=== PATIENT | male | born 1960 | race Caucasian/White ===

== ENCOUNTER 2023-04-15 16:55 | Inpatient (IN) | payer BC, OTHER ==
[2023-04-15 18:54] LABS: Glucose,Whole Blood 296 mg/dL (70-110)
[2023-04-15] MEDS ORDERED: DIPH,PERTUS(ACELL)TETVAC-LF 0.5 ML VIAL IM ONE (18:56)
[2023-04-15] MEDS ORDERED: MORPHINE SULFATE 4 MG/ML SYRINGE IV STA (18:56)
[2023-04-15] MEDS ORDERED: VANCOMYCIN IV PER PHARMACY 1 EACH MISC MISCELLANE PRN (18:58)
[2023-04-15] MEDS ORDERED: SODIUM CHLORIDE 0.9% 1,000 ML IV STA ×3 (18:59→20:20)
[2023-04-15] MEDS ORDERED: CEFEPIME 2 GM in SODIUM CHLORIDE 0.9% 100 ML IVPB SCH (19:00)
[2023-04-15] MEDS ORDERED: VANCOMYCIN 1,750 MG in SODIUM CHLORIDE 0.9% 500 ML 500 ML IVPB ONE (19:30)
[2023-04-15 19:39] LABS: ALT 35 U/L (4-49); AST 69 U/L (17-59); African American GFR (CKD) 82 (>60 ml/min/1.73 sqM); Albumin 3.3 g/dL (3.5-5.0); Alkaline Phosphatase 194 U/L (38-126); Anion Gap 15 mmol/L; Blood Urea Nitrogen 27 mg/dL (9-20); Calcium 8.6 mg/dL (8.4-10.2); Carbon Dioxide 24 mmol/L (22-30); Chloride 88 mmol/L (98-107); Glucose 256 mg/dL (74-99); Non-African American GFR(CKD) 71 (>60 ml/min/1.73 sqM); Sodium 127 mmol/L (137-145); Total Bilirubin 1.6 mg/dL (0.2-1.3); Total Protein 6.9 g/dL (6.3-8.2)
[2023-04-15 19:52] LABS: Potassium 4.7 mmol/L (3.5-5.1)
[2023-04-15 19:59] LABS: HCT 40.8 % (39.0-53.0); MCHC 34.4 g/dL (31.0-37.0); MCV 90.2 fL (80.0-100.0); Mean Platelet Volume 9.3; Platelet Count 303 k/uL (150-450); RBC 4.53 m/uL (4.30-5.90); WBC 21.4 k/uL (3.8-10.6)
--- NOTE | 2023-04-15 20:01 | XR ---
EXAMINATION TYPE: XR foot limited RT DATE OF EXAM: 04/15/2023 COMPARISON: NONE HISTORY: 62-year-old male with wound, evaluate for osteomyelitis TECHNIQUE: 2 views FINDINGS: There is an ulcer along the ball of the foot. However, no discrete underlying osteolysis or bony dest ruction is identified. However, there is forefoot soft tissue swelling and soft tissue gas along the medial forefoot especia lly along the plantar aspect. Small focus of soft tissue air also present along the plantar hindfoot and also tracking along the posteromedial ankle and lower leg. No acute fracture, subluxation, or dis location. Bipartite tibial sesamoid. IMPRESSION: 1. There is a soft tissue ulcer along the medial ball of the foot but no convincing findings of under lying contiguous osteomyelitis at this time. 2. However, there is tracking plantar soft tissue air predominantly in the medial forefoot, small foc us in the plantar hindfoot, and additional extensive air tracking along the posteromedial ankle and d istal leg. Correlate for diabetic foot infection with gas-forming organism.
[2023-04-15] MEDS ORDERED: MORPHINE SULFATE 4 MG/ML SYRINGE IVP STA (20:34)
[2023-04-15 20:42] LABS: Band Neutrophils % 3 %; Lymphocytes # (M) 1.28 k/uL (1.0-4.8); Monocytes # (M) 0.86 k/uL (0-1.0); Myelocytes # (M) 0.21 k/uL (0); Myelocytes % 1 %; Neutrophils % (M) 87 %; Nucleated Red Blood Cells 0 /100 WBC (0-0); Total Cells Counted 200
[2023-04-15] MEDS ORDERED: HYDROmorphone 0.5 MG/0.5 ML SYRINGE IVP PRN (20:57)
[2023-04-15] MEDS ORDERED: NALOXONE 0.4 MG/ML 1 ML VIAL IV PRN (20:57)
[2023-04-15 21:05] LABS: Polychromasia Present; Toxic Granulation Present
[2023-04-15] MEDS ORDERED: CLINDAMYCIN 600 MG in DEXTROSE 5% IN WATER 50 ML IVPB ONE ×2 (21:15)
[2023-04-15 21:45] LABS: Glucose,Whole Blood 195 mg/dL (70-110)
[2023-04-15] MEDS ORDERED: LABETALOL 5 MG/ML VIAL MDV ONE (22:19)
[2023-04-15] MEDS ORDERED: fentaNYL (PF) 50 MCG/ML 2 ML AMP ONE (22:19)
[2023-04-15] MEDS ORDERED: PROPOFOL 10 MG/ML 20 ML VIAL IV ONE (22:19)
[2023-04-15] MEDS ORDERED: IV FLUID CONTINUATION 1,000 ML IV ONE (22:19)
[2023-04-15] MEDS ORDERED: ROCURONIUM 10 MG/ML (5 ML VIAL) IV ONE (22:19)
[2023-04-15] MEDS ORDERED: SUCCINYLCHOLINE CHLORIDE 200 MG/10 ML VIAL IV ONE (22:19)
[2023-04-15] MEDS ORDERED: LACTATED RINGERS 1,000 ML IV ONE (22:19)
[2023-04-15] MEDS ORDERED: LIDOCAINE 1% INJ 10MG/ML (20 ML MDV) ONE (22:19)
[2023-04-15 23:26] LABS: Glucose,Whole Blood 194 mg/dL (70-110)
[2023-04-15] MEDS ORDERED: LABETALOL 5 MG/ML VIAL MDV IVP STA (23:34)
--- NOTE | 2023-04-15 23:35 | ED ---
General Adult HPI - General Chief complaint: Wound/Laceration Stated complaint: R foot injury Time Seen by Provider: 04/15/23 18:28 Source: patient, RN notes reviewed, old records reviewed Mode of arrival: ambulatory Limitations: no limitations - History of Present Illness Initial comments: Patient is a 62-year-old [id number] diabetic who presents emergency Department complaining of right lower extremity infection. States he believes last Tuesday he stepped on something at work and began experiencing pain over the wound located beneath his right big toe. Since that time infection seems to have spread and he is having redness, increasing pain, increasing swelling extending up his right calf. He denies fevers but does endorse chills. Delayed coming for evaluation but presents today for further evaluation at this time. No other acute complaints at this time. - Related Data Home Medications Medication Instructions Recorded Confirmed HYDROcodone/APAP 7.5-325MG [[place] 1 tab PO TID 04/15/23 04/15/23 7.5-325] Januvia(Unknown Dose) 1 tab PO DAILY 04/15/23 04/15/23 metFORMIN HCL 1,000 mg PO DIRECTED 04/15/23 04/15/23 Allergies Allergy/AdvReac Type Severity Reaction Status Date / Time No Known Allergies Allergy Verified 04/15/23 20:38 Review of Systems ROS Statement: Those systems with pertinent positive or pertinent negative responses have been documented in the HPI. Review of Systems: CONST: Denies fever EYES: Denies blurry vision ENT: Denies nasal congestion C/V: Denies Chest pain RESP: Denies shortness of breath GI: Denies abdominal pain : Denies dysuria SKIN: Endorses right lower extremity infection MSK: Denies joint pain. NEURO: Denies headache ROS Other: All systems not noted in ROS Statement are negative. Past Medical History Past Medical History: Diabetes Mellitus Additional Past Medical History / Comment(s): Back pain History of Any Multi-Drug Resistant Organisms: None Reported Past Surgical History: No Surgical Hx Reported Past Psychological History: No Psychological Hx Reported Smoking Status: Current every day smoker Past Alcohol Use History: None Reported Past Drug Use History: Marijuana General Exam - General Exam Comments Initial Comments: General: Appears in mild distress. Afebrile. HEAD: Normal with no signs of head trauma. EYES: PERRLA, EOMI, conjunctiva normal, no discharge. ENT: Hearing grossly intact, normal oropharynx. RESPIRATORY: Clear breath sounds bilaterally. No wheezes, rales, or rhonchi. C/V: Tachycardic. S1 and S2 auscultated, peripheral pulses 2+ and intact throughout ABD: Abd is soft, nontender, nondistended EXT: Decreased range of motion secondary to edema and infection SKIN: Patient does have what appears to be wet gangrene with bullae present over the distal right foot and the first, second, third digits as well as a wound located on the plantar aspect of the distal right MTP, first joint. Patient also has surrounding erythema and edema extending up the posterior aspect of the right calf. NEURO: Alert and oriented 4. Limitations: no limitations Course Vital Signs 04/15/23 04/15/23 17:14 18:46 Temperature 98.7 F 98.6 F Pulse Rate 134 H 128 H Respiratory 20 18 Rate Blood Pressure 116/74 O2 Sat by Pulse 97 98 Oximetry Procedures - [place] Protocol (Time Out) Patient Identification (2 identifiers required): Chart, Name, Birthdate Patient/Legal Manager Book has Confirmed: Identity, Site, Procedure, Consent Site Marked: No Medical Decision Making - Medical Decision Making Was pt. sent in by a medical professional or institution (, PA, EXTENSION COURSE COORDINATOR, urgent care, hospital, or detention...) When possible be specific @ -No Did you speak to anyone other than the patient for history (EMS, parent, family, police, friend...)? What history was obtained from this source @ -No Did you review nursing and triage notes (agree or disagree)? Why? @ -I reviewed and agree with nursing and triage notes Were old charts reviewed (outside hosp., previous admission, EMS record, old EKG, old radiological studies, urgent care reports/EKG's, detention records)? Report findings @ -Old charts reviewed Differential Diagnosis (chest pain, altered mental status, abdominal pain women, abdominal pain men, vaginal bleeding, weakness, fever, dyspnea, syncope, headache, dizziness, GI bleed, back pain, seizure, CVA, palpatations, mental health, musculoskeletal)? @ -Cellulitis, foot gangrene, necrotizing infection, poorly controlled diabetes. This list is not all inclusive. EKG interpreted by me (3pts min.). @ -As above X-rays interpreted by me (1pt min.). @ -X-ray reveals air extending up past the right ankle. Concern for necrotizing infection. CT interpreted by me (1pt min.). @ -None done U/S interpreted by me (1pt. min.). @ -None done What testing was considered but not performed or refused? (CT, X-rays, U/S, labs)? Why? @ -None What meds were considered but not given or refused? Why? @ -None Did you discuss the management of the patient with other professionals (professionals i.e. , PA, EXTENSION COURSE COORDINATOR, lab, RT, psych nurse, social services assistant, fruit receiver, teacher, ground defence officer, transplant case manager)? Give summary @ -Discussed the case with Dr. Mathur who is in agreement with management and was in agreement with taking patient operating room. Discussed the case with the admitting physician, Dr. malhotra who accepted the patient. Was smoking cessation discussed for >3mins.? @ -No Was critical care preformed (if so, how long)? @ -Yes, 35 min Were there social determinants of health that impacted care today? How? (Homelessness, low income, unemployed, alcoholism, drug addiction, transportation, low edu. Level, literacy, decrease access to med. care, retirement, r ehab)? @ -No Was there de-escalation of care discussed even if they declined (Discuss DNR or withdrawal of care, Hospice)? DNR status @ -No What co-morbidities impacted this encounter? (DM, HTN, Smoking, COPD, CAD, Cancer, CVA, ARF, Chemo, Hep., AIDS, mental health diagnosis, sleep apnea, morbid obesity)? @ -Diabetes Was patient admitted / discharged? Hospital course, mention meds given and route, prescriptions, significant lab abnormalities, going to OR and other pertinent info. @ -Based on patient's presentation and physical exam, I'm concerned for soft tissue infection particularly wet gangrene based on initial evaluation. We will obtain basic labs, wound as well as blood cultures, as well as x-ray to evaluate process or myelitis. Patient with plan. Patient started on IV fluids, tetanus booster updated. Patient started on vancomycin and cefepime for broad spectrum antibiotics. He was given IV analgesia medications. Patient in agreement with this plan. Patient is afebrile. Vital signs within acceptable limits except for tachycardia. Patient's labs are remarkable for a leukocytosis of 21. Lactic acidosis of 3.9. Patient's imaging concerning for necrotizing infection with air stranding extending up the posterior aspect of the right leg. Patient met sepsis criteria at 2114 when the results returned. Patient was already started on vancomycin and cefepime. Patient now started on clindamycin over concern for necrotizing infection I did switch patient's cefepime and order for Zosyn at this time. This will cover for necrotizing fasciitis. I spoke with vascular surgery Dr. Mathur who was in agreement with the concern and will take the patient to the operating room for debridement. Was in agreement with management. I spoke with the admitting physician Dr. malhotra who accepted the patient. I did the patient and he expressed understanding. Undiagnosed new problem with uncertain prognosis? @ -No Drug Therapy requiring intensive monitoring for toxicity (Heparin, Nitro, Insulin, Cardizem)? @ -No Were any procedures done? @ -No Diagnosis/symptom? @ -Sepsis caused by Diabetic right foot wound wet gangrene with concern for necrotizing fasciitis Acute, or Chronic, or Acute on Chronic? @ -Acute Uncomplicated (without systemic symptoms) or Complicated (systemic symptoms)? @ -Complicated Side effects of treatment? @ -No Exacerbation, Progression, or Severe Exacerbation? @ -No Poses a threat to life or bodily function? How? (Chest pain, USA, IA, pneumonia, PE, COPD, DKA, ARF, appy, cholecystitis, CVA, Diverticulitis, Homicidal, Suicidal, threat to staff... and all critical care pts) @ -Yes - Lab Data Result diagrams: 04/15/23 19:02 04/15/23 19:02 Lab Results 04/15/23 04/15/23 04/15/23 Range/Units 18:52 19:02 19:02 WBC 21.4 H (3.8-10.6) k/uL RBC 4.53 (4.30-5.90) m/uL Hgb 14.0 (13.0-17.5) gm/dL Hct 40.8 (39.0-53.0) % MCV 90.2 (80.0-100.0) fL MCH 31.0 (25.0-35.0) pg MCHC 34.4 (31.0-37.0) g/dL RDW 13.0 (11.5-15.5) % Plt Count 303 (150-450) k/uL MPV 9.3 Neutrophils % (Manual) 87 % Band Neuts % (Manual) 3 % Lymphocytes % (Manual) 6 % Monocytes % (Manual) 4 % Myelocytes % 1 % Neutrophils # (Manual) 19.20 H (1.3-7.7) k/uL Lymphocytes # (Manual) 1.28 (1.0-4.8) k/uL Monocytes # (Manual) 0.86 (0-1.0) k/uL Myelocytes # (Manual) 0.21 H (0) k/uL Nucleated RBCs 0 (0-0) /100 WBC Manual Slide Review Performed Toxic Granulation Present Polychromasia Present Sodium 127 L (137-145) mmol/L Potassium 4.7 (3.5-5.1) mmol/L Chloride 88 L (98-107) mmol/L Carbon Dioxide 24 (22-30) mmol/L Anion Gap 15 mmol/L BUN 27 H (9-20) mg/dL Creatinine 1.10 (0.66-1.25) mg/dL Est GFR (CKD-EPI)AfAm 82 (>60 ml/min/1.73 sqM) Est GFR (CKD-EPI)NonAf 71 (>60 ml/min/1.73 sqM) Glucose 256 H (74-99) mg/dL POC Glucose (mg/dL) 296 H (70-110) mg/dL POC Glu Ostomy Care Nurse ID Carlo Preciado Lactic Ac Sepsis Rflx Plasma Lactic Acid Omid (0.7-2.0) mmol/L Calcium 8.6 (8.4-10.2) mg/dL Total Bilirubin 1.6 H (0.2-1.3) mg/dL AST 69 H (17-59) U/L ALT 35 (4-49) U/L Alkaline Phosphatase 194 H (38-126) U/L Total Protein 6.9 (6.3-8.2) g/dL Albumin 3.3 L (3.5-5.0) g/dL 04/15/23 04/15/23 Range/Units 19:02 19:33 WBC (3.8-10.6) k/uL RBC (4.30-5.90) m/uL Hgb (13.0-17.5) gm/dL Hct (39.0-53.0) % MCV (80.0-100.0) fL MCH (25.0-35.0) pg MCHC (31.0-37.0) g/dL RDW (11.5-15.5) % Plt Count (150-450) k/uL MPV Neutrophils % (Manual) % Band Neuts % (Manual) % Lymphocytes % (Manual) % Monocytes % (Manual) % Myelocytes % % Neutrophils # (Manual) (1.3-7.7) k/uL Lymphocytes # (Manual) (1.0-4.8) k/uL Monocytes # (Manual) (0-1.0) k/uL Myelocytes # (Manual) (0) k/uL Nucleated RBCs (0-0) /100 WBC Manual Slide Review Toxic Granulation Polychromasia Sodium (137-145) mmol/L Potassium (3.5-5.1) mmol/L Chloride (98-107) mmol/L Carbon Dioxide (22-30) mmol/L Anion Gap mmol/L BUN (9-20) mg/dL Creatinine (0.66-1.25) mg/dL Est GFR (CKD-EPI)AfAm (>60 ml/min/1.73 sqM) Est GFR (CKD-EPI)NonAf (>60 ml/min/1.73 sqM) Glucose (74-99) mg/dL POC Glucose (mg/dL) (70-110) mg/dL POC Glu Ostomy Care Nurse ID Lactic Ac Sepsis Rflx Y Plasma Lactic Acid Omid 3.9 H* (0.7-2.0) mmol/L Calcium (8.4-10.2) mg/dL Total Bilirubin (0.2-1.3) mg/dL AST (17-59) U/L ALT (4-49) U/L Alkaline Phosphatase (38-126) U/L Total Protein (6.3-8.2) g/dL Albumin (3.5-5.0) g/dL Critical Care Time Critical Care Time: Yes Total Critical Care Time: 35 Disposition Clinical Impression: Wound of foot, Wet gangrene, Necrotizing soft tissue infection Disposition: ADMITTED IP TO THIS HOSP Condition: Serious Time of Disposition: 20:45
--- NOTE | 2023-04-15 23:46 | P.GSCN ---
History of Present Illness Consult date: 04/15/23 Reason for Consult: Right foot and leg infection. History of present illness: Patient is a 62-year-old male who presented to the emergency department earlier today with a 3-4 day history of right foot pain and swelling. He had not sought any prior medical care until presenting to the emergency department. He did complain of fevers. He denies any trauma to the foot or leg or any previous similar symptoms. In the emergency department x-rays of the foot were obtained which demonstrated air in the lower third of the leg. Additional x-rays were obtained which demonstrated subcutaneous air to the thigh area posteriorly. Patient is a current tobacco user and has a history of diabetes mellitus. The patient has not been under the care of any physician for number of years and due to financial reasons has not been able to obtain his diabetic medications. Review of Systems - Constitutional Reports chills, Reports fever - Musculoskeletal right: ankle pain, ankle stiffness, ankle swelling, as per HPI, foot pain, foot stiffness, foot swelling - Integumentary Integumentary Comment(s): Erythema extending from the foot to the upper calf area on the right. Past Medical History Past Medical History: Diabetes Mellitus Additional Past Medical History / Comment(s): Back pain History of Any Multi-Drug Resistant Organisms: None Reported Past Surgical History: No Surgical Hx Reported Past Psychological History: No Psychological Hx Reported Smoking Status: Current every day smoker Past Alcohol Use History: None Reported Past Drug Use History: Marijuana Medications and Allergies Home Medications Medication Instructions Recorded Confirmed Type HYDROcodone/APAP 7.5-325MG [[place] 1 tab PO TID 04/15/23 04/15/23 History 7.5-325] Januvia(Unknown Dose) 1 tab PO DAILY 04/15/23 04/15/23 History metFORMIN HCL 1,000 mg PO DIRECTED 04/15/23 04/15/23 History Allergies Allergy/AdvReac Type Severity Reaction Status Date / Time No Known Allergies Allergy Verified 04/15/23 20:38 Surgical - Exam Osteopathic Statement: *. No significant issues noted on an osteopathic str uctural exam other than those noted in the History and Physical/Consult. Vital Signs Temp Pulse Resp Pulse Ox 98.7 F 134 H 20 97 04/15/23 17:14 04/15/23 17:14 04/15/23 17:14 04/15/23 17:14 Patient Seen Date: 04/15/23 Patient Seen Time: 20:15 Patient is awake, alert and cooperative. Neck is supple and free of adenopathy or bruit. Heart: Regular rate and rhythm. Lungs: Clear to auscultation bilaterally. Abdomen: Soft and nontender. Normal active bowel sounds are noted. Extremities: The left lower extremity demonstrates easily palpable femoral, popliteal, DP and PT pulses. The left lower extremity demonstrates an easily palpable femoral pulse. The popliteal pulse is present however I could not palpate a DP or PT pulse most likely secondary to edema and inflammatory changes of the foot. There is crepitus to palpation along the calf extending above the popliteal level. There is a callus at the first metatarsal head and when the foot is [id number] drainage is expressed from this callus. Results - Labs 04/15/23 19:02 04/15/23 19:02 Abnormal Lab Results - Last 24 Hours (Table) 04/15/23 04/15/23 04/15/23 Range/Units 18:52 19:02 19:02 WBC 21.4 H (3.8-10.6) k/uL Neutrophils # (Manual) 19.20 H (1.3-7.7) k/uL Myelocytes # (Manual) 0.21 H (0) k/uL Sodium 127 L (137-145) mmol/L Chloride 88 L (98-107) mmol/L BUN 27 H (9-20) mg/dL Glucose 256 H (74-99) mg/dL POC Glucose (mg/dL) 296 H (70-110) mg/dL Plasma Lactic Acid Omid (0.7-2.0) mmol/L Total Bilirubin 1.6 H (0.2-1.3) mg/dL AST 69 H (17-59) U/L Alkaline Phosphatase 194 H (38-126) U/L Albumin 3.3 L (3.5-5.0) g/dL 04/15/23 04/15/23 04/15/23 Range/Units 19:02 21:33 23:24 WBC (3.8-10.6) k/uL Neutrophils # (Manual) (1.3-7.7) k/uL Myelocytes # (Manual) (0) k/uL Sodium (137-145) mmol/L Chloride (98-107) mmol/L BUN (9-20) mg/dL Glucose (74-99) mg/dL POC Glucose (mg/dL) 195 H 194 H (70-110) mg/dL Plasma Lactic Acid Omid 3.9 H* (0.7-2.0) mmol/L Total Bilirubin (0.2-1.3) mg/dL AST (17-59) U/L Alkaline Phosphatase (38-126) U/L Albumin (3.5-5.0) g/dL Diabetes panel 04/15/23 Range/Units 19:02 Sodium 127 L (137-145) mmol/L Potassium 4.7 (3.5-5.1) mmol/L Chloride 88 L (98-107) mmol/L Carbon Dioxide 24 (22-30) mmol/L BUN 27 H (9-20) mg/dL Creatinine 1.10 (0.66-1.25) mg/dL Glucose 256 H (74-99) mg/dL Calcium 8.6 (8.4-10.2) mg/dL AST 69 H (17-59) U/L ALT 35 (4-49) U/L Alkaline Phosphatase 194 H (38-126) U/L Total Protein 6.9 (6.3-8.2) g/dL Albumin 3.3 L (3.5-5.0) g/dL Calcium panel 04/15/23 Range/Units 19:02 Calcium 8.6 (8.4-10.2) mg/dL Albumin 3.3 L (3.5-5.0) g/dL Pituitary panel 04/15/23 Range/Units 19:02 Sodium 127 L (137-145) mmol/L Potassium 4.7 (3.5-5.1) mmol/L Chloride 88 L (98-107) mmol/L Carbon Dioxide 24 (22-30) mmol/L BUN 27 H (9-20) mg/dL Creatinine 1.10 (0.66-1.25) mg/dL Glucose 256 H (74-99) mg/dL Calcium 8.6 (8.4-10.2) mg/dL Adrenal panel 04/15/23 Range/Units 19:02 Sodium 127 L (137-145) mmol/L Potassium 4.7 (3.5-5.1) mmol/L Chloride 88 L (98-107) mmol/L Carbon Dioxide 24 (22-30) mmol/L BUN 27 H (9-20) mg/dL Creatinine 1.10 (0.66-1.25) mg/dL Glucose 256 H (74-99) mg/dL Calcium 8.6 (8.4-10.2) mg/dL Total Bilirubin 1.6 H (0.2-1.3) mg/dL AST 69 H (17-59) U/L ALT 35 (4-49) U/L Alkaline Phosphatase 194 H (38-126) U/L Total Protein 6.9 (6.3-8.2) g/dL Albumin 3.3 L (3.5-5.0) g/dL - Imaging Additional studies: X-rays of the right lower extremity were personally reviewed. Assessment and Plan Assessment: Suspected necrotizing fasciitis of the right lower extremity Sepsis. Uncontrolled diabetes mellitus. Current tobacco use. Leukocytosis. Plan: Patient will require urgent surgical intervention. He was explained the patient as well as his daughter that there is a high risk for the need of amputation, the level which has yet to be determined. Time with Patient: Greater than 30
--- NOTE | 2023-04-15 23:54 | P.OP ---
Date of Procedure: 04/15/23 Preoperative Diagnosis: Necrotizing fasciitis right foot and lower extremity. Postoperative Diagnosis: Same. Procedure(s) Performed: Incision and drainage of extensive deep space abscess of the foot extending along the posterior aspect of the calf to the mid thigh level was sterilely. Anesthesia: JOSHA Surgeon: Benson Ibarra Estimated Blood Loss (ml): 25 Pathology: other (Culture) Condition: critical Disposition: ICU Indications for Procedure: Patient is a 62-year-old male who presented earlier today to the emergency department complaining of right foot pain and swelling. Examination demonstrated an open wound on the plantar surface of his foot as well as erythema of the foot extending to the upper calf level. Crepitus was noted along the posterior calf and extended to above the popliteal level. X-rays of the lower extremity demonstrated subcutaneous air/gas from the ankle level to the thigh level. Laboratory evaluation demonstrated a white cell count 21,000. The patient was placed on IV antibiotics and IV fluids and was offered incision and drainage to help control the infectious process. It was made clear to the patient as well as to his daughter that there is a high risk of some degree of amputation. All questions were answered to patient and daughter satisfaction. Consent form signed. Operative Findings: Extensive infectious process extending from the plantar surface of the foot to the calf level and into the posterior thigh with evidence of early muscle necrosis. The infection extended across multiple tissue planes. Description of Procedure: Patient was brought the upper and placed in the supine position Mr. general endotracheal anesthesia delivered by the department anesthesiology. Patient was then placed in the prone position and the right lower extremity sterilely prepped and draped in usual manner. On the plantar surface of the foot at the first metatarsal head a callus was identified which measured 1.75 x 1.25 x 6-7 mm in depth. When the foot was compressed purulent drainage was expressed. Tunneling was identified toward the heel area and laterally. This tunneling was eventually followed up the calf area, across the popliteal space and into the posterior thigh area ending near the upper thigh area. Cultures were obtained. Wound was irrigated. Bleeding was controlled with electrocautery. The soft tissue was easily from the muscle in the calf area. The wound was then packed with Dakin's's soaked gauze and wrapped with Curlex and Rj wrap. Patient tolerated the procedure well and was taken to the intensive care unit in serious condition. Arterial line is to be placed by anesthesia. I did reach out to the critical care physician infection prevention practitioner and reviewed surgical findings. Additionally did speak with the patient's daughter postoperatively and indicated that he may need a high thigh amputation or possible hip disarticulation
[2023-04-16 00:05] LABS: ABG Base Excess 0.7 mmol/L; ABG HCO3 26 mmol/L (21-25); ABG Oxygen Saturation 98.4 % (94-97); ABG PCO2 45 mmHg (35-45); ABG PH 7.37 (7.35-7.45); ABG PO2 142 mmHg (83-108); ABG TCO2 27 mmol/L (19-24); Allen Test Performed? Yes
[2023-04-16 00:34] LABS: Appearance,Urine Cloudy (Clear); Bacteria,Urine Rare /hpf; Bilirubin,Urine Negative (Negative); Blood,Urine Moderate (Negative); Color,Urine Yellow; Glucose,Urine (UA) 3+ (Negative); Hyaline Casts,Urine 4 /lpf (0-2); Ketones,Urine Negative (Negative); Leukocyte Esterase,Urine Negative (Negative); Mucus,Urine Rare /hpf; Nitrite,Urine Negative (Negative); PH, Urine 5.5 (5.0-8.0); Protein,Urine 1+ (Negative); RBC,Urine 2 /hpf (0-5); Specific Gravity,Urine 1.026 (1.001-1.035); Squamous Epithelial Cell,Urine <1 /hpf (0-4); Urobilinogen,Urine <2.0 mg/dL (<2.0); WBC,Urine 3 /hpf (0-5)
[2023-04-16] MEDS: fentaNYL (PF). 1,000 MCG in SODIUM CHLORIDE 0.9% 80 ML IV SCH ×3 (01:10→17:35)
[2023-04-16] MEDS: NOREPINEPHRINE 4 MG in SODIUM CHLORIDE 0.9% 250 ML IV SCH ×3 (01:15→08:39)
--- NOTE | 2023-04-16 01:20 | XR ---
EXAM: XR Right Femur CLINICAL HISTORY: ITS.REASON XR Reason: emergency surgery TECHNIQUE: Frontal view of the right femur. COMPARISON: No relevant prior studies available. FINDINGS: Bones/joints: No acute fracture. No dislocation. Soft tissues: Soft tissue emphysema around the knee joint. IMPRESSION: No acute osseous abnormalities. Soft tissue emphysema around the knee joint. Cannot exclude necrotizing fasciitis.
--- NOTE | 2023-04-16 01:20 | XR ---
EXAM: XR Right Tibia and Fibula, 2 Views CLINICAL HISTORY: ITS.REASON XR Reason: emergency surgery TECHNIQUE: Frontal and lateral views of the right tibia and fibula. COMPARISON: No relevant prior studies available. FINDINGS: Bones/joints: No acute fracture. No dislocation. Mild to moderate osteoarthrosis. Soft tissues: Soft tissue emphysema seen from above the knee all the way to the ankle. IMPRESSION: Soft tissue emphysema seen from above the knee all the way to the ankle. Cannot exclude necrotizing fasciitis No acute osseous abnormalities. <MYCVCSECTION> Communications: 04/16/23 01:47 Verify Receipt with Nurse Verified receipt with ER Clerk Bryan on 04/16 01:47 (-05:00)
[2023-04-16] MEDS ORDERED: SODIUM CHLORIDE 0.9% 1,000 ML IV ONE (01:27)
[2023-04-16] MEDS: PIPERACILLIN-TAZOBACTAM 3.375 GM in SODIUM CHLORIDE 0.9% 100 ML IVPB SCH ×3 (02:08→16:59)
--- NOTE | 2023-04-16 02:13 | XR ---
EXAM: XR Chest, 1 View CLINICAL HISTORY: ITS.REASON XR Reason: Tube placement TECHNIQUE: Frontal view of the chest. COMPARISON: No relevant prior studies available. IMPRESSION: ET tube terminates 7.8 cm from the tatiana. NG tube courses into the stomach
[2023-04-16 02:55] LABS: Glucose,Whole Blood 169 mg/dL (70-110)
[2023-04-16 03:50] LABS: African American GFR (CKD) >90 (>60 ml/min/1.73 sqM); Anion Gap 11 mmol/L; Blood Urea Nitrogen 26 mg/dL (9-20); Calcium 7.3 mg/dL (8.4-10.2); Carbon Dioxide 22 mmol/L (22-30); Chloride 97 mmol/L (98-107); Glucose 172 mg/dL (74-99); Non-African American GFR(CKD) >90 (>60 ml/min/1.73 sqM); Potassium 3.7 mmol/L (3.5-5.1); Sodium 130 mmol/L (137-145)
[2023-04-16] MEDS ORDERED: POTASSIUM CHLORIDE ER 20 MEQ TAB.ER PO SCH (05:00)
[2023-04-16 05:49] LABS: Glucose,Whole Blood 192 mg/dL (70-110)
[2023-04-16 05:51] LABS: ABG HCO3 24 mmol/L (21-25); ABG Oxygen Saturation 96.8 % (94-97); ABG PCO2 38 mmHg (35-45); ABG PO2 89 mmHg (83-108); ABG TCO2 25 mmol/L (19-24); Allen Test Performed? Yes
[2023-04-16] MEDS: CLINDAMYCIN 600 MG in DEXTROSE 5% IN WATER 50 ML IVPB SCH ×4 (05:59→15:03)
[2023-04-16] MEDS ORDERED: DEXTROSE 50% SYRINGE 50 ML IVP PRN ×2 (06:20)
[2023-04-16 06:25] LABS: African American GFR (CKD) >90 (>60 ml/min/1.73 sqM); Anion Gap 11 mmol/L; Blood Urea Nitrogen 25 mg/dL (9-20); Calcium 7.6 mg/dL (8.4-10.2); Carbon Dioxide 22 mmol/L (22-30); Chloride 97 mmol/L (98-107); Glucose 168 mg/dL (74-99); Non-African American GFR(CKD) 78 (>60 ml/min/1.73 sqM); Potassium 3.9 mmol/L (3.5-5.1); Sodium 130 mmol/L (137-145)
[2023-04-16 06:34] LABS: HCT 36.9 % (39.0-53.0); HGB 12.1 gm/dL (13.0-17.5); MCHC 32.9 g/dL (31.0-37.0); MCV 91.4 fL (80.0-100.0); Mean Platelet Volume 7.3; Platelet Count 457 k/uL (150-450); RBC 4.04 m/uL (4.30-5.90); RDW 13.2 % (11.5-15.5); WBC 17.1 k/uL (3.8-10.6)
[2023-04-16 06:55] LABS: Band Neutrophils % 24 %; Lymphocytes # (M) 1.37 k/uL (1.0-4.8); Metamyelocytes # (M) 0.17 k/uL (0); Metamyelocytes % 1 %; Monocytes # (M) 0.34 k/uL (0-1.0); Myelocytes # (M) 0.17 k/uL (0); Myelocytes % 1 %; Neutrophils % (M) 64 %; Nucleated Red Blood Cells 0 /100 WBC (0-0); Total Cells Counted 100; Toxic Granulation Present; Toxic Vacuolation Present
[2023-04-16 07:10] LABS: Glucose,Whole Blood 181 mg/dL (70-110)
[2023-04-16] MEDS ORDERED: INSULIN ASPART (NovoLOG) 100 UNIT/ML VIAL SQ SCH (07:30)
[2023-04-16] MEDS ORDERED: CHLORHEXIDINE GLUCONATE 15 ML CUP MUCOUS MEM SCH (09:00)
[2023-04-16] MEDS ORDERED: VANCOMYCIN 1,750 MG in SODIUM CHLORIDE 0.9% 500 ML 500 ML IVPB SCH (09:00)
[2023-04-16] MEDS ORDERED: PANTOPRAZOLE 40 MG/10 ML VIAL IV SCH (09:00)
--- NOTE | 2023-04-16 09:07 | P.CNPUL ---
History of Present Illness Consult date: 04/16/23 Chief complaint: Right lower extremity necrotizing fasciitis History of present illness: 62-year-old male patient, currently intubated on a mechanical ventilator for necrotizing fasciitis and septic shock. This patient is diabetic. He presented to the ED with the right foot pain and swelling. Examination of the right lower extremity revealed open wounds on the plantar surface of the foot as well as erythema that was extending to the upper calf. There was crepitus noted in the posterior calvaria extending into the posterior tibial level. X-ray demonstrates a venous gas and air from the ankle level to the thigh level. His white cell count was elevated and the patient was septic. He was started on IV fluids and antibiotics and he was taken to the operating room for incision and drainage of the extensive deep space abscess of the foot extending along the posterior aspect of the calf and the midthigh level. The patient had an es timated blood loss of 25 mL. He was kept intubated on a mechanical ventilator and the patient was brought into the intensive care unit. He has been resuscitated aggressively with IV fluids. The patient received a total of 2 L immediately after he arrives to the intensive care unit. He is currently on normal saline at the rate of 130 mL an hour. He is also on pressors and norepinephrine is running at 0.2 mcg/kg/m. He is sedated with a combination of propofol which is running at 35 g of fentanyl running at 1 mcg/kg gram per hour. The patient is on a chemical ventilator, assist control mode at the rate of 16, tidal volume of 600, FiO2 40% with a PEEP of 5. Blood gas showed a pH of 7.4 with a pCO2 of 38 and pO2 of 39. Urine output is in order of 7200 mL an hour. His BUN is at 25 and a creatinine of 1.01. Sodium level is at 1:30. Lactic acid level was 3.9 dropped down to 3.3. His WBC count at 17.1, hemoglobin is 12.1 and platelet count is 457. The patient is currently on broa d-spectrum antibiotics. He is on a combination of clindamycin, Zosyn and vancomycin. He continues to was and drained through the surgical dressing in his right lower extremity. Recommendations were made by the surgeon not to remove the dressing at this point in time. The drainage is essentially foul- smelling and there is a bad odor to it. Blood sugar is controlled and the patient is currently on an insulin sliding scale coverage. Review of Systems ROS unobtainable: due to endotracheal tube, due to mental status Past Medical History Past Medical History: Diabetes Mellitus Additional Past Medical History / Comment(s): Back pain History of Any Multi-Drug Resistant Organisms: None Reported Past Surgical History: No Surgical Hx Reported Past Anesthesia/Blood Transfusion Reactions: No Reported Reaction Past Psychological History: No Psychological Hx Reported Smoking Status: Current every day smoker Past Alcohol Use History: None Reported Past Drug Use History: Marijuana Medications and Allergies Home Medications Medication Instructions Recorded Confirmed Type HYDROcodone/APAP 7.5-325MG [[place] 1 tab PO TID 04/15/23 04/15/23 History 7.5-325] Januvia(Unknown Dose) 1 tab PO DAILY 04/15/23 04/15/23 History metFORMIN HCL 1,000 mg PO DIRECTED 04/15/23 04/15/23 History Allergies Allergy/AdvReac Type Severity Reaction Status Date / Time No Known Allergies Allergy Verified 04/15/23 20:38 Physical Exam Vitals: Vital Signs Temp Pulse Resp BP BP Pulse Ox FiO2 04/16/23 08:39 40 04/16/23 08:32 40 04/16/23 07:00 85 20 103/58 98 04/16/23 06:57 100.2 F H 16 103/58 98 04/16/23 06:45 85 19 104/61 98 04/16/23 06:30 87 21 99/59 98 04/16/23 06:15 89 24 95/57 98 04/16/23 06:00 93 25 H 100/59 97 04/16/23 05:45 101 H 23 178/70 96 04/16/23 05:30 133 H 27 H 169/57 98 04/16/23 05:15 113 H 23 97 04/16/23 05:00 103 H 26 H 104/59 98 04/16/23 04:45 89 21 102/58 97 04/16/23 04:30 89 24 102/59 98 04/16/23 04:15 89 21 102/57 04/16/23 04:00 88 24 97/56 50 04/16/23 03:45 89 20 99/58 100 04/16/23 03:30 89 19 112/61 99 04/16/23 03:20 40 04/16/23 03:10 90 20 112/61 99 04/16/23 03:00 99.2 F 91 16 110/63 04/16/23 02:50 90 20 110/63 100 04/16/23 02:40 87 19 110/63 100 04/16/23 02:30 90 18 104/61 100 04/16/23 02:20 88 19 104/61 100 04/16/23 02:10 87 15 104/61 100 04/16/23 02:00 88 21 94/57 100 04/16/23 01:50 90 22 94/57 98 04/16/23 01:40 91 20 94/57 98 04/16/23 01:30 92 18 91/52 97 04/16/23 01:20 96 18 91/52 96 04/16/23 01:10 107 H 17 91/52 93 L 04/16/23 01:00 107 H 23 81/50 94 L 04/16/23 00:50 124 H 19 95 04/16/23 00:40 125 H 18 97 04/16/23 00:30 124 H 19 98 04/16/23 00:20 113 H 21 98 04/16/23 00:12 40 04/16/23 00:10 130 H 17 99 04/16/23 00:00 113 H 16 99 50 04/15/23 23:50 116 H 18 192/84 99 04/15/23 23:40 117 H 16 192/84 96 04/15/23 23:30 98.8 F 151 H 16 192/84 100 04/15/23 23:25 50 04/15/23 18:46 98.6 F 128 H 18 116/74 98 04/15/23 17:14 98.7 F 134 H 20 97 Intake and Output 04/15/23 04/16/23 04/16/23 22:59 06:59 14:59 Intake Total 1000 1454.763 446.438 Output Total 625 800 Balance 1000 829.763 -353.562 Intake: IV 1000 1110 130 Clindamycin 600 mg In 100 Dextrose 5% in Water 50 ml @ 50 mls/hr IVPB ONCE ONE Rx#:[id number] Piperacillin-Tazobactam 3 100 .375 gm In Sodium Chloride 0.9% 100 ml @ 25 mls/hr IVPB Q8HR [facility] Rx# :[id number] Sodium Chloride 0.9% 1, 910 130 000 ml @ 130 mls/hr IV . [id number] [facility] Rx#:[id number] Intake, IV Titration 344.763 316.438 Amount Norepinephrine 4 mg In 246.769 233.188 Sodium Chloride 0.9% 250 ml @ 0.03 MCG/KG/MIN 11. 924 mls/hr IV .[id number] [facility] Rx#:[id number] fentaNYL (PF). 1,000 mcg 23.298 In Sodium Chloride 0.9% 80 ml @ 0.5 MCG/KG/HR 5. 216 mls/hr IV .[id number] [facility] Rx#:[id number] propofoL 1,000 mg In 74.696 83.25 Empty Bag 1 bag @ 15 MCG/ KG/MIN 9.389 mls/hr IV . [id number] [facility] Rx#:[id number] Output: Gastric Drainage 700 Urine 600 100 Estimated Blood Loss 25 Other: Voiding Method Indwelling Catheter Weight 95 kg 95 kg ABP, PAP, CO, CI - Last 8 Hours Arterial Blood Pressure 98/47 Arterial Blood Pressure 95/44 Arterial Blood Pressure 96/45 Arterial Blood Pressure 80/37 Arterial Blood Pressure 83/38 Arterial Blood Pressure 88/42 Arterial Blood Pressure 190/64 Arterial Blood Pressure 154/53 Arterial Blood Pressure 133/50 Arterial Blood Pressure 106/45 Arterial Blood Pressure 102/44 Arterial Blood Pressure 101/43 Arterial Blood Pressure 102/43 Arterial Blood Pressure 103/45 Arterial Blood Pressure 103/44 Arterial Blood Pressure 129/45 Arterial Blood Pressure 122/43 Arterial Blood Pressure 125/47 Arterial Blood Pressure 118/44 Arterial Blood Pressure 119/46 Arterial Blood Pressure 104/45 Arterial Blood Pressure 109/43 Arterial Blood Pressure 106/41 Arterial Blood Pressure 101/41 Arterial Blood Pressure 90/38 Arterial Blood Pressure 95/40 Arterial Blood Pressure 88/37 Arterial Blood Pressure 97/39 Arterial Blood Pressure 86/39 The patient is currently intubated on a mechanical ventilator. He is sedated. He is on propofol and fentanyl in combination. Head exam was generally normal. There was no scleral icterus or corneal arcus. Mucous membranes were moist. Neck was supple and without jugular venous distension, thyromegaly, or carotid bruits. Carotids were easily palpable bilaterally. There was no adenopathy. Orogastric and orotracheal tube are both in place. Lungs were clear to auscultation and percussion, and with normal diaphragmatic excursion. No wheezes or rales were noted. Cardiac exam revealed the PMI to be normally situated and sized. The rhythm was regular and no extrasystoles were noted during several minutes of auscultation. The first and second heart sounds were normal and physiologic splitting of the second heart sound was noted. There were no murmurs, rubs, clicks, or gallops. Abdominal exam revealed normal bowel sounds. The abdomen was soft, non-tender, and without masses, organomegaly, or appreciable enlargement of the abdominal aorta. Right lower extremity is essentially swollen. There is a Rj wrap from his foot all the way up to his mid thigh. There is also underlying Curlex. The dressing is soaked and there is active foul-smelling cloudy turbid drainage throughout the right lower extremity. Left lower extremities within normal limits. Results - Laboratory Findings CBC and BMP: 04/16/23 05:45 04/16/23 05:45 ABG ABG pH 7.40 (7.35-7.45) 04/16/23 05:46 ABG pCO2 38 mmHg (35-45) 04/16/23 05:46 ABG pO2 89 mmHg (83-108) 04/16/23 05:46 ABG O2 Saturation 96.8 % (94-97) 04/16/23 05:46 Abnormal lab findings: Abnormal Labs 04/15/23 04/15/23 04/15/23 18:52 19:02 19:02 WBC 21.4 H RBC Hgb Hct Plt Count Neutrophils # (Manual) 19.20 H Metamyelocytes # (Man) Myelocytes # (Manual) 0.21 H ABG pO2 ABG HCO3 ABG Total CO2 ABG O2 Saturation Sodium 127 L Chloride 88 L BUN 27 H Glucose 256 H POC Glucose (mg/dL) 296 H Plasma Lactic Acid Omid Calcium Total Bilirubin 1.6 H AST 69 H Alkaline Phosphatase 194 H Albumin 3.3 L Urine Protein Urine Glucose (UA) Urine Blood Urine Bacteria Hyaline Casts Urine Mucus 04/15/23 04/15/23 04/15/23 19:02 21:33 23:24 WBC RBC Hgb Hct Plt Count Neutrophils # (Manual) Metamyelocytes # (Man) Myelocytes # (Manual) ABG pO2 ABG HCO3 ABG Total CO2 ABG O2 Saturation Sodium Chloride BUN Glucose POC Glucose (mg/dL) 195 H 194 H Plasma Lactic Acid Omid 3.9 H* Calcium Total Bilirubin AST Alkaline Phosphatase Albumin Urine Protein Urine Glucose (UA) Urine Blood Urine Bacteria Hyaline Casts Urine Mucus 04/16/23 04/16/23 04/16/23 00:00 00:01 02:50 WBC RBC Hgb Hct Plt Count Neutrophils # (Manual) Metamyelocytes # (Man) Myelocytes # (Manual) ABG pO2 142 H ABG HCO3 26 H ABG Total CO2 27 H ABG O2 Saturation 98.4 H Sodium 130 L Chloride 97 L BUN 26 H Glucose 172 H POC Glucose (mg/dL) Plasma Lactic Acid Omid Calcium 7.3 L Total Bilirubin AST Alkaline Phosphatase Albumin Urine Protein 1+ H Urine Glucose (UA) 3+ H Urine Blood Moderate H Urine Bacteria Rare H Hyaline Casts 4 H Urine Mucus Rare H 04/16/23 04/16/23 04/16/23 02:53 05:45 05:45 WBC 17.1 H RBC 4.04 L Hgb 12.1 L Hct 36.9 L Plt Count 457 H Neutrophils # (Manual) 15.00 H Metamyelocytes # (Man) 0.17 H Myelocytes # (Manual) 0.17 H ABG pO2 ABG HCO3 ABG Total CO2 ABG O2 Saturation Sodium 130 L Chloride 97 L BUN 25 H Glucose 168 H POC Glucose (mg/dL) 169 H Plasma Lactic Acid Omid Calcium 7.6 L Total Bilirubin AST Alkaline Phosphatase Albumin Urine Protein Urine Glucose (UA) Urine Blood Urine Bacteria Hyaline Casts Urine Mucus 04/16/23 04/16/23 04/16/23 05:45 05:46 05:48 WBC RBC Hgb Hct Plt Count Neutrophils # (Manual) Metamyelocytes # (Man) Myelocytes # (Manual) ABG pO2 ABG HCO3 ABG Total CO2 25 H ABG O2 Saturation Sodium Chloride BUN Glucose POC Glucose (mg/dL) 192 H Plasma Lactic Acid Omid 3.3 H* Calcium Total Bilirubin AST Alkaline Phosphatase Albumin Urine Protein Urine Glucose (UA) Urine Blood Urine Bacteria Hyaline Casts Urine Mucus 04/16/23 07:08 WBC RBC Hgb Hct Plt Count Neutrophils # (Manual) Metamyelocytes # (Man) Myelocytes # (Manual) ABG pO2 ABG HCO3 ABG Total CO2 ABG O2 Saturation Sodium Chloride BUN Glucose POC Glucose (mg/dL) 181 H Plasma Lactic Acid Omid Calcium Total Bilirubin AST Alkaline Phosphatase Albumin Urine Protein Urine Glucose (UA) Urine Blood Urine Bacteria Hyaline Casts Urine Mucus - Diagnostic Findings Chest x-ray: image reviewed Assessment and Plan Plan: Necrotizing fasciitis of the right foot and the right lower extremity. The patient is post incision and drainage of the extensive deep space abscess of the right foot extending to the posterior aspect of the calf in the mid thigh. Patient is currently postop day #1. Septic shock secondary to above and the patient is currently on fluids and pressors. Norepinephrine is running at 0.2 mcg/kg/m. Acute hypoxic respiratory failure secondary to necrotizing fasciitis and septic shock, currently intubated on mechanical ventilator Acute leukocytosis secondary to above Acute lactic acidosis secondary to above Diabetes mellitus, probably poorly controlled on outpatient basis. Currently on a sliding scale insulin coverage. Plan Keep the patient sedated on a combination of propofol and fentanyl Increase IV fluids to 200 mL an hour Continue pressors This is a triple-lumen catheter for IV access and pressors Current antibiotic coverage to be continued and the patient is currently on a combination of Zosyn and vancomycin and clindamycin. Will need another surgical evaluation. There may be potentially extension of this necrotizing fasciitis. For that reason, a CAT scan of the lower extremity in addition to the abdomen and pelvis will be done today and this will be discussed further with a vascular surgeon Wound management Assess size Coverage Ventilator support Consult ID Prognosis poor based above-mentioned comorbidities. May potentially require a amputation/the articulation of the right lower extremity. This will be further discussed. Condition is critical.
--- NOTE | 2023-04-16 09:14 | P.PCN ---
Date of Procedure: 04/16/23 Preoperative Diagnosis: Septic shock Postoperative Diagnosis: Septic shock Procedure(s) Performed: Central line Anesthesia: local Surgeon: Kathelen Nuñez Estimated Blood Loss (ml): 0 Pathology: other Condition: critical Disposition: ICU Operative Findings: Indication: Hemodynamic monitoring/Intravenous access. A time-out was completed verifying correct patient, procedure, site, positioning, and implant(s) or special equipment if applicable. The patient was placed in a dependent position appropriate for central line placement based on the vein to be cannulated. The patients left chest was prepped and draped in sterile fashion. 1% Lidocaine was used to anesthetize the surrounding skin area. A triple lumen 9F Cordis catheter was introduced into the left subclavian] vein using Seldinger technique. The catheter was threaded smoothly over the guide wire and appropriate blood return was obtained. Each lumen of the catheter was evacuated of air and flushed with sterile saline. The catheter was then sutured in place to the skin and a sterile dressing applied. Perfusion to the extremity distal to the point of catheter insertion was checked and found to be adequate. The patient tolerated the procedure well and there were no complications.
--- NOTE | 2023-04-16 09:28 | XR ---
EXAMINATION TYPE: XR chest 1V portable DATE OF EXAM: 04/16/2023 Comparison: 04/15/2023 Clinical History: 62-year-old male Tube placement Findings: ET tube tip 4.7 cm from the tatiana, satisfactory. NG tube courses below the diaphragm, tip outside th e [id number]. Heart normal size. Mild interstitial prominence. Mild hyperinflation. No consolidati on or pleural effusion. Impression: Possible underlying COPD. Mild interstitial prominence is unchanged.
--- NOTE | 2023-04-16 09:37 | XR ---
EXAMINATION TYPE: XR chest 1V confirm line [facility] DATE OF EXAM: 04/16/2023 COMPARISON: 04/16/2023 HISTORY: 62-year-old male Central line insertion TECHNIQUE: Single frontal view of the chest is obtained. FINDINGS: ET and NG tubes are satisfactory. Left subclavian CVC tip at the mid SVC. Heart normal siz e. Pulmonary vasculature within normal limits. No consolidation or pleural effusion. Mild interstitia l prominence is similar. IMPRESSION: Left subclavian CVC tip in the mid SVC level. Similar mild interstitial prominence.
[2023-04-16] MEDS ORDERED: NOREPINEPHRINE 32 MG in SODIUM CHLORIDE 0.9% 218 ML IV SCH (09:45)
--- NOTE | 2023-04-16 10:25 | P.HPIM ---
History of Present Illness This is a pleasant 62 years old male with multiple medical problems including diabetes mellitus, he was not adherent to his medication for diabetes because he could not afford them, Presents because of right leg infection, felt like wet gangrene on admission, x- ray of the foot and of the knee showing air bubbles posteriorly suspicious for necrotizing fasciitis vascular surgery fabrication technician was consulted and and he did have urgently to incision and drainage of the deep space abscess involving right foods extending up to the right leg and thigh posteriorly. Postoperatively patient has to be intubated and placed on mechanical ventilation Patient currently sedated in the intensive care unit. He cannot provide information. Patient was started on low-dose pressors with Levophed at 0.02. Blood pressure this morning was 103/58 and he has low-grade fever of 100.2 Labs show leukocytosis of 17,000, hemoglobin is 12. Lactic acid elevated to 3.3, down to 2.8. Review of Systems ROS unobtainable: due to endotracheal tube, due to mental status Past Medical History Past Medical History: Diabetes Mellitus Additional Past Medical History / Comment(s): Back pain History of Any Multi-Drug Resistant Organisms: None Reported Past Surgical History: No Surgical Hx Reported Past Anesthesia/Blood Transfusion Reactions: No Reported Reaction Past Psychological History: No Psychological Hx Reported Smoking Status: Current every day smoker Past Alcohol Use History: None Reported Past Drug Use History: Marijuana Medications and Allergies Home Medications Medication Instructions Recorded Confirmed Type HYDROcodone/APAP 7.5-325MG [[place] 1 tab PO TID 04/15/23 04/15/23 History 7.5-325] Januvia(Unknown Dose) 1 tab PO DAILY 04/15/23 04/15/23 History metFORMIN HCL 1,000 mg PO DIRECTED 04/15/23 04/15/23 History Allergies Allergy/AdvReac Type Severity Reaction Status Date / Time No Known Allergies Allergy Verified 04/15/23 20:38 Physical Exam Vitals: Vital Signs Temp Pulse Resp BP BP Pulse Ox FiO2 04/16/23 08:39 40 04/16/23 08:32 40 04/16/23 07:00 85 20 103/58 98 04/16/23 06:57 100.2 F H 16 103/58 98 04/16/23 06:45 85 19 104/61 98 04/16/23 06:30 87 21 99/59 98 04/16/23 06:15 89 24 95/57 98 04/16/23 06:00 93 25 H 100/59 97 04/16/23 05:45 101 H 23 178/70 96 04/16/23 05:30 133 H 27 H 169/57 98 04/16/23 05:15 113 H 23 97 04/16/23 05:00 103 H 26 H 104/59 98 04/16/23 04:45 89 21 102/58 97 04/16/23 04:30 89 24 102/59 98 04/16/23 04:15 89 21 102/57 04/16/23 04:00 88 24 97/56 50 04/16/23 03:45 89 20 99/58 100 04/16/23 03:30 89 19 112/61 99 04/16/23 03:20 40 04/16/23 03:10 90 20 112/61 99 04/16/23 03:00 99.2 F 91 16 110/63 04/16/23 02:50 90 20 110/63 100 04/16/23 02:40 87 19 110/63 100 04/16/23 02:30 90 18 104/61 100 04/16/23 02:20 88 19 104/61 100 04/16/23 02:10 87 15 104/61 100 04/16/23 02:00 88 21 94/57 100 04/16/23 01:50 90 22 94/57 98 04/16/23 01:40 91 20 94/57 98 04/16/23 01:30 92 18 91/52 97 04/16/23 01:20 96 18 91/52 96 04/16/23 01:10 107 H 17 91/52 93 L 04/16/23 01:00 107 H 23 81/50 94 L 04/16/23 00:50 124 H 19 95 04/16/23 00:40 125 H 18 97 04/16/23 00:30 124 H 19 98 04/16/23 00:20 113 H 21 98 04/16/23 00:12 40 04/16/23 00:10 130 H 17 99 04/16/23 00:00 113 H 16 99 50 04/15/23 23:50 116 H 18 192/84 99 04/15/23 23:40 117 H 16 192/84 96 04/15/23 23:30 98.8 F 151 H 16 192/84 100 04/15/23 23:25 50 04/15/23 18:46 98.6 F 128 H 18 116/74 98 04/15/23 17:14 98.7 F 134 H 20 97 Intake and Output 04/15/23 04/16/23 04/16/23 22:59 06:59 14:59 Intake Total 1000 1454.763 446.438 Output Total 625 800 Balance 1000 829.763 -353.562 Intake: IV 1000 1110 130 Clindamycin 600 mg In 100 Dextrose 5% in Water 50 ml @ 50 mls/hr IVPB ONCE ONE Rx#:[id number] Piperacillin-Tazobactam 3 100 .375 gm In Sodium Chloride 0.9% 100 ml @ 25 mls/hr IVPB Q8HR [facility] Rx# :[id number] Sodium Chloride 0.9% 1, 910 130 000 ml @ 130 mls/hr IV . [id number] [facility] Rx#:[id number] Intake, IV Titration 344.763 316.438 Amount Norepinephrine 4 mg In 246.769 233.188 Sodium Chloride 0.9% 250 ml @ 0.03 MCG/KG/MIN 11. 924 mls/hr IV .[id number] [facility] Rx#:[id number] fentaNYL (PF). 1,000 mcg 23.298 In Sodium Chloride 0.9% 80 ml @ 0.5 MCG/KG/HR 5. 216 mls/hr IV .[id number] [facility] Rx#:[id number] propofoL 1,000 mg In 74.696 83.25 Empty Bag 1 bag @ 15 MCG/ KG/MIN 9.389 mls/hr IV . [id number] [facility] Rx#:[id number] Output: Gastric Drainage 700 Urine 600 100 Estimated Blood Loss 25 Other: Voiding Method Indwelling Catheter Weight 95 kg 95 kg ABP, PAP, CO, CI - Last 8 Hours Arterial Blood Pressure 98/47 Arterial Blood Pressure 95/44 Arterial Blood Pressure 96/45 Arterial Blood Pressure 80/37 Arterial Blood Pressure 83/38 Arterial Blood Pressure 88/42 Arterial Blood Pressure 190/64 Arterial Blood Pressure 154/53 Arterial Blood Pressure 133/50 Arterial Blood Pressure 106/45 Arterial Blood Pressure 102/44 Arterial Blood Pressure 101/43 Arterial Blood Pressure 102/43 Arterial Blood Pressure 103/45 Arterial Blood Pressure 103/44 Arterial Blood Pressure 129/45 Arterial Blood Pressure 122/43 Arterial Blood Pressure 125/47 Arterial Blood Pressure 118/44 Arterial Blood Pressure 119/46 Arterial Blood Pressure 104/45 -GENERAL: The patient is intubated and sedated HEENT: Pupils are round and equally reacting to light. EOMI. No scleral icterus. No conjunctival pallor. Normocephalic, atraumatic. No pharyngeal erythema. No thyromegaly. CARDIOVASCULAR: S1 and S2 present. No murmurs, rubs, or gallops. PULMONARY: Chest is clear to auscultation, no wheezing , no crackles. ABDOMEN: Soft, nontender, nondistended, normoactive bowel sounds. No palpable organomegaly. MUSCULOSKELETAL: No joint swelling or deformity. -EXTREMITIES: No cyanosis, clubbing, or pedal edema. Extensive right leg wound, With a dressing in place, soaked with purulent discharge posteriorly NEUROLOGICAL: Gross neurological examination did not reveal any focal deficits. SKIN: No rashes. no petechiae. Results CBC & Chem 7: 04/16/23 05:45 04/16/23 05:45 Labs: Abnormal Lab Results - Last 24 Hours (Table) 04/15/23 04/15/23 04/15/23 Range/Units 18:52 19:02 19:02 WBC 21.4 H (3.8-10.6) k/uL RBC (4.30-5.90) m/uL Hgb (13.0-17.5) gm/dL Hct (39.0-53.0) % Plt Count (150-450) k/uL Neutrophils # (Manual) 19.20 H (1.3-7.7) k/uL Metamyelocytes # (Man) (0) k/uL Myelocytes # (Manual) 0.21 H (0) k/uL ABG pO2 (83-108) mmHg ABG HCO3 (21-25) mmol/L ABG Total CO2 (19-24) mmol/L ABG O2 Saturation (94-97) % Sodium 127 L (137-145) mmol/L Chloride 88 L (98-107) mmol/L BUN 27 H (9-20) mg/dL Glucose 256 H (74-99) mg/dL POC Glucose (mg/dL) 296 H (70-110) mg/dL Plasma Lactic Acid Omid (0.7-2.0) mmol/L Calcium (8.4-10.2) mg/dL Total Bilirubin 1.6 H (0.2-1.3) mg/dL AST 69 H (17-59) U/L Alkaline Phosphatase 194 H (38-126) U/L Albumin 3.3 L (3.5-5.0) g/dL Urine Protein (Negative) Urine Glucose (UA) (Negative) Urine Blood (Negative) Urine Bacteria (None) /hpf Hyaline Casts (0-2) /lpf Urine Mucus (None) /hpf 04/15/23 04/15/23 04/15/23 Range/Units 19:02 21:33 23:24 WBC (3.8-10.6) k/uL RBC (4.30-5.90) m/uL Hgb (13.0-17.5) gm/dL Hct (39.0-53.0) % Plt Count (150-450) k/uL Neutrophils # (Manual) (1.3-7.7) k/uL Metamyelocytes # (Man) (0) k/uL Myelocytes # (Manual) (0) k/uL ABG pO2 (83-108) mmHg ABG HCO3 (21-25) mmol/L ABG Total CO2 (19-24) mmol/L ABG O2 Saturation (94-97) % Sodium (137-145) mmol/L Chloride (98-107) mmol/L BUN (9-20) mg/dL Glucose (74-99) mg/dL POC Glucose (mg/dL) 195 H 194 H (70-110) mg/dL Plasma Lactic Acid Omid 3.9 H* (0.7-2.0) mmol/L Calcium (8.4-10.2) mg/dL Total Bilirubin (0.2-1.3) mg/dL AST (17-59) U/L Alkaline Phosphatase (38-126) U/L Albumin (3.5-5.0) g/dL Urine Protein (Negative) Urine Glucose (UA) (Negative) Urine Blood (Negative) Urine Bacteria (None) /hpf Hyaline Casts (0-2) /lpf Urine Mucus (None) /hpf 04/16/23 04/16/23 04/16/23 Range/Units 00:00 00:01 02:50 WBC (3.8-10.6) k/uL RBC (4.30-5.90) m/uL Hgb (13.0-17.5) gm/dL Hct (39.0-53.0) % Plt Count (150-450) k/uL Neutrophils # (Manual) (1.3-7.7) k/uL Metamyelocytes # (Man) (0) k/uL Myelocytes # (Manual) (0) k/uL ABG pO2 142 H (83-108) mmHg ABG HCO3 26 H (21-25) mmol/L ABG Total CO2 27 H (19-24) mmol/L ABG O2 Saturation 98.4 H (94-97) % Sodium 130 L (137-145) mmol/L Chloride 97 L (98-107) mmol/L BUN 26 H (9-20) mg/dL Glucose 172 H (74-99) mg/dL POC Glucose (mg/dL) (70-110) mg/dL Plasma Lactic Acid Omid (0.7-2.0) mmol/L Calcium 7.3 L (8.4-10.2) mg/dL Total Bilirubin (0.2-1.3) mg/dL AST (17-59) U/L Alkaline Phosphatase (38-126) U/L Albumin (3.5-5.0) g/dL Urine Protein 1+ H (Negative) Urine Glucose (UA) 3+ H (Negative) Urine Blood Moderate H (Negative) Urine Bacteria Rare H (None) /hpf Hyaline Casts 4 H (0-2) /lpf Urine Mucus Rare H (None) /hpf 04/16/23 04/16/23 04/16/23 Range/Units 02:53 05:45 05:45 WBC 17.1 H (3.8-10.6) k/uL RBC 4.04 L (4.30-5.90) m/uL Hgb 12.1 L (13.0-17.5) gm/dL Hct 36.9 L (39.0-53.0) % Plt Count 457 H (150-450) k/uL Neutrophils # (Manual) 15.00 H (1.3-7.7) k/uL Metamyelocytes # (Man) 0.17 H (0) k/uL Myelocytes # (Manual) 0.17 H (0) k/uL ABG pO2 (83-108) mmHg ABG HCO3 (21-25) mmol/L ABG Total CO2 (19-24) mmol/L ABG O2 Saturation (94-97) % Sodium 130 L (137-145) mmol/L Chloride 97 L (98-107) mmol/L BUN 25 H (9-20) mg/dL Glucose 168 H (74-99) mg/dL POC Glucose (mg/dL) 169 H (70-110) mg/dL Plasma Lactic Acid Omid (0.7-2.0) mmol/L Calcium 7.6 L (8.4-10.2) mg/dL Total Bilirubin (0.2-1.3) mg/dL AST (17-59) U/L Alkaline Phosphatase (38-126) U/L Albumin (3.5-5.0) g/dL Urine Protein (Negative) Urine Glucose (UA) (Negative) Urine Blood (Negative) Urine Bacteria (None) /hpf Hyaline Casts (0-2) /lpf Urine Mucus (None) /hpf 04/16/23 04/16/23 04/16/23 Range/Units 05:45 05:46 05:48 WBC (3.8-10.6) k/uL RBC (4.30-5.90) m/uL Hgb (13.0-17.5) gm/dL Hct (39.0-53.0) % Plt Count (150-450) k/uL Neutrophils # (Manual) (1.3-7.7) k/uL Metamyelocytes # (Man) (0) k/uL Myelocytes # (Manual) (0) k/uL ABG pO2 (83-108) mmHg ABG HCO3 (21-25) mmol/L ABG Total CO2 25 H (19-24) mmol/L ABG O2 Saturation (94-97) % Sodium (137-145) mmol/L Chloride (98-107) mmol/L BUN (9-20) mg/dL Glucose (74-99) mg/dL POC Glucose (mg/dL) 192 H (70-110) mg/dL Plasma Lactic Acid Omid 3.3 H* (0.7-2.0) mmol/L Calcium (8.4-10.2) mg/dL Total Bilirubin (0.2-1.3) mg/dL AST (17-59) U/L Alkaline Phosphatase (38-126) U/L Albumin (3.5-5.0) g/dL Urine Protein (Negative) Urine Glucose (UA) (Negative) Urine Blood (Negative) Urine Bacteria (None) /hpf Hyaline Casts (0-2) /lpf Urine Mucus (None) /hpf 04/16/23 04/16/23 Range/Units 07:08 09:19 WBC (3.8-10.6) k/uL RBC (4.30-5.90) m/uL Hgb (13.0-17.5) gm/dL Hct (39.0-53.0) % Plt Count (150-450) k/uL Neutrophils # (Manual) (1.3-7.7) k/uL Metamyelocytes # (Man) (0) k/uL Myelocytes # (Manual) (0) k/uL ABG pO2 (83-108) mmHg ABG HCO3 (21-25) mmol/L ABG Total CO2 (19-24) mmol/L ABG O2 Saturation (94-97) % Sodium (137-145) mmol/L Chloride (98-107) mmol/L BUN (9-20) mg/dL Glucose (74-99) mg/dL POC Glucose (mg/dL) 181 H (70-110) mg/dL Plasma Lactic Acid Omid 2.8 H* (0.7-2.0) mmol/L Calcium (8.4-10.2) mg/dL Total Bilirubin (0.2-1.3) mg/dL AST (17-59) U/L Alkaline Phosphatase (38-126) U/L Albumin (3.5-5.0) g/dL Urine Protein (Negative) Urine Glucose (UA) (Negative) Urine Blood (Negative) Urine Bacteria (None) /hpf Hyaline Casts (0-2) /lpf Urine Mucus (None) /hpf Microbiology - Last 24 Hours (Table) 04/15/23 19:02 Gram Stain - Preliminary Foot - Right Thrombosis Risk Factor Assmnt - Choose All That Apply Any of the Below Risk Factors Present?: Yes Each Factor Represents 1 point: Obesity (BMI >25), Sepsis (< 1month), Swollen legs (current) Other Risk Factors: Yes Each Risk Factor Represents 2 Points: Age 61-74 years, Patient confined to bed Other congenital or acquired thrombophilia - If yes, enter type in comment: No Thrombosis Risk Factor Assessment Total Risk Factor Score: 7 Thrombosis Risk Factor Assessment Level: High Risk Assessment and Plan Assessment: Necrotizing for stasis of the right lower extremity posteriorly including the foot, leg and thigh status post I&D of deep space abscess septic shock secondary to above Acute hypoxic respiratory failure status post intubation and mechanical ventilation Diabetes mellitus with hyperglycemia Noncompliance to medication because of financial reasons. Plan: Continue with broad-spectrum antibiotics with Zosyn and IV vancomycin and clindamycin Follow-up culture results of the wound and blood Continue with aggressive hydration with normal saline CT of the abdomen and pelvis without contrast in the lower extremity is ordered and pending Several consultants on the case including vascular surgery, pulmonary/critical care team and infectious disease team Labs and medication were reviewed.. Continue same treatment. Continue with symptomatic treatment. Resume home medication. Monitor labs and vitals. DVT and GI prophylaxis. Further recommendations as per clinical course of the patient DVT prophylaxis: SCD GI Prophylaxis: Ppi Prognosis is guarded
[2023-04-16 11:25] LABS: Glucose,Whole Blood 170 mg/dL (70-110)
[2023-04-16] MEDS: SODIUM CHLORIDE 0.9% 1,000 ML IV SCH ×2 (11:38→17:00)
[2023-04-16] MEDS: IPRATROPIUM-ALBUTEROL 3 ML NEB INHALATION SCH ×2 (11:40→16:13)
[2023-04-16] MEDS: INSULIN ASPART (NovoLOG) 100 UNIT/ML VIAL SQ SCH ×2 (12:06→18:29)
--- NOTE | 2023-04-16 15:01 | CT ---
EXAMINATION TYPE: CT abdomen pelvis wo con DATE OF EXAM: 04/16/2023 COMPARISON: None HISTORY: Necrotizing soft tissue CT DLP: 1058.4 mGycm Automated exposure control for dose reduction was used. TECHNIQUE: Helical acquisition of images was performed from the lung bases through the pelvis. FINDINGS: There is a tiny right pleural effusion and minimal bibasilar atelectasis. There is an NG tube within the stomach. There are gallstones in the gallbladder is distended but there is no wall thickening or pericholecyst ic fluid. The liver appears mildly prominent in size. There is no organomegaly involving pancreas, spleen or ad renal glands. There is no renal calcification or hydronephrosis. Caliber the abdominal aorta is normal. The bowel loops are normal in caliber is no dilatation or obstruction. Peritoneal air or fluid. There is air and a Chew catheter within bladder is no pelvic mass. There is mild diverticulosis of t he sigmoid colon without CT evidence of diverticulitis. The osseous structures are intact. IMPRESSION: 1. Gallstones with a markedly distended gallbladder. The findings could represent acute cholecystitis and clinical correlation is recommended. 2. Minimal by basilar atelectasis and tiny right pleural effusion. 3. Hepatomegaly.
--- NOTE | 2023-04-16 15:09 | CT ---
EXAMINATION TYPE: CT lower extremity RT wo con DATE OF EXAM: 04/16/2023 COMPARISON: None HISTORY: Necrotizing soft tissue, origin in foot CT DLP: 1423.8 mGycm Automated exposure control for dose reduction was used. FINDINGS: There are large soft tissue defects in the posterior thigh, posterior knee, posterior calf and planta r surface of the foot. There is diffuse subcutaneous edema within the soft tissues of the right lower extremity from the pro ximal thigh to the ankle and foot. There is gas scattered throughout the deep soft tissues involving the deep muscles and fascial plane s. There margins of the muscles are indistinct consistent with edema and inflammation of the fascial planes from the mid thigh to the ankle and foot. The visualized osseous structures are intact. There is no cortical destruction or periosteal reaction. IMPRESSION: Findings consistent with marked diffuse necrotizing fasciitis of the right lower extremity as describ ed above.
[2023-04-16 17:19] VITALS: TEMP 99.3
[2023-04-16 18:26] LABS: Glucose,Whole Blood 179 mg/dL (70-110)
[2023-04-16 18:53] VITALS: BP 109/55; PULSE 82; RESP 22
--- NOTE | 2023-04-16 21:41 | P.CONS ---
History of Present Illness - Reason for Consult Consult date: 04/16/23 Severe sepsis/gangrene leg Requesting physician: Benson Ibrara - Chief Complaint Increasing pain and redness to the right leg x few days - History of Present Illness Patient is a 62-year-old male with a past medical history significant for diabetes mellitus patient was brought into the hospital last night for evaluation of increasing swelling redness and pain to the right lower extremity apparently patient stepped on something at work on Tuesday and after the pain started having increasing pain swelling and redness to the right lower extremity that was not evaluated to cough patient was describing the pain to be sharp and severe in intensity with associated swelling and redness did have some chills with the symptoms the patient was evaluated on presentation to the hospital patient was initially afebrile however he did have low-grade fever 100.4 this afternoon patient was tachycardic patient did have a white count of 21.4 with a left shift creatinine was normal lactic acid was elevated levels of some mildly elevated patient did have a x-ray of the foot soft tissue ulcer along the medial ball of the foot with no evidence of osteomyelitis there is a tracking plantar soft tissue area predominantly in the medial forefoot patient was diagnosed with a necrotizing fasciitis vascular surgery urgently evaluated the patient last night patient was taken to the OR and the patient s/p I&D of extensive deep space abscess of the foot extending along the posterior aspect of the cough to the mid thigh area local culture has been obtained patient has been started on vancomycin and Zosyn Netromycin infectious he was consulted for further management of antibiotic therapy most information has been obtained from review the chart and nursing staff as the patient is currently breathing on the vent unable to work and history no family at the bedside Review of Systems Positive points has been mentioned in HPI complete review could not be obtained because patient is intubated on the vent Past Medical History Past Medical History: Diabetes Mellitus Additional Past Medical History / Comment(s): Back pain History of Any Multi-Drug Resistant Organisms: None Reported Past Surgical History: No Surgical Hx Reported Past Anesthesia/Blood Transfusion Reactions: No Reported Reaction Past Psychological History: No Psychological Hx Reported Smoking Status: Current every day smoker Past Alcohol Use History: None Reported Past Drug Use History: Marijuana Medications and Allergies Home Medications Medication Instructions Recorded Confirmed Type HYDROcodone/APAP 7.5-325MG [[place] 1 tab PO TID 04/15/23 04/15/23 History 7.5-325] Januvia(Unknown Dose) 1 tab PO DAILY 04/15/23 04/15/23 History metFORMIN HCL 1,000 mg PO DIRECTED 04/15/23 04/15/23 History Allergies Allergy/AdvReac Type Severity Reaction Status Date / Time No Known Allergies Allergy Verified 04/15/23 20:38 Physical Exam Vitals: Vital Signs Temp Pulse Resp BP BP Pulse Ox FiO2 04/16/23 08:39 40 04/16/23 08:32 40 04/16/23 07:00 85 20 103/58 98 04/16/23 06:57 100.2 F H 16 103/58 98 04/16/23 06:45 85 19 104/61 98 04/16/23 06:30 87 21 99/59 98 04/16/23 06:15 89 24 95/57 98 04/16/23 06:00 93 25 H 100/59 97 04/16/23 05:45 101 H 23 178/70 96 04/16/23 05:30 133 H 27 H 169/57 98 04/16/23 05:15 113 H 23 97 04/16/23 05:00 103 H 26 H 104/59 98 04/16/23 04:45 89 21 102/58 97 04/16/23 04:30 89 24 102/59 98 04/16/23 04:15 89 21 102/57 04/16/23 04:00 88 24 97/56 50 04/16/23 03:45 89 20 99/58 100 04/16/23 03:30 89 19 112/61 99 04/16/23 03:20 40 04/16/23 03:10 90 20 112/61 99 04/16/23 03:00 99.2 F 91 16 110/63 04/16/23 02:50 90 20 110/63 100 04/16/23 02:40 87 19 110/63 100 04/16/23 02:30 90 18 104/61 100 04/16/23 02:20 88 19 104/61 100 04/16/23 02:10 87 15 104/61 100 04/16/23 02:00 88 21 94/57 100 04/16/23 01:50 90 22 94/57 98 04/16/23 01:40 91 20 94/57 98 04/16/23 01:30 92 18 91/52 97 04/16/23 01:20 96 18 91/52 96 04/16/23 01:10 107 H 17 91/52 93 L 04/16/23 01:00 107 H 23 81/50 94 L 04/16/23 00:50 124 H 19 95 04/16/23 00:40 125 H 18 97 04/16/23 00:30 124 H 19 98 04/16/23 00:20 113 H 21 98 04/16/23 00:12 40 04/16/23 00:10 130 H 17 99 04/16/23 00:00 113 H 16 99 50 04/15/23 23:50 116 H 18 192/84 99 04/15/23 23:40 117 H 16 192/84 96 04/15/23 23:30 98.8 F 151 H 16 192/84 100 04/15/23 23:25 50 04/15/23 18:46 98.6 F 128 H 18 116/74 98 04/15/23 17:14 98.7 F 134 H 20 97 Intake and Output 04/15/23 04/16/23 04/16/23 22:59 06:59 14:59 Intake Total 1000 1454.763 446.438 Output Total 625 800 Balance 1000 829.763 -353.562 Intake: IV 1000 1110 130 Clindamycin 600 mg In 100 Dextrose 5% in Water 50 ml @ 50 mls/hr IVPB ONCE ONE Rx#:[id number] Piperacillin-Tazobactam 3 100 .375 gm In Sodium Chloride 0.9% 100 ml @ 25 mls/hr IVPB Q8HR [facility] Rx# :[id number] Sodium Chloride 0.9% 1, 910 130 000 ml @ 130 mls/hr IV . [id number] STA Rx#:[id number] Intake, IV Titration 344.763 316.438 Amount Norepinephrine 4 mg In 246.769 233.188 Sodium Chloride 0.9% 250 ml @ 0.03 MCG/KG/MIN 11. 924 mls/hr IV .[id number] VERONICA Rx#:[id number] fentaNYL (PF). 1,000 mcg 23.298 In Sodium Chloride 0.9% 80 ml @ 0.5 MCG/KG/HR 5. 216 mls/hr IV .[id number] VERONICA Rx#:[id number] propofoL 1,000 mg In 74.696 83.25 Empty Bag 1 bag @ 15 MCG/ KG/MIN 9.389 mls/hr IV . [id number] VERONICA Rx#:[id number] Output: Gastric Drainage 700 Urine 600 100 Estimated Blood Loss 25 Other: Voiding Method Indwelling Catheter Weight 95 kg 95 kg ABP, PAP, CO, CI - Last 8 Hours Arterial Blood Pressure 98/47 Arterial Blood Pressure 95/44 Arterial Blood Pressure 96/45 Arterial Blood Pressure 80/37 Arterial Blood Pressure 83/38 Arterial Blood Pressure 88/42 Arterial Blood Pressure 190/64 Arterial Blood Pressure 154/53 Arterial Blood Pressure 133/50 Arterial Blood Pressure 106/45 Arterial Blood Pressure 102/44 Arterial Blood Pressure 101/43 Arterial Blood Pressure 102/43 Arterial Blood Pressure 103/45 Arterial Blood Pressure 103/44 Arterial Blood Pressure 129/45 Arterial Blood Pressure 122/43 Arterial Blood Pressure 125/47 Arterial Blood Pressure 118/44 Arterial Blood Pressure 119/46 Arterial Blood Pressure 104/45 Arterial Blood Pressure 109/43 Arterial Blood Pressure 106/41 Arterial Blood Pressure 101/41 GENERAL DESCRIPTION: Middle-age male intubated on the [facility] HEENT: Shows Pallor , no scleral icterus. Oral mucous membrane is dry. NECK: Trachea central, no thyromegaly. LUNGS: Unlabored breathing. Decreased breath sounds at the base HEART: S1, S2, regular rate and rhythm. No loud murmur ABDOMEN: Soft, no tenderness , guarding or rigidity, no organomegaly EXTREMITIES: Right lower extremity is currently dressed in order dressing with minimal drainage on the dressing and some foul smell SKIN: No rash, no masses palpable. NEUROLOGICAL: The patient is sedated on the [facility] Results CBC & Chem 7: 04/16/23 05:45 04/16/23 05:45 Labs: Abnormal Lab Results - Last 24 Hours (Table) 04/15/23 04/15/23 04/15/23 Range/Units 18:52 19:02 19:02 WBC 21.4 H (3.8-10.6) k/uL RBC (4.30-5.90) m/uL Hgb (13.0-17.5) gm/dL Hct (39.0-53.0) % Plt Count (150-450) k/uL Neutrophils # (Manual) 19.20 H (1.3-7.7) k/uL Metamyelocytes # (Man) (0) k/uL Myelocytes # (Manual) 0.21 H (0) k/uL ABG pO2 (83-108) mmHg ABG HCO3 (21-25) mmol/L ABG Total CO2 (19-24) mmol/L ABG O2 Saturation (94-97) % Sodium 127 L (137-145) mmol/L Chloride 88 L (98-107) mmol/L BUN 27 H (9-20) mg/dL Glucose 256 H (74-99) mg/dL POC Glucose (mg/dL) 296 H (70-110) mg/dL Plasma Lactic Acid Omid (0.7-2.0) mmol/L Calcium (8.4-10.2) mg/dL Total Bilirubin 1.6 H (0.2-1.3) mg/dL AST 69 H (17-59) U/L Alkaline Phosphatase 194 H (38-126) U/L Albumin 3.3 L (3.5-5.0) g/dL Urine Protein (Negative) Urine Glucose (UA) (Negative) Urine Blood (Negative) Urine Bacteria (None) /hpf Hyaline Casts (0-2) /lpf Urine Mucus (None) /hpf 04/15/23 04/15/23 04/15/23 Range/Units 19:02 21:33 23:24 WBC (3.8-10.6) k/uL RBC (4.30-5.90) m/uL Hgb (13.0-17.5) gm/dL Hct (39.0-53.0) % Plt Count (150-450) k/uL Neutrophils # (Manual) (1.3-7.7) k/uL Metamyelocytes # (Man) (0) k/uL Myelocytes # (Manual) (0) k/uL ABG pO2 (83-108) mmHg ABG HCO3 (21-25) mmol/L ABG Total CO2 (19-24) mmol/L ABG O2 Saturation (94-97) % Sodium (137-145) mmol/L Chloride (98-107) mmol/L BUN (9-20) mg/dL Glucose (74-99) mg/dL POC Glucose (mg/dL) 195 H 194 H (70-110) mg/dL Plasma Lactic Acid Omid 3.9 H* (0.7-2.0) mmol/L Calcium (8.4-10.2) mg/dL Total Bilirubin (0.2-1.3) mg/dL AST (17-59) U/L Alkaline Phosphatase (38-126) U/L Albumin (3.5-5.0) g/dL Urine Protein (Negative) Urine Glucose (UA) (Negative) Urine Blood (Negative) Urine Bacteria (None) /hpf Hyaline Casts (0-2) /lpf Urine Mucus (None) /hpf 04/16/23 04/16/23 04/16/23 Range/Units 00:00 00:01 02:50 WBC (3.8-10.6) k/uL RBC (4.30-5.90) m/uL Hgb (13.0-17.5) gm/dL Hct (39.0-53.0) % Plt Count (150-450) k/uL Neutrophils # (Manual) (1.3-7.7) k/uL Metamyelocytes # (Man) (0) k/uL Myelocytes # (Manual) (0) k/uL ABG pO2 142 H (83-108) mmHg ABG HCO3 26 H (21-25) mmol/L ABG Total CO2 27 H (19-24) mmol/L ABG O2 Saturation 98.4 H (94-97) % Sodium 130 L (137-145) mmol/L Chloride 97 L (98-107) mmol/L BUN 26 H (9-20) mg/dL Glucose 172 H (74-99) mg/dL POC Glucose (mg/dL) (70-110) mg/dL Plasma Lactic Acid Omid (0.7-2.0) mmol/L Calcium 7.3 L (8.4-10.2) mg/dL Total Bilirubin (0.2-1.3) mg/dL AST (17-59) U/L Alkaline Phosphatase (38-126) U/L Albumin (3.5-5.0) g/dL Urine Protein 1+ H (Negative) Urine Glucose (UA) 3+ H (Negative) Urine Blood Moderate H (Negative) Urine Bacteria Rare H (None) /hpf Hyaline Casts 4 H (0-2) /lpf Urine Mucus Rare H (None) /hpf 04/16/23 04/16/23 04/16/23 Range/Units 02:53 05:45 05:45 WBC 17.1 H (3.8-10.6) k/uL RBC 4.04 L (4.30-5.90) m/uL Hgb 12.1 L (13.0-17.5) gm/dL Hct 36.9 L (39.0-53.0) % Plt Count 457 H (150-450) k/uL Neutrophils # (Manual) 15.00 H (1.3-7.7) k/uL Metamyelocytes # (Man) 0.17 H (0) k/uL Myelocytes # (Manual) 0.17 H (0) k/uL ABG pO2 (83-108) mmHg ABG HCO3 (21-25) mmol/L ABG Total CO2 (19-24) mmol/L ABG O2 Saturation (94-97) % Sodium 130 L (137-145) mmol/L Chloride 97 L (98-107) mmol/L BUN 25 H (9-20) mg/dL Glucose 168 H (74-99) mg/dL POC Glucose (mg/dL) 169 H (70-110) mg/dL Plasma Lactic Acid Omid (0.7-2.0) mmol/L Calcium 7.6 L (8.4-10.2) mg/dL Total Bilirubin (0.2-1.3) mg/dL AST (17-59) U/L Alkaline Phosphatase (38-126) U/L Albumin (3.5-5.0) g/dL Urine Protein (Negative) Urine Glucose (UA) (Negative) Urine Blood (Negative) Urine Bacteria (None) /hpf Hyaline Casts (0-2) /lpf Urine Mucus (None) /hpf 04/16/23 04/16/23 04/16/23 Range/Units 05:45 05:46 05:48 WBC (3.8-10.6) k/uL RBC (4.30-5.90) m/uL Hgb (13.0-17.5) gm/dL Hct (39.0-53.0) % Plt Count (150-450) k/uL Neutrophils # (Manual) (1.3-7.7) k/uL Metamyelocytes # (Man) (0) k/uL Myelocytes # (Manual) (0) k/uL ABG pO2 (83-108) mmHg ABG HCO3 (21-25) mmol/L ABG Total CO2 25 H (19-24) mmol/L ABG O2 Saturation (94-97) % Sodium (137-145) mmol/L Chloride (98-107) mmol/L BUN (9-20) mg/dL Glucose (74-99) mg/dL POC Glucose (mg/dL) 192 H (70-110) mg/dL Plasma Lactic Acid Omid 3.3 H* (0.7-2.0) mmol/L Calcium (8.4-10.2) mg/dL Total Bilirubin (0.2-1.3) mg/dL AST (17-59) U/L Alkaline Phosphatase (38-126) U/L Albumin (3.5-5.0) g/dL Urine Protein (Negative) Urine Glucose (UA) (Negative) Urine Blood (Negative) Urine Bacteria (None) /hpf Hyaline Casts (0-2) /lpf Urine Mucus (None) /hpf 04/16/23 Range/Units 07:08 WBC (3.8-10.6) k/uL RBC (4.30-5.90) m/uL Hgb (13.0-17.5) gm/dL Hct (39.0-53.0) % Plt Count (150-450) k/uL Neutrophils # (Manual) (1.3-7.7) k/uL Metamyelocytes # (Man) (0) k/uL Myelocytes # (Manual) (0) k/uL ABG pO2 (83-108) mmHg ABG HCO3 (21-25) mmol/L ABG Total CO2 (19-24) mmol/L ABG O2 Saturation (94-97) % Sodium (137-145) mmol/L Chloride (98-107) mmol/L BUN (9-20) mg/dL Glucose (74-99) mg/dL POC Glucose (mg/dL) 181 H (70-110) mg/dL Plasma Lactic Acid Omid (0.7-2.0) mmol/L Calcium (8.4-10.2) mg/dL Total Bilirubin (0.2-1.3) mg/dL AST (17-59) U/L Alkaline Phosphatase (38-126) U/L Albumin (3.5-5.0) g/dL Urine Protein (Negative) Urine Glucose (UA) (Negative) Urine Blood (Negative) Urine Bacteria (None) /hpf Hyaline Casts (0-2) /lpf Urine Mucus (None) /hpf Microbiology - Last 24 Hours (Table) 04/15/23 19:02 Gram Stain - Preliminary Foot - Right Assessment and Plan (1) Sepsis Status: Acute Code(s): A41.9 - SEPSIS, UNSPECIFIED ORGANISM SNOMED Code(s): 77381111 (2) Necrotizing soft tissue infection Status: Acute Code(s): M79.89 - OTHER SPECIFIED SOFT TISSUE DISORDERS SNOMED Code(s): 574281570 Plan: 1patient present to hospital with sepsis/septic shock secondary to the necrotizing infection involving the right lower extremity in this patient who did require emergent surgery last night we will need to cover for both gram- positive as well as gram-negative pathogen that may be playing a role in this necrotizing fasciitis and sepsis 2-we will keep the patient on Zosyn however switch vancomycin to daptomycin to decrease risk of nephrotoxicity 3-await CT of the lower extremity as well as angiogram as vascular surgery is planning for further surgery versus amputation as per discussion with the patient nurse Overall prognosis remains to be guarded We will follow on clinical condition and cultures to further adjust medication if needed Thank you for this consultation we will follow the patient along with you Dictation was produced using [employer] dictation software. please excuse any grammatical, word or spelling errors. Time with Patient: Greater than 30
== END 2023-04-16 18:55 | disposition short-term general hospital (02) | DRG 871 ==
LOC: EC 16:55 → 4SSUR 20:57 → 3SCARD 22:43 → 2SICU 22:54
PROVIDERS: ADMIT Internal Medicine; ATTEND Internal Medicine
PROC: 0J9L0ZZ Drainage of Right Upper Leg Subcutaneous Tissue and Fascia, Open Approach (ICD-10-PCS; 2023-04-15)
PROC: 0J9N0ZZ Drainage of Right Lower Leg Subcutaneous Tissue and Fascia, Open Approach (ICD-10-PCS; 2023-04-15)
PROC: 03HY32Z Insertion of Monitoring Device into Upper Artery, Percutaneous Approach (ICD-10-PCS; 2023-04-15)
PROC: 4A133B1 Monitoring of Arterial Pressure, Peripheral, Percutaneous Approach (ICD-10-PCS; 2023-04-15)
PROC: 4A133J1 Monitoring of Arterial Pulse, Peripheral, Percutaneous Approach (ICD-10-PCS; 2023-04-15)
PROC: 0J9Q0ZZ Drainage of Right Foot Subcutaneous Tissue and Fascia, Open Approach (ICD-10-PCS; principal; 2023-04-15 21:24)
PROC: 02HV33Z Insertion of Infusion Device into Superior Vena Cava, Percutaneous Approach (ICD-10-PCS; 2023-04-16)
DX: A41.9 Sepsis, unspecified organism (principal); J96.01 Acute respiratory failure with hypoxia; M72.6 Necrotizing fasciitis; R65.21 Severe sepsis with septic shock; E11.52 Type 2 diabetes mellitus with diabetic peripheral angiopathy with gangrene; E87.20 Acidosis, unspecified; I96 Gangrene, not elsewhere classified; L02.611 Cutaneous abscess of right foot; E11.65 Type 2 diabetes mellitus with hyperglycemia; F17.200 Nicotine dependence, unspecified, uncomplicated; W22.8XXA Striking against or struck by other objects, initial encounter; T38.3X6A Underdosing of insulin and oral hypoglycemic [antidiabetic] drugs, initial encounter; Z91.120 Patient's intentional underdosing of medication regimen due to financial hardship; Z23 Encounter for immunization; Z79.84 Long term (current) use of oral hypoglycemic drugs
CPT/HCPCS: 36415; 71045; 74176; 80048; 80053; 81001; 82805; 83605; 85025; 87040; 87070; 87075; 87077; 87186; 87205; 90715; 94002; 94003; 94640; 96365; 96366; 96368; 96375; 99291

== ENCOUNTER 2023-09-04 18:10 | Inpatient (IN) | payer BC, MEDICARE, OTHER ==
--- NOTE | 2023-09-04 18:28 | ED ---
General Adult HPI <Seth Hanna - Last Filed: 09/04/23 23:00> <Damien Mejia - Last Filed: 09/05/23 01:31> - General Stated complaint: ams Time Seen by Provider: 09/04/23 18:14 - History of Present Illness Initial comments: 62-year-old male with a past medical history significant for diabetes due to altered mental status. At this time history is limited due to patient's altered mentation. Daughter at bedside. Spoke to patient's daughter and reports that she just saw him yesterday. States that he is normally able to talk and converse normally. States that the patient reports no issues yesterday and has had no complaints. Denied cough. States that presentation today is not himself. (Seth Hanna) - Related Data Home Medications Medication Instructions Recorded Confirmed HYDROcodone/APAP 7.5-325MG [[place] 1 tab PO TID 04/15/23 04/15/23 7.5-325] Januvia(Unknown Dose) 1 tab PO DAILY 04/15/23 04/15/23 metFORMIN HCL 1,000 mg PO DIRECTED 04/15/23 04/15/23 Allergies Allergy/AdvReac Type Severity Reaction Status Date / Time No Known Allergies Allergy Verified 04/15/23 20:38 Review of Systems ROS Other: All systems not noted in ROS Statement are negative. <Seth Hanna - Last Filed: 09/04/23 23:00> ROS Other: All systems not noted in ROS Statement are negative. <Damien Mejia - Last Filed: 09/05/23 01:31> ROS Statement: Those systems with pertinent positive or pertinent negative responses have been documented in the HPI. Past Medical History Past Medical History: Diabetes Mellitus Additional Past Medical History / Comment(s): Back pain History of Any Multi-Drug Resistant Organisms: None Reported Date of last positivie culture/infection: 04/15/23 MDRO Source:: Right Foot Past Surgical History: No Surgical Hx Reported Past Anesthesia/Blood Transfusion Reactions: No Reported Reaction Past Psychological History: No Psychological Hx Reported Smoking Status: Current every day smoker Past Alcohol Use History: None Reported Past Drug Use History: Marijuana <Seth Hanna - Last Filed: 09/04/23 23:00> General Exam General appearance: in distress (Aggressive and uncooperative) Respiratory exam: Present: normal lung sounds bilaterally Cardiovascular Exam: Present: regular rate GI/Abdominal exam: Present: soft Neurological exam: Present: alert (Alert to self but not person or time) Skin exam: Present: warm <Seth Hanna - Last Filed: 09/04/23 23:00> Course <Damien Mejia - Last Filed: 09/05/23 01:31> Vital Signs 09/04/23 09/04/23 09/04/23 18:15 21:06 23:35 Temperature 98.4 F Pulse Rate 113 H 130 H Respiratory 18 20 Rate Blood Pressure 159/72 163/111 O2 Sat by Pulse 97 95 Oximetry Fraction of 100 Inspired Oxygen (FIO2) 09/04/23 09/05/23 09/05/23 23:58 00:10 00:14 Temperature 98.5 F Pulse Rate 121 H Respiratory 20 Rate Blood Pressure 152/96 O2 Sat by Pulse 100 Oximetry Fraction of 100 Inspired Oxygen (FIO2) - Reevaluation(s) Reevaluation #1: 09/04/23 23:12 Patient was discussed with me and endorsed to me by ED PA Seth Hanna. Patient presented to the ED with altered mental status and combativeness, and despite multiple doses of Geodon and Ativan, he remains restless and combative. We have been unable to obtain a reliable temperature or imaging studies given his restlessness and combativeness. Will sedate and intubate the patient at this time for airway protection given his altered mental status, as well as urgent need for imaging evaluation at this time, particularly head imaging. I have discussed all of this with the patient's daughter/healthcare POA who is at bedside with the patient, and she agrees with this plan. 09/05/23 00:59 Case, H&P, test results and ED management thus far were discussed with Dr. Cartagena who is currently in the ED. He accepts ICU admission. He agrees with initiating IV heparin therapy and consulting cardiology given the patient's elevated troponin. He has no further recommendations at this time. 09/05/23 01:17 Case, H&P, test results, ED management thus far and my discussion with Dr. Cartagena as above were discussed with Dr. Scruggs. He agrees with ICU admission. He has no further recommendations at this time. (Damien Mejia) Procedures - Intubation Sedative: Etomidate Mg Given: 20 Paralytic: Succinylcholine Mg Given: 100 Laryngoscope: other (Video laryngoscope) ET Tube Size: 8 ET Tube Uncuffed: No Tube Secured Depth (cm): 24 Tube Secured Location: lips Tube Placement Confirmation: visualized tube passing through cords, equal breath sounds bilaterally, no breath sounds over epigastrium Patient Tolerated Procedure: no complications Intubation Complications: none <Damien Mejia - Last Filed: 09/05/23 01:31> Medical Decision Making - Lab Data Result diagrams: 09/04/23 19:35 09/04/23 19:35 <Seth Hanna - Last Filed: 09/04/23 23:00> - Lab Data Result diagrams: 09/04/23 19:35 09/04/23 19:35 <Damien Mejia - Last Filed: 09/05/23 01:31> - Medical Decision Making Was pt. sent in by a medical professional or institution (, PA, HEEL BUILDER, urgent care, hospital, or senior care...) When possible be specific @ -No Did you speak to anyone other than the patient for history (EMS, parent, family, police, friend...)? What history was obtained from this source @ -Spoke to patient's daughter at bedside for history. For further details please see HPI. Did you review nursing and triage notes (agree or disagree)? Why? @ -I reviewed and agree with nursing and triage notes Were old charts reviewed (outside hosp., previous admission, EMS record, old EKG, old radiological studies, urgent care reports/EKG's, senior care records)? Report findings @ -No old charts were reviewed Differential Diagnosis (chest pain, altered mental status, abdominal pain women, abdominal pain men, vaginal bleeding, weakness, fever, dyspnea, syncope, headache, dizziness, GI bleed, back pain, seizure, CVA, palpatations, mental health, musculoskeletal)? @ -Differential Altered Mental Status: Hypoglycemia, DKA, hypercapnia, ETOH, overdose, CO poisoning, trauma, myxedema coma, HTN encephalopathy, infection, encephalitis, psychosis, intercranial hemorrhage, hepatic encephalopathy, meningitis, CVA, this is not meant to be an all-inclusive list EKG interpreted by me (3pts min.). @ -EKG interpreted by me which shows a sinus rhythm 127 bpm with nonspecific findings. QRS 117, QT/QTc 355/410. X-rays interpreted by me (1pt min.). @ -Pending CT interpreted by me (1pt min.). @ -Pending U/S interpreted by me (1pt. min.). @ -None done What testing was considered but not performed or refused? (CT, X-rays, U/S, labs)? Why? @ -None What meds were considered but not given or refused? Why? @ -None Did you discuss the management of the patient with other professionals (professionals i.e. , PA, HEEL BUILDER, lab, RT, psych nurse, social media job titles, skin drier, teacher, student officer, embedded case manager)? Give summary @ -No Was smoking cessation discussed for >3mins.? @ -No Was critical care preformed (if so, how long)? @ -No Were there social determinants of health that impacted care today? How? (Homelessness, low income, unemployed, alcoholism, drug addiction, transportation, low edu. Level, literacy, decrease access to med. care, group home, rehab)? @ -No Was there de-escalation of care discussed even if they declined (Discuss DNR or withdrawal of care, Hospice)? DNR status @ -No What co-morbidities impacted this encounter? (DM, HTN, Smoking, COPD, CAD, Cancer, CVA, ARF, Chemo, Hep., AIDS, mental health diagnosis, sleep apnea, morbid obesity)? @ -None Was patient admitted / discharged? Hospital course, mention meds given and route, prescriptions, significant lab abnormalities, going to OR and other pertinent info. @ -Pending 62-year-old male presented to the ED with altered mental status. Labs reviewed. Labs significant for an elevated white blood cell count at 19.5, elevated neutrophils at 17.3. Potassium 3.4 otherwise chemistry panel largely unremarkable other than an elevated blood sugar. UA shows no signs of infection. Serology panel unremarkable. Lactic acid pending. During patient stay here in the ED have had significant difficulties due to aggressive behavior and continuously pulling out his lines. Delay in CT as patient was uncooperative while in the CT. Ultimately decision was made to intubate and sedate the patient to have further imaging studies performed. Case signed out to my attending physician, Dr. Mejia, for further disposition (Seth Hanna) X-rays interpreted by me (1pt min.). @ -Chest x-ray was reviewed myself and shows appropriate placement of endotracheal and orogastric tubes. There is no apparent cardiopulmonary disease. I agree with the radiologist's interpretation as above. CT interpreted by me (1pt min.). @ -Noncontrast head CT and CT angiography head/neck with IV contrast were reviewed myself. There is no acute abnormality noted. I agree with the radiologist's interpretations as above. Did you discuss the management of the patient with other professionals (professionals i.e. , PA, HEEL BUILDER, lab, RT, psych nurse, social media job titles, skin drier, teacher, student officer, embedded case manager)? Give summary @ -As above. Was critical care preformed (if so, how long)? @ -Yes, for 70 minutes. Was patient admitted / discharged? Hospital course, mention meds given and route, prescriptions, significant lab abnormalities, going to OR and other pertinent info. @ -Patient was discussed with me and endorsed to me by ED PA Seth Hanna. Patient was seen and evaluated/examined independently myself. Daughter reports that the patient was found with decreased level of consciousness and altered mental status today, and he was last seen normal by her yesterday. Daughter reports that he has no prior history of similar presentation. Daughter states that she is unaware of any alcohol or drug abuse history. Daughter states that she is uncertain of the etiology of the patient's altered mental status. Patient was combative on arrival to the ED and attempts to sedate the patient with Ativan and Geodon in the ED were unsuccessful. Patient was eventually intubated for airway protection and to obtain head imaging. Patient's head imaging is negative (noncontrast CT and CTA). Patient has a leukocytosis of 19.5, but he is afebrile and has a normal lactic acid level. Patient's UA and chest x-ray are negative for findings of infection. Will initiate empiric treatment for possible meningitis with IV vancomycin and IV Rocephin at this time. This has been discussed with Dr. Cartagena who is currently in the ED and has accepted hospital admission. He agrees with this plan. Patient's tox screen is only positive for marijuana and oxycodone. Patient's troponin level is minimally elevated. Will initiate IV heparin drip given his elevated troponin level. Dr. Cartagena agrees with this plan as well. Cardiology consultation order was also placed. Case was discussed with the on-call cleater, Dr. Scruggs, who also agrees with ICU admission. Patient is currently intubated and on propofol and Versed IV drips for sedation. Undiagnosed new problem with uncertain prognosis? @ -No Drug Therapy requiring intensive monitoring for toxicity (Heparin, Nitro, Insulin, Cardizem)? @ -No Were any procedures done? @ -Yes, endotracheal intubation. Diagnosis/symptom? @ -Altered mental status Acute, or Chronic, or Acute on Chronic? @ -Acute Uncomplicated (without systemic symptoms) or Complicated (systemic symptoms)? @ -Default Side effects of treatment? @ -No Exacerbation, Progression, or Severe Exacerbation? @ -No Poses a threat to life or bodily function? How? (Chest pain, [place], [place], pneumonia, PE, COPD, DKA, ARF, appy, cholecystitis, CVA, Diverticulitis, Homicidal, Suicidal, threat to staff... and all critical care pts) @ -Yes, possibly. Diagnosis/symptom? @ -Elevated troponin Acute, or Chronic, or Acute on Chronic? @ -Acute Uncomplicated (without systemic symptoms) or Complicated (systemic symptoms)? @ -Default Side effects of treatment? @ -None Exacerbation, Progression, or Severe Exacerbation] @ -No Poses a threat to life or bodily function? @ -Yes, possibly. Diagnosis/symptom? @ -Marijuana abuse Acute, or Chronic, or Acute on Chronic? @ -Default Uncomplicated (without systemic symptoms) or Complicated (systemic symptoms)? @ -Default Side effects of treatment? @ -None Exacerbation, Progression, or Severe Exacerbation] @ -No Poses a threat to life or bodily function? @ -No (Damien Mejia) - Lab Data Lab Results 09/04/23 09/04/23 09/04/23 Range/Units 19:35 19:35 19:35 WBC 19.5 H (3.8-10.6) k/uL RBC 5.08 (4.30-5.90) m/uL Hgb 14.9 (13.0-17.5) gm/dL Hct 44.2 (39.0-53.0) % MCV 87.1 (80.0-100.0) fL MCH 29.3 (25.0-35.0) pg MCHC 33.6 (31.0-37.0) g/dL RDW 13.8 (11.5-15.5) % Plt Count 259 (150-450) k/uL MPV 7.7 Neutrophils % 89 % Lymphocytes % 7 % Monocytes % 4 % Eosinophils % 0 % Basophils % 0 % Neutrophils # 17.3 H (1.3-7.7) k/uL Lymphocytes # 1.3 (1.0-4.8) k/uL Monocytes # 0.8 (0-1.0) k/uL Eosinophils # 0.0 (0-0.7) k/uL Basophils # 0.0 (0-0.2) k/uL PT 10.6 (10.0-12.5) sec INR 1.0 (<1.2) APTT 22.1 (22.0-30.0) sec Sample Site ABG pH (7.35-7.45) ABG pCO2 (35-45) mmHg ABG pO2 (83-108) mmHg ABG HCO3 (21-25) mmol/L ABG Total CO2 (19-24) mmol/L ABG O2 Saturation (94-97) % ABG Base Excess mmol/L Tim Test FiO2 % Sodium 140 (137-145) mmol/L Potassium 3.4 L (3.5-5.1) mmol/L Chloride 103 (98-107) mmol/L Carbon Dioxide 19 L (22-30) mmol/L Anion Gap 18 mmol/L BUN 25 H (9-20) mg/dL Creatinine 0.76 (0.66-1.25) mg/dL Est GFR (CKD-EPI)AfAm >90 (>60 ml/min/1.73 sqM) Est GFR (CKD-EPI)NonAf >90 (>60 ml/min/1.73 sqM) Glucose 277 H (74-99) mg/dL Plasma Lactic Acid Omid (0.7-2.0) mmol/L Calcium 9.6 (8.4-10.2) mg/dL Total Bilirubin 0.7 (0.2-1.3) mg/dL AST 29 (17-59) U/L ALT 30 (4-49) U/L Alkaline Phosphatase 85 (38-126) U/L Ammonia (<30) umol/L Creatine Kinase (55-170) U/L Troponin I (0.000-0.034) ng/mL Total Protein 7.7 (6.3-8.2) g/dL Albumin 4.6 (3.5-5.0) g/dL Urine Color Urine Appearance (Clear) Urine pH (5.0-8.0) Ur Specific [place] (1.001-1.035) Urine Protein (Negative) Urine Glucose (UA) (Negative) Urine Ketones (Negative) Urine Blood (Negative) Urine Nitrite (Negative) Urine Bilirubin (Negative) Urine Urobilinogen (<2.0) mg/dL Ur Leukocyte Esterase (Negative) Salicylates <1.0 mg/dL Urine Opiates Screen (NotDetected) Ur Oxycodone Screen (NotDetected) Urine Methadone Screen (NotDetected) Acetaminophen <10.0 ug/mL Ur Barbiturates Screen (NotDetected) U Tricyclic Antidepress (NotDetected) Ur Phencyclidine Scrn (NotDetected) Ur Amphetamines Screen (NotDetected) U Methamphetamines Scrn (NotDetected) U Benzodiazepines Scrn (NotDetected) Urine Cocaine Screen (NotDetected) U Marijuana (THC) Screen (NotDetected) Serum Alcohol <10 mg/dL Influenza Type A (PCR) (Not Detectd) Influenza Type B (PCR) (Not Detectd) RSV (PCR) (Not Detectd) SARS-CoV-2 (PCR) (Not Detectd) 09/04/23 09/04/23 09/04/23 Range/Units 19:35 19:35 19:59 WBC (3.8-10.6) k/uL RBC (4.30-5.90) m/uL Hgb (13.0-17.5) gm/dL Hct (39.0-53.0) % MCV (80.0-100.0) fL MCH (25.0-35.0) pg MCHC (31.0-37.0) g/dL RDW (11.5-15.5) % Plt Count (150-450) k/uL MPV Neutrophils % % Lymphocytes % % Monocytes % % Eosinophils % % Basophils % % Neutrophils # (1.3-7.7) k/uL Lymphocytes # (1.0-4.8) k/uL Monocytes # (0-1.0) k/uL Eosinophils # (0-0.7) k/uL Basophils # (0-0.2) k/uL PT (10.0-12.5) sec INR (<1.2) APTT (22.0-30.0) sec Sample Site ABG pH (7.35-7.45) ABG pCO2 (35-45) mmHg ABG pO2 (83-108) mmHg ABG HCO3 (21-25) mmol/L ABG Total CO2 (19-24) mmol/L ABG O2 Saturation (94-97) % ABG Base Excess mmol/L Tim Test FiO2 % Sodium (137-145) mmol/L Potassium (3.5-5.1) mmol/L Chloride (98-107) mmol/L Carbon Dioxide (22-30) mmol/L Anion Gap mmol/L BUN (9-20) mg/dL Creatinine (0.66-1.25) mg/dL Est GFR (CKD-EPI)AfAm (>60 ml/min/1.73 sqM) Est GFR (CKD-EPI)NonAf (>60 ml/min/1.73 sqM) Glucose (74-99) mg/dL Plasma Lactic Acid Omid (0.7-2.0) mmol/L Calcium (8.4-10.2) mg/dL Total Bilirubin (0.2-1.3) mg/dL AST (17-59) U/L ALT (4-49) U/L Alkaline Phosphatase (38-126) U/L Ammonia 11 (<30) umol/L Creatine Kinase (55-170) U/L Troponin I 0.028 (0.000-0.034) ng/mL Total Protein (6.3-8.2) g/dL Albumin (3.5-5.0) g/dL Urine Color Urine Appearance (Clear) Urine pH (5.0-8.0) Ur Specific [place] (1.001-1.035) Urine Protein (Negative) Urine Glucose (UA) (Negative) Urine Ketones (Negative) Urine Blood (Negative) Urine Nitrite (Negative) Urine Bilirubin (Negative) Urine Urobilinogen (<2.0) mg/dL Ur Leukocyte Esterase (Negative) Salicylates mg/dL Urine Opiates Screen Not Detected (NotDetected) Ur Oxycodone Screen Detected H (NotDetected) Urine Methadone Screen Not Detected (NotDetected) Acetaminophen ug/mL Ur Barbiturates Screen Not Detected (NotDetected) U Tricyclic Antidepress Not Detected (NotDetected) Ur Phencyclidine Scrn Not Detected (NotDetected) Ur Amphetamines Screen Not Detected (NotDetected) U Methamphetamines Scrn Not Detected (NotDetected) U Benzodiazepines Scrn Not Detected (NotDetected) Urine Cocaine Screen Not Detected (NotDetected) U Marijuana (THC) Screen Detected H (NotDetected) Serum Alcohol mg/dL Influenza Type A (PCR) (Not Detectd) Influenza Type B (PCR) (Not Detectd) RSV (PCR) (Not Detectd) SARS-CoV-2 (PCR) (Not Detectd) 09/04/23 09/04/23 09/04/23 Range/Units 19:59 21:00 23:17 WBC (3.8-10.6) k/uL RBC (4.30-5.90) m/uL Hgb (13.0-17.5) gm/dL Hct (39.0-53.0) % MCV (80.0-100.0) fL MCH (25.0-35.0) pg MCHC (31.0-37.0) g/dL RDW (11.5-15.5) % Plt Count (150-450) k/uL MPV Neutrophils % % Lymphocytes % % Monocytes % % Eosinophils % % Basophils % % Neutrophils # (1.3-7.7) k/uL Lymphocytes # (1.0-4.8) k/uL Monocytes # (0-1.0) k/uL Eosinophils # (0-0.7) k/uL Basophils # (0-0.2) k/uL PT (10.0-12.5) sec INR (<1.2) APTT (22.0-30.0) sec Sample Site ABG pH (7.35-7.45) ABG pCO2 (35-45) mmHg ABG pO2 (83-108) mmHg ABG HCO3 (21-25) mmol/L ABG Total CO2 (19-24) mmol/L ABG O2 Saturation (94-97) % ABG Base Excess mmol/L Tim Test FiO2 % Sodium (137-145) mmol/L Potassium (3.5-5.1) mmol/L Chloride (98-107) mmol/L Carbon Dioxide (22-30) mmol/L Anion Gap mmol/L BUN (9-20) mg/dL Creatinine (0.66-1.25) mg/dL Est GFR (CKD-EPI)AfAm (>60 ml/min/1.73 sqM) Est GFR (CKD-EPI)NonAf (>60 ml/min/1.73 sqM) Glucose (74-99) mg/dL Plasma Lactic Acid Omid (0.7-2.0) mmol/L Calcium (8.4-10.2) mg/dL Total Bilirubin (0.2-1.3) mg/dL AST (17-59) U/L ALT (4-49) U/L Alkaline Phosphatase (38-126) U/L Ammonia (<30) umol/L Creatine Kinase (55-170) U/L Troponin I 0.159 H* (0.000-0.034) ng/mL Total Protein (6.3-8.2) g/dL Albumin (3.5-5.0) g/dL Urine Color Colorless Urine Appearance Clear (Clear) Urine pH 5.0 (5.0-8.0) Ur Specific [place] 1.014 (1.001-1.035) Urine Protein Negative (Negative) Urine Glucose (UA) 4+ H (Negative) Urine Ketones 1+ H (Negative) Urine Blood Negative (Negative) Urine Nitrite Negative (Negative) Urine Bilirubin Negative (Negative) Urine Urobilinogen <2.0 (<2.0) mg/dL Ur Leukocyte Esterase Negative (Negative) Salicylates mg/dL Urine Opiates Screen (NotDetected) Ur Oxycodone Screen (NotDetected) Urine Methadone Screen (NotDetected) Acetaminophen ug/mL Ur Barbiturates Screen (NotDetected) U Tricyclic Antidepress (NotDetected) Ur Phencyclidine Scrn (NotDetected) Ur Amphetamines Screen (NotDetected) U Methamphetamines Scrn (NotDetected) U Benzodiazepines Scrn (NotDetected) Urine Cocaine Screen (NotDetected) U Marijuana (THC) Screen (NotDetected) Serum Alcohol mg/dL Influenza Type A (PCR) Not Detected (Not Detectd) Influenza Type B (PCR) Not Detected (Not Detectd) RSV (PCR) Not Detected (Not Detectd) SARS-CoV-2 (PCR) Not Detected (Not Detectd) 09/04/23 09/04/23 09/05/23 Range/Units 23:17 23:17 00:36 WBC (3.8-10.6) k/uL RBC (4.30-5.90) m/uL Hgb (13.0-17.5) gm/dL Hct (39.0-53.0) % MCV (80.0-100.0) fL MCH (25.0-35.0) pg MCHC (31.0-37.0) g/dL RDW (11.5-15.5) % Plt Count (150-450) k/uL MPV Neutrophils % % Lymphocytes % % Monocytes % % Eosinophils % % Basophils % % Neutrophils # (1.3-7.7) k/uL Lymphocytes # (1.0-4.8) k/uL Monocytes # (0-1.0) k/uL Eosinophils # (0-0.7) k/uL Basophils # (0-0.2) k/uL PT (10.0-12.5) sec INR (<1.2) APTT (22.0-30.0) sec Sample Site Right Radial ABG pH 7.37 (7.35-7.45) ABG pCO2 43 (35-45) mmHg ABG pO2 51 L* (83-108) mmHg ABG HCO3 25 (21-25) mmol/L ABG Total CO2 26 H (19-24) mmol/L ABG O2 Saturation 85.2 L (94-97) % ABG Base Excess -0.4 mmol/L Tim Test Yes FiO2 100 % Sodium (137-145) mmol/L Potassium (3.5-5.1) mmol/L Chloride (98-107) mmol/L Carbon Dioxide (22-30) mmol/L Anion Gap mmol/L BUN (9-20) mg/dL Creatinine (0.66-1.25) mg/dL Est GFR (CKD-EPI)AfAm (>60 ml/min/1.73 sqM) Est GFR (CKD-EPI)NonAf (>60 ml/min/1.73 sqM) Glucose (74-99) mg/dL Plasma Lactic Acid Omid 0.9 (0.7-2.0) mmol/L Calcium (8.4-10.2) mg/dL Total Bilirubin (0.2-1.3) mg/dL AST (17-59) U/L ALT (4-49) U/L Alkaline Phosphatase (38-126) U/L Ammonia (<30) umol/L Creatine Kinase 254 H (55-170) U/L Troponin I (0.000-0.034) ng/mL Total Protein (6.3-8.2) g/dL Albumin (3.5-5.0) g/dL Urine Color Urine Appearance (Clear) Urine pH (5.0-8.0) Ur Specific [place] (1.001-1.035) Urine Protein (Negative) Urine Glucose (UA) (Negative) Urine Ketones (Negative) Urine Blood (Negative) Urine Nitrite (Negative) Urine Bilirubin (Negative) Urine Urobilinogen (<2.0) mg/dL Ur Leukocyte Esterase (Negative) Salicylates mg/dL Urine Opiates Screen (NotDetected) Ur Oxycodone Screen (NotDetected) Urine Methadone Screen (NotDetected) Acetaminophen ug/mL Ur Barbiturates Screen (NotDetected) U Tricyclic Antidepress (NotDetected) Ur Phencyclidine Scrn (NotDetected) Ur Amphetamines Screen (NotDetected) U Methamphetamines Scrn (NotDetected) U Benzodiazepines Scrn (NotDetected) Urine Cocaine Screen (NotDetected) U Marijuana (THC) Screen (NotDetected) Serum Alcohol mg/dL Influenza Type A (PCR) (Not Detectd) Influenza Type B (PCR) (Not Detectd) RSV (PCR) (Not Detectd) SARS-CoV-2 (PCR) (Not Detectd) - Radiology Data Chest x-ray: 1. Satisfactory positioning of new endotracheal and orogastric tubes. 2. No acute cardiopulmonary process. Noncontrast head CT: No acute intracranial hemorrhage or midline shift. CT angiography head/neck with IV contrast: 1. No significant stenosis in common or internal carotid arteries bilaterally. 2. No large vessel occlusion or aneurysm at the level of the [place]. (Damien Mejia) Critical Care Time Critical Care Time: Yes Total Critical Care Time: 70 <Damien Mejia - Last Filed: 09/05/23 01:31> Disposition <Seth Hanna - Last Filed: 09/04/23 23:00> Is patient prescribed a controlled substance at d/c from ED?: No Time of Disposition: 01:00 <Damien Mejia - Last Filed: 09/05/23 01:31> Clinical Impression: Altered mental status, Elevated troponin, Combative behavior, Marijuana abuse Disposition: ADMITTED IP TO THIS [facility] Condition: Stable
[2023-09-04] MEDS: LORazepam 2 MG/ML INJ IV STA ×2 (18:32→22:40)
[2023-09-04] MEDS: diphenhydrAMINE 50 MG/ML 1 ML VIAL IVP STA (18:36)
[2023-09-04] MEDS: ZIPRASIDONE 20 MG VIAL IM STA ×2 (18:56→21:18)
[2023-09-04 20:11] LABS: ALT 30 U/L (4-49); AST 29 U/L (17-59); Acetaminophen <10.0 ug/mL; African American GFR (CKD) >90 (>60 ml/min/1.73 sqM); Albumin 4.6 g/dL (3.5-5.0); Alcohol <10 mg/dL; Alkaline Phosphatase 85 U/L (38-126); Anion Gap 18 mmol/L; Blood Urea Nitrogen 25 mg/dL (9-20); Calcium 9.6 mg/dL (8.4-10.2); Carbon Dioxide 19 mmol/L (22-30); Chloride 103 mmol/L (98-107); Glucose 277 mg/dL (74-99); Non-African American GFR(CKD) >90 (>60 ml/min/1.73 sqM); Potassium 3.4 mmol/L (3.5-5.1); Salicylate <1.0 mg/dL; Sodium 140 mmol/L (137-145); Total Bilirubin 0.7 mg/dL (0.2-1.3); Total Protein 7.7 g/dL (6.3-8.2)
[2023-09-04 20:12] LABS: Partial Thromboplastin Time 22.1 sec (22.0-30.0); Prothrombin Time 10.6 sec (10.0-12.5)
[2023-09-04 20:18] LABS: Basophils % (A) 0 %; Eosinophils % (A) 0 %; HCT 44.2 % (39.0-53.0); HGB 14.9 gm/dL (13.0-17.5); Lymphocytes # (A) 1.3 k/uL (1.0-4.8); Lymphocytes % (A) 7 %; MCH 29.3 pg (25.0-35.0); MCHC 33.6 g/dL (31.0-37.0); MCV 87.1 fL (80.0-100.0); Mean Platelet Volume 7.7; Monocytes # (A) 0.8 k/uL (0-1.0); Monocytes % (A) 4 %; Neutrophils # (A) 17.3 k/uL (1.3-7.7); Neutrophils % (A) 89 %; Platelet Count 259 k/uL (150-450); RBC 5.08 m/uL (4.30-5.90); RDW 13.8 % (11.5-15.5); WBC 19.5 k/uL (3.8-10.6)
[2023-09-04 20:31] LABS: Appearance,Urine Clear (Clear); Bilirubin,Urine Negative (Negative); Blood,Urine Negative (Negative); Color,Urine Colorless; Glucose,Urine (UA) 4+ (Negative); Ketones,Urine 1+ (Negative); Leukocyte Esterase,Urine Negative (Negative); Nitrite,Urine Negative (Negative); Protein,Urine Negative (Negative); Specific Gravity,Urine 1.014 (1.001-1.035); Urobilinogen,Urine <2.0 mg/dL (<2.0)
[2023-09-04 20:48] LABS: Amphetamine Screen,Urine Not Detected (NotDetected); Barbiturate Screen,Urine Not Detected (NotDetected); Benzodiazepines Screen,Urine Not Detected (NotDetected); Cocaine Screen,Urine Not Detected (NotDetected); Methadone Screen, Urine Not Detected (NotDetected); Opiate Screen,Urine Not Detected (NotDetected); Oxycodone Screen, Urine Detected (NotDetected); Phencyclidine Screen,Urine Not Detected (NotDetected); Tricyclic Antidepressant,Urine Not Detected (NotDetected); Urn Cannabinoid Scrn Detected (NotDetected)
[2023-09-04] MEDS: ETOMIDATE 2 MG/ML 10 ML VIAL IVP STA ×2 (23:35→23:43)
[2023-09-04] MEDS: SUCCINYLCHOLINE CHLORIDE 200 MG/10 ML VIAL IV ONE ×2 (23:36→23:43)
[2023-09-04] MEDS: MIDAZOLAM 1 MG/ML 5 ML VIAL IV STA (23:59)
--- NOTE | 2023-09-05 00:06 | XR ---
EXAMINATION TYPE: XR chest 1V portable DATE OF EXAM: 09/05/2023 COMPARISON: Prior chest x-ray April 16, 2023 HISTORY: ETT and NGT placement. Found unresponsive. TECHNIQUE: Single frontal view of the chest is obtained. FINDINGS: There is oral gastric tube projecting below the diaphragm. There is an endotracheal tube t erminating at the aortic knob level approximately 3 cm above the [place]. There is no suspicious new focal air space opacity, pleural effusion, or pneumothorax seen. The card iac silhouette size is stable and within normal limits. The osseous structures are intact. IMPRESSION: 1. Satisfactory positioning of new endotracheal and orogastric tubes. 2. No acute cardiopulmonary process.
[2023-09-05] MEDS: SODIUM CHLORIDE 0.9% 2,000 ML IV STA (00:11)
[2023-09-05] MEDS: KETOROLAC 15 MG/ML 1 ML VIAL IVP STA (00:28)
[2023-09-05] MEDS: MIDAZOLAM 1 MG/ML 5 ML VIAL IV STA (00:29)
--- NOTE | 2023-09-05 00:35 | CT ---
EXAMINATION TYPE: CT brain wo con DATE OF EXAM: 09/05/2023 HISTORY: ams CT DLP: 1818.2 mGycm. Automated Exposure Control for Dose Reduction was Utilized. TECHNIQUE: CT scan of the head is performed without contrast. COMPARISON: None. FINDINGS: There is no acute intracranial hemorrhage or midline shift identified. There is mild diff use ventricular and sulcal prominence consistent with diffuse age-related cerebral atrophy. [place] matter differentiation fairly well-preserved. The globes are intact and the visualized sinuses are clear. IMPRESSION: No acute intracranial hemorrhage or midline shift.
[2023-09-05 00:40] LABS: ABG Base Excess -0.4 mmol/L; ABG HCO3 25 mmol/L (21-25); ABG Oxygen Saturation 85.2 % (94-97); ABG PCO2 43 mmHg (35-45); ABG PH 7.37 (7.35-7.45); ABG TCO2 26 mmol/L (19-24); Allen Test Performed? Yes
--- NOTE | 2023-09-05 00:40 | CT ---
EXAMINATION TYPE: CT angio head neck DATE OF EXAM: 09/05/2023 HISTORY: AMS COMPARISON: None. CT DLP: 1818.2 mGycm. Automated Exposure Control for Dose Reduction was Utilized. TECHNIQUE: CTA scan of the head and neck is performed with IV Contrast, patient injected with 65 mL of Isovue 370, axial images are obtained, coronal and sagittal reformatted images are reviewed. 3D re constructed images are created on an independent workstation and reviewed. FINDINGS: Carotid/Vascular Structures: Normal 3 vessel origins from the aortic arch. Mild peripheral plaque in aortic arch. No significant stenosis at the three-vessel takeoff. No significant plaque or stenosis i n the common carotid arteries bilaterally. Mild peripheral calcified plaque right carotid bulb extend ing into the proximal internal carotid artery without significant stenosis. Mild mixed plaque proxima l left internal carotid artery. No significant stenosis in either internal carotid artery. Patent ext ernal carotid arteries bilaterally without significant stenosis. Vertebral arteries are patent to the basilar junction. Right vertebral artery is noted dominant. No l arge vessel occlusion or aneurysm in the posterior circulation. Patent anterior communicating artery. No large vessel occlusion or aneurysm in the anterior circulation. Other: Endotracheal tube terminates at the aortic knob level. Orogastric tube in the esophagus is als o noted. Visualized upper lungs are clear. IMPRESSION: 1. No significant stenosis in common or internal carotid arteries bilaterally. 2. No large vessel occlusion or aneurysm at level of the [place]. NASCET criteria was used in interpretation of this exam?
[2023-09-05 00:47] LABS: ABG PO2 51 mmHg (83-108)
[2023-09-05] MEDS: MIDAZOLAM HCL 50 MG in SODIUM CHLORIDE 0.9% 40 ML IV SCH (00:58)
[2023-09-05] MEDS ORDERED: NALOXONE 0.4 MG/ML 1 ML VIAL IV PRN (01:18)
[2023-09-05] MEDS: VANCOMYCIN 1,500 MG in SODIUM CHLORIDE 0.9% 500 ML 500 ML IVPB STA (01:27)
[2023-09-05] MEDS: HEPARIN SOD,PORK IN 0.45% NACL 25,000 UNIT in 0.45% NACL 1 250ML.BAG IV SCH (01:50)
[2023-09-05] MEDS: HEPARIN SODIUM 1,000 UN/ML (10ML VL) IV ONE (01:51)
[2023-09-05 02:16] LABS: Glucose,Whole Blood 241 mg/dL (70-110)
[2023-09-05 03:23] LABS: African American GFR (CKD) >90 (>60 ml/min/1.73 sqM); Anion Gap 10 mmol/L; Blood Urea Nitrogen 21 mg/dL (9-20); Calcium 8.8 mg/dL (8.4-10.2); Carbon Dioxide 21 mmol/L (22-30); Chloride 109 mmol/L (98-107); Glucose 239 mg/dL (74-99); Magnesium 1.9 mg/dL (1.6-2.3); Non-African American GFR(CKD) >90 (>60 ml/min/1.73 sqM); Potassium 3.7 mmol/L (3.5-5.1); Sodium 140 mmol/L (137-145)
[2023-09-05] MEDS ORDERED: VANCOMYCIN IV PER PHARMACY 1 EACH MISC MISCELLANE PRN (05:05)
[2023-09-05] MEDS: SODIUM CHLORIDE 0.9% 1,000 ML IV ONE (05:07)
--- NOTE | 2023-09-05 05:17 | P.HPIM ---
History of Present Illness H&P Date: 09/05/23 Patient is a 62-year-old male with a PMH of type II DM status post right lower extremity BKA who was brought to the emergency room for decreased responsiveness. No history could be obtained from the patient as he was intubated at the time of interview. The patient was last seen by his daughter a yesterday evening when he was doing well. He was again seen by his and son earlier today but did not seem quite feel like himself. The patient's daughter subsequently found him somewhat unresponsive on the couch. She reports that he does not have upon arrival at the emergency room, the patient was noted to be confused and agitated. He became increasingly combative and there were concerns for him maintaining his airway, at which time the patient was intubated by the ED provider. CT angiogram of head and neck in the emergency room was unremarkable CT brain was unremarkable. Chest x-ray was also unremarkable. EKG revealed A-fib with RVR at [address]/T wave changes noted as reviewed by me. Laboratory evaluation was remarkable for troponin 0.028 and subsequently 0.159. CK was 254 with UA positive for marijuana and oxycodone with respiratory viral panel unremarkable. WBC count was 19.5 with Tmax 100.0 F in the emergency room. ED documentation reviewed and case discussed with ED provider. Review of systems: Unable to obtain, patient intubated Physical examination: Vital signs reviewed General: non toxic, no distress, appears at stated age, normal weight Derm: no unusual rashes/lesions, warm Head: atraumatic, normocephalic, symmetric Eyes: anicteric sclera, pupils equal round reactive to light ENT: Nose and ears atraumatic Neck: No cervical lymphadenopathy, trachea midline, supple Mouth: no lip lesion, mucus membranes moist Cardiovascular: Tachycardic, S1S2 reg, no murmur, positive dorsalis pedis pulse bilateral, no edema Lungs: CTA bilateral, no rhonchi, no rales, no accessory muscle use Abdominal: soft Ext: no gross muscle atrophy, no contractures, Neuro: Unable to assess, patient intubated Psych: Unable to assess, patient intubated Assessment: Sepsis of unclear etiology Non-ST elevation [place] Chronic conditions: Type II DM Imaging: CT angiogram of head and neck in the emergency room was unremarkable CT brain was unremarkable. Chest x-ray was also unremarkable. EKG revealed A-fib with RVR at [address]/T wave changes noted as reviewed by me. Data Review: Laboratory evaluation was remarkable for troponin 0.028 and subsequently 0.159. CK was 254 with UA positive for marijuana and oxycodone with respiratory viral panel unremarkable. WBC count was 19.5 with Tmax 100.0 F in the emergency room. Plan: Continue patient on broad-spectrum antibiotic coverage with vancomycin and ceftriaxone Continue ventilator bundle Heparin infusion Cardiology consulted [employer] Administrator consulted Follow-up blood cultures and procalcitonin levels Trend troponin Cardiac monitoring DVT prophylaxis: Heparin infusion The patient is admitted with an anticipated greater than 2 midnight stay for evaluation of sepsis CODE STATUS: Full Code Discussed with: Katia Anticipated discharge place: Home Past Medical History Past Medical History: Diabetes Mellitus Additional Past Medical History / Comment(s): Back pain History of Any Multi-Drug Resistant Organisms: None Reported Date of last positivie culture/infection: 04/15/23 MDRO Source:: Right Foot Past Surgical History: No Surgical Hx Reported Past Anesthesia/Blood Transfusion Reactions: No Reported Reaction Past Psychological History: No Psychological Hx Reported Smoking Status: Current every day smoker Past Alcohol Use History: None Reported Past Drug Use History: Marijuana Medications and Allergies Home Medications Medication Instructions Recorded Confirmed Type HYDROcodone/APAP 7.5-325MG [[place] 1 tab PO TID 04/15/23 04/15/23 History 7.5-325] Januvia(Unknown Dose) 1 tab PO DAILY 04/15/23 04/15/23 History metFORMIN HCL 1,000 mg PO DIRECTED 04/15/23 04/15/23 History Allergies Allergy/AdvReac Type Severity Reaction Status Date / Time No Known Allergies Allergy Verified 04/15/23 20:38 Physical Exam Vitals: Vital Signs Temp Pulse Resp BP Pulse Ox FiO2 09/05/23 04:00 98.8 F 123 H 27 H 114/82 97 100 09/05/23 03:52 100 09/05/23 03:30 126 H 21 129/88 97 09/05/23 03:25 100 09/05/23 03:00 100 F H 133 H 13 132/54 96 100 09/05/23 01:30 98.8 F 126 H 20 150/101 99 09/05/23 01:00 128 H 20 152/98 100 09/05/23 00:14 98.5 F 09/05/23 00:10 121 H 20 152/96 100 09/04/23 23:58 100 09/04/23 23:35 100 09/04/23 21:06 130 H 20 163/111 95 09/04/23 18:15 98.4 F 113 H 18 159/72 97 Intake and Output 09/04/23 09/04/23 09/05/23 14:59 22:59 06:59 Intake Total 68.114 Output Total 330 Balance -261.886 Intake: Intake, IV Titration 68.114 Amount Midazolam HCl 50 mg In 10.850 Sodium Chloride 0.9% 40 ml @ 1 MG/HR 1 mls/hr IV .Q24H [facility] Rx#:[id number] propofoL 1,000 mg In 57.264 Empty Bag 1 bag @ 15 MCG/ KG/MIN 6.532 mls/hr IV . [id number] [facility] Rx#:[id number] Output: Urine 330 Uretheral (Chew) 155 Other: Voiding Method Indwelling Catheter Weight 72.575 kg 81.6 kg Results CBC & Chem 7: 09/04/23 19:35 09/05/23 02:30 Labs: Abnormal Lab Results - Last 24 Hours (Table) 09/04/23 09/04/23 09/04/23 Range/Units 19:35 19:35 19:59 WBC 19.5 H (3.8-10.6) k/uL Neutrophils # 17.3 H (1.3-7.7) k/uL ABG pO2 (83-108) mmHg ABG Total CO2 (19-24) mmol/L ABG O2 Saturation (94-97) % Potassium 3.4 L (3.5-5.1) mmol/L Chloride (98-107) mmol/L Carbon Dioxide 19 L (22-30) mmol/L BUN 25 H (9-20) mg/dL Glucose 277 H (74-99) mg/dL POC Glucose (mg/dL) (70-110) mg/dL Creatine Kinase (55-170) U/L Troponin I (0.000-0.034) ng/mL Urine Glucose (UA) (Negative) Urine Ketones (Negative) Ur Oxycodone Screen Detected H (NotDetected) U Marijuana (THC) Screen Detected H (NotDetected) 09/04/23 09/04/23 09/04/23 Range/Units 19:59 23:17 23:17 WBC (3.8-10.6) k/uL Neutrophils # (1.3-7.7) k/uL ABG pO2 (83-108) mmHg ABG Total CO2 (19-24) mmol/L ABG O2 Saturation (94-97) % Potassium (3.5-5.1) mmol/L Chloride (98-107) mmol/L Carbon Dioxide (22-30) mmol/L BUN (9-20) mg/dL Glucose (74-99) mg/dL POC Glucose (mg/dL) (70-110) mg/dL Creatine Kinase 254 H (55-170) U/L Troponin I 0.159 H* (0.000-0.034) ng/mL Urine Glucose (UA) 4+ H (Negative) Urine Ketones 1+ H (Negative) Ur Oxycodone Screen (NotDetected) U Marijuana (THC) Screen (NotDetected) 09/05/23 09/05/23 09/05/23 Range/Units 00:36 02:15 02:30 WBC (3.8-10.6) k/uL Neutrophils # (1.3-7.7) k/uL ABG pO2 51 L* (83-108) mmHg ABG Total CO2 26 H (19-24) mmol/L ABG O2 Saturation 85.2 L (94-97) % Potassium (3.5-5.1) mmol/L Chloride (98-107) mmol/L Carbon Dioxide (22-30) mmol/L BUN (9-20) mg/dL Glucose (74-99) mg/dL POC Glucose (mg/dL) 241 H (70-110) mg/dL Creatine Kinase (55-170) U/L Troponin I 0.621 H* (0.000-0.034) ng/mL Urine Glucose (UA) (Negative) Urine Ketones (Negative) Ur Oxycodone Screen (NotDetected) U Marijuana (THC) Screen (NotDetected) 09/05/23 Range/Units 02:30 WBC (3.8-10.6) k/uL Neutrophils # (1.3-7.7) k/uL ABG pO2 (83-108) mmHg ABG Total CO2 (19-24) mmol/L ABG O2 Saturation (94-97) % Potassium (3.5-5.1) mmol/L Chloride 109 H (98-107) mmol/L Carbon Dioxide 21 L (22-30) mmol/L BUN 21 H (9-20) mg/dL Glucose 239 H (74-99) mg/dL POC Glucose (mg/dL) (70-110) mg/dL Creatine Kinase (55-170) U/L Troponin I (0.000-0.034) ng/mL Urine Glucose (UA) (Negative) Urine Ketones (Negative) Ur Oxycodone Screen (NotDetected) U Marijuana (THC) Screen (NotDetected)
[2023-09-05] MEDS ORDERED: Potassium Replacement Protocol 1 EACH MISC MISCELLANE PRN (05:27)
[2023-09-05] MEDS ORDERED: Magnesium Replacement Protocol 1 EACH MISC MISCELLANE PRN (05:28)
[2023-09-05] MEDS: POTASSIUM BICARBONATE/CIT AC 20 MEQ TABLET.EFF NG-TUBE SCH (06:02)
[2023-09-05] MEDS: SODIUM CHLORIDE 0.9% 1,000 ML IV SCH ×2 (06:06→21:09)
[2023-09-05] MEDS: MAGNESIUM SULFATE-D5W PMX 1 GM in DEXTROSE/WATER 1 100ML.BAG IVPB ONE (06:06)
--- NOTE | 2023-09-05 07:37 | P.PN ---
Subjective Progress Note Date: 09/05/23 Patient is a 62-year-old male with diabetes mellitus type 2 status post right BKA secondary to necrotizing fasciitis who presented to the hospital with decreased responsiveness. The ER of patient had altered mentation was combative. He received multiple doses of Geodon and Ativan and continued to remain restless and combative therefore patient was sedated and intubated for airway protection and need for urgent imaging. Laboratory evaluation in the ER was remarkable for white blood cell count 19.5, potassium 3.4, carbon dioxide 19 with anion gap of 18 and blood sugars of 277. Patient was positive for marijuana and methadone. COVID-19/RSV/influenza a and B testing was negative. Chest x-ray showed no acute process. CT head showed no acute intracranial hemorrhage or midline shift CT angio of the head and neck demonstrated no significant stenosis and no occlusion. Patient was subsequently admitted to the ICU. He was started on broad-spectrum antibiotics with Vanco and ceftriaxone. Troponin became positive and he was subsequently started on a heparin infusion. Cardiology and intensive care were consulted. Patient seen and examined at bedside.Patient sedated on vent Per nursing no other acute events overnight. Vital signs reviewed General: Nontoxic, no distress, appears at stated age Cardiovascular: S1S2 reg, no murmur Lungs: Course bs bilateral, no rhonchi, no rales, no accessory muscle use, on vent Abdominal: Soft, nontender to palpation, no guarding Ext: No gross muscle atrophy, no edema b/l lower extremities, no contractures Neuro: CN II-XI grossly intact, no focal neuro deficits Psych: Alert, oriented, appropriate affect Assessment/Plan: SIRS, undetermined source Acute encephalopathy toxic versus metabolic -Patient may have elevated heart rate secondary to agitation but given the fact that his white blood cell count was 19.5 on arrival will continue with Rocephin 2 g IV every 24 hours day #2 and vancomycin IV piggyback day #2 with pharmacy dosing monitoring for toxicity with creatinine and Vanco trough levels. -Await procalcitonin -Recheck x-ray in a.m. -Check initial chest x-ray and urinalysis unrevealing for sources of infection -Will consult neurology as patient may benefit from lumbar puncture given his level of altered mentation and sepsis. Elevated troponin -Troponins are increasing -Continue with heparin drip -Add aspirin -No beta-carla at this time due to marginal blood pressures -Echocardiogram -Telemetry -Cardiology consultation Diabetes mellitus type 2 with hyperglycemia -Sliding scale insulin every 6 hours while on vent -Follow blood sugars -Check A1c Imaging: None new Data Review: Labs reviewed from this morning include ABG which shows PaO2 of 51, BMP which is remarkable for carbon dioxide 21 and BUN 21. Troponin 0.621. DVT prophylaxis: Heparin gtt Anticipated discharge date: Pending Clinical Course Anticipated discharge place: Pending Clinical Course This dictation was prepared using [employer] voice recognition software. Though every attempt is made to correct errors during dictation some may still exist. Objective - Vital Signs Vital signs: Vital Signs Temp 98.8 F 09/05/23 04:00 Pulse 100 09/05/23 07:00 Resp 16 09/05/23 07:00 BP 92/64 09/05/23 07:00 Pulse Ox 94 L 09/05/23 07:00 FiO2 40 09/05/23 05:24 Intake & Output 09/04/23 09/05/23 09/05/23 18:59 06:59 18:59 Intake Total 1523.026 Output Total 400 Balance 1123.026 Weight 72.575 kg 81.6 kg Intake: IV 1359 Magnesium Sulfate-D5w Pmx 100 1 gm In Dextrose/Water 1 100ml.bag @ 100 mls/hr IVPB [facility]CE [facility] Rx#: [id number] Sodium Chloride 0.9% 1, 260 000 ml @ 130 mls/hr IV . [id number] [facility] Rx#:[id number] Sodium Chloride 0.9% 1, 999 000 ml @ 999 mls/hr IV . Q1H1M [facility] Rx#:[id number] Intake, IV Titration 164.026 Amount Midazolam HCl 50 mg In 24.750 Sodium Chloride 0.9% 40 ml @ 1 MG/HR 1 mls/hr IV .Q24H [facility] Rx#:[id number] propofoL 1,000 mg In 139.276 Empty Bag 1 bag @ 15 MCG/ KG/MIN 6.532 mls/hr IV . [id number] [facility] Rx#:[id number] Output: Urine 400 Uretheral (Chew) 155 Other: Voiding Method Indwelling Catheter - Labs CBC & Chem 7: 09/04/23 19:35 09/05/23 02:30 Labs: Abnormal Lab Results - Last 24 Hours (Table) 09/04/23 09/04/23 09/04/23 Range/Units 19:35 19:35 19:59 WBC 19.5 H (3.8-10.6) k/uL Neutrophils # 17.3 H (1.3-7.7) k/uL ABG pO2 (83-108) mmHg ABG Total CO2 (19-24) mmol/L ABG O2 Saturation (94-97) % Potassium 3.4 L (3.5-5.1) mmol/L Chloride (98-107) mmol/L Carbon Dioxide 19 L (22-30) mmol/L BUN 25 H (9-20) mg/dL Glucose 277 H (74-99) mg/dL POC Glucose (mg/dL) (70-110) mg/dL Creatine Kinase (55-170) U/L Troponin I (0.000-0.034) ng/mL Urine Glucose (UA) (Negative) Urine Ketones (Negative) Ur Oxycodone Screen Detected H (NotDetected) U Marijuana (THC) Screen Detected H (NotDetected) 09/04/23 09/04/23 09/04/23 Range/Units 19:59 23:17 23:17 WBC (3.8-10.6) k/uL Neutrophils # (1.3-7.7) k/uL ABG pO2 (83-108) mmHg ABG Total CO2 (19-24) mmol/L ABG O2 Saturation (94-97) % Potassium (3.5-5.1) mmol/L Chloride (98-107) mmol/L Carbon Dioxide (22-30) mmol/L BUN (9-20) mg/dL Glucose (74-99) mg/dL POC Glucose (mg/dL) (70-110) mg/dL Creatine Kinase 254 H (55-170) U/L Troponin I 0.159 H* (0.000-0.034) ng/mL Urine Glucose (UA) 4+ H (Negative) Urine Ketones 1+ H (Negative) Ur Oxycodone Screen (NotDetected) U Marijuana (THC) Screen (NotDetected) 09/05/23 09/05/23 09/05/23 Range/Units 00:36 02:15 02:30 WBC (3.8-10.6) k/uL Neutrophils # (1.3-7.7) k/uL ABG pO2 51 L* (83-108) mmHg ABG Total CO2 26 H (19-24) mmol/L ABG O2 Saturation 85.2 L (94-97) % Potassium (3.5-5.1) mmol/L Chloride (98-107) mmol/L Carbon Dioxide (22-30) mmol/L BUN (9-20) mg/dL Glucose (74-99) mg/dL POC Glucose (mg/dL) 241 H (70-110) mg/dL Creatine Kinase (55-170) U/L Troponin I 0.621 H* (0.000-0.034) ng/mL Urine Glucose (UA) (Negative) Urine Ketones (Negative) Ur Oxycodone Screen (NotDetected) U Marijuana (THC) Screen (NotDetected) 09/05/23 Range/Units 02:30 WBC (3.8-10.6) k/uL Neutrophils # (1.3-7.7) k/uL ABG pO2 (83-108) mmHg ABG Total CO2 (19-24) mmol/L ABG O2 Saturation (94-97) % Potassium (3.5-5.1) mmol/L Chloride 109 H (98-107) mmol/L Carbon Dioxide 21 L (22-30) mmol/L BUN 21 H (9-20) mg/dL Glucose 239 H (74-99) mg/dL POC Glucose (mg/dL) (70-110) mg/dL Creatine Kinase (55-170) U/L Troponin I (0.000-0.034) ng/mL Urine Glucose (UA) (Negative) Urine Ketones (Negative) Ur Oxycodone Screen (NotDetected) U Marijuana (THC) Screen (NotDetected)
--- NOTE | 2023-09-05 08:15 | P.CNPUL ---
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 Patient is currently intubated mechanical ventilator unable to provide any information. I did review the patient's medical record. Appare ntly, the patient was brought in yesterday evening. He was altered, and not acting appropriately. Brain CT negative for any acute intracranial hemorrhage or midline shift. Brain CTA did not show any significant flow-limiting stenosis within the internal carotid arteries. While in the emergency room, he then became combative he was given 2 doses of Geodon, 10 mg and 2 doses of Versed 5 mg and 2 doses of IV Ativan 2 mg. He was then intubated for airway protection by the ER physician. Postintubation chest x-ray showed endotracheal tube approximately 3 cm above the tatiana. Orogastric tube courses below the diaphragm. No acute cardiopulmonary process. Postintubation ABG shows a PaO2 of 51, pCO2 of 43, pH of 7.37. This was done on ventilator settings of assist- control, respiratory rate 20, tidal volume 450, FiO2 of 100, and PEEP of 5. PEEP was increased to 8. Repeat ABG showed a PaO2 greater than 400, pCO2 of 34, and pH of 7.46. He is apparently difficult to sedate postintubation, he is on a combination of propofol at 50 mcg/kg/min and Versed at 5 mg/h. He is currently synchronous on mechanical ventilator. Patient has been febrile with a Tmax of 100 F. Source of the infection is not exactly clear. CBC shows leukocytosis with a WBC count of 19.5, most recent BMP from this morning fairly unremarkable. Patient has been started on broad-spectrum antibiotics in the form of Rocephin and vancomycin. Troponins were elevated and trending up, at 0.028, 0.159, and 0.62 respectively. Patient was started on heparin infusion, cardiology was asked to evaluate this patient. Urinalysis not concerning for UTI. Tox screen positive for oxycodone and marijuana. Serum alcohol level less than 10. Heart rhythm appears sinus tachycardia on bedside monitor. Blood pressure was h ypotensive postintubation, he did receive a total of 3 L normal saline bolus. Blood pressure has responded, not requiring any vasopressors at the moment. Urine output is adequate. Prognosis guarded. Review of Systems ROS unobtainable: due to endotracheal tube Past Medical History Past Medical History: Diabetes Mellitus Additional Past Medical History / Comment(s): Back pain History of Any Multi-Drug Resistant Organisms: None Reported Date of last positivie culture/infection: 04/15/23 MDRO Source:: Right Foot Past Surgical History: No Surgical Hx Reported Past Anesthesia/Blood Transfusion Reactions: No Reported Reaction Past Psychological History: No Psychological Hx Reported Smoking Status: Current every day smoker Past Alcohol Use History: None Reported Past Drug Use History: Marijuana Medications and Allergies Home Medications Medication Instructions Recorded Confirmed Type HYDROcodone/APAP 7.5-325MG [[place] 1 tab PO TID 04/15/23 04/15/23 History 7.5-325] Januvia(Unknown Dose) 1 tab PO DAILY 04/15/23 04/15/23 History metFORMIN HCL 1,000 mg PO DIRECTED 04/15/23 04/15/23 History Allergies Allergy/AdvReac Type Severity Reaction Status Date / Time No Known Allergies Allergy Verified 04/15/23 20:38 Physical Exam Vitals: Vital Signs Temp Pulse Resp BP Pulse Ox FiO2 09/05/23 07:00 100 16 92/64 94 L 09/05/23 06:30 103 H 8 L 94/65 94 L 09/05/23 06:00 104 H 15 82/58 96 09/05/23 05:24 40 09/05/23 05:00 124 H 15 114/84 97 09/05/23 04:00 98.8 F 123 H 27 H 114/82 97 100 09/05/23 03:52 100 09/05/23 03:30 126 H 21 129/88 97 09/05/23 03:25 100 09/05/23 03:00 100 F H 133 H 13 132/54 96 100 09/05/23 01:30 98.8 F 126 H 20 150/101 99 09/05/23 01:00 128 H 20 152/98 100 09/05/23 00:14 98.5 F 09/05/23 00:10 121 H 20 152/96 100 09/04/23 23:58 100 09/04/23 23:35 100 09/04/23 21:06 130 H 20 163/111 95 09/04/23 18:15 98.4 F 113 H 18 159/72 97 Intake and Output 09/04/23 09/05/23 09/05/23 22:59 06:59 14:59 Intake Total 1523.026 Output Total 400 Balance 1123.026 Intake: IV 1359 Magnesium Sulfate-D5w Pmx 100 1 gm In Dextrose/Water 1 100ml.bag @ 100 mls/hr IVPB ONCE ONE Rx#: [id number] Sodium Chloride 0.9% 1, 260 000 ml @ 130 mls/hr IV . Q7H42M [facility] Rx#:[id number] Sodium Chloride 0.9% 1, 999 000 ml @ 999 mls/hr IV . Q1H1M ONE Rx#:[id number] Intake, IV Titration 164.026 Amount Midazolam HCl 50 mg In 24.750 Sodium Chloride 0.9% 40 ml @ 1 MG/HR 1 mls/hr IV .Q24H [facility] Rx#:[id number] propofoL 1,000 mg In 139.276 Empty Bag 1 bag @ 15 MCG/ KG/MIN 6.532 mls/hr IV . [id number] [facility] Rx#:[id number] Output: Urine 400 Uretheral (Chew) 155 Other: Voiding Method Indwelling Catheter Weight 72.575 kg 81.6 kg GENERAL EXAM: Sedated and unresponsive, 62-year-old white male, synchronous with mechanical ventilator. HEAD: Normocephalic and atraumatic EYES: Normal reaction of pupils, equal size. NOSE: Clear with pink turbinates. THROAT: No erythema or exudates. NECK: No masses, no JVD. CHEST: No chest wall deformity. LUNGS: Equal air entry with no crackles, wheeze, rhonchi or dullness. Intubated to the mechanical ventilator. No significant endotracheal secretions. Peak pressures 18. CVS: S1 and S2 normal with no audible murmur, regular rhythm. No extra heart sounds ABDOMEN: No hepatosplenomegaly, active bowel sounds, no guarding or rigidity. SPINE: No scoliosis or deformity SKIN: No rashes CENTRAL NERVOUS SYSTEM: No focal deficits, tone is normal in all 4 extremities. EXTREMITIES: There is no peripheral edema, clubbing, or cyanosis. Peripheral pulses are intact. Right AKA, stump appears to be healing nicely. Results - Laboratory Findings CBC and BMP: 09/04/23 19:35 09/05/23 02:30 ABG ABG pH 7.37 (7.35-7.45) 09/05/23 00:36 ABG pCO2 43 mmHg (35-45) 09/05/23 00:36 ABG pO2 51 mmHg (83-108) L* 09/05/23 00:36 ABG O2 Saturation 85.2 % (94-97) L 09/05/23 00:36 PT/INR, D-dimer PT 10.6 sec (10.0-12.5) 09/04/23 19:35 INR 1.0 (<1.2) 09/04/23 19:35 Abnormal lab findings: Abnormal Labs 09/04/23 09/04/23 09/04/23 19:35 19:35 19:59 WBC 19.5 H Neutrophils # 17.3 H ABG pO2 ABG Total CO2 ABG O2 Saturation Potassium 3.4 L Chloride Carbon Dioxide 19 L BUN 25 H Glucose 277 H POC Glucose (mg/dL) Creatine Kinase Troponin I Urine Glucose (UA) Urine Ketones Ur Oxycodone Screen Detected H U Marijuana (THC) Screen Detected H 09/04/23 09/04/23 09/04/23 19:59 23:17 23:17 WBC Neutrophils # ABG pO2 ABG Total CO2 ABG O2 Saturation Potassium Chloride Carbon Dioxide BUN Glucose POC Glucose (mg/dL) Creatine Kinase 254 H Troponin I 0.159 H* Urine Glucose (UA) 4+ H Urine Ketones 1+ H Ur Oxycodone Screen U Marijuana (THC) Screen 09/05/23 09/05/23 09/05/23 00:36 02:15 02:30 WBC Neutrophils # ABG pO2 51 L* ABG Total CO2 26 H ABG O2 Saturation 85.2 L Potassium Chloride Carbon Dioxide BUN Glucose POC Glucose (mg/dL) 241 H Creatine Kinase Troponin I 0.621 H* Urine Glucose (UA) Urine Ketones Ur Oxycodone Screen U Marijuana (THC) Screen 09/05/23 02:30 WBC Neutrophils # ABG pO2 ABG Total CO2 ABG O2 Saturation Potassium Chloride 109 H Carbon Dioxide 21 L BUN 21 H Glucose 239 H POC Glucose (mg/dL) Creatine Kinase Troponin I Urine Glucose (UA) Urine Ketones Ur Oxycodone Screen U Marijuana (THC) Screen - Diagnostic Findings Chest x-ray: image reviewed Assessment and Plan Assessment: Altered mental status, unknown etiology, currently under investigation Acute febrile illness/sepsis, exact source is not exactly clear Acute leukocytosis Hypotension and shock, status/post aggressive fluid resuscitation, with a total of 3 L normal saline, may require vasopressor support if persistent hypotension Mechanical ventilator management, patient was intubated for airway protection. Postintubation chest x-ray shows the endotracheal tube approximately 3 cm from the tatiana. No acute cardiopulmonary process identified. 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 Continue combination of empiric antibiotics, exact source of infection is not exactly clear, may consider coverage for bacterial or aseptic meningitis May add norepinephrine for blood pressure support if hypotension is refractory to fluid resuscitation. Continue heparin infusion per protocol Cardiology is following Sliding scale insulin added Protonix added for GI prophylaxis We will continue to follow the patient while in the intensive care unit, additional recommendations are forthcoming. Prognosis guarded. I have personally seen and examined the patient, performed the documentation and the assessment and plan as written. Number of minutes spent on the visit:20 Time with Patient: Greater than 30
[2023-09-05] MEDS ORDERED: INSULIN ASPART (NovoLOG) 100 UNIT/ML VIAL SQ SCH (09:00)
[2023-09-05] MEDS: NOREPINEPHRINE 4 MG in SODIUM CHLORIDE 0.9% 250 ML IV SCH (09:42)
[2023-09-05 09:52] LABS: Glucose,Whole Blood 178 mg/dL (70-110)
[2023-09-05] MEDS: INSULIN ASPART (NovoLOG) 100 UNIT/ML VIAL SQ SCH (09:54)
[2023-09-05] MEDS: PANTOPRAZOLE 40 MG/10 ML VIAL IVP SCH (10:23)
--- NOTE | 2023-09-05 10:34 | XR ---
EXAMINATION TYPE: XR chest 1V portable DATE OF EXAM: 09/05/2023 COMPARISON: 09/05/2023 INDICATION: Mechanical ventilation difficulty breathing TECHNIQUE: Single frontal view of the chest is obtained. FINDINGS: The heart size is normal. The pulmonary vasculature is normal. The lungs are clear. Endotracheal tube is tip above the tatiana. Nasogastric tube transverses the thorax. IMPRESSION: 1. No acute pulmonary process.
--- NOTE | 2023-09-05 10:49 | P.CNPUL ---
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 Patient is currently intubated mechanical ventilator unable to provide any information. I did review the patient's medical record. Apparently, the patient was brought in yesterday evening. He was altered, and not acting appropriately. Brain CT negative for any acute intracranial hemorrhage or midline shift. Brain CTA did not show any significant flow- limiting stenosis within the internal carotid arteries. While in the emergency room, he then became combative he was given 2 doses of Geodon, 10 mg and 2 doses of Versed 5 mg and 2 doses of IV Ativan 2 mg. He was then intubated for airway protection by the ER physician. Postintubation chest x-ray showed endotracheal tube approximately 3 cm above the tatiana. Orogastric tube courses below the diaphragm. No acute cardiopulmonary process. Postintubation ABG shows a PaO2 of 51, pCO2 of 43, pH of 7.37. This was done on ventilator settings of assist- control, respiratory rate 20, tidal volume 450, FiO2 of 100, and PEEP of 5. PEEP was increased to 8. Repeat ABG showed a PaO2 greater than 400, pCO2 of 34, and pH of 7.46. He is apparently difficult to sedate postintubation, he is on a combination of propofol at 50 mcg/kg/min and Versed at 5 mg/h. He is currently synchronous on mechanical ventilator. Patient has been febrile with a Tmax of 100 F. Source of the infection is not exactly clear. CBC shows leukocytosis with a WBC count of 19.5, most recent BMP from this morning fairly unremarkable. Patient has been started on broad-spectrum antibiotics in the form of Rocephin and vancomycin. Troponins were elevated and trending up, at 0.028, 0.159, and 0.62 respectively. Patient was started on heparin infusion, cardiology was asked to evaluate this patient. Urinalysis not concerning for UTI. Tox screen positive for oxycodone and marijuana. Serum alcohol level less than 10. Heart rhythm appears sinus tachycardia on bedside monitor. Blood pressure was hypotensive postintubation, he did receive a total of 3 L normal saline bolus. Blood pressure has responded, not requiring any vasopressors at the moment. Urine output is adequate. I have the chest to evaluate this patient in the intensive care unit. The patient was on propofol running at 50 mcg/kg/min and the patient is on Versed at 4 mg an hour. No seizure activity. Normal saline is still running at the rate of 130 cc an hour. The patient currently is still on the mechanical ventilator and FiO2 has been weaned down to 40% with a PEEP of 5. He is still running a lower blood pressure. Tmax was 100. No neck stiffness. No skin rashes. Patient remains on broad-spectrum antibiotics and the patient was given a combination of Rocephin and vancomycin.The patient remains on IV heparin. Troponin peaked at 0.6. Cardiac rhythm is sinus. The chest x-ray from today is showing no acute cardiopulmonary process. No significant signs of bronchospasm or wheezing at this point in time. Review of Systems ROS unobtainable: due to endotracheal tube Past Medical History Past Medical History: Diabetes Mellitus Additional Past Medical History / Comment(s): Back pain History of Any Multi-Drug Resistant Organisms: None Reported Date of last positivie culture/infection: 04/15/23 MDRO Source:: Right Foot Past Surgical History: No Surgical Hx Reported Past Anesthesia/Blood Transfusion Reactions: No Reported Reaction Past Psychological History: No Psychological Hx Reported Smoking Status: Current every day smoker Past Alcohol Use History: None Reported Past Drug Use History: Marijuana Medications and Allergies Home Medications Medication Instructions Recorded Confirmed Type HYDROcodone/APAP 7.5-325MG [[place] 1 tab PO TID 04/15/23 04/15/23 History 7.5-325] Januvia(Unknown Dose) 1 tab PO DAILY 04/15/23 04/15/23 History metFORMIN HCL 1,000 mg PO DIRECTED 04/15/23 04/15/23 History Allergies Allergy/AdvReac Type Severity Reaction Status Date / Time No Known Allergies Allergy Verified 04/15/23 20:38 Physical Exam Vitals: Vital Signs Temp Pulse Resp BP Pulse Ox FiO2 09/05/23 09:12 40 09/05/23 09:00 85 20 73/55 94 L 40 09/05/23 08:30 89 20 78/62 95 09/05/23 08:00 99.2 F 92 16 82/59 94 L 40 09/05/23 07:30 95 16 89/61 92 L 09/05/23 07:00 100 16 92/64 94 L 09/05/23 06:30 103 H 8 L 94/65 94 L 09/05/23 06:00 104 H 15 82/58 96 09/05/23 05:24 40 09/05/23 05:00 124 H 15 114/84 97 09/05/23 04:00 98.8 F 123 H 27 H 114/82 97 100 09/05/23 03:52 100 09/05/23 03:30 126 H 21 129/88 97 09/05/23 03:25 100 09/05/23 03:00 100 F H 133 H 13 132/54 96 100 09/05/23 01:30 98.8 F 126 H 20 150/101 99 09/05/23 01:00 128 H 20 152/98 100 09/05/23 00:14 98.5 F 09/05/23 00:10 121 H 20 152/96 100 09/04/23 23:58 100 09/04/23 23:35 100 09/04/23 21:06 130 H 20 163/111 95 09/04/23 18:15 98.4 F 113 H 18 159/72 97 Intake and Output 09/04/23 09/05/23 09/05/23 22:59 06:59 14:59 Intake Total 1523.026 349.845 Output Total 400 185 Balance 1123.026 164.845 Intake: IV 1359 260 Magnesium Sulfate-D5w Pmx 100 1 gm In Dextrose/Water 1 100ml.bag @ 100 mls/hr IVPB ONCE ONE Rx#: [id number] Sodium Chloride 0.9% 1, 260 260 000 ml @ 130 mls/hr IV . Q7H42M [facility] Rx#:[id number] Sodium Chloride 0.9% 1, 999 000 ml @ 999 mls/hr IV . Q1H1M ONE Rx#:[id number] Intake, IV Titration 164.026 89.845 Amount Heparin Sod,Pork in 0.45% 63.866 NaCl 25,000 unit In 0.45 % NaCl 1 250ml.bag @ 12 UNITS/KG/HR 9.792 mls/hr IV .Q24H [facility] Rx#: [id number] Midazolam HCl 50 mg In 24.750 15.667 Sodium Chloride 0.9% 40 ml @ 1 MG/HR 1 mls/hr IV .Q24H [facility] Rx#:[id number] Norepinephrine 4 mg In 10.312 Sodium Chloride 0.9% 250 ml @ 0.03 MCG/KG/MIN 9. 327 mls/hr IV .Q24H [facility] Rx#:[id number] propofoL 1,000 mg In 139.276 Empty Bag 1 bag @ 15 MCG/ KG/MIN 6.532 mls/hr IV . [id number] [facility] Rx#:[id number] Output: Urine 400 185 Uretheral (Chew) 155 Other: Voiding Method Indwelling Catheter Weight 72.575 kg 81.6 kg GENERAL EXAM: Sedated and unresponsive, 62-year-old white male, synchronous with mechanical ventilator. Patient is currently on a combination of propofol and Versed. HEAD: Normocephalic and atraumatic EYES: Normal reaction of pupils, equal size. NOSE: Clear with pink turbinates. THROAT: No erythema or exudates. NECK: No masses, no JVD. CHEST: No chest wall deformity. LUNGS: Equal air entry with no crackles, wheeze, rhonchi or dullness. Intubated to the mechanical ventilator. No significant endotracheal secretions. CVS: S1 and S2 normal with no audible murmur, regular rhythm. No extra heart sounds ABDOMEN: No hepatosplenomegaly, active bowel sounds, no guarding or rigidity. SPINE: No scoliosis or deformity SKIN: No rashes CENTRAL NERVOUS SYSTEM: No focal deficits, tone is normal in all 4 extremities. No neck stiffness. No significant response to painful stimulation. Pupils are equal reactive to light. 3-4 mm in size. EXTREMITIES: There is no peripheral edema, clubbing, or cyanosis. Peripheral pulses are intact. Right AKA, stump appears to be healing nicely. Results - Laboratory Findings CBC and BMP: 09/04/23 19:35 09/05/23 02:30 ABG ABG pH 7.37 (7.35-7.45) 09/05/23 00:36 ABG pCO2 43 mmHg (35-45) 09/05/23 00:36 ABG pO2 51 mmHg (83-108) L* 09/05/23 00:36 ABG O2 Saturation 85.2 % (94-97) L 09/05/23 00:36 PT/INR, D-dimer PT 10.6 sec (10.0-12.5) 09/04/23 19:35 INR 1.0 (<1.2) 09/04/23 19:35 Abnormal lab findings: Abnormal Labs 09/04/23 09/04/23 09/04/23 19:35 19:35 19:59 WBC 19.5 H Neutrophils # 17.3 H APTT ABG pO2 ABG Total CO2 ABG O2 Saturation Potassium 3.4 L Chloride Carbon Dioxide 19 L BUN 25 H Glucose 277 H POC Glucose (mg/dL) Creatine Kinase Troponin I Urine Glucose (UA) Urine Ketones Ur Oxycodone Screen Detected H U Marijuana (THC) Screen Detected H 09/04/23 09/04/23 09/04/23 19:59 23:17 23:17 WBC Neutrophils # APTT ABG pO2 ABG Total CO2 ABG O2 Saturation Potassium Chloride Carbon Dioxide BUN Glucose POC Glucose (mg/dL) Creatine Kinase 254 H Troponin I 0.159 H* Urine Glucose (UA) 4+ H Urine Ketones 1+ H Ur Oxycodone Screen U Marijuana (THC) Screen 09/05/23 09/05/23 09/05/23 00:36 02:15 02:30 WBC Neutrophils # APTT ABG pO2 51 L* ABG Total CO2 26 H ABG O2 Saturation 85.2 L Potassium Chloride Carbon Dioxide BUN Glucose POC Glucose (mg/dL) 241 H Creatine Kinase Troponin I 0.621 H* Urine Glucose (UA) Urine Ketones Ur Oxycodone Screen U Marijuana (THC) Screen 09/05/23 09/05/23 09/05/23 02:30 06:35 09:49 WBC Neutrophils # APTT 32.2 H ABG pO2 ABG Total CO2 ABG O2 Saturation Potassium Chloride 109 H Carbon Dioxide 21 L BUN 21 H Glucose 239 H POC Glucose (mg/dL) 178 H Creatine Kinase Troponin I Urine Glucose (UA) Urine Ketones Ur Oxycodone Screen U Marijuana (THC) Screen - Diagnostic Findings Chest x-ray: image reviewed Assessment and Plan Plan: Altered mental status, unknown etiology, currently under investigation. Noted the CTA of the head was essentially negative for any acute abnormalities. No signs of any acute vascular occlusion. The patient had a rapid altered mentation according to the family. No neck stiffness. There is a low-grade fever. Rule out metabolic encephalopathy. Rule out septic encephalopathy. The patient has a low-grade fever and some leukocytosis. Encephalitis is possible and cannot be completely ruled out. Acute febrile illness/sepsis, exact source is not exactly clear, under investigation the patient is currently on broad-spectrum antibiotics. Proc alcitonin level is still pending. Acute leukocytosis Hypotension and shock, status/post aggressive fluid resuscitation, with a total of 3 L normal saline, the patient remains relatively hypotensive and the patient would require pressors for hemodynamic support. Mechanical ventilator management, patient was intubated for airway protection. Postintubation chest x-ray shows the endotracheal tube approximately 3 cm from the tatiana. No acute cardiopulmonary process identified. 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 Plan: Continue ventilator support and FiO2 has been weaned down to 40% Patient currently on a combination of propofol and Versed for sedation, wean for appropriate RASS Chest x-ray from today is clear Cultures are still pending Continue empiric antibiotic coverage utilizing combination of vancomycin and Rocephin Neurology consultation EEG Anesthesia consultation for lumbar puncture Obtain echocardiogram With IV heparin on hold in preparation for lumbar puncture Sliding scale insulin added Protonix added for GI prophylaxis Condition is critical and will make further recommendations based on his progress. Time with Patient: Greater than 30
[2023-09-05 11:51] LABS: Glucose,Whole Blood 121 mg/dL (70-110)
--- NOTE | 2023-09-05 12:22 | CA ---
Transthoracic Echo Report Name: Aimlcar Arellano Age: 62 Gender: M : 1960 Exam Date: 09/05/2023 09:44 Exam Location: [facility] Ht (in): 70 Wt (lb): 179 Ordering Physician: Kathleen Nuñez MD Attending/Referring Phys: Chinese Teacher Mayra Doan RDCS Procedure CPT: Indications: ams Cardiac Hx: Technical Quality: Technically difficult study Contrast 1: Total Dose (mL): Contrast 2: Total Dose (mL): MEASUREMENTS (Male / Female) Normal Values 2D ECHO LV Diastolic Diameter PLAX 5.3 cm 4.2 - 5.9 / 3.9 - 5.3 cm LV Systolic Diameter PLAX 4.7 cm IVS Diastolic Thickness 1.1 cm 0.6 - 1.0 / 0.6 - 0.9 cm LVPW Diastolic Thickness 1.0 cm 0.6 - 1.0 / 0.6 - 0.9 cm LV Relative Wall Thickness 0.4 RV Internal Dim ED PLAX 5.0 cm M-MODE Aortic Root Diameter MM 3.7 cm LA Systolic Diameter MM 4.6 cm LA Ao Ratio MM 1.2 AV Cusp Separation MM 2.2 cm DOPPLER AV Peak Velocity 94.5 cm/s AV Peak Gradient 3.6 mmHg AV Mean Velocity 68.8 cm/s AV Mean Gradient 2.1 mmHg AV Velocity Time Integral 15.4 cm LVOT Peak Velocity 60.3 cm/s LVOT Peak Gradient 1.5 mmHg LVOT Velocity Time Integral 11.2 cm TR Peak Velocity 185.1 cm/s TR Peak Gradient 13.7 mmHg Right Ventricular Systolic Press 18.7 mmHg FINDINGS Left Ventricle Left ventricular cavity size at upper limits of normal. Left ventricular wall thickness normal. Severely reduced global left ventricular systolic function. Left ventricular ejection fraction is estimated at 20-25 %. Right Ventricle Severe right ventricular dilatation. Reduced right ventricular global systolic function. Right Atrium Mild right atrial dilatation. Left Atrium Moderately increased left atrial area. Mitral Valve Structurally normal mitral valve. Mitral valve thickened. Mild mitral annular calcification. Mild mitral regurgitation. Aortic Valve No aortic valve stenosis or regurgitation. Tricuspid Valve Mild tricuspid regurgitation. Pulmonic Valve Structurally normal pulmonic valve. Pericardium No pericardial effusion. Aorta Normal size aortic root and proximal ascending aorta. CONCLUSIONS Left ventricle is mildly enlarged at upper limits of normal with the global decrease in contractility and estimated ejection fraction of about 20-25%. There is significant right ventricular enlargement as well. Both atria are enlarged. There is mild mitral insufficiency no pericardial effusion Previewed by: Dr. Carleen Reagan MD (Electronically Signed) Final Date: 05 September 2023 12:21
[2023-09-05] MEDS: ACYCLOVIR SODIUM 800 MG in SODIUM CHLORIDE 0.9% 250 ML IVPB SCH (12:52)
--- NOTE | 2023-09-05 12:57 | P.CRDCN ---
History of Present Illness Consult date: 09/05/23 Consult reason: atrial fibrillation History of present illness: The patient is a 62-year-old male with past medical history of diabetes and right [id number] amputation, who was brought to the emergency room for mental status changes. The patient was given multiple doses of Geodon and Ativan via EMS for combativeness and agitation. He was ultimately intubated in order to complete imaging. Cardiology has been consulted for elevated troponins as well as initial EKG showing A-fib with RVR. DIAGNOSTICS: EKG showed A-fib with RVR Chest x-ray shows no suspicious air space opacity, pleural effusion, or pneumothorax CT scan of the brain shows no in acute intracranial process CT angio shows no significant stenosis in common or internal carotid arteries and no large vessel occlusion at the [place] Lab data: WBC 19.5, hemoglobin 14.9, hematocrit 44.2, platelet 259, sodium 140, potassium 3.7, BUN 21, creatinine 0.72, magnesium 1.9, AST 29, ALT 30, troponin 0.02, 0.15, 0.62 PHYSICAL EXAMINATION: This is a 62 year-old male currently sedated and intubated on ventilator HEENT: Head is atraumatic, normocephalic. Pupils are equal, round. . There is no jugular venous distention. No carotid bruit is heard. CHEST EXAMINATION: Lungs are clear to auscultation. No chest wall tenderness is noted on palpation or with deep breathing. HEART EXAMINATION: Heart regular rate and rhythm. S1, S2 heard. No murmurs, gallops or rub. ABDOMEN: Soft, nontender. Bowel sounds are heard. No organomegaly noted. EXTREMITIES: 2+ peripheral pulses with no evidence of peripheral edema and no calf tenderness noted. NEUROLOGIC EXAMINATION: Patient is sedated on ventilator FINAL ASSESSMENT AND PLAN: Altered mental status A-fib with RVR Elevated troponin Acute encephalopathy SIRS History of necrotizing fasciitis, status post right AKA History of diabetes mellitus PLAN: Agree with echocardiogram Continue heparin drip May hold heparin for spinal tap Further recommendations as per harrison I am dictating on behalf of Dr Marcus Layton's history/physical and assessment/plan. Past Medical History Past Medical History: Diabetes Mellitus Additional Past Medical History / Comment(s): Back pain History of Any Multi-Drug Resistant Organisms: None Reported Date of last positivie culture/infection: 04/15/23 MDRO Source:: Right Foot Past Surgical History: No Surgical Hx Reported Past Anesthesia/Blood Transfusion Reactions: No Reported Reaction Past Psychological History: No Psychological Hx Reported Smoking Status: Current every day smoker Past Alcohol Use History: None Reported Past Drug Use History: Marijuana Medications and Allergies Home Medications Medication Instructions Recorded Confirmed Type metFORMIN HCL 1,000 mg PO BID 04/15/23 09/05/23 History oxyCODONE HCL [oxyCODONE HCL (IR)] 5 mg PO Q4H PRN 09/05/23 09/05/23 History sitaGLIPtin [Januvia] 100 mg PO DAILY 09/05/23 09/05/23 History Allergies Allergy/AdvReac Type Severity Reaction Status Date / Time No Known Allergies Allergy Verified 04/15/23 20:38 Physical Exam Vitals: Vital Signs Temp Pulse Resp BP Pulse Ox FiO2 09/05/23 09:12 40 09/05/23 09:00 85 20 73/55 94 L 40 09/05/23 08:30 89 20 78/62 95 09/05/23 08:00 99.2 F 92 16 82/59 94 L 40 09/05/23 07:30 95 16 89/61 92 L 09/05/23 07:00 100 16 92/64 94 L 09/05/23 06:30 103 H 8 L 94/65 94 L 09/05/23 06:00 104 H 15 82/58 96 09/05/23 05:24 40 09/05/23 05:00 124 H 15 114/84 97 09/05/23 04:00 98.8 F 123 H 27 H 114/82 97 100 09/05/23 03:52 100 09/05/23 03:30 126 H 21 129/88 97 09/05/23 03:25 100 09/05/23 03:00 100 F H 133 H 13 132/54 96 100 09/05/23 01:30 98.8 F 126 H 20 150/101 99 09/05/23 01:00 128 H 20 152/98 100 09/05/23 00:14 98.5 F 09/05/23 00:10 121 H 20 152/96 100 09/04/23 23:58 100 09/04/23 23:35 100 09/04/23 21:06 130 H 20 163/111 95 09/04/23 18:15 98.4 F 113 H 18 159/72 97 Intake and Output 09/04/23 09/05/23 09/05/23 22:59 06:59 14:59 Intake Total 1523.026 339.533 Output Total 400 185 Balance 1123.026 154.533 Intake: IV 1359 260 Magnesium Sulfate-D5w Pmx 100 1 gm In Dextrose/Water 1 100ml.bag @ 100 mls/hr IVPB ONCE ONE Rx#: [id number] Sodium Chloride 0.9% 1, 260 260 000 ml @ 130 mls/hr IV . Q7H42M [facility] Rx#:[id number] Sodium Chloride 0.9% 1, 999 000 ml @ 999 mls/hr IV . Q1H1M [facility] Rx#:[id number] Intake, IV Titration 164.026 79.533 Amount Heparin Sod,Pork in 0.45% 63.866 NaCl 25,000 unit In 0.45 % NaCl 1 250ml.bag @ 12 UNITS/KG/HR 9.792 mls/hr IV .Q24H [facility] Rx#: [id number] Midazolam HCl 50 mg In 24.750 15.667 Sodium Chloride 0.9% 40 ml @ 1 MG/HR 1 mls/hr IV .Q24H [facility] Rx#:[id number] propofoL 1,000 mg In 139.276 Empty Bag 1 bag @ 15 MCG/ KG/MIN 6.532 mls/hr IV . [id number] [facility] Rx#:[id number] Output: Urine 400 185 Uretheral (Chew) 155 Other: Voiding Method Indwelling Catheter Weight 72.575 kg 81.6 kg Results 09/04/23 19:35 09/05/23 02:30 Cardiac Enzymes 09/04/23 09/04/23 09/04/23 Range/Units 19:35 19:35 23:17 AST 29 (17-59) U/L Troponin I 0.028 0.159 H* (0.000-0.034) ng/mL 09/05/23 Range/Units 02:30 AST (17-59) U/L Troponin I 0.621 H* (0.000-0.034) ng/mL Coagulation 09/04/23 09/05/23 Range/Units 19:35 06:35 PT 10.6 (10.0-12.5) sec APTT 22.1 32.2 H (22.0-30.0) sec CBC 09/04/23 Range/Units 19:35 WBC 19.5 H (3.8-10.6) k/uL RBC 5.08 (4.30-5.90) m/uL Hgb 14.9 (13.0-17.5) gm/dL Hct 44.2 (39.0-53.0) % Plt Count 259 (150-450) k/uL Comprehensive Metabolic Panel 09/04/23 09/05/23 Range/Units 19:35 02:30 Sodium 140 140 (137-145) mmol/L Potassium 3.4 L 3.7 (3.5-5.1) mmol/L Chloride 103 109 H (98-107) mmol/L Carbon Dioxide 19 L 21 L (22-30) mmol/L BUN 25 H 21 H (9-20) mg/dL Creatinine 0.76 0.72 (0.66-1.25) mg/dL Glucose 277 H 239 H (74-99) mg/dL Calcium 9.6 8.8 (8.4-10.2) mg/dL AST 29 (17-59) U/L ALT 30 (4-49) U/L Alkaline Phosphatase 85 (38-126) U/L Total Protein 7.7 (6.3-8.2) g/dL Albumin 4.6 (3.5-5.0) g/dL Current Medications Generic Name Dose Route Start Last Admin Trade Name Freq PRN Reason Stop Dose Admin Heparin Sodium (Porcine) 0 unit 09/05/23 01:04 Heparin Sodium 1,000 Un/Ml (10ml Vl) IV PER PROTOCOL PRN Low PTT Protocol Propofol 1,000 mg/ IV Solution 100 mls @ 6.532 mls/hr 09/04/23 23:45 09/05/23 06:16 IV 50 mcg/kg/min .[id number] [facility] 21.773 mls/hr Administration Protocol 15 MCG/KG/MIN Midazolam HCl 50 mg/ Sodium 50 mls @ 1 mls/hr 09/05/23 00:45 09/05/23 09:00 Chloride IV 3 mg/hr .Q24H [facility] 3 mls/hr Titration Protocol 1 MG/HR Heparin Sodium/Sodium Chloride 250 mls @ 9.792 mls/hr 09/05/23 01:15 09/05/23 09:10 25,000 unit/ Sodium Chloride IV 0 units/kg/hr .Q24H [facility] 0 mls/hr Titration Protocol 12 UNITS/KG/HR Vancomycin HCl 1,500 mg/ 500 mls @ 167 mls/hr 09/05/23 13:00 Sodium Chloride IVPB Q12H [facility] Sodium Chloride 1,000 mls @ 130 mls/hr 09/05/23 05:00 09/05/23 06:06 Saline 0.9% IV 130 mls/hr .Q7H42M [facility] Administration Ceftriaxone Sodium 2 gm/ 50 mls @ 100 mls/hr 09/06/23 02:00 Sodium Chloride IVPB Q24HR [facility] Protocol Norepinephrine Bitartrate 4 mg 254 mls @ 9.327 mls/hr 09/05/23 09:30 / Sodium Chloride IV .Q24H [facility] Protocol 0.03 MCG/KG/MIN Insulin Aspart 0 unit 09/05/23 08:00 Insulin Aspart (Novolog) 100 Unit/Ml Vial SQ Q4H [facility] Protocol Miscellaneous Information 1 each 09/05/23 05:27 Potassium Replacement Protocol 1 Each Misc MISCELLANE DAILY PRN Per Protocol Protocol Miscellaneous Information 1 each 09/05/23 05:28 Magnesium Replacement Protocol 1 Each Misc MISCELLANE DAILY PRN Per Protocol Protocol Naloxone HCl 0.2 mg 09/05/23 01:18 Naloxone 0.4 Mg/Ml 1 Ml Vial IV Q2M PRN Opioid Reversal Pantoprazole Sodium 40 mg 09/05/23 09:00 Pantoprazole 40 Mg/10 Ml Vial IVP DAILY [facility] Intake and Output 09/04/23 09/05/23 09/05/23 22:59 06:59 14:59 Intake Total 1523.026 339.533 Output Total 400 185 Balance 1123.026 154.533 Intake: IV 1359 260 Magnesium Sulfate-D5w Pmx 100 1 gm In Dextrose/Water 1 100ml.bag @ 100 mls/hr IVPB ONCE ONE Rx#: [id number] Sodium Chloride 0.9% 1, 260 260 000 ml @ 130 mls/hr IV . Q7H42M [facility] Rx#:[id number] Sodium Chloride 0.9% 1, 999 000 ml @ 999 mls/hr IV . Q1H1M [facility] Rx#:[id number] Intake, IV Titration 164.026 79.533 Amount Heparin Sod,Pork in 0.45% 63.866 NaCl 25,000 unit In 0.45 % NaCl 1 250ml.bag @ 12 UNITS/KG/HR 9.792 mls/hr IV .Q24H [facility] Rx#: [id number] Midazolam HCl 50 mg In 24.750 15.667 Sodium Chloride 0.9% 40 ml @ 1 MG/HR 1 mls/hr IV .Q24H [facility] Rx#:[id number] propofoL 1,000 mg In 139.276 Empty Bag 1 bag @ 15 MCG/ KG/MIN 6.532 mls/hr IV . [id number] [facility] Rx#:[id number] Output: Urine 400 185 Uretheral (Chew) 155 Other: Voiding Method Indwelling Catheter Weight 72.575 kg 81.6 kg 09/04/23 19:35 09/05/23 02:30
[2023-09-05] MEDS: VANCOMYCIN 1,500 MG in SODIUM CHLORIDE 0.9% 500 ML 500 ML IVPB SCH (13:33)
--- NOTE | 2023-09-05 14:07 | P.CNNES ---
History of Present Illness Consult date: 09/05/23 Requesting physician: Danielle Rob Reason for Consult: meningitis History of Present Illness: This is a 62-year-old gentleman who presented emergency department because of altered mental status. History was obtained from the patient daughter was at bedside. According to the daughter she stated that yesterday at 5 PM she noticed that the patient was confused and last normal was on Tuesday. But she stated that the couple hours prior to that patient was doing well on Tuesday morning and was confused a couple hours prior to 5 pm that daughter was notified by her mother. Patient does not have any fevers no sick contacts. no recent travel. He does not have any history of stroke or seizures. Patient's was hospitalized in June 2023 and she had MRSA. seems that overnight the patient was agitated restless. Patient is intubated on a ventilator. He is on IV sedation of propofol as well as Versed. He is also on heparin drip because of elevated troponin. Some of the workup during his hospital visit consisted of: on initial presentation patient initial temperature was 98.4. T-max of 100 Fahrenheit and only had one time of elevated fever and that was 100 Fahrenheit otherwise it's been the normothermic initial white blood cell was 19.5K and predominately neutrophilic. initial serum glucose is 277 Calcium is 9.6, sodium is 140, ammonia is 11 troponin is 0.621. UDS positive for oxycodone and marijuana. CT of the head is reported as no acute intracranial hemorrhage or midline shift. I personally reviewed the CT hadn't agree with the report. CT angiography of the head and neck was reported as no significant stenosis in the common or internal carotid artery bilaterally. No large vessel occlusion or aneurysm at the level of [place]. 2-D echo was reported as mildly enlarged upper limits of normal with global decreased and contractility and estimated ejection fraction about 2025%. Significant right ventricular enlargement as well. Both edges on large. Review of Systems The positive and negative as per HPI. Past Medical History Past Medical History: Diabetes Mellitus Additional Past Medical History / Comment(s): Back pain History of Any Multi-Drug Resistant Organisms: None Reported Date of last positivie culture/infection: 04/15/23 MDRO Source:: Right Foot Past Surgical History: No Surgical Hx Reported Past Anesthesia/Blood Transfusion Reactions: No Reported Reaction Past Psychological History: No Psychological Hx Reported Smoking Status: Current every day smoker Past Alcohol Use History: None Reported Past Drug Use History: Marijuana Medications and Allergies Home Medications Medication Instructions Recorded Confirmed Type metFORMIN HCL 1,000 mg PO BID 04/15/23 09/05/23 History oxyCODONE HCL [oxyCODONE HCL (IR)] 5 mg PO Q4H PRN 09/05/23 09/05/23 History sitaGLIPtin [Januvia] 100 mg PO DAILY 09/05/23 09/05/23 History Allergies Allergy/AdvReac Type Severity Reaction Status Date / Time No Known Allergies Allergy Verified 04/15/23 20:38 Physical Examination - Vital Signs Vital Signs: Vital Signs Temp Pulse Resp BP Pulse Ox FiO2 09/05/23 13:15 79 55 H 91/62 100 09/05/23 13:00 77 31 H 85/58 100 09/05/23 12:45 74 29 H 91/59 100 09/05/23 12:30 77 21 86/59 100 09/05/23 12:15 77 80/56 100 09/05/23 12:06 40 09/05/23 12:00 77 20 81/58 100 40 09/05/23 11:45 75 20 82/56 100 09/05/23 11:30 77 20 92/66 100 09/05/23 11:15 81 25 H 88/59 100 09/05/23 11:00 73 20 84/50 100 09/05/23 10:45 74 20 78/57 95 09/05/23 10:30 76 20 78/57 96 09/05/23 10:15 80 20 86/59 09/05/23 10:00 72 20 75/56 97 40 09/05/23 09:45 81 20 71/51 93 L 09/05/23 09:30 84 20 73/54 94 L 09/05/23 09:12 40 09/05/23 09:00 85 20 73/55 94 L 40 09/05/23 08:30 89 20 78/62 95 09/05/23 08:00 99.2 F 92 16 82/59 94 L 40 09/05/23 07:30 95 16 89/61 92 L 09/05/23 07:00 100 16 92/64 94 L 09/05/23 06:30 103 H 8 L 94/65 94 L 09/05/23 06:00 104 H 15 82/58 96 09/05/23 05:24 40 09/05/23 05:00 124 H 15 114/84 97 09/05/23 04:00 98.8 F 123 H 27 H 114/82 97 100 09/05/23 03:52 100 09/05/23 03:30 126 H 21 129/88 97 09/05/23 03:25 100 09/05/23 03:00 100 F H 133 H 13 132/54 96 100 09/05/23 01:30 98.8 F 126 H 20 150/101 99 09/05/23 01:00 128 H 20 152/98 100 09/05/23 00:14 98.5 F 09/05/23 00:10 121 H 20 152/96 100 09/04/23 23:58 100 09/04/23 23:35 100 09/04/23 21:06 130 H 20 163/111 95 09/04/23 18:15 98.4 F 113 H 18 159/72 97 Intake and Output 09/04/23 09/05/23 09/05/23 22:59 06:59 14:59 Intake Total 1523.026 927.559 Output Total 400 395 Balance 1123.026 532.559 Intake: IV 1359 780 Magnesium Sulfate-D5w Pmx 100 1 gm In Dextrose/Water 1 100ml.bag @ 100 mls/hr IVPB ONCE ONE Rx#: [id number] Sodium Chloride 0.9% 1, 260 780 000 ml @ 130 mls/hr IV . Q7H42M [facility] Rx#:[id number] Sodium Chloride 0.9% 1, 999 000 ml @ 999 mls/hr IV . Q1H1M [facility] Rx#:[id number] Intake, IV Titration 164.026 147.559 Amount Heparin Sod,Pork in 0.45% 63.866 NaCl 25,000 unit In 0.45 % NaCl 1 250ml.bag @ 12 UNITS/KG/HR 9.792 mls/hr IV .Q24H [facility] Rx#: [id number] Midazolam HCl 50 mg In 24.750 21.667 Sodium Chloride 0.9% 40 ml @ 1 MG/HR 1 mls/hr IV .Q24H [facility] Rx#:[id number] Norepinephrine 4 mg In 62.026 Sodium Chloride 0.9% 250 ml @ 0.03 MCG/KG/MIN 9. 327 mls/hr IV .Q24H [facility] Rx#:[id number] propofoL 1,000 mg In 139.276 Empty Bag 1 bag @ 15 MCG/ KG/MIN 6.532 mls/hr IV . [id number] [facility] Rx#:[id number] Output: Urine 400 395 Uretheral (Chew) 155 Other: Voiding Method Indwelling Catheter Weight 72.575 kg 81.6 kg General: Lying in bed and does not appear in acute distress. HENT: Supple neck Lung: Intubated on vent. Neuro: Limited. Patient is on IV Propofol 50mcg/kg/min and Versed 1mg/hr. I had to manually open eyes. Primary gaze is midline. Pupils are pinpoint bilaterally. No facial weakness appreciated. Is breathing over the vent. Motor: Strength is hard to assess. Not withdrawling to painful stimuli. Has decrease tone throughout. Has above the right knee amputation. Reflex: 1+ throughout except right lower extremity is limited because of amputation. Results - Laboratory Findings CBC and BMP: 09/04/23 19:35 09/05/23 02:30 Abnormal Lab Findings: Abnormal Labs 09/04/23 09/04/23 09/04/23 19:35 19:35 19:59 WBC 19.5 H Neutrophils # 17.3 H APTT ABG pO2 ABG Total CO2 ABG O2 Saturation Potassium 3.4 L Chloride Carbon Dioxide 19 L BUN 25 H Glucose 277 H POC Glucose (mg/dL) Creatine Kinase Troponin I Urine Glucose (UA) Urine Ketones Ur Oxycodone Screen Detected H U Marijuana (THC) Screen Detected H 09/04/23 09/04/23 09/04/23 19:59 23:17 23:17 WBC Neutrophils # APTT ABG pO2 ABG Total CO2 ABG O2 Saturation Potassium Chloride Carbon Dioxide BUN Glucose POC Glucose (mg/dL) Creatine Kinase 254 H Troponin I 0.159 H* Urine Glucose (UA) 4+ H Urine Ketones 1+ H Ur Oxycodone Screen U Marijuana (THC) Screen 09/05/23 09/05/23 09/05/23 00:36 02:15 02:30 WBC Neutrophils # APTT ABG pO2 51 L* ABG Total CO2 26 H ABG O2 Saturation 85.2 L Potassium Chloride Carbon Dioxide BUN Glucose POC Glucose (mg/dL) 241 H Creatine Kinase Troponin I 0.621 H* Urine Glucose (UA) Urine Ketones Ur Oxycodone Screen U Marijuana (THC) Screen 09/05/23 09/05/23 09/05/23 02:30 06:35 09:49 WBC Neutrophils # APTT 32.2 H ABG pO2 ABG Total CO2 ABG O2 Saturation Potassium Chloride 109 H Carbon Dioxide 21 L BUN 21 H Glucose 239 H POC Glucose (mg/dL) 178 H Creatine Kinase Troponin I Urine Glucose (UA) Urine Ketones Ur Oxycodone Screen U Marijuana (THC) Screen 09/05/23 11:50 WBC Neutrophils # APTT ABG pO2 ABG Total CO2 ABG O2 Saturation Potassium Chloride Carbon Dioxide BUN Glucose POC Glucose (mg/dL) 121 H Creatine Kinase Troponin I Urine Glucose (UA) Urine Ketones Ur Oxycodone Screen U Marijuana (THC) Screen Assessment and Plan Assessment: this is a 62-year-old gentleman with history of diabetes, above the knee amputation on the right who presented emergency department because of confusion. He had one low-grade fever during this presentation. Altered mental status: encephalopathy of unknown etiology. Patient had one-time low-grade fever with leukocytosis with possible concern for sepsis. Rule out meningeal encephalitis (I doubt meningitis since low grade fever)versus other causes of underlying infection. Acute Leukocytosis elevated troponin decreased ejection fraction of 20-25% on 2D echo Intubated on mechanical ventilation and is on IV sedation Above the right knee and amputation, history of right leg gangrene Diabetes mellitus Plan: patient is on IV heparin drip and it's placed on hold for lumbar puncture. It seems that anesthesiology is consulted and the he'll be performing a lumbar puncture later on per the ICU nurse. I started the patient on acyclovir 800 mg every 8 hours for the encephalitis coverage. I changed the ceftriaxone the from a 2 g every 24 hours to 2 g every 12 hours and the patient is on vancomycin for meningitis the coverage. I ordered a routine EEG Consider an ID consultation cardiology is consulted We'll defer the rest of the medical measure the primary and other specialist the plan was discussed with the patient's daughter was at bedside as well as ICU nurse in the primary team. Thank you for the consultation. Time with Patient: Greater than 30
[2023-09-05 15:18] LABS: Partial Thromboplastin Time 25.1 sec (22.0-30.0); Prothrombin Time 11.1 sec (10.0-12.5)
--- NOTE | 2023-09-05 17:43 | P.PCN ---
Date of Procedure: 09/05/23 Description of Procedure: Procedure: 1. Diagnostic Lumbar puncture for CSF collection PREOPERATIVE DIAGNOSIS: Altered mental status POSTOPERATIVE DIAGNOSIS: Altered mental status SURGEON: Yara Mejia ANESTHESIA: Local with 1% lidocaine. EBL: None. Specimen removed: 2 mL of CSF in each collecting tube X4 PROCEDURE INDICATION: The patient had history of U onset of altered mental status . Consulted for lumbar puncture for CSF collection send it for analysis. PROCEDURE DESCRIPTION: The patient was seen and identified. Risks, benefits, complications, and alternatives were discussed with the patient's family . The patient's family agreed to proceed with the procedure and signed the consent, and vital signs were stable. Time out was completed. The patient was placed in right lateral position on procedure. . The lumbosacral area was prepped and draped in the usual sterile fashion. Critical pause was taken. Vital signs were closely monitored during the procedure. Posterior superior iliac crest landmarks was identified . The midline lumbar space also identified. Approximately at the level of L3-L4 interspinous space, skin and deeper tissues were localized with 3 mL of 1% lidocaine. Using a 22 gauge 3.5 spinal needle entered into subarachnoid space, with one attempt. Clear CSF came out of the spinal needle. 2 mL of CSF fluid collected in each tube 4. Needle was withdrawn intact, skin was cleansed, and bandages were applied. COMPLICATIONS: None. DISPOSITION / PLANS: The patient was placed in a supine position , The patient was reexamined prior to start heparin drip after 1hour of the procedure.
[2023-09-05 17:59] LABS: Glucose,Whole Blood 163 mg/dL (70-110)
[2023-09-05 18:18] LABS: Basophils % (A) 0 %; Eosinophils % (A) 0 %; HCT 35.8 % (39.0-53.0); Lymphocytes # (A) 1.4 k/uL (1.0-4.8); Lymphocytes % (A) 14 %; MCH 29.8 pg (25.0-35.0); MCHC 33.5 g/dL (31.0-37.0); MCV 89.1 fL (80.0-100.0); Mean Platelet Volume 7.9; Monocytes # (A) 0.7 k/uL (0-1.0); Monocytes % (A) 7 %; Neutrophils # (A) 7.6 k/uL (1.3-7.7); Neutrophils % (A) 77 %; Platelet Count 175 k/uL (150-450); RBC 4.02 m/uL (4.30-5.90); WBC 9.8 k/uL (3.8-10.6)
[2023-09-05 19:51] LABS: Glucose,CSF 111 mg/dL (40-70); Total Protein,CSF 88 mg/dL (12-60)
[2023-09-05 21:10] LABS: Appearance,CSF Clear; CSF Tube Number 4
[2023-09-05 21:11] LABS: Red Blood Cell,CSF 7 u/L (0-10)
[2023-09-05 21:13] LABS: Nucleated Cells, CSF 7 u/L (0-5)
--- NOTE | 2023-09-05 21:14 | EEG ---
ELECTROENCEPHALOGRAM REPORT CLINICAL HISTORY: This is a 62-year-old gentleman with altered mental status. The video EEG is obtained to evaluate for seizure epileptiform activity. RELEVANT MEDICATIONS: IV propofol and Versed. EEG TYPE: A routine 21-channel EEG with video using the 10/20 electrode placement system. DESCRIPTION: The patient is intubated on a ventilator. The background consists of [id number] voltage of 6 to 7 hertz activity and at times, the background consists of diffuse nonrhythmic polymorphic delta activity. There is no physiological stage 2 sleep architecture. There is no focal slowing. Interictal and ictal is none. ACTIVATION PROCEDURE: Photic stimulation did not evoke a posterior driving response. There is no abnormality during the photic stimulation. Hyperventilation is not performed. CLINICAL INTERPRETATION: This is an abnormal routine EEG. The background slowing is suggestive of moderate encephalopathy. There is no focal slowing, epileptiform discharge, or seizure on the EEG. Clinical correlation is recommended. KODY / SUSU: [id number] / MTDD
[2023-09-05 21:27] LABS: Diff, Total Cells Cnt, CSF 100; Mononuclear WBC,CSF 100 %
[2023-09-06 00:05] LABS: Glucose,Whole Blood 144 mg/dL (70-110)
[2023-09-06] MEDS: INSULIN ASPART (NovoLOG) 100 UNIT/ML VIAL SQ SCH ×2 (00:23→12:33)
[2023-09-06] MEDS: HEPARIN SODIUM 1,000 UN/ML (10ML VL) IV PRN (01:03)
[2023-09-06 04:57] LABS: ABG Base Excess -1.6 mmol/L; ABG HCO3 23 mmol/L (21-25); ABG PCO2 36 mmHg (35-45); ABG PH 7.41 (7.35-7.45); ABG PO2 126 mmHg (83-108); ABG TCO2 24 mmol/L (19-24); Allen Test Performed? Yes
[2023-09-06 05:13] LABS: ALT 17 U/L (4-49); AST 30 U/L (17-59); African American GFR (CKD) >90 (>60 ml/min/1.73 sqM); Albumin 3.3 g/dL (3.5-5.0); Alkaline Phosphatase 63 U/L (38-126); Anion Gap 9 mmol/L; Blood Urea Nitrogen 15 mg/dL (9-20); Calcium 8.7 mg/dL (8.4-10.2); Carbon Dioxide 19 mmol/L (22-30); Chloride 112 mmol/L (98-107); Glucose 164 mg/dL (74-99); Magnesium 1.9 mg/dL (1.6-2.3); Non-African American GFR(CKD) >90 (>60 ml/min/1.73 sqM); Potassium 3.4 mmol/L (3.5-5.1); Sodium 140 mmol/L (137-145); Total Bilirubin 0.7 mg/dL (0.2-1.3)
[2023-09-06] MEDS: POTASSIUM BICARBONATE/CIT AC 20 MEQ TABLET.EFF NG-TUBE SCH (05:26)
[2023-09-06 05:33] LABS: Glucose,Whole Blood 165 mg/dL (70-110)
[2023-09-06] MEDS: MAGNESIUM SULFATE-D5W PMX 1 GM in DEXTROSE/WATER 1 100ML.BAG IVPB ONE (05:36)
[2023-09-06 07:49] LABS: Basophils % (A) 0 %; Eosinophils % (A) 0 %; HCT 39.7 % (39.0-53.0); HGB 12.5 gm/dL (13.0-17.5); Hypochromasia Moderate; Lymphocytes # (A) 1.5 k/uL (1.0-4.8); Lymphocytes % (A) 14 %; MCH 29.8 pg (25.0-35.0); MCHC 31.4 g/dL (31.0-37.0); Mean Platelet Volume 8.1; Monocytes # (A) 0.6 k/uL (0-1.0); Monocytes % (A) 6 %; Neutrophils # (A) 8.1 k/uL (1.3-7.7); Neutrophils % (A) 78 %; Platelet Count 192 k/uL (150-450); RBC 4.17 m/uL (4.30-5.90); RDW 14.1 % (11.5-15.5); WBC 10.4 k/uL (3.8-10.6)
[2023-09-06 07:52] LABS: Basophils % (A) 0 %; Eosinophils % (A) 0 %; HCT 37.6 % (39.0-53.0); HGB 12.1 gm/dL (13.0-17.5); Lymphocytes # (A) 1.1 k/uL (1.0-4.8); Lymphocytes % (A) 10 %; MCH 29.6 pg (25.0-35.0); MCHC 32.4 g/dL (31.0-37.0); MCV 91.4 fL (80.0-100.0); Mean Platelet Volume 8.3; Monocytes # (A) 0.6 k/uL (0-1.0); Monocytes % (A) 6 %; Neutrophils # (A) 8.3 k/uL (1.3-7.7); Neutrophils % (A) 82 %; Platelet Count 186 k/uL (150-450); RBC 4.11 m/uL (4.30-5.90); RDW 14.1 % (11.5-15.5); WBC 10.2 k/uL (3.8-10.6)
--- NOTE | 2023-09-06 08:23 | XR ---
EXAMINATION TYPE: XR chest 1V portable DATE OF EXAM: 09/06/2023 COMPARISON: 09/05/2023 HISTORY: Mechanical ventilation TECHNIQUE: Single frontal view of the chest is obtained. FINDINGS: ET and NG tubes stable. There are lung fernando are stable in appearance with no new consoli dation, pleural effusion or pneumothorax. Ectasia the aorta. Heart size normal. Underlying COPD suspe cted. IMPRESSION: 1. No Acute process. 2. COPD.
--- NOTE | 2023-09-06 09:20 | P.PN ---
Subjective Progress Note Date: 09/06/23 The patient is a 62-year-old male with past medical history of diabetes and right voyvb-nql-bwnd amputation, who was brought to the emergency room for mental status changes. The patient was given multiple doses of Geodon and Ativan via EMS for combativeness and agitation. He was ultimately intubated in order to complete imaging. Cardiology has been consulted for elevated troponins as well as initial EKG showing A-fib with RVR. Echocardiogram has revealed reduced ejection fraction at 20 to 25% with global hypokinesis. The patient underwent spinal tap yesterday with cultures pending. GENERAL: Ill-appearing, well-nourished and in no acute distress. Sedated on ventilator NECK: Supple without JVD or thyromegaly. LUNGS: Breath sounds diminished to auscultation bilaterally. Respiration equal and unlabored. No wheezes, rales or rhonchi. HEART: Regular rate and rhythm without murmurs, rubs or gallops. S1 and S2 heard. EXTREMITIES: Right uotjt-alg-ocix amputation. No left lower extremity edema. +1 palpable pulse. TELEMETRY: Sinus tachycardia IMPRESSION: Altered mental status A-fib with RVR on initial EKG, likely sinus tachycardia Elevated troponin Acute encephalopathy SIRS History of necrotizing fasciitis, status post right AKA History of diabetes mellitus PLAN: Start low-dose beta-carla for cardiomyopathy Continue heparin drip Ischemia workup once stable Further recommendations to be based upon clinical course I am dictating on behalf of Dr Marcus Layton's history/physical and assessment/plan. Objective - Vital Signs Vital signs: Vital Signs Temp 100.1 F H 09/06/23 08:00 Pulse 103 H 09/06/23 09:00 Resp 25 H 09/06/23 09:00 BP 133/72 09/06/23 09:00 Pulse Ox 97 09/06/23 09:00 FiO2 40 09/06/23 09:00 Intake & Output 09/05/23 09/06/23 09/06/23 18:59 06:59 18:59 Intake Total 0703.895 5565.903 219.995 Output Total 940 1255 375 Balance 853.729 789.903 -155.005 Weight 81.6 kg 87.3 kg Intake: IV 1430 1578 40 Acyclovir Sodium 800 mg 350 In Sodium Chloride 0.9% 250 ml @ 100 mls/hr IVPB Q8H [facility] Rx#:[id number] Sodium Chloride 0.9% 1, 1430 260 000 ml @ 130 mls/hr IV . Q7H42M [facility] Rx#:[id number] Sodium Chloride 0.9% 1, 200 40 000 ml @ 20 mls/hr IV . Q24H [facility] Rx#:[id number] Vancomycin 1,500 mg In 668 Sodium Chloride 0.9% 500 ml 500 ml @ 167 mls/hr IVPB ONCE [facility] Rx#: [id number] cefTRIAXone 2 gm In 100 Sodium Chloride 0.9% 50 ml @ 100 mls/hr IVPB Q12HR [facility] Rx#:[id number] Intake, IV Titration 293.729 226.903 89.995 Amount Heparin Sod,Pork in 0.45% 63.866 56.141 NaCl 25,000 unit In 0.45 % NaCl 1 250ml.bag @ 12 UNITS/KG/HR 9.792 mls/hr IV .Q24H [facility] Rx#: [id number] Midazolam HCl 50 mg In 21.667 Sodium Chloride 0.9% 40 ml @ 1 MG/HR 1 mls/hr IV .Q24H [facility] Rx#:[id number] Norepinephrine 4 mg In 108.196 Sodium Chloride 0.9% 250 ml @ 0.03 MCG/KG/MIN 9. 327 mls/hr IV .Q24H [facility] Rx#:[id number] propofoL 1,000 mg In 100 170.762 89.995 Empty Bag 1 bag @ 15 MCG/ KG/MIN 6.532 mls/hr IV . [id number] [facility] Rx#:[id number] Tube Feeding 40 180 60 Other 30 60 30 Output: Urine 940 1255 375 Other: Voiding Method Indwelling Catheter Indwelling Catheter - Labs CBC & Chem 7: 09/06/23 04:06 09/06/23 04:06 Labs: Abnormal Lab Results - Last 24 Hours (Table) 09/05/23 09/05/23 09/05/23 Range/Units 02:30 03:00 09:49 RBC (4.30-5.90) m/uL Hgb (13.0-17.5) gm/dL Hct (39.0-53.0) % Neutrophils # (1.3-7.7) k/uL APTT (22.0-30.0) sec ABG pO2 (83-108) mmHg ABG O2 Saturation (94-97) % Potassium (3.5-5.1) mmol/L Chloride (98-107) mmol/L Carbon Dioxide (22-30) mmol/L Creatinine (0.66-1.25) mg/dL Glucose (74-99) mg/dL POC Glucose (mg/dL) 178 H (70-110) mg/dL Hemoglobin A1c 6.5 H (<=6.0) % Osmolality 305 H (275-295) mOsm/kg Total Protein (6.3-8.2) g/dL Albumin (3.5-5.0) g/dL CSF Tot Nucleated Cells (0-5) u/L CSF Glucose (40-70) mg/dL CSF Total Protein (12-60) mg/dL 09/05/23 09/05/23 09/05/23 Range/Units 11:50 17:42 17:48 RBC 4.02 L (4.30-5.90) m/uL Hgb 12.0 L (13.0-17.5) gm/dL Hct 35.8 L (39.0-53.0) % Neutrophils # (1.3-7.7) k/uL APTT (22.0-30.0) sec ABG pO2 (83-108) mmHg ABG O2 Saturation (94-97) % Potassium (3.5-5.1) mmol/L Chloride (98-107) mmol/L Carbon Dioxide (22-30) mmol/L Creatinine (0.66-1.25) mg/dL Glucose (74-99) mg/dL POC Glucose (mg/dL) 121 H (70-110) mg/dL Hemoglobin A1c (<=6.0) % Osmolality (275-295) mOsm/kg Total Protein (6.3-8.2) g/dL Albumin (3.5-5.0) g/dL CSF Tot Nucleated Cells 7 H* (0-5) u/L CSF Glucose 111 H (40-70) mg/dL CSF Total Protein 88 H (12-60) mg/dL 09/05/23 09/05/23 09/06/23 Range/Units 17:58 23:57 00:03 RBC (4.30-5.90) m/uL Hgb (13.0-17.5) gm/dL Hct (39.0-53.0) % Neutrophils # (1.3-7.7) k/uL APTT 30.4 H (22.0-30.0) sec ABG pO2 (83-108) mmHg ABG O2 Saturation (94-97) % Potassium (3.5-5.1) mmol/L Chloride (98-107) mmol/L Carbon Dioxide (22-30) mmol/L Creatinine (0.66-1.25) mg/dL Glucose (74-99) mg/dL POC Glucose (mg/dL) 163 H 144 H (70-110) mg/dL Hemoglobin A1c (<=6.0) % Osmolality (275-295) mOsm/kg Total Protein (6.3-8.2) g/dL Albumin (3.5-5.0) g/dL CSF Tot Nucleated Cells (0-5) u/L CSF Glucose (40-70) mg/dL CSF Total Protein (12-60) mg/dL 09/06/23 09/06/23 09/06/23 Range/Units 04:06 04:06 04:06 RBC 4.17 L 4.11 L (4.30-5.90) m/uL Hgb 12.5 L 12.1 L (13.0-17.5) gm/dL Hct 37.6 L (39.0-53.0) % Neutrophils # 8.1 H 8.3 H (1.3-7.7) k/uL APTT (22.0-30.0) sec ABG pO2 (83-108) mmHg ABG O2 Saturation (94-97) % Potassium 3.4 L (3.5-5.1) mmol/L Chloride 112 H (98-107) mmol/L Carbon Dioxide 19 L (22-30) mmol/L Creatinine 0.60 L (0.66-1.25) mg/dL Glucose 164 H (74-99) mg/dL POC Glucose (mg/dL) (70-110) mg/dL Hemoglobin A1c (<=6.0) % Osmolality (275-295) mOsm/kg Total Protein 6.0 L (6.3-8.2) g/dL Albumin 3.3 L (3.5-5.0) g/dL CSF Tot Nucleated Cells (0-5) u/L CSF Glucose (40-70) mg/dL CSF Total Protein (12-60) mg/dL 09/06/23 09/06/23 09/06/23 Range/Units 04:55 05:31 08:21 RBC (4.30-5.90) m/uL Hgb (13.0-17.5) gm/dL Hct (39.0-53.0) % Neutrophils # (1.3-7.7) k/uL APTT 41.2 H (22.0-30.0) sec ABG pO2 126 H (83-108) mmHg ABG O2 Saturation 99.0 H (94-97) % Potassium (3.5-5.1) mmol/L Chloride (98-107) mmol/L Carbon Dioxide (22-30) mmol/L Creatinine (0.66-1.25) mg/dL Glucose (74-99) mg/dL POC Glucose (mg/dL) 165 H (70-110) mg/dL Hemoglobin A1c (<=6.0) % Osmolality (275-295) mOsm/kg Total Protein (6.3-8.2) g/dL Albumin (3.5-5.0) g/dL CSF Tot Nucleated Cells (0-5) u/L CSF Glucose (40-70) mg/dL CSF Total Protein (12-60) mg/dL Microbiology - Last 24 Hours (Table) 09/05/23 15:45 Gram Stain - Preliminary Sputum 09/05/23 17:42 CSF Gram Stain - Preliminary Cerebral Spinal Fluid
[2023-09-06 10:55] LABS: ABG Base Excess 0.4 mmol/L; ABG HCO3 24 mmol/L (21-25); ABG PCO2 33 mmHg (35-45); ABG PH 7.47 (7.35-7.45); ABG PO2 96 mmHg (83-108); ABG TCO2 25 mmol/L (19-24); Allen Test Performed? Yes
[2023-09-06 10:58] LABS: ABG Oxygen Saturation 96.6 % (94-97)
[2023-09-06 11:43] LABS: Glucose,Whole Blood 154 mg/dL (70-110)
[2023-09-06] MEDS: VANCOMYCIN TROUGH DUE 1 EACH MISC MISCELLANE ONE (12:29)
[2023-09-06] MEDS: METOPROLOL TARTRATE 25 MG TAB PO SCH (12:33)
--- NOTE | 2023-09-06 13:18 | P.PN ---
Subjective Progress Note Date: 09/06/23 Patient is a 62-year-old white male with past medical history significant for right lower extremity gangrene status post right AKA, diabetes mellitus, and tobacco dependence. Patient is currently intubated mechanical ventilator unable to provide any information. I did review the patient's medical record. Apparently, the patient was brought in yesterday evening. He was altered, and not acting appropriately. Brain CT negative for any acute intracranial hemorrhage or midline shift. Brain CTA did not show any significant flow- limiting stenosis within the internal carotid arteries. While in the emergency room, he then became combative he was given 2 doses of Geodon, 10 mg and 2 doses of Versed 5 mg and 2 doses of IV Ativan 2 mg. He was then intubated for airway protection by the ER physician. Postintubation chest x-ray showed endotracheal tube approximately 3 cm above the tatiana. Orogastric tube courses below the diaphragm. No acute cardiopulmonary process. Postintubation ABG shows a PaO2 of 51, pCO2 of 43, pH of 7.37. This was done on ventilator settings of assist- control, respiratory rate 20, tidal volume 450, FiO2 of 100, and PEEP of 5. PEEP was increased to 8. Repeat ABG showed a PaO2 greater than 400, pCO2 of 34, and pH of 7.46. He is apparently difficult to sedate postintubation, he is on a combination of propofol at 50 mcg/kg/min and Versed at 5 mg/h. He is currently synchronous on mechanical ventilator. Patient has been febrile with a Tmax of 100 F. Source of the infection is not exactly clear. CBC shows leukocytosis with a WBC count of 19.5, most recent BMP from this morning fairly unremarkable. Patient has been started on broad-spectrum antibiotics in the form of Rocephin and vancomycin. Troponins were elevated and trending up, at 0.028, 0.159, and 0.62 respectively. Patient was started on heparin infusion, cardiology was asked to evaluate this patient. Urinalysis not concerning for UTI. Tox screen positive for oxycodone and marijuana. Serum alcohol level less than 10. Heart rhythm appears sinus tachycardia on bedside monitor. Blood pressure was hypotensive postintubation, he did receive a total of 3 L normal saline bolus. Blood pressure has responded, not requiring any vasopressors at the moment. Urine output is adequate. I have the chest to evaluate this patient in the intensive care unit. The patient was on propofol running at 50 mcg/kg/min and the patient is on Versed at 4 mg an hour. No seizure activity. Normal saline is still running at the rate of 130 cc an hour. The patient currently is still on the mechanical ventilator and FiO2 has been weaned down to 40% with a PEEP of 5. He is still running a lower blood pressure. Tmax was 100. No neck stiffness. No skin rashes. Patient remains on broad-spectrum antibiotics and the patient was given a combination of Rocephin and vancomycin.The patient remains on IV heparin. Troponin peaked at 0.6. Cardiac rhythm is sinus. The chest x-ray from today is showing no acute cardiopulmonary process. No significant signs of bronchospasm or wheezing at this point in time. On today's evaluation of 09/06/2023, the patient is being seen for a follow-up. The patient remains intubated on mechanical ventilator. The patient was taken off sedation this morning and the patient was able to follow simple commands. He was awake and alert and communicating. Note that he is currently on assist- control mode at a rate of 20, tidal volume of 450, FiO2 of 40% with a PEEP of 5. Blood gas showed pH of 7.41 with a pCO2 of 36 and pO2 of 126. Chest x-ray from today shows no acute cardiopulmonary process. Echocardiogram was completed yesterday and the patient was found to have systolic heart failure with impaired left ventricular function. The patient had global hypokinesis with an ejection fraction of 20 to 25% along with mild mitral regurgitation. No aortic stenosis. The patient is post lumbar puncture that was performed yesterday. The cell count was 7 with mononuclear predominance. The CSF protein was elevated at 80. HSV by PCR in the CSF still pending for now. The patient was covered with IV acyclovir. He still having episodes of low-grade fever. Current temperature is 99.1. Still covered with broad-spectrum antibiotics and the patient remains on a combination of Rocephin and vancomycin. The procalcitonin level was checked yesterday and the level was low at 0.03. IV fluids to kvo. the patient is currently on no pressors. the sodium is at 140, potassium 3.4, chloride is 112 with a bicarb of 19. bun is 15 with a creatinine of 0.6. the wbc count is at 10.2 with a hemoglobin 12.1 and a platelet count of 186. Objective - Vital Signs Vital signs: Vital Signs Temp 100.1 F H 09/06/23 08:00 Pulse 103 H 09/06/23 09:00 Resp 25 H 09/06/23 09:00 BP 133/72 09/06/23 09:00 Pulse Ox 97 09/06/23 09:00 FiO2 40 09/06/23 09:00 Intake & Output 09/05/23 09/06/23 09/06/23 18:59 06:59 18:59 Intake Total 9664.524 2041.903 321.179 Output Total 940 1255 375 Balance 853.729 789.903 -53.821 Weight 81.6 kg 87.3 kg Intake: IV 1430 1578 40 Acyclovir Sodium 800 mg 350 In Sodium Chloride 0.9% 250 ml @ 100 mls/hr IVPB Q8H [facility] Rx#:[id number] Sodium Chloride 0.9% 1, 1430 260 000 ml @ 130 mls/hr IV . Q7H42M [facility] Rx#:[id number] Sodium Chloride 0.9% 1, 200 40 000 ml @ 20 mls/hr IV . Q24H [facility] Rx#:[id number] Vancomycin 1,500 mg In 668 Sodium Chloride 0.9% 500 ml 500 ml @ 167 mls/hr IVPB ONCE [facility] Rx#: [id number] cefTRIAXone 2 gm In 100 Sodium Chloride 0.9% 50 ml @ 100 mls/hr IVPB Q12HR [facility] Rx#:[id number] Intake, IV Titration 293.729 226.903 191.179 Amount Heparin Sod,Pork in 0.45% 63.866 56.141 101.184 NaCl 25,000 unit In 0.45 % NaCl 1 250ml.bag @ 12 UNITS/KG/HR 9.792 mls/hr IV .Q24H [facility] Rx#: [id number] Midazolam HCl 50 mg In 21.667 Sodium Chloride 0.9% 40 ml @ 1 MG/HR 1 mls/hr IV .Q24H [facility] Rx#:[id number] Norepinephrine 4 mg In 108.196 Sodium Chloride 0.9% 250 ml @ 0.03 MCG/KG/MIN 9. 327 mls/hr IV .Q24H [facility] Rx#:[id number] propofoL 1,000 mg In 100 170.762 89.995 Empty Bag 1 bag @ 15 MCG/ KG/MIN 6.532 mls/hr IV . [id number] [facility] Rx#:[id number] Tube Feeding 40 180 60 Other 30 60 30 Output: Urine 940 1255 375 Other: Voiding Method Indwelling Catheter Indwelling Catheter - Exam GENERAL EXAM: Sedated and unresponsive, 62-year-old white male, synchronous with mechanical ventilator. Patient is is off sedation the patient is able to follow simple commands. HEAD: Normocephalic and atraumatic EYES: Normal reaction of pupils, equal size. NOSE: Clear with pink turbinates. THROAT: No erythema or exudates. NECK: No masses, no JVD. CHEST: No chest wall deformity. LUNGS: Equal air entry with no crackles, wheeze, rhonchi or dullness. Intubated to the mechanical ventilator. No significant endotracheal secretions. CVS: S1 and S2 normal with no audible murmur, regular rhythm. No extra heart sounds ABDOMEN: No hepatosplenomegaly, active bowel sounds, no guarding or rigidity. SPINE: No scoliosis or deformity SKIN: No rashes CENTRAL NERVOUS SYSTEM: No focal deficits, tone is normal in all 4 extremities. No neck stiffness. Able to move all 4 extremities. Noted the patient has an amputation above-knee on the right. Pupils are equal reactive to light. 3-4 mm in size. EXTREMITIES: There is no peripheral edema, clubbing, or cyanosis. Peripheral pulses are intact. Right AKA, stump appears to be healing nicely. - Labs CBC & Chem 7: 09/06/23 04:06 09/06/23 04:06 Labs: Abnormal Lab Results - Last 24 Hours (Table) 09/05/23 09/05/23 09/05/23 Range/Units 02:30 03:00 09:49 RBC (4.30-5.90) m/uL Hgb (13.0-17.5) gm/dL Hct (39.0-53.0) % Neutrophils # (1.3-7.7) k/uL APTT (22.0-30.0) sec ABG pO2 (83-108) mmHg ABG O2 Saturation (94-97) % Potassium (3.5-5.1) mmol/L Chloride (98-107) mmol/L Carbon Dioxide (22-30) mmol/L Creatinine (0.66-1.25) mg/dL Glucose (74-99) mg/dL POC Glucose (mg/dL) 178 H (70-110) mg/dL Hemoglobin A1c 6.5 H (<=6.0) % Osmolality 305 H (275-295) mOsm/kg Total Protein (6.3-8.2) g/dL Albumin (3.5-5.0) g/dL CSF Tot Nucleated Cells (0-5) u/L CSF Glucose (40-70) mg/dL CSF Total Protein (12-60) mg/dL 09/05/23 09/05/23 09/05/23 Range/Units 11:50 17:42 17:48 RBC 4.02 L (4.30-5.90) m/uL Hgb 12.0 L (13.0-17.5) gm/dL Hct 35.8 L (39.0-53.0) % Neutrophils # (1.3-7.7) k/uL APTT (22.0-30.0) sec ABG pO2 (83-108) mmHg ABG O2 Saturation (94-97) % Potassium (3.5-5.1) mmol/L Chloride (98-107) mmol/L Carbon Dioxide (22-30) mmol/L Creatinine (0.66-1.25) mg/dL Glucose (74-99) mg/dL POC Glucose (mg/dL) 121 H (70-110) mg/dL Hemoglobin A1c (<=6.0) % Osmolality (275-295) mOsm/kg Total Protein (6.3-8.2) g/dL Albumin (3.5-5.0) g/dL CSF Tot Nucleated Cells 7 H* (0-5) u/L CSF Glucose 111 H (40-70) mg/dL CSF Total Protein 88 H (12-60) mg/dL 09/05/23 09/05/23 09/06/23 Range/Units 17:58 23:57 00:03 RBC (4.30-5.90) m/uL Hgb (13.0-17.5) gm/dL Hct (39.0-53.0) % Neutrophils # (1.3-7.7) k/uL APTT 30.4 H (22.0-30.0) sec ABG pO2 (83-108) mmHg ABG O2 Saturation (94-97) % Potassium (3.5-5.1) mmol/L Chloride (98-107) mmol/L Carbon Dioxide (22-30) mmol/L Creatinine (0.66-1.25) mg/dL Glucose (74-99) mg/dL POC Glucose (mg/dL) 163 H 144 H (70-110) mg/dL Hemoglobin A1c (<=6.0) % Osmolality (275-295) mOsm/kg Total Protein (6.3-8.2) g/dL Albumin (3.5-5.0) g/dL CSF Tot Nucleated Cells (0-5) u/L CSF Glucose (40-70) mg/dL CSF Total Protein (12-60) mg/dL 09/06/23 09/06/23 09/06/23 Range/Units 04:06 04:06 04:06 RBC 4.17 L 4.11 L (4.30-5.90) m/uL Hgb 12.5 L 12.1 L (13.0-17.5) gm/dL Hct 37.6 L (39.0-53.0) % Neutrophils # 8.1 H 8.3 H (1.3-7.7) k/uL APTT (22.0-30.0) sec ABG pO2 (83-108) mmHg ABG O2 Saturation (94-97) % Potassium 3.4 L (3.5-5.1) mmol/L Chloride 112 H (98-107) mmol/L Carbon Dioxide 19 L (22-30) mmol/L Creatinine 0.60 L (0.66-1.25) mg/dL Glucose 164 H (74-99) mg/dL POC Glucose (mg/dL) (70-110) mg/dL Hemoglobin A1c (<=6.0) % Osmolality (275-295) mOsm/kg Total Protein 6.0 L (6.3-8.2) g/dL Albumin 3.3 L (3.5-5.0) g/dL CSF Tot Nucleated Cells (0-5) u/L CSF Glucose (40-70) mg/dL CSF Total Protein (12-60) mg/dL 09/06/23 09/06/23 09/06/23 Range/Units 04:55 05:31 08:21 RBC (4.30-5.90) m/uL Hgb (13.0-17.5) gm/dL Hct (39.0-53.0) % Neutrophils # (1.3-7.7) k/uL APTT 41.2 H (22.0-30.0) sec ABG pO2 126 H (83-108) mmHg ABG O2 Saturation 99.0 H (94-97) % Potassium (3.5-5.1) mmol/L Chloride (98-107) mmol/L Carbon Dioxide (22-30) mmol/L Creatinine (0.66-1.25) mg/dL Glucose (74-99) mg/dL POC Glucose (mg/dL) 165 H (70-110) mg/dL Hemoglobin A1c (<=6.0) % Osmolality (275-295) mOsm/kg Total Protein (6.3-8.2) g/dL Albumin (3.5-5.0) g/dL CSF Tot Nucleated Cells (0-5) u/L CSF Glucose (40-70) mg/dL CSF Total Protein (12-60) mg/dL Microbiology - Last 24 Hours (Table) 09/05/23 15:45 Gram Stain - Preliminary Sputum 09/05/23 17:42 CSF Gram Stain - Preliminary Cerebral Spinal Fluid Assessment and Plan Plan: Altered mental status, unknown etiology, currently under investigation. Noted the CTA of the head was essentially negative for any acute abnormalities. No signs of any acute vascular occlusion. The patient had a rapid altered m entation according to the family. No neck stiffness. There is a low-grade fever. Rule out metabolic encephalopathy. Rule out septic encephalopathy. The patient has a low-grade fever and some leukocytosis. Encephalitis is possible and cannot be completely ruled out. Lumbar puncture was performed and the patient has mild elevation of the white cell count and protein level. This may be potentially consistent with encephalitis. Awaiting HSV by PCR and the patient is currently on IV acyclovir. Mental status improved and patient is currently off sedation Acute febrile illness/sepsis, exact source is not exactly clear, under investigation the patient is currently on broad-spectrum antibiotics. Procalcitonin level is nonelevated and Acute leukocytosis, improved Hypotension and shock, status/post aggressive fluid resuscitation, with a total of 3 L normal saline, and the patient is currently normotensive Systolic heart failure with an ejection fraction of 20 to 25% and the patient has global LV dysfunction. Mechanical ventilator management, patient was intubated for airway protection. Postintubation chest x-ray shows the endotracheal tube approximately 3 cm from the tatiana. No acute cardiopulmonary process identified. The chest x-ray remains clear Elevated troponins, rule out non-ST elevation [place], currently on heparin infusion per protocol History of right leg gangrene status post right AKA Diabetes mellitus type 2, blood sugars are under adequate control at this point in time. Plan: Continue ventilator support Check weaning parameters Switch the patient to a pressure support of 5 and a PEEP of 5 Continue to support his breathing trial for the next 30 minutes and if able to tolerate that, the patient will be potentially extubated Keep the patient off sedation IV fluids to KVO Continue Rocephin and vancomycin Continue IV acyclovir Awaiting CSF PCR for HSV Chest x-ray remains clear Lumbar puncture results were noted Echocardiogram results were noted Discontinue IV heparin switch this patient to Lovenox 40 mg subcu on daily basis Sliding scale insulin added Protonix added for GI prophylaxis Condition is critical and will make further recommendations based on his progress. This evaluation was done more than 30 minutes. Will continue to follow. Time with Patient: Greater than 30
--- NOTE | 2023-09-06 14:21 | P.PN ---
Subjective Progress Note Date: 09/06/23 I am following-up with patient and he was extubated earlier today. He feels better. Per nurse his mentation is drastically better. He denies of any headache or any focal deficits. Objective - Vital Signs Vital signs: Vital Signs Temp 99.1 F 09/06/23 12:00 Pulse 104 H 09/06/23 13:00 Resp 22 09/06/23 13:00 BP 143/77 09/06/23 13:00 Pulse Ox 98 09/06/23 13:00 FiO2 40 09/06/23 10:35 Intake & Output 09/05/23 09/06/23 09/06/23 18:59 06:59 18:59 Intake Total 9716.307 4184.903 701.179 Output Total 940 1255 1545 Balance 853.729 789.903 -843.821 Weight 81.6 kg 87.3 kg Intake: IV 1430 1578 420 Acyclovir Sodium 800 mg 350 250 In Sodium Chloride 0.9% 250 ml @ 100 mls/hr IVPB Q8H [facility] Rx#:[id number] Sodium Chloride 0.9% 1, 1430 260 000 ml @ 130 mls/hr IV . Q7H42M [facility] Rx#:[id number] Sodium Chloride 0.9% 1, 200 120 000 ml @ 20 mls/hr IV . Q24H [facility] Rx#:[id number] Vancomycin 1,500 mg In 668 Sodium Chloride 0.9% 500 ml 500 ml @ 167 mls/hr IVPB ONCE [facility] Rx#: [id number] cefTRIAXone 2 gm In 100 50 Sodium Chloride 0.9% 50 ml @ 100 mls/hr IVPB Q12HR [facility] Rx#:[id number] Intake, IV Titration 293.729 226.903 191.179 Amount Heparin Sod,Pork in 0.45% 63.866 56.141 101.184 NaCl 25,000 unit In 0.45 % NaCl 1 250ml.bag @ 12 UNITS/KG/HR 9.792 mls/hr IV .Q24H [facility] Rx#: [id number] Midazolam HCl 50 mg In 21.667 Sodium Chloride 0.9% 40 ml @ 1 MG/HR 1 mls/hr IV .Q24H [facility] Rx#:[id number] Norepinephrine 4 mg In 108.196 Sodium Chloride 0.9% 250 ml @ 0.03 MCG/KG/MIN 9. 327 mls/hr IV .Q24H [facility] Rx#:[id number] propofoL 1,000 mg In 100 170.762 89.995 Empty Bag 1 bag @ 15 MCG/ KG/MIN 6.532 mls/hr IV . [id number] [facility] Rx#:[id number] Tube Feeding 40 180 60 Other 30 60 30 Output: Urine 940 1255 1545 Other: Voiding Method Indwelling Catheter Indwelling Catheter Indwelling Catheter - Exam General: Lying in bed and is not in acute distress. Neuro: Patient is awake, alert, oriented to self and stated he was in hospital at [place]. He stated year is 2028. He is following simple commands. No aphasia. Pupils are round, reactive to light. Visual fernando are full to confrontation. EOM intact and no nystagmus. No facial weakness. Motor: Strength is lifting extremities above gravity. 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 Some of the workup during his hospital visit consisted of: on initial presentation patient initial temperature was 98.4. T-max of 100 Fahrenheit and only had one time of elevated fever and that was 100 Fahrenheit otherwise it's been the normothermic initial white blood cell was 19.5K and predominately neutrophilic. initial serum glucose is 277 Calcium is 9.6, sodium is 140, ammonia is 11 troponin is 0.621. UDS positive for oxycodone and marijuana. CT of the head is reported as no acute intracranial hemorrhage or midline shift. I personally reviewed the CT hadn't agree with the report. CT angiography of the head and neck was reported as no significant stenosis in the common or internal carotid artery bilaterally. No large vessel occlusion or aneurysm at the level of [place]. 2-D echo was reported as mildly enlarged upper limits of normal with global decreased and contractility and estimated ejection fraction about 2025%. Significant right ventricular enlargement as well. Both edges on large. CSF study: clear, colorless, total nucleated cells is 7 (normal is 0-5), glucose is 111 and protien is 88. Gram stain and culture is negative. Routine EEG: Is abnormal. Moderate encephalopathy. There is no focal slowing, epileptiform dischargs or seizure on the EEG. - Labs CBC & Chem 7: 09/06/23 04:06 09/06/23 04:06 Labs: Abnormal Lab Results - Last 24 Hours (Table) 09/05/23 09/05/23 09/05/23 Range/Units 02:30 03:00 17:42 RBC (4.30-5.90) m/uL Hgb (13.0-17.5) gm/dL Hct (39.0-53.0) % Neutrophils # (1.3-7.7) k/uL APTT (22.0-30.0) sec ABG pH (7.35-7.45) ABG pCO2 (35-45) mmHg ABG pO2 (83-108) mmHg ABG Total CO2 (19-24) mmol/L ABG O2 Saturation (94-97) % Potassium (3.5-5.1) mmol/L Chloride (98-107) mmol/L Carbon Dioxide (22-30) mmol/L Creatinine (0.66-1.25) mg/dL Glucose (74-99) mg/dL POC Glucose (mg/dL) (70-110) mg/dL Hemoglobin A1c 6.5 H (<=6.0) % Osmolality 305 H (275-295) mOsm/kg Total Protein (6.3-8.2) g/dL Albumin (3.5-5.0) g/dL CSF Tot Nucleated Cells 7 H* (0-5) u/L CSF Glucose 111 H (40-70) mg/dL CSF Total Protein 88 H (12-60) mg/dL 09/05/23 09/05/23 09/05/23 Range/Units 17:48 17:58 23:57 RBC 4.02 L (4.30-5.90) m/uL Hgb 12.0 L (13.0-17.5) gm/dL Hct 35.8 L (39.0-53.0) % Neutrophils # (1.3-7.7) k/uL APTT 30.4 H (22.0-30.0) sec ABG pH (7.35-7.45) ABG pCO2 (35-45) mmHg ABG pO2 (83-108) mmHg ABG Total CO2 (19-24) mmol/L ABG O2 Saturation (94-97) % Potassium (3.5-5.1) mmol/L Chloride (98-107) mmol/L Carbon Dioxide (22-30) mmol/L Creatinine (0.66-1.25) mg/dL Glucose (74-99) mg/dL POC Glucose (mg/dL) 163 H (70-110) mg/dL Hemoglobin A1c (<=6.0) % Osmolality (275-295) mOsm/kg Total Protein (6.3-8.2) g/dL Albumin (3.5-5.0) g/dL CSF Tot Nucleated Cells (0-5) u/L CSF Glucose (40-70) mg/dL CSF Total Protein (12-60) mg/dL 09/06/23 09/06/23 09/06/23 Range/Units 00:03 04:06 04:06 RBC 4.17 L (4.30-5.90) m/uL Hgb 12.5 L (13.0-17.5) gm/dL Hct (39.0-53.0) % Neutrophils # 8.1 H (1.3-7.7) k/uL APTT (22.0-30.0) sec ABG pH (7.35-7.45) ABG pCO2 (35-45) mmHg ABG pO2 (83-108) mmHg ABG Total CO2 (19-24) mmol/L ABG O2 Saturation (94-97) % Potassium 3.4 L (3.5-5.1) mmol/L Chloride 112 H (98-107) mmol/L Carbon Dioxide 19 L (22-30) mmol/L Creatinine 0.60 L (0.66-1.25) mg/dL Glucose 164 H (74-99) mg/dL POC Glucose (mg/dL) 144 H (70-110) mg/dL Hemoglobin A1c (<=6.0) % Osmolality (275-295) mOsm/kg Total Protein 6.0 L (6.3-8.2) g/dL Albumin 3.3 L (3.5-5.0) g/dL CSF Tot Nucleated Cells (0-5) u/L CSF Glucose (40-70) mg/dL CSF Total Protein (12-60) mg/dL 09/06/23 09/06/23 09/06/23 Range/Units 04:06 04:55 05:31 RBC 4.11 L (4.30-5.90) m/uL Hgb 12.1 L (13.0-17.5) gm/dL Hct 37.6 L (39.0-53.0) % Neutrophils # 8.3 H (1.3-7.7) k/uL APTT (22.0-30.0) sec ABG pH (7.35-7.45) ABG pCO2 (35-45) mmHg ABG pO2 126 H (83-108) mmHg ABG Total CO2 (19-24) mmol/L ABG O2 Saturation 99.0 H (94-97) % Potassium (3.5-5.1) mmol/L Chloride (98-107) mmol/L Carbon Dioxide (22-30) mmol/L Creatinine (0.66-1.25) mg/dL Glucose (74-99) mg/dL POC Glucose (mg/dL) 165 H (70-110) mg/dL Hemoglobin A1c (<=6.0) % Osmolality (275-295) mOsm/kg Total Protein (6.3-8.2) g/dL Albumin (3.5-5.0) g/dL CSF Tot Nucleated Cells (0-5) u/L CSF Glucose (40-70) mg/dL CSF Total Protein (12-60) mg/dL 09/06/23 09/06/23 09/06/23 Range/Units 08:21 10:31 11:41 RBC (4.30-5.90) m/uL Hgb (13.0-17.5) gm/dL Hct (39.0-53.0) % Neutrophils # (1.3-7.7) k/uL APTT 41.2 H (22.0-30.0) sec ABG pH 7.47 H (7.35-7.45) ABG pCO2 33 L (35-45) mmHg ABG pO2 (83-108) mmHg ABG Total CO2 25 H (19-24) mmol/L ABG O2 Saturation (94-97) % Potassium (3.5-5.1) mmol/L Chloride (98-107) mmol/L Carbon Dioxide (22-30) mmol/L Creatinine (0.66-1.25) mg/dL Glucose (74-99) mg/dL POC Glucose (mg/dL) 154 H (70-110) mg/dL Hemoglobin A1c (<=6.0) % Osmolality (275-295) mOsm/kg Total Protein (6.3-8.2) g/dL Albumin (3.5-5.0) g/dL CSF Tot Nucleated Cells (0-5) u/L CSF Glucose (40-70) mg/dL CSF Total Protein (12-60) mg/dL Microbiology - Last 24 Hours (Table) 09/04/23 20:55 Blood Culture - Preliminary Blood 09/04/23 20:40 Blood Culture - Preliminary Blood 09/05/23 15:45 Gram Stain - Preliminary Sputum 09/05/23 17:42 CSF Gram Stain - Preliminary Cerebral Spinal Fluid Assessment and Plan Assessment: this is a 62-year-old gentleman with history of diabetes, above the knee amputation on the right who presented emergency department because of confusion. He had one low-grade fever during this presentation. Altered mental status: Seems septic encephalopathy of unknown etiology. CSF nucleated cells is 7 (normal is 0-5) and this is slightly above normal and it is not indicative of bacterial meningitis but hard to absolutely rule out viral meningo-encephalitis at this time but feel unlikely. Rule out other sources of infection at same time---mentation drastically improving. Acute Leukocytosis elevated troponin decreased ejection fraction of 20-25% on 2D echo Intubated on mechanical ventilation and is on IV sedation---extubated today Above the right knee and amputation, history of right leg gangrene Diabetes mellitus Plan: Continue acyclovir 800 mg every 8 hours for the encephalitis coverage. Pending CSF viral and I ordered Herpes HSV1/2. From neurological perspective can modify Ceftriaxone since does not appear meningitis and is on Vancoymcin. I will defer the modification of antibiotic to primary team. Consider I.D. consultation. I will pursue with MRI Brain cardiology is consulted We'll defer the rest of the medical measure the primary and other specialist The plan was discussed with the ICU nurse and the primary team. Time with Patient: Less than 30
--- NOTE | 2023-09-06 15:31 | P.PN ---
Subjective Progress Note Date: 09/06/23 (delayed charting seen at 930) Patient is a 62-year-old male with diabetes mellitus type 2 status post right BKA secondary to necrotizing fasciitis who presented to the hospital with decreased responsiveness. The ER of patient had altered mentation was combative. He received multiple doses of Geodon and Ativan and continued to remain restless and combative therefore patient was sedated and intubated for airway protection and need for urgent imaging. Laboratory evaluation in the ER was remarkable for white blood cell count 19.5, potassium 3.4, carbon dioxide 19 with anion gap of 18 and blood sugars of 277. Patient was positive for marijuana and methadone. COVID-19/RSV/influenza a and B testing was negative. Chest x-ray showed no acute process. CT head showed no acute intracranial hemorrhage or midline shift CT angio of the head and neck demonstrated no significant stenosis and no occlusion. Patient was subsequently admitted to the ICU. He was started on broad-spectrum antibiotics with Vanco and ceftriaxone. Troponin became positive and he was subsequently started on a heparin infusion. Cardiology and intensive care were consulted. Neurology was also consulted. He was additionally started on acyclovir due to concerns for possible meningitis. He underwent LP on 09/05/2023. Patient seen and examined while still intubated. His sedation was off and he was intermittently following commands. Per nursing no other acute events overnight. Vital signs reviewed General: Nontoxic, no distress, appears at stated age Cardiovascular: S1S2 reg, no murmur Lungs: Course bs bilateral, no rhonchi, no rales, no accessory muscle use, on vent Abdominal: Soft, nontender to palpation, no guarding Ext: No gross muscle atrophy, no edema b/l lower extremities, Right BKA, no cont ractures Neuro: breathing over vent, + cough, + gag Psych: Awake, following simple commands, Assessment/Plan: SIRS, resolved Acute encephalopathy toxic versus metabolic, improving - Case is discussed with both Dr. Nuñez and Dr. Falcon. It does not appear that the patient has bacterial meningitis based on lumbar puncture results but cannot rule out viral meningeal encephalitis. Will continue on acyclovir until LP viral screen negative. Will discontinue ceftriaxone and Zosyn based on the fact that chest x-ray is negative, urinalysis negative, LP not congruent with bacterial meningitis and white blood cell count has fully resolved. - Acyclovir 800 mg IV every 8 hours day #2 -Check initial chest x-ray and urinalysis unrevealing for sources of infection - Await LP viral screen Newly discovered systolic cardiomyopathy with ejection fraction 20 to 25% Elevated troponin -Metoprolol 25 mg twice daily -Cardiology note reviewed: Start low-dose beta-carla for cardiomyopathy, continue heparin drip ischemic workup once stable - add sglt-2 inhibitor, add Losartan 12.5 mg daily, , Spironolactone added as BP can handle. -Add aspirin 81 mg daily - check lipid profile Diabetes mellitus type 2 with hyperglycemia -Sliding scale insulin every 8 hours - farxiga -Follow blood sugars -A1c 6.5 Chronic Pain -Resume oxycodone 5 mg every 4 hours Imaging: None new Data Review: Labs reviewed from today include CBC, ABG, CMP, and CSF which is remarkable for white blood cell and CSF of 7, glucose 111, and total protein of 88, hemoglobin 12.2, potassium 3.4, carbon dioxide 19. DVT prophylaxis: Heparin SC Anticipated discharge date: Pending Clinical Course Anticipated discharge place: Pending Clinical Course This dictation was prepared using [employer]. voice recognition software. Though every attempt is made to correct errors during dictation some may still exist. Objective - Vital Signs Vital signs: Vital Signs Temp 99.1 F 09/06/23 12:00 Pulse 93 09/06/23 15:00 Resp 23 09/06/23 15:00 BP 137/71 09/06/23 15:00 Pulse Ox 98 09/06/23 15:00 FiO2 40 09/06/23 10:35 Intake & Output 09/05/23 09/06/23 09/06/23 18:59 06:59 18:59 Intake Total 2384.796 5999.903 1241.179 Output Total 940 1255 1830 Balance 853.729 789.903 -588.821 Weight 81.6 kg 87.3 kg Intake: IV 1430 1578 960 Acyclovir Sodium 800 mg 350 250 In Sodium Chloride 0.9% 250 ml @ 100 mls/hr IVPB Q8H [facility] Rx#:[id number] Sodium Chloride 0.9% 1, 1430 260 000 ml @ 130 mls/hr IV . Q7H42M [facility] Rx#:[id number] Sodium Chloride 0.9% 1, 200 160 000 ml @ 20 mls/hr IV . Q24H [facility] Rx#:[id number] Vancomycin 1,500 mg In 668 500 Sodium Chloride 0.9% 500 ml 500 ml @ 167 mls/hr IVPB ONCE STA Rx#: [id number] cefTRIAXone 2 gm In 100 50 Sodium Chloride 0.9% 50 ml @ 100 mls/hr IVPB Q12HR [facility] Rx#:[id number] Intake, IV Titration 293.729 226.903 191.179 Amount Heparin Sod,Pork in 0.45% 63.866 56.141 101.184 NaCl 25,000 unit In 0.45 % NaCl 1 250ml.bag @ 12 UNITS/KG/HR 9.792 mls/hr IV .Q24H [facility] Rx#: [id number] Midazolam HCl 50 mg In 21.667 Sodium Chloride 0.9% 40 ml @ 1 MG/HR 1 mls/hr IV .Q24H [facility] Rx#:[id number] Norepinephrine 4 mg In 108.196 Sodium Chloride 0.9% 250 ml @ 0.03 MCG/KG/MIN 9. 327 mls/hr IV .Q24H [facility] Rx#:[id number] propofoL 1,000 mg In 100 170.762 89.995 Empty Bag 1 bag @ 15 MCG/ KG/MIN 6.532 mls/hr IV . [id number] [facility] Rx#:[id number] Tube Feeding 40 180 60 Other 30 60 30 Output: Urine 940 1255 1830 Other: Voiding Method Indwelling Catheter Indwelling Catheter Indwelling Catheter - Labs CBC & Chem 7: 09/06/23 04:06 09/06/23 04:06 Labs: Abnormal Lab Results - Last 24 Hours (Table) 09/05/23 09/05/23 09/05/23 Range/Units 02:30 03:00 17:42 RBC (4.30-5.90) m/uL Hgb (13.0-17.5) gm/dL Hct (39.0-53.0) % Neutrophils # (1.3-7.7) k/uL APTT (22.0-30.0) sec ABG pH (7.35-7.45) ABG pCO2 (35-45) mmHg ABG pO2 (83-108) mmHg ABG Total CO2 (19-24) mmol/L ABG O2 Saturation (94-97) % Potassium (3.5-5.1) mmol/L Chloride (98-107) mmol/L Carbon Dioxide (22-30) mmol/L Creatinine (0.66-1.25) mg/dL Glucose (74-99) mg/dL POC Glucose (mg/dL) (70-110) mg/dL Hemoglobin A1c 6.5 H (<=6.0) % Osmolality 305 H (275-295) mOsm/kg Total Protein (6.3-8.2) g/dL Albumin (3.5-5.0) g/dL CSF Tot Nucleated Cells 7 H* (0-5) u/L CSF Glucose 111 H (40-70) mg/dL CSF Total Protein 88 H (12-60) mg/dL 09/05/23 09/05/23 09/05/23 Range/Units 17:48 17:58 23:57 RBC 4.02 L (4.30-5.90) m/uL Hgb 12.0 L (13.0-17.5) gm/dL Hct 35.8 L (39.0-53.0) % Neutrophils # (1.3-7.7) k/uL APTT 30.4 H (22.0-30.0) sec ABG pH (7.35-7.45) ABG pCO2 (35-45) mmHg ABG pO2 (83-108) mmHg ABG Total CO2 (19-24) mmol/L ABG O2 Saturation (94-97) % Potassium (3.5-5.1) mmol/L Chloride (98-107) mmol/L Carbon Dioxide (22-30) mmol/L Creatinine (0.66-1.25) mg/dL Glucose (74-99) mg/dL POC Glucose (mg/dL) 163 H (70-110) mg/dL Hemoglobin A1c (<=6.0) % Osmolality (275-295) mOsm/kg Total Protein (6.3-8.2) g/dL Albumin (3.5-5.0) g/dL CSF Tot Nucleated Cells (0-5) u/L CSF Glucose (40-70) mg/dL CSF Total Protein (12-60) mg/dL 09/06/23 09/06/23 09/06/23 Range/Units 00:03 04:06 04:06 RBC 4.17 L (4.30-5.90) m/uL Hgb 12.5 L (13.0-17.5) gm/dL Hct (39.0-53.0) % Neutrophils # 8.1 H (1.3-7.7) k/uL APTT (22.0-30.0) sec ABG pH (7.35-7.45) ABG pCO2 (35-45) mmHg ABG pO2 (83-108) mmHg ABG Total CO2 (19-24) mmol/L ABG O2 Saturation (94-97) % Potassium 3.4 L (3.5-5.1) mmol/L Chloride 112 H (98-107) mmol/L Carbon Dioxide 19 L (22-30) mmol/L Creatinine 0.60 L (0.66-1.25) mg/dL Glucose 164 H (74-99) mg/dL POC Glucose (mg/dL) 144 H (70-110) mg/dL Hemoglobin A1c (<=6.0) % Osmolality (275-295) mOsm/kg Total Protein 6.0 L (6.3-8.2) g/dL Albumin 3.3 L (3.5-5.0) g/dL CSF Tot Nucleated Cells (0-5) u/L CSF Glucose (40-70) mg/dL CSF Total Protein (12-60) mg/dL 09/06/23 09/06/23 09/06/23 Range/Units 04:06 04:55 05:31 RBC 4.11 L (4.30-5.90) m/uL Hgb 12.1 L (13.0-17.5) gm/dL Hct 37.6 L (39.0-53.0) % Neutrophils # 8.3 H (1.3-7.7) k/uL APTT (22.0-30.0) sec ABG pH (7.35-7.45) ABG pCO2 (35-45) mmHg ABG pO2 126 H (83-108) mmHg ABG Total CO2 (19-24) mmol/L ABG O2 Saturation 99.0 H (94-97) % Potassium (3.5-5.1) mmol/L Chloride (98-107) mmol/L Carbon Dioxide (22-30) mmol/L Creatinine (0.66-1.25) mg/dL Glucose (74-99) mg/dL POC Glucose (mg/dL) 165 H (70-110) mg/dL Hemoglobin A1c (<=6.0) % Osmolality (275-295) mOsm/kg Total Protein (6.3-8.2) g/dL Albumin (3.5-5.0) g/dL CSF Tot Nucleated Cells (0-5) u/L CSF Glucose (40-70) mg/dL CSF Total Protein (12-60) mg/dL 09/06/23 09/06/23 09/06/23 Range/Units 08:21 10:31 11:41 RBC (4.30-5.90) m/uL Hgb (13.0-17.5) gm/dL Hct (39.0-53.0) % Neutrophils # (1.3-7.7) k/uL APTT 41.2 H (22.0-30.0) sec ABG pH 7.47 H (7.35-7.45) ABG pCO2 33 L (35-45) mmHg ABG pO2 (83-108) mmHg ABG Total CO2 25 H (19-24) mmol/L ABG O2 Saturation (94-97) % Potassium (3.5-5.1) mmol/L Chloride (98-107) mmol/L Carbon Dioxide (22-30) mmol/L Creatinine (0.66-1.25) mg/dL Glucose (74-99) mg/dL POC Glucose (mg/dL) 154 H (70-110) mg/dL Hemoglobin A1c (<=6.0) % Osmolality (275-295) mOsm/kg Total Protein (6.3-8.2) g/dL Albumin (3.5-5.0) g/dL CSF Tot Nucleated Cells (0-5) u/L CSF Glucose (40-70) mg/dL CSF Total Protein (12-60) mg/dL Microbiology - Last 24 Hours (Table) 09/04/23 20:55 Blood Culture - Preliminary Blood 09/04/23 20:40 Blood Culture - Preliminary Blood 09/05/23 15:45 Gram Stain - Preliminary Sputum 09/05/23 17:42 CSF Gram Stain - Preliminary Cerebral Spinal Fluid
[2023-09-06] MEDS: LOSARTAN 25 MG TAB PO SCH (15:53)
[2023-09-06] MEDS: ASPIRIN 81 MG PO SCH (15:53)
[2023-09-06] MEDS: HEPARIN SODIUM,PORCINE 5,000 UNIT/ML 1 ML VIAL SQ SCH (15:53)
[2023-09-06 16:41] LABS: Glucose,Whole Blood 139 mg/dL (70-110)
[2023-09-06 19:47] LABS: Glucose,Whole Blood 156 mg/dL (70-110)
[2023-09-07 05:42] LABS: Glucose,Whole Blood 144 mg/dL (70-110)
[2023-09-07 06:24] LABS: Basophils % (A) 0 %; Eosinophils # (A) 0.1 k/uL (0-0.7); Eosinophils % (A) 1 %; HCT 33.9 % (39.0-53.0); HGB 11.3 gm/dL (13.0-17.5); Lymphocytes # (A) 1.5 k/uL (1.0-4.8); Lymphocytes % (A) 19 %; MCH 30.1 pg (25.0-35.0); MCHC 33.4 g/dL (31.0-37.0); Mean Platelet Volume 7.5; Monocytes # (A) 0.5 k/uL (0-1.0); Monocytes % (A) 7 %; Neutrophils # (A) 5.8 k/uL (1.3-7.7); Neutrophils % (A) 72 %; Platelet Count 182 k/uL (150-450); RBC 3.77 m/uL (4.30-5.90); RDW 13.6 % (11.5-15.5)
[2023-09-07 06:44] LABS: African American GFR (CKD) >90 (>60 ml/min/1.73 sqM); Anion Gap 8 mmol/L; Blood Urea Nitrogen 10 mg/dL (9-20); Calcium 8.5 mg/dL (8.4-10.2); Carbon Dioxide 22 mmol/L (22-30); Chloride 109 mmol/L (98-107); Glucose 127 mg/dL (74-99); Non-African American GFR(CKD) >90 (>60 ml/min/1.73 sqM); Potassium 3.3 mmol/L (3.5-5.1); Sodium 139 mmol/L (137-145)
[2023-09-07] MEDS ORDERED: MAGNESIUM SULFATE-D5W PMX 1 GM in DEXTROSE/WATER 1 100ML.BAG IVPB ONE (08:00)
[2023-09-07] MEDS: POTASSIUM CHLORIDE ER 20 MEQ TAB.ER PO SCH (08:59)
[2023-09-07] MEDS: METOPROLOL TARTRATE 50 MG TAB PO SCH (08:59)
[2023-09-07] MEDS: DAPAGLIFLOZIN PROPANEDIOL 5 MG TABLET PO SCH (08:59)
[2023-09-07] MEDS: MAGNESIUM SULFATE-D5W PMX 1 GM in DEXTROSE/WATER 1 100ML.BAG IVPB ONE (09:02)
--- NOTE | 2023-09-07 09:33 | P.PN ---
Subjective Progress Note Date: 09/07/23 The patient is a 62-year-old male with past medical history of diabetes and right gakkf-sho-vahb amputation, who was brought to the emergency room for mental status changes. The patient was given multiple doses of Geodon and Ativan via EMS for combativeness and agitation. He was ultimately intubated in order to complete imaging. Cardiology has been consulted for elevated troponins as well as initial EKG showing A-fib with RVR. Echocardiogram has revealed reduced ejection fraction at 20 to 25% with global hypokinesis. The patient was successfully extubated yesterday. He was interviewed and examined alert and oriented, resting comfortably in bed. GENERAL: Ill-appearing, well-nourished and in no acute distress. NECK: Supple without JVD or thyromegaly. LUNGS: Breath sounds diminished to auscultation bilaterally. Respiration equal and unlabored. No wheezes, rales or rhonchi. HEART: Regular rate and rhythm without murmurs, rubs or gallops. S1 and S2 heard. EXTREMITIES: Right [id number] amputation. No left lower extremity edema. +1 palpable pulse. TELEMETRY: Sinus tachycardia IMPRESSION: Altered mental status A-fib with RVR on initial EKG, likely sinus tachycardia Elevated troponin Acute encephalopathy SIRS History of necrotizing fasciitis, status post right AKA History of diabetes mellitus PLAN: Increase metoprolol to 50 twice daily Increase losartan to 25 mg daily Medical management for CAD with ischemia workup to be determined at a later date Further recommendations to be based upon clinical course I am dictating on behalf of Dr Marcus Layton's history/physical and assessment/plan. Objective - Vital Signs Vital signs: Vital Signs Temp 99.0 F 09/07/23 08:00 Pulse 93 09/07/23 09:00 Resp 24 09/07/23 09:00 BP 135/65 09/07/23 09:00 Pulse Ox 97 09/07/23 09:00 FiO2 40 09/06/23 10:35 Intake & Output 09/06/23 09/07/23 09/07/23 18:59 06:59 18:59 Intake Total 1551.179 460 140 Output Total 5253 1275 335 Balance -703.821 -815 -195 Weight 85.1 kg Intake: IV 1020 260 140 Acyclovir Sodium 800 mg 250 In Sodium Chloride 0.9% 250 ml @ 100 mls/hr IVPB Q8H [facility] Rx#:[id number] Magnesium Sulfate-D5w Pmx 100 1 gm In Dextrose/Water 1 100ml.bag @ 100 mls/hr IVPB ONCE ONE Rx#: [id number] Sodium Chloride 0.9% 1, 220 260 40 000 ml @ 20 mls/hr IV . Q24H [facility] Rx#:[id number] Vancomycin 1,500 mg In 500 Sodium Chloride 0.9% 500 ml 500 ml @ 167 mls/hr IVPB ONCE STA Rx#: [id number] cefTRIAXone 2 gm In 50 Sodium Chloride 0.9% 50 ml @ 100 mls/hr IVPB Q12HR [facility] Rx#:[id number] Intake, IV Titration 191.179 Amount Heparin Sod,Pork in 0.45% 101.184 NaCl 25,000 unit In 0.45 % NaCl 1 250ml.bag @ 12 UNITS/KG/HR 9.792 mls/hr IV .Q24H [facility] Rx#: [id number] propofoL 1,000 mg In 89.995 Empty Bag 1 bag @ 15 MCG/ KG/MIN 6.532 mls/hr IV . [id number] [facility] Rx#:[id number] Tube Feeding 310 200 Other 30 Output: Urine 2255 1275 335 Other: Voiding Method Indwelling Catheter Indwelling Catheter Indwelling Catheter - Labs CBC & Chem 7: 09/07/23 05:44 09/07/23 05:44 Labs: Abnormal Lab Results - Last 24 Hours (Table) 09/06/23 09/06/23 09/06/23 Range/Units 10:31 11:41 16:39 RBC (4.30-5.90) m/uL Hgb (13.0-17.5) gm/dL Hct (39.0-53.0) % ABG pH 7.47 H (7.35-7.45) ABG pCO2 33 L (35-45) mmHg ABG Total CO2 25 H (19-24) mmol/L Potassium (3.5-5.1) mmol/L Chloride (98-107) mmol/L Creatinine (0.66-1.25) mg/dL Glucose (74-99) mg/dL POC Glucose (mg/dL) 154 H 139 H (70-110) mg/dL 09/06/23 09/07/23 09/07/23 Range/Units 19:45 05:40 05:44 RBC (4.30-5.90) m/uL Hgb (13.0-17.5) gm/dL Hct (39.0-53.0) % ABG pH (7.35-7.45) ABG pCO2 (35-45) mmHg ABG Total CO2 (19-24) mmol/L Potassium 3.3 L (3.5-5.1) mmol/L Chloride 109 H (98-107) mmol/L Creatinine 0.60 L (0.66-1.25) mg/dL Glucose 127 H (74-99) mg/dL POC Glucose (mg/dL) 156 H 144 H (70-110) mg/dL 09/07/23 Range/Units 05:44 RBC 3.77 L (4.30-5.90) m/uL Hgb 11.3 L (13.0-17.5) gm/dL Hct 33.9 L (39.0-53.0) % ABG pH (7.35-7.45) ABG pCO2 (35-45) mmHg ABG Total CO2 (19-24) mmol/L Potassium (3.5-5.1) mmol/L Chloride (98-107) mmol/L Creatinine (0.66-1.25) mg/dL Glucose (74-99) mg/dL POC Glucose (mg/dL) (70-110) mg/dL Microbiology - Last 24 Hours (Table) 09/05/23 17:42 CSF Gram Stain - Preliminary Cerebral Spinal Fluid CSF Culture - Preliminary 09/05/23 12:30 Nasal Screen MRSA/MSSA - Final Nasal Swab 09/04/23 20:55 Blood Culture - Preliminary Blood 09/04/23 20:40 Blood Culture - Preliminary Blood 09/05/23 15:45 Gram Stain - Preliminary Sputum
--- NOTE | 2023-09-07 09:39 | P.PN ---
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 The ER of patient had altered mentation was combative. He received multiple doses of Geodon and Ativan and continued to remain restless and combative therefore patient was sedated and intubated for airway protection and need for urgent imaging. Laboratory evaluation in the ER was remarkable for white blood cell count 19.5, potassium 3.4, carbon dioxide 19 with anion gap of 18 and blood sugars of 277. Patient was positive for marijuana and methadone. COVID-19/RSV/influenza a and B testing was negative. Chest x-ray showed no acute process. CT head showed no acute intracranial hemorrhage or midline shift CT angio of the head and neck demonstrated no significant stenosis and no occlusion. Patient was subsequently admitted to the ICU. He was started on broad-spectrum antibiotics with Vanco and ceftriaxone. Troponin became positive and he was subsequently started on a heparin infusion. Cardiology and intensive care were consulted. Neurology was also consulted. He was additionally started on acyclovir due to concerns for possible meningitis. He underwent LP on 09/05/2023 which ruled out bacterial meningitis. Patient seen and examined at bedside. He denies any pain, shortness of breath, nausea, vomiting, upset stomach. We had a discussion that his heart appears weak and we are concerned he could have an infection in his brain or spinal column and that we are still continuing to run testing and that he is not stable for discharge yet. Patient aware. Vital signs reviewed General: Nontoxic, no distress, appears at stated age Cardiovascular: S1S2 reg, no murmur Lungs: Course bs bilateral, no rhonchi, no rales, no accessory muscle use, on vent Abdominal: Soft, nontender to palpation, no guarding Ext: No gross muscle atrophy, no edema b/l lower extremities, Right BKA, no contractures Neuro: breathing over vent, + cough, + gag Psych: Awake, following simple commands, Assessment/Plan: SIRS, resolved Acute encephalopathy toxic versus metabolic, resolved - Case discussed with Dr. Nuñez he is in agreement to maintain acyclovir until viral studies are available. - Await further neurology recs - Acyclovir 800 mg IV every 8 hours day #2 - continue on acyclovir until LP viral screen negative. LP not congruent with bacterial meningitis and white blood cell count has fully resolved. -Check initial chest x-ray and urinalysis unrevealing for sources of infection - Await LP viral screen Newly discovered systolic cardiomyopathy with ejection fraction 20 to 25% Elevated troponin -Cardiology note reviewed: Start low-dose beta-carla for cardiomyopathy, continue heparin drip ischemic workup once stable - -Metoprolol 50 mg twice daily, Farxiga 5 mg daily, Losartan 25 mg daily - Spironolactone can be added if BP remains stable - aspirin 81 mg daily - Await lipid profile Diabetes mellitus type 2 with hyperglycemia -Sliding scale insulin every 8 hours - farxiga -Follow blood sugars -A1c 6.5 Chronic Pain -Oxycodone 5 mg every 4 hours Imaging: None new Data Review: Reviewed from today include CBC and basic metabolic profile which are remarkable for hemoglobin 11.3, 6 potassium 3.3, chloride 109, glucose 144. DVT prophylaxis: Heparin SC Anticipated discharge date: Pending Clinical Course Anticipated discharge place: Pending Clinical Course This dictation was prepared using [employer] voice recognition software. Though every attempt is made to correct errors during dictation some may still exist. Objective - Vital Signs Vital signs: Vital Signs Temp 99.0 F 09/07/23 08:00 Pulse 93 09/07/23 09:00 Resp 24 09/07/23 09:00 BP 135/65 09/07/23 09:00 Pulse Ox 97 09/07/23 09:00 FiO2 40 09/06/23 10:35 Intake & Output 09/06/23 09/07/23 09/07/23 18:59 06:59 18:59 Intake Total 1551.179 460 140 Output Total 5075 1275 335 Balance -703.821 -815 -195 Weight 85.1 kg Intake: IV 1020 260 140 Acyclovir Sodium 800 mg 250 In Sodium Chloride 0.9% 250 ml @ 100 mls/hr IVPB Q8H [facility] Rx#:[id number] Magnesium Sulfate-D5w Pmx 100 1 gm In Dextrose/Water 1 100ml.bag @ 100 mls/hr IVPB ONCE ONE Rx#: [id number] Sodium Chloride 0.9% 1, 220 260 40 000 ml @ 20 mls/hr IV . Q24H [facility] Rx#:[id number] Vancomycin 1,500 mg In 500 Sodium Chloride 0.9% 500 ml 500 ml @ 167 mls/hr IVPB ONCE STA Rx#: [id number] cefTRIAXone 2 gm In 50 Sodium Chloride 0.9% 50 ml @ 100 mls/hr IVPB Q12HR [facility] Rx#:[id number] Intake, IV Titration 191.179 Amount Heparin Sod,Pork in 0.45% 101.184 NaCl 25,000 unit In 0.45 % NaCl 1 250ml.bag @ 12 UNITS/KG/HR 9.792 mls/hr IV .Q24H [facility] Rx#: [id number] propofoL 1,000 mg In 89.995 Empty Bag 1 bag @ 15 MCG/ KG/MIN 6.532 mls/hr IV . [id number] [facility] Rx#:[id number] Tube Feeding 310 200 Other 30 Output: Urine 2255 1275 335 Other: Voiding Method Indwelling Catheter Indwelling Catheter Indwelling Catheter - Labs CBC & Chem 7: 09/07/23 05:44 09/07/23 05:44 Labs: Abnormal Lab Results - Last 24 Hours (Table) 09/06/23 09/06/23 09/06/23 Range/Units 10:31 11:41 16:39 RBC (4.30-5.90) m/uL Hgb (13.0-17.5) gm/dL Hct (39.0-53.0) % ABG pH 7.47 H (7.35-7.45) ABG pCO2 33 L (35-45) mmHg ABG Total CO2 25 H (19-24) mmol/L Potassium (3.5-5.1) mmol/L Chloride (98-107) mmol/L Creatinine (0.66-1.25) mg/dL Glucose (74-99) mg/dL POC Glucose (mg/dL) 154 H 139 H (70-110) mg/dL 09/06/23 09/07/23 09/07/23 Range/Units 19:45 05:40 05:44 RBC (4.30-5.90) m/uL Hgb (13.0-17.5) gm/dL Hct (39.0-53.0) % ABG pH (7.35-7.45) ABG pCO2 (35-45) mmHg ABG Total CO2 (19-24) mmol/L Potassium 3.3 L (3.5-5.1) mmol/L Chloride 109 H (98-107) mmol/L Creatinine 0.60 L (0.66-1.25) mg/dL Glucose 127 H (74-99) mg/dL POC Glucose (mg/dL) 156 H 144 H (70-110) mg/dL 09/07/23 Range/Units 05:44 RBC 3.77 L (4.30-5.90) m/uL Hgb 11.3 L (13.0-17.5) gm/dL Hct 33.9 L (39.0-53.0) % ABG pH (7.35-7.45) ABG pCO2 (35-45) mmHg ABG Total CO2 (19-24) mmol/L Potassium (3.5-5.1) mmol/L Chloride (98-107) mmol/L Creatinine (0.66-1.25) mg/dL Glucose (74-99) mg/dL POC Glucose (mg/dL) (70-110) mg/dL Microbiology - Last 24 Hours (Table) 09/05/23 17:42 CSF Gram Stain - Preliminary Cerebral Spinal Fluid CSF Culture - Preliminary 09/05/23 12:30 Nasal Screen MRSA/MSSA - Final Nasal Swab 09/04/23 20:55 Blood Culture - Preliminary Blood 09/04/23 20:40 Blood Culture - Preliminary Blood 09/05/23 15:45 Gram Stain - Preliminary Sputum
--- NOTE | 2023-09-07 10:44 | P.PN ---
Subjective Progress Note Date: 09/07/23 Patient is a 62-year-old white male with past medical history significant for right lower extremity gangrene status post right AKA, diabetes mellitus, and tobacco dependence. Patient is currently intubated mechanical ventilator unable to provide any information. I did review the patient's medical record. Apparently, the patient was brought in yesterday evening. He was altered, and not acting appropriately. Brain CT negative for any acute intracranial hemorrhage or midline shift. Brain CTA did not show any significant flow- limiting stenosis within the internal carotid arteries. While in the emergency room, he then became combative he was given 2 doses of Geodon, 10 mg and 2 doses of Versed 5 mg and 2 doses of IV Ativan 2 mg. He was then intubated for airway protection by the ER physician. Postintubation chest x-ray showed endotracheal tube approximately 3 cm above the tatiana. Orogastric tube courses below the diaphragm. No acute cardiopulmonary process. Postintubation ABG shows a PaO2 of 51, pCO2 of 43, pH of 7.37. This was done on ventilator settings of assist- control, respiratory rate 20, tidal volume 450, FiO2 of 100, and PEEP of 5. PEEP was increased to 8. Repeat ABG showed a PaO2 greater than 400, pCO2 of 34, and pH of 7.46. He is apparently difficult to sedate postintubation, he is on a combination of propofol at 50 mcg/kg/min and Versed at 5 mg/h. He is currently synchronous on mechanical ventilator. Patient has been febrile with a Tmax of 100 F. Source of the infection is not exactly clear. CBC shows leukocytosis with a WBC count of 19.5, most recent BMP from this morning fairly unremarkable. Patient has been started on broad-spectrum antibiotics in the form of Rocephin and vancomycin. Troponins were elevated and trending up, at 0.028, 0.159, and 0.62 respectively. Patient was started on heparin infusion, cardiology was asked to evaluate this patient. Urinalysis not concerning for UTI. Tox screen positive for oxycodone and marijuana. Serum alcohol level less than 10. Heart rhythm appears sinus tachycardia on bedside monitor. Blood pressure was hypotensive postintubation, he did receive a total of 3 L normal saline bolus. Blood pressure has responded, not requiring any vasopressors at the moment. Urine output is adequate. I have the chest to evaluate this patient in the intensive care unit. The patient was on propofol running at 50 mcg/kg/min and the patient is on Versed at 4 mg an hour. No seizure activity. Normal saline is still running at the rate of 130 cc an hour. The patient currently is still on the mechanical ventilator and FiO2 has been weaned down to 40% with a PEEP of 5. He is still running a lower blood pressure. Tmax was 100. No neck stiffness. No skin rashes. Patient remains on broad-spectrum antibiotics and the patient was given a combination of Rocephin and vancomycin.The patient remains on IV heparin. Troponin peaked at 0.6. Cardiac rhythm is sinus. The chest x-ray from today is showing no acute cardiopulmonary process. No significant signs of bronchospasm or wheezing at this point in time. On today's evaluation of 09/06/2023, the patient is being seen for a follow-up. The patient remains intubated on mechanical ventilator. The patient was taken off sedation this morning and the patient was able to follow simple commands. He was awake and alert and communicating. Note that he is currently on assist- control mode at a rate of 20, tidal volume of 450, FiO2 of 40% with a PEEP of 5. Blood gas showed pH of 7.41 with a pCO2 of 36 and pO2 of 126. Chest x-ray from today shows no acute cardiopulmonary process. Echocardiogram was completed yesterday and the patient was found to have systolic heart failure with impaired left ventricular function. The patient had global hypokinesis with an ejection fraction of 20 to 25% along with mild mitral regurgitation. No aortic stenosis. The patient is post lumbar puncture that was performed yesterday. The cell count was 7 with mononuclear predominance. The CSF protein was elevated at 80. HSV by PCR in the CSF still pending for now. The patient was covered with IV acyclovir. He still having episodes of low-grade fever. Current temperature is 99.1. Still covered with broad-spectrum antibiotics and the patient remains on a combination of Rocephin and vancomycin. The procalcitonin level was checked yesterday and the level was low at 0.03. IV fluids to kvo. the patient is currently on no pressors. the sodium is at 140, potassium 3.4, chloride is 112 with a bicarb of 19. bun is 15 with a creatinine of 0.6. the wbc count is at 10.2 with a hemoglobin 12.1 and a platelet count of 186. On 09/07/2023, the patient is extubated. The patient is awake and alert and he is communicating. However there is some baseline confusion as the patient states that he is in [place]. He is not clear about his location. He is not also aware of the time of the year. No focal neurological deficits. Afebrile. Antibiotics have been discontinued and the patient is still is on IV acyclovir suspecting HSV encephalitis. PCR from CSF is still pending for now. Hemodynamically stable. The patient is morning denies having any respiratory difficulties and the patient is currently on room air oxygen. The white cell count is at 8 with a hemoglobin 11.3 and a platelet count of 182. Sodium is at 139 with a potassium level of 3.3, BUN is at 10 with a creatinine of 0.6. The patient is on metoprolol 50 mg p.o. twice a day. The patient is also on Cozaar 25 mg p.o. daily. Note that the metoprolol dose has been increased that the patient was having some sinus tachycardia. IV fluids are currently at KVO. Patient is also on aspirin and Farxiga. He was placed on subcu heparin for DVT prophylaxis and IV heparin was discontinued. Objective - Vital Signs Vital signs: Vital Signs Temp 99.0 F 09/07/23 08:00 Pulse 93 09/07/23 09:00 Resp 24 09/07/23 09:00 BP 135/65 09/07/23 09:00 Pulse Ox 97 09/07/23 09:00 FiO2 40 09/06/23 10:35 Intake & Output 09/06/23 09/07/23 09/07/23 18:59 06:59 18:59 Intake Total 1551.179 460 160 Output Total 5975 1275 410 Balance -703.821 -815 -250 Weight 85.1 kg Intake: IV 1020 260 160 Acyclovir Sodium 800 mg 250 In Sodium Chloride 0.9% 250 ml @ 100 mls/hr IVPB Q8H [facility] Rx#:[id number] Magnesium Sulfate-D5w Pmx 100 1 gm In Dextrose/Water 1 100ml.bag @ 100 mls/hr IVPB ONCE ONE Rx#: [id number] Sodium Chloride 0.9% 1, 220 260 60 000 ml @ 20 mls/hr IV . Q24H [facility] Rx#:[id number] Vancomycin 1,500 mg In 500 Sodium Chloride 0.9% 500 ml 500 ml @ 167 mls/hr IVPB ONCE STA Rx#: [id number] cefTRIAXone 2 gm In 50 Sodium Chloride 0.9% 50 ml @ 100 mls/hr IVPB Q12HR [facility] Rx#:[id number] Intake, IV Titration 191.179 Amount Heparin Sod,Pork in 0.45% 101.184 NaCl 25,000 unit In 0.45 % NaCl 1 250ml.bag @ 12 UNITS/KG/HR 9.792 mls/hr IV .Q24H [facility] Rx#: [id number] propofoL 1,000 mg In 89.995 Empty Bag 1 bag @ 15 MCG/ KG/MIN 6.532 mls/hr IV . [id number] [facility] Rx#:[id number] Tube Feeding 310 200 Other 30 Output: Urine 2255 1275 410 Other: Voiding Method Indwelling Catheter Indwelling Catheter Indwelling Catheter - Exam GENERAL EXAM: Extubated,, comfortable, no signs of lower respiratory distress and the patient is currently on room air oxygen. HEAD: Normocephalic and atraumatic EYES: Normal reaction of pupils, equal size. NOSE: Clear with pink turbinates. THROAT: No erythema or exudates. NECK: No masses, no JVD. CHEST: No chest wall deformity. LUNGS: Equal air entry with no crackles, wheeze, rhonchi or dullness. CVS: S1 and S2 normal with no audible murmur, regular rhythm. No extra heart sounds, he has an S3 gallop. ABDOMEN: No hepatosplenomegaly, active bowel sounds, no guarding or rigidity. SPINE: No scoliosis or deformity SKIN: No rashes CENTRAL NERVOUS SYSTEM: No focal deficits, tone is normal in all 4 extremities. No neck stiffness. Able to move all 4 extremities. Patient does have some baseline confusion. EXTREMITIES: There is no peripheral edema, clubbing, or cyanosis. Peripheral pulses are intact. Right AKA, stump appears to be healing nicely. - Labs CBC & Chem 7: 09/07/23 05:44 09/07/23 05:44 Labs: Abnormal Lab Results - Last 24 Hours (Table) 09/06/23 09/06/23 09/06/23 Range/Units 10:31 11:41 16:39 RBC (4.30-5.90) m/uL Hgb (13.0-17.5) gm/dL Hct (39.0-53.0) % ABG pH 7.47 H (7.35-7.45) ABG pCO2 33 L (35-45) mmHg ABG Total CO2 25 H (19-24) mmol/L Potassium (3.5-5.1) mmol/L Chloride (98-107) mmol/L Creatinine (0.66-1.25) mg/dL Glucose (74-99) mg/dL POC Glucose (mg/dL) 154 H 139 H (70-110) mg/dL 09/06/23 09/07/23 09/07/23 Range/Units 19:45 05:40 05:44 RBC (4.30-5.90) m/uL Hgb (13.0-17.5) gm/dL Hct (39.0-53.0) % ABG pH (7.35-7.45) ABG pCO2 (35-45) mmHg ABG Total CO2 (19-24) mmol/L Potassium 3.3 L (3.5-5.1) mmol/L Chloride 109 H (98-107) mmol/L Creatinine 0.60 L (0.66-1.25) mg/dL Glucose 127 H (74-99) mg/dL POC Glucose (mg/dL) 156 H 144 H (70-110) mg/dL 09/07/23 Range/Units 05:44 RBC 3.77 L (4.30-5.90) m/uL Hgb 11.3 L (13.0-17.5) gm/dL Hct 33.9 L (39.0-53.0) % ABG pH (7.35-7.45) ABG pCO2 (35-45) mmHg ABG Total CO2 (19-24) mmol/L Potassium (3.5-5.1) mmol/L Chloride (98-107) mmol/L Creatinine (0.66-1.25) mg/dL Glucose (74-99) mg/dL POC Glucose (mg/dL) (70-110) mg/dL Microbiology - Last 24 Hours (Table) 09/05/23 17:42 CSF Gram Stain - Preliminary Cerebral Spinal Fluid CSF Culture - Preliminary 09/05/23 12:30 Nasal Screen MRSA/MSSA - Final Nasal Swab 09/04/23 20:55 Blood Culture - Preliminary Blood 09/04/23 20:40 Blood Culture - Preliminary Blood 09/05/23 15:45 Gram Stain - Preliminary Sputum Assessment and Plan Plan: Altered mental status, unknown etiology, currently under investigation. Noted the CTA of the head was essentially negative for any acute abnormalities. No si gns of any acute vascular occlusion. The patient had a rapid altered mentation according to the family. No neck stiffness. There is a low-grade fever. Rule out metabolic encephalopathy. Rule out septic encephalopathy. The patient has a low-grade fever and some leukocytosis. Encephalitis is possible and cannot be completely ruled out. Lumbar puncture was performed and the patient has mild e levation of the white cell count and protein level. This may be potentially consistent with encephalitis. Awaiting HSV by PCR and the patient is currently on IV acyclovir. Mental status is improved and the patient does have some limited confusion. Otherwise, no focal neurological deficits. No headaches. No neck stiffness. Moving all 4 extremities without limitation. He is alert and oriented x 1 to 2. He is able to communicate. No deficits in his speech. Acute febrile illness/sepsis, exact source is not exactly clear, under investigation the patient is currently on broad-spectrum antibiotics. Procalcitonin level is nonelevated and currently is afebrile. Acute leukocytosis, improved Hypotension and shock, status/post aggressive fluid resuscitation, with a total of 3 L normal saline, and the patient is currently normotensive, the patient is currently on IV fluids at [facility]. Systolic heart failure with an ejection fraction of 20 to 25% and the patient has global LV dysfunction. Mechanical ventilator management, patient was intubated for airway protection. Postintubation chest x-ray shows the endotracheal tube approximately 3 cm from the tatiana. No acute cardiopulmonary process identified. The chest x-ray remains clear Elevated troponins, rule out non-ST elevation RI, currently off heparin History of right leg gangrene status post right AKA Diabetes mellitus type 2, blood sugars are under adequate control at this point in time. Plan: Patient is currently extubated on room air oxygen. IV fluids to O Antibiotics have been discontinued Continue IV acyclovir Awaiting CSF PCR for HSV Chest x-ray remains clear Lumbar puncture results were noted Echocardiogram results were noted Increase metoprolol to 50 mg twice a day continue the Cozaar Subcutaneous heparin for DVT prophylaxis Continue aspirin Cardiology follow-up Sliding scale insulin added Will continue to follow. Monitor mental status change. The patient will be kept in ICU for another 24 hours.
[2023-09-07 11:11] LABS: Glucose,Whole Blood 139 mg/dL (70-110)
[2023-09-07 11:41] LABS: Chol/HDL Ratio 2.84 Ratio; LDL Cholesterol,Calculated 67.8 mg/dL (0.0-131.0)
--- NOTE | 2023-09-07 16:07 | P.PN ---
Subjective Progress Note Date: 09/07/23 I am following up with the patient and he is accompanied by family members and patient feels he is doing well. He denies of any headache any nausea any vomiting any visual disturbance. His confusion has drastically improved. Objective - Vital Signs Vital signs: Vital Signs Temp 98.7 F 09/07/23 11:34 Pulse 89 09/07/23 11:34 Resp 24 09/07/23 11:34 BP 148/81 09/07/23 11:34 Pulse Ox 96 09/07/23 11:34 FiO2 40 09/06/23 10:35 Intake & Output 09/06/23 09/07/23 09/07/23 18:59 06:59 18:59 Intake Total 1551.179 460 160 Output Total 2255 1275 610 Balance -703.821 -815 -450 Weight 85.1 kg 85.1 kg Intake: IV 1020 260 160 Acyclovir Sodium 800 mg 250 In Sodium Chloride 0.9% 250 ml @ 100 mls/hr IVPB Q8H [facility] Rx#:[id number] Magnesium Sulfate-D5w Pmx 100 1 gm In Dextrose/Water 1 100ml.bag @ 100 mls/hr IVPB ONCE ONE Rx#: [id number] Sodium Chloride 0.9% 1, 220 260 60 000 ml @ 20 mls/hr IV . Q24H [facility] Rx#:[id number] Vancomycin 1,500 mg In 500 Sodium Chloride 0.9% 500 ml 500 ml @ 167 mls/hr IVPB ONCE STA Rx#: [id number] cefTRIAXone 2 gm In 50 Sodium Chloride 0.9% 50 ml @ 100 mls/hr IVPB Q12HR [facility] Rx#:[id number] Intake, IV Titration 191.179 Amount Heparin Sod,Pork in 0.45% 101.184 NaCl 25,000 unit In 0.45 % NaCl 1 250ml.bag @ 12 UNITS/KG/HR 9.792 mls/hr IV .Q24H [facility] Rx#: [id number] propofoL 1,000 mg In 89.995 Empty Bag 1 bag @ 15 MCG/ KG/MIN 6.532 mls/hr IV . [id number] [facility] Rx#:[id number] Tube Feeding 310 200 Other 30 Output: Urine 2255 1275 610 Other: Voiding Method Indwelling Catheter Indwelling Catheter Indwelling Catheter - Exam General: Lying in bed and is not in acute distress. Neuro: Patient is awake, alert, oriented to self, place and time. He is minimally slow responding to question but much better compared the past couple days. He is following simple commands. No aphasia. Pupils are round, reactive to light. Visual fernando are full to confrontation. EOM intact and no nystagmus. No facial weakness. Motor: Strength is lifting extremities above gravity. 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 Some of the workup during his hospital visit consisted of: on initial presentation patient initial temperature was 98.4. T-max of 100 Fahrenheit and only had one time of elevated fever and that was 100 Fahrenheit otherwise it's been the normothermic initial white blood cell was 19.5K and predominately neutrophilic. initial serum glucose is 277 Calcium is 9.6, sodium is 140, ammonia is 11 troponin is 0.621. UDS positive for oxycodone and marijuana. CT of the head is reported as no acute intracranial hemorrhage or midline shift. I personally reviewed the CT hadn't agree with the report. CT angiography of the head and neck was reported as no significant stenosis in the common or internal carotid artery bilaterally. No large vessel occlusion or aneurysm at the level of nulato of Ortiz. 2-D echo was reported as mildly enlarged upper limits of normal with global decreased and contractility and estimated ejection fraction about 2025%. Significant right ventricular enlargement as well. Both edges on large. CSF study: clear, colorless, total nucleated cells is 7 (normal is 0-5), glucose is 111 and protien is 88. Gram stain and culture is negative. Routine EEG: Is abnormal. Moderate encephalopathy. There is no focal slowing, epileptiform dischargs or seizure on the EEG. VZV is not detected. HSV I/II PCR is not detected CMV, Influenza A/B PCR, RSV, Norovirus, SARS-CoV2 PCR are not detected. Enterovirus are not detected. - Labs CBC & Chem 7: 09/07/23 05:44 09/07/23 05:44 Labs: Abnormal Lab Results - Last 24 Hours (Table) 09/06/23 09/06/23 09/07/23 Range/Units 16:39 19:45 05:40 RBC (4.30-5.90) m/uL Hgb (13.0-17.5) gm/dL Hct (39.0-53.0) % Potassium (3.5-5.1) mmol/L Chloride (98-107) mmol/L Creatinine (0.66-1.25) mg/dL Glucose (74-99) mg/dL POC Glucose (mg/dL) 139 H 156 H 144 H (70-110) mg/dL 09/07/23 09/07/23 09/07/23 Range/Units 05:44 05:44 11:10 RBC 3.77 L (4.30-5.90) m/uL Hgb 11.3 L (13.0-17.5) gm/dL Hct 33.9 L (39.0-53.0) % Potassium 3.3 L (3.5-5.1) mmol/L Chloride 109 H (98-107) mmol/L Creatinine 0.60 L (0.66-1.25) mg/dL Glucose 127 H (74-99) mg/dL POC Glucose (mg/dL) 139 H (70-110) mg/dL Microbiology - Last 24 Hours (Table) 09/04/23 20:55 Blood Culture - Preliminary Blood 09/04/23 20:40 Blood Culture - Preliminary Blood 09/05/23 17:42 CSF Gram Stain - Preliminary Cerebral Spinal Fluid CSF Culture - Preliminary 09/05/23 12:30 Nasal Screen MRSA/MSSA - Final Nasal Swab Assessment and Plan Assessment: this is a 62-year-old gentleman with history of diabetes, above the knee amputation on the right who presented emergency department because of confusion. He had one low-grade fever during this presentation. Altered mental status: Seems septic encephalopathy of unknown etiology. CSF nucleated cells is 7 (normal is 0-5) and this is slightly above normal and it is not indicative of bacterial meningitis but hard to absolutely rule out viral meningo-encephalitis at this time but feel unlikely. HSV I/II PCR are negative. Rule out other sources of infection at same time---mentation drastically improving. Acute Leukocytosis elevated troponin decreased ejection fraction of 20-25% on 2D echo Intubated on mechanical ventilation and is on IV sedation---extubated today Above the right knee and amputation, history of right leg gangrene Diabetes mellitus Plan: Continue acyclovir 800 mg every 8 hours for the encephalitis coverage. Pending CSF viral. Pending MRI Brain cardiology is consulted We'll defer the rest of the medical measure the primary and other specialist The plan was discussed with patient, rest of family members who are at bedside and ICU nurse. Time with Patient: Less than 30
[2023-09-07 16:15] LABS: Glucose,Whole Blood 108 mg/dL (70-110)
[2023-09-07 20:23] LABS: Glucose,Whole Blood 135 mg/dL (70-110)
[2023-09-07] MEDS: MELATONIN 5 MG TABLET PO SCH (22:43)
[2023-09-08 06:27] LABS: Basophils % (A) 0 %; Eosinophils % (A) 0 %; HCT 36.1 % (39.0-53.0); HGB 12.1 gm/dL (13.0-17.5); Lymphocytes # (A) 1.4 k/uL (1.0-4.8); Lymphocytes % (A) 17 %; MCH 29.7 pg (25.0-35.0); MCHC 33.6 g/dL (31.0-37.0); MCV 88.6 fL (80.0-100.0); Mean Platelet Volume 7.8; Monocytes # (A) 0.6 k/uL (0-1.0); Monocytes % (A) 7 %; Neutrophils # (A) 6.1 k/uL (1.3-7.7); Neutrophils % (A) 74 %; Platelet Count 222 k/uL (150-450); RBC 4.07 m/uL (4.30-5.90); RDW 13.5 % (11.5-15.5); WBC 8.2 k/uL (3.8-10.6)
[2023-09-08 06:39] LABS: African American GFR (CKD) >90 (>60 ml/min/1.73 sqM); Anion Gap 16 mmol/L; Blood Urea Nitrogen 15 mg/dL (9-20); Calcium 8.7 mg/dL (8.4-10.2); Carbon Dioxide 15 mmol/L (22-30); Chloride 108 mmol/L (98-107); Glucose 120 mg/dL (74-99); Magnesium 1.7 mg/dL (1.6-2.3); Non-African American GFR(CKD) >90 (>60 ml/min/1.73 sqM); Potassium 3.6 mmol/L (3.5-5.1); Sodium 139 mmol/L (137-145)
[2023-09-08 06:41] LABS: Glucose,Whole Blood 117 mg/dL (70-110)
[2023-09-08] MEDS: MAGNESIUM SULFATE-D5W PMX 1 GM in DEXTROSE/WATER 1 100ML.BAG IVPB ONE (08:40)
--- NOTE | 2023-09-08 09:38 | P.PN ---
Subjective Progress Note Date: 09/08/23 The patient is a 62-year-old male with past medical history of diabetes and right efmim-bjb-ruaf amputation, who was brought to the emergency room for mental status changes. The patient was given multiple doses of Geodon and Ativan via EMS for combativeness and agitation. \ Cardiology has been consulted for elevated troponins as well as initial EKG showing A-fib with RVR. Echocardiogram has revealed reduced ejection fraction at 20 to 25% with global hypokinesis. The patient has done well over the last 24 hours. His mentation is almost back to baseline. He denies any chest pain or chest pressure. No difficulty breathing. GENERAL: Well-appearing, well-nourished and in no acute distress. NECK: Supple without JVD or thyromegaly. LUNGS: Breath sounds diminished to auscultation bilaterally. Respiration equal and unlabored. No wheezes, rales or rhonchi. HEART: Regular rate and rhythm without murmurs, rubs or gallops. S1 and S2 heard. EXTREMITIES: Right absxk-fnz-tuwn amputation. No left lower extremity edema. +2 palpable pulse. TELEMETRY: Sinus rhythm with heart rate in the 90s IMPRESSION: Altered mental status Elevated troponin Acute encephalopathy New onset cardiomyopathy, EF 25% SIRS History of necrotizing fasciitis, status post right AKA History of diabetes mellitus PLAN: Increase metoprolol to 25 twice daily Increase Farxiga to 10 mg daily Start spironolactone 25 mg daily Medical management for CAD with ischemia workup to be determined at a later date Further recommendations to be based upon clinical course I am dictating on behalf of Dr Marcus Layton's history/physical and assessment/plan. Objective - Vital Signs Vital signs: Vital Signs Temp 98.2 F 09/08/23 04:00 Pulse 86 09/08/23 04:00 Resp 18 09/08/23 04:00 BP 145/82 09/08/23 04:00 Pulse Ox 96 09/08/23 04:00 FiO2 40 09/06/23 10:35 Intake & Output 09/07/23 09/08/23 09/08/23 18:59 06:59 18:59 Intake Total 530 300 Output Total 1860 1250 Balance -1330 -950 Weight 85.1 kg 81 kg Intake: IV 430 60 Acyclovir Sodium 800 mg 250 In Sodium Chloride 0.9% 250 ml @ 100 mls/hr IVPB Q8H [facility] Rx#:[id number] Magnesium Sulfate-D5w Pmx 100 1 gm In Dextrose/Water 1 100ml.bag @ 100 mls/hr IVPB ONCE ONE Rx#: [id number] Sodium Chloride 0.9% 1, 80 60 000 ml @ 20 mls/hr IV . Q24H [facility] Rx#:[id number] Oral 100 240 Output: Urine 1860 1250 Other: Voiding Method Indwelling Catheter Indwelling Catheter - Labs CBC & Chem 7: 09/08/23 05:49 09/08/23 05:49 Labs: Abnormal Lab Results - Last 24 Hours (Table) 09/07/23 09/07/23 09/08/23 Range/Units 11: 20:23 05:49 RBC (4.30-5.90) m/uL Hgb (13.0-17.5) gm/dL Hct (39.0-53.0) % Chloride 108 H (98-107) mmol/L Carbon Dioxide 15 L (22-30) mmol/L Creatinine 0.62 L (0.66-1.25) mg/dL Glucose 120 H (74-99) mg/dL POC Glucose (mg/dL) 139 H 135 H (70-110) mg/dL 09/08/23 09/08/23 Range/Units 05:49 06:40 RBC 4.07 L (4.30-5.90) m/uL Hgb 12.1 L (13.0-17.5) gm/dL Hct 36.1 L (39.0-53.0) % Chloride (98-107) mmol/L Carbon Dioxide (22-30) mmol/L Creatinine (0.66-1.25) mg/dL Glucose (74-99) mg/dL POC Glucose (mg/dL) 117 H (70-110) mg/dL Microbiology - Last 24 Hours (Table) 09/05/23 17:42 CSF Gram Stain - Preliminary Cerebral Spinal Fluid CSF Culture - Preliminary 09/04/23 20:55 Blood Culture - Preliminary Blood 09/04/23 20:40 Blood Culture - Preliminary Blood
--- NOTE | 2023-09-08 09:38 | P.PN ---
Subjective Progress Note Date: 09/08/23 Patient is a 62-year-old male with diabetes mellitus type 2 status post right BKA secondary to necrotizing fasciitis who presented to the hospital with decreased responsiveness. The ER of patient had altered mentation was combative. He received multiple doses of Geodon and Ativan and continued to remain restless and combative therefore patient was sedated and intubated for airway protection and need for urgent imaging. Laboratory evaluation in the ER was remarkable for white blood cell count 19.5, potassium 3.4, carbon dioxide 19 with anion gap of 18 and blood sugars of 277. Patient was positive for marijuana and methadone. COVID-19/RSV/influenza a and B testing was negative. Chest x-ray showed no acute process. CT head showed no acute intracranial hemorrhage or midline shift CT angio of the head and neck demonstrated no significant stenosis and no occlusion. Patient was subsequently admitted to the ICU. He was started on broad-spectrum antibiotics with Vanco and ceftriaxone. Troponin became positive and he was subsequently started on a heparin infusion. Cardiology and intensive care were consulted. Neurology was also consulted. He was additionally started on acyclovir due to concerns for possible meningitis. He underwent LP on 09/05/2023 which ruled out bacterial meningitis. Comprehensive viral panel also negative. Acyclovir and antibiotics discontinued. Mental status now back to normal. Awaiting MRI. Patient seen and examined at bedside. No acute events overnight. Sitter at bedside. Denies any new complaints. Vital signs reviewed General: Nontoxic, no distress, appears at stated age Cardiovascular: S1S2 reg, no murmur Lungs: Clear to auscultation bilaterally, no accessory muscle use, on room air Abdominal: Soft, nontender to palpation, no guarding Ext: No gross muscle atrophy, no edema b/l lower extremities, Right BKA, no contractures Neuro: CN II to XII grossly normal, moving all extremities Psych: Awake, alert, oriented x 3 Assessment/Plan: Patient is severely ill, in medical ICU. SIRS, resolved Acute encephalopathy toxic versus metabolic, resolved - Case discussed with cytology teacher, continue current management. -Neurology following, awaiting MRI -Discontinued IV acyclovir and IV antibiotics. Newly discovered systolic cardiomyopathy with ejection fraction 20 to 25% Elevated troponin -Cardiology following, ischemic workup at a later date, metoprolol increased to 75 twice daily, also started on Aldactone 25 daily -Monitor blood pressure with new medication changes -Farxiga 5 mg daily, Losartan 25 mg daily - aspirin 81 mg daily, also started on atorvastatin 40 daily Diabetes mellitus type 2 with hyperglycemia -Sliding scale insulin every 8 hours, monitor for hypoglycemia -A1c 6.5 Mild non-anion gap metabolic acidosis -Unknown etiology -Possibly secondary to new medications and occasional IV fluids -Repeat BMP tomorrow Chronic Pain -Oxycodone 5 mg every 4 hours Imaging: None new Data Review: Hemoglobin 12.1, bicarb 15, creatinine 0.62, magnesium 1.7, potassium 3.6 DVT prophylaxis: Heparin SC Anticipated discharge date: Pending Clinical Course Anticipated discharge place: Pending Clinical Course Objective - Vital Signs Vital signs: Vital Signs Temp 98.2 F 09/08/23 04:00 Pulse 86 09/08/23 04:00 Resp 18 09/08/23 04:00 BP 145/82 09/08/23 04:00 Pulse Ox 96 09/08/23 04:00 FiO2 40 09/06/23 10:35 Intake & Output 09/07/23 09/08/23 09/08/23 18:59 06:59 18:59 Intake Total 530 300 Output Total 1860 1250 Balance -1330 -950 Weight 85.1 kg 81 kg Intake: IV 430 60 Acyclovir Sodium 800 mg 250 In Sodium Chloride 0.9% 250 ml @ 100 mls/hr IVPB Q8H [facility] 234 BEDS AT [facility] Rx#:[id number] Magnesium Sulfate-D5w Pmx 100 1 gm In Dextrose/Water 1 100ml.bag @ 100 mls/hr IVPB ONCE ONE Rx#: [id number] Sodium Chloride 0.9% 1, 80 60 000 ml @ 20 mls/hr IV . Q24H [facility] 234 BEDS AT [facility] Rx#:[id number] Oral 100 240 Output: Urine 1860 1250 Other: Voiding Method Indwelling Catheter Indwelling Catheter - Labs CBC & Chem 7: 09/08/23 05:49 09/08/23 05:49 Labs: Abnormal Lab Results - Last 24 Hours (Table) 09/07/23 09/07/23 09/08/23 Range/Units 11:10 20:23 05:49 RBC (4.30-5.90) m/uL Hgb (13.0-17.5) gm/dL Hct (39.0-53.0) % Chloride 108 H (98-107) mmol/L Carbon Dioxide 15 L (22-30) mmol/L Creatinine 0.62 L (0.66-1.25) mg/dL Glucose 120 H (74-99) mg/dL POC Glucose (mg/dL) 139 H 135 H (70-110) mg/dL 09/08/23 09/08/23 Range/Units 05:49 06:40 RBC 4.07 L (4.30-5.90) m/uL Hgb 12.1 L (13.0-17.5) gm/dL Hct 36.1 L (39.0-53.0) % Chloride (98-107) mmol/L Carbon Dioxide (22-30) mmol/L Creatinine (0.66-1.25) mg/dL Glucose (74-99) mg/dL POC Glucose (mg/dL) 117 H (70-110) mg/dL Microbiology - Last 24 Hours (Table) 09/05/23 15:45 Gram Stain - Final Sputum Sputum Culture - Final Methicillin resist S. aureus 09/05/23 17:42 CSF Gram Stain - Preliminary Cerebral Spinal Fluid CSF Culture - Preliminary 09/04/23 20:55 Blood Culture - Preliminary Blood 09/04/23 20:40 Blood Culture - Preliminary Blood
[2023-09-08] MEDS: POTASSIUM CHLORIDE ER 20 MEQ TAB.ER PO SCH (09:50)
[2023-09-08] MEDS: METOPROLOL TARTRATE 25 MG TAB PO STA (09:50)
[2023-09-08] MEDS: LOSARTAN 25 MG TAB PO SCH (09:50)
[2023-09-08] MEDS: SPIRONOLACTONE 25 MG TAB PO SCH (10:06)
[2023-09-08] MEDS: ATORVASTATIN 40 MG TAB PO SCH (10:06)
[2023-09-08 11:08] LABS: Glucose,Whole Blood 150 mg/dL (70-110)
--- NOTE | 2023-09-08 12:39 | P.PN ---
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 Patient is currently intubated mechanical ventilator unable to provide any information. I did review the patient's medical record. Apparently, the patient was brought in yesterday evening. He was altered, and not acting appropriately. Brain CT negative for any acute intracranial hemorrhage or midline shift. Brain CTA did not show any significant flow- limiting stenosis within the internal carotid arteries. While in the emergency room, he then became combative he was given 2 doses of Geodon, 10 mg and 2 doses of Versed 5 mg and 2 doses of IV Ativan 2 mg. He was then intubated for airway protection by the ER physician. Postintubation chest x-ray showed endotracheal tube approximately 3 cm above the tatiana. Orogastric tube courses below the diaphragm. No acute cardiopulmonary process. Postintubation ABG shows a PaO2 of 51, pCO2 of 43, pH of 7.37. This was done on ventilator settings of assist- control, respiratory rate 20, tidal volume 450, FiO2 of 100, and PEEP of 5. PEEP was increased to 8. Repeat ABG showed a PaO2 greater than 400, pCO2 of 34, and pH of 7.46. He is apparently difficult to sedate postintubation, he is on a combination of propofol at 50 mcg/kg/min and Versed at 5 mg/h. He is currently synchronous on mechanical ventilator. Patient has been febrile with a Tmax of 100 F. Source of the infection is not exactly clear. CBC shows leukocytosis with a WBC count of 19.5, most recent BMP from this morning fairly unremarkable. Patient has been started on broad-spectrum antibiotics in the form of Rocephin and vancomycin. Troponins were elevated and trending up, at 0.028, 0.159, and 0.62 respectively. Patient was started on heparin infusion, cardiology was asked to evaluate this patient. Urinalysis not concerning for UTI. Tox screen positive for oxycodone and marijuana. Serum alcohol level less than 10. Heart rhythm appears sinus tachycardia on bedside monitor. Blood pressure was hypotensive postintubation, he did receive a total of 3 L normal saline bolus. Blood pressure has responded, not requiring any vasopressors at the moment. Urine output is adequate. I have the chest to evaluate this patient in the intensive care unit. The patient was on propofol running at 50 mcg/kg/min and the patient is on Versed at 4 mg an hour. No seizure activity. Normal saline is still running at the rate of 130 cc an hour. The patient currently is still on the mechanical ventilator and FiO2 has been weaned down to 40% with a PEEP of 5. He is still running a lower blood pressure. Tmax was 100. No neck stiffness. No skin rashes. Patient remains on broad-spectrum antibiotics and the patient was given a combination of Rocephin and vancomycin.The patient remains on IV heparin. Troponin peaked at 0.6. Cardiac rhythm is sinus. The chest x-ray from today is showing no acute cardiopulmonary process. No significant signs of bronchospasm or wheezing at this point in time. On today's evaluation of 09/06/2023, the patient is being seen for a follow-up. The patient remains intubated on mechanical ventilator. The patient was taken off sedation this morning and the patient was able to follow simple commands. He was awake and alert and communicating. Note that he is currently on assist- control mode at a rate of 20, tidal volume of 450, FiO2 of 40% with a PEEP of 5. Blood gas showed pH of 7.41 with a pCO2 of 36 and pO2 of 126. Chest x-ray from today shows no acute cardiopulmonary process. Echocardiogram was completed yesterday and the patient was found to have systolic heart failure with impaired left ventricular function. The patient had global hypokinesis with an ejection fraction of 20 to 25% along with mild mitral regurgitation. No aortic stenosis. The patient is post lumbar puncture that was performed yesterday. The cell count was 7 with mononuclear predominance. The CSF protein was elevated at 80. HSV by PCR in the CSF still pending for now. The patient was covered with IV acyclovir. He still having episodes of low-grade fever. Current temperature is 99.1. Still covered with broad-spectrum antibiotics and the patient remains on a combination of Rocephin and vancomycin. The procalcitonin level was checked yesterday and the level was low at 0.03. IV fluids to kvo. the patient is currently on no pressors. the sodium is at 140, potassium 3.4, chloride is 112 with a bicarb of 19. bun is 15 with a creatinine of 0.6. the wbc count is at 10.2 with a hemoglobin 12.1 and a platelet count of 186. On 09/07/2023, the patient is extubated. The patient is awake and alert and he is communicating. However there is some baseline confusion as the patient states that he is in [place]. He is not clear about his location. He is not also aware of the time of the year. No focal neurological deficits. Afebrile. Antibiotics have been discontinued and the patient is still is on IV acyclovir suspecting HSV encephalitis. PCR from CSF is still pending for now. Hemodynamically stable. The patient is morning denies having any respiratory difficulties and the patient is currently on room air oxygen. The white cell count is at 8 with a hemoglobin 11.3 and a platelet count of 182. Sodium is at 139 with a potassium level of 3.3, BUN is at 10 with a creatinine of 0.6. The patient is on metoprolol 50 mg p.o. twice a day. The patient is also on Cozaar 25 mg p.o. daily. Note that the metoprolol dose has been increased that the patient was having some sinus tachycardia. IV fluids are currently at KVO. Patient is also on aspirin and Farxiga. He was placed on subcu heparin for DVT prophylaxis and IV heparin was discontinued. On today's evaluation of 09/08/2023, the patient is awake and alert. Mental status is improved considerably and the patient is much more appropriate compared to yesterday's evaluation. The patient has no other specific complaints. The CSF cytology is still pending. The C [facility] viral screen came back negative and the patient was taken off the acyclovir. He is afebrile and hemodynamically stable. The WBC count is 8.2 with a hemoglobin 12.1. BUN is at 15 with a creatinine of 0.6 and a sodium levels at 139. The patient is currently on room air oxygen with a pulse ox of 97%. The patient remains on aspirin. The patient is on metoprolol 75 mg p.o. twice a day, Cozaar 25 mg p.o. daily, Farxiga 10 mg p.o. daily, Lipitor 40 mg p.o. daily. He is also on Aldactone 25 mg p.o. daily. IV fluids are currently at KVO. Objective - Vital Signs Vital signs: Vital Signs Temp 98.2 F 09/08/23 04:00 Pulse 86 09/08/23 04:00 Resp 18 09/08/23 04:00 BP 145/82 09/08/23 04:00 Pulse Ox 96 09/08/23 04:00 FiO2 40 09/06/23 10:35 Intake & Output 09/07/23 09/08/23 09/08/23 18:59 06:59 18:59 Intake Total 530 300 Output Total 1860 1250 Balance -1330 -950 Weight 85.1 kg 81 kg Intake: IV 430 60 Acyclovir Sodium 800 mg 250 In Sodium Chloride 0.9% 250 ml @ 100 mls/hr IVPB Q[facility]H [facility] Rx#:[id number] Magnesium Sulfate-D5w Pmx 100 1 gm In Dextrose/Water 1 100ml.bag @ 100 mls/hr IVPB ONCE ONE Rx#: [id number] Sodium Chloride 0.9% 1, 80 60 000 ml @ 20 mls/hr IV . Q24H [facility] Rx#:[id number] Oral 100 240 Output: Urine 1860 1250 Other: Voiding Method Indwelling Catheter Indwelling Catheter - Exam GENERAL EXAM: Extubated,, comfortable, no signs of lower respiratory distress and the patient is currently on room air oxygen. Alert and oriented x 3 without any signs of respiratory distress. HEAD: Normocephalic and atraumatic EYES: Normal reaction of pupils, equal size. NOSE: Clear with pink turbinates. THROAT: No erythema or exudates. NECK: No masses, no JVD. CHEST: No chest wall deformity. LUNGS: Equal air entry with no crackles, wheeze, rhonchi or dullness. CVS: S1 and S2 normal with no audible murmur, regular rhythm. No extra heart sounds, he has an S3 gallop. ABDOMEN: No hepatosplenomegaly, active bowel sounds, no guarding or rigidity. SPINE: No scoliosis or deformity SKIN: No rashes CENTRAL NERVOUS SYSTEM: No focal deficits, tone is normal in all 4 extremities. No neck stiffness. Able to move all 4 extremities. No confusion, alert and oriented x 3 EXTREMITIES: There is no peripheral edema, clubbing, or cyanosis. Peripheral pulses are intact. Right AKA, stump appears to be healing nicely. - Labs CBC & Chem 7: 09/08/23 05:49 09/08/23 05:49 Labs: Abnormal Lab Results - Last 24 Hours (Table) 09/07/23 09/07/23 09/08/23 Range/Units 11:10 20:23 05:49 RBC (4.30-5.90) m/uL Hgb (13.0-17.5) gm/dL Hct (39.0-53.0) % Chloride 108 H (98-107) mmol/L Carbon Dioxide 15 L (22-30) mmol/L Creatinine 0.62 L (0.66-1.25) mg/dL Glucose 120 H (74-99) mg/dL POC Glucose (mg/dL) 139 H 135 H (70-110) mg/dL 09/08/23 09/08/23 Range/Units 05:49 06:40 RBC 4.07 L (4.30-5.90) m/uL Hgb 12.1 L (13.0-17.5) gm/dL Hct 36.1 L (39.0-53.0) % Chloride (98-107) mmol/L Carbon Dioxide (22-30) mmol/L Creatinine (0.66-1.25) mg/dL Glucose (74-99) mg/dL POC Glucose (mg/dL) 117 H (70-110) mg/dL Microbiology - Last 24 Hours (Table) 09/05/23 17:42 CSF Gram Stain - Preliminary Cerebral Spinal Fluid CSF Culture - Preliminary 09/04/23 20:55 Blood Culture - Preliminary Blood 09/04/23 20:40 Blood Culture - Preliminary Blood Assessment and Plan Plan: Altered mental status, unknown etiology, currently under investigation. Noted the CTA of the head was essentially negative for any acute abnormalities. No signs of any acute vascular occlusion. The patient had a rapid altered mentation according to the family. No neck stiffness. There is a low-grade f ever. Rule out metabolic encephalopathy. Rule out septic encephalopathy. The patient has a low-grade fever and some leukocytosis. Encephalitis is possible and cannot be completely ruled out. Lumbar puncture was performed and the patient has mild elevation of the white cell count and protein level. The viral analysis of the CSF was negative and the patient is back to his normal mentation and the patient is alert and oriented x 3. Awaiting CSF cytology. Acyclovir has been discontinued. Antibiotics have been discontinued. Acute febrile illness/sepsis, exact source is not exactly clear, under investigation the patient is currently on broad-spectrum antibiotics. Procalcitonin level is nonelevated and currently is afebrile. Cultures are negative and the patient is currently off antibiotics Acute leukocytosis, improved Hypotension and shock, status/post aggressive fluid resuscitation, with a total of 3 L normal saline, and the patient is currently normotensive, the patient is currently on IV fluids at O. Systolic heart failure with an ejection fraction of 20 to 25% and the patient has global LV dysfunction. Mechanical ventilator management, patient was intubated for airway protection. Postintubation chest x-ray shows the endotracheal tube approximately 3 cm from the tatiana. No acute cardiopulmonary process identified. The chest x-ray remains clear Elevated troponins, rule out non-ST elevation TX, currently off heparin History of right leg gangrene status post right AKA Diabetes mellitus type 2, blood sugars are under adequate control at this point in time. Plan: Mental status is back to baseline Hemodynamically stable Patient is currently extubated on room air oxygen. IV fluids to KVO Antibiotics have been discontinued Acyclovir has been discontinued Awaiting CSF cytology Chest x-ray remains clear Lumbar puncture results were noted Echocardiogram results were noted Increase metoprolol to 50 mg twice a day continue the Cozaar Continue Aldactone Continue Farxiga Subcutaneous heparin for DVT prophylaxis Continue aspirin Cardiology follow-up Sliding scale insulin Will continue to follow. The patient can be transferred out of the intensive ca re unit
--- NOTE | 2023-09-08 13:02 | P.PN ---
Subjective Progress Note Date: 09/08/23 I am following-up with patient and he feels he is doing well and no new neurological issues. He denies of any headache. No further confusion. Objective - Vital Signs Vital signs: Vital Signs Temp 98.4 F 09/08/23 08:00 Pulse 101 H 09/08/23 08:00 Resp 17 09/08/23 08:00 BP 133/75 09/08/23 08:00 Pulse Ox 97 09/08/23 08:00 FiO2 40 09/06/23 10:35 Intake & Output 09/07/23 09/08/23 09/08/23 18:59 06:59 18:59 Intake Total 530 300 240 Output Total 1860 1250 525 Balance -1330 -950 -285 Weight 85.1 kg 81 kg Intake: IV 430 60 Acyclovir Sodium 800 mg 250 In Sodium Chloride 0.9% 250 ml @ 100 mls/hr IVPB Q8H [facility] Rx#:[id number] Magnesium Sulfate-D5w Pmx 100 1 gm In Dextrose/Water 1 100ml.bag @ 100 mls/hr IVPB ONCE ONE Rx#: [id number] Sodium Chloride 0.9% 1, 80 60 000 ml @ 20 mls/hr IV . Q24H [facility] Rx#:[id number] Oral 100 240 240 Output: Urine 1860 1250 525 Other: Voiding Method Indwelling Catheter Indwelling Catheter - Exam General: Is sitting in a recliner chair and is not in acute distress. Neuro: Patient is awake, alert, oriented to self, place and time. He is minimally slow responding to question but much better compared the past couple days. He is following simple commands. No aphasia. Pupils are round, reactive to light. Visual fernando are full to confrontation. EOM intact and no nystagmus. No facial weakness. Motor: Strength is lifting extremities above gravity. 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 Some of the workup during his hospital visit consisted of: on initial presentation patient initial temperature was 98.4. T-max of 100 Fahrenheit and only had one time of elevated fever and that was 100 Fahrenheit otherwise it's been the normothermic initial white blood cell was 19.5K and predominately neutrophilic. initial serum glucose is 277 Calcium is 9.6, sodium is 140, ammonia is 11 troponin is 0.621. UDS positive for oxycodone and marijuana. CT of the head is reported as no acute intracranial hemorrhage or midline shift. I personally reviewed the CT hadn't agree with the report. CT angiography of the head and neck was reported as no significant stenosis in the common or internal carotid artery bilaterally. No large vessel occlusion or aneurysm at the level of hoh of Ortiz. 2-D echo was reported as mildly enlarged upper limits of normal with global decreased and contractility and estimated ejection fraction about 2025%. Significant right ventricular enlargement as well. Both edges on large. CSF study: clear, colorless, total nucleated cells is 7 (normal is 0-5), glucose is 111 and protien is 88. Gram stain and culture is negative. Routine EEG: Is abnormal. Moderate encephalopathy. There is no focal slowing, epileptiform dischargs or seizure on the EEG. VZV is not detected. HSV I/II PCR is not detected CMV, Influenza A/B PCR, RSV, Norovirus, SARS-CoV2 PCR are not detected. Enterovirus are not detected. - Labs CBC & Chem 7: 09/08/23 05:49 09/08/23 05:49 Labs: Abnormal Lab Results - Last 24 Hours (Table) 09/07/23 09/08/23 09/08/23 Range/Units 20:23 05:49 05:49 RBC 4.07 L (4.30-5.90) m/uL Hgb 12.1 L (13.0-17.5) gm/dL Hct 36.1 L (39.0-53.0) % Chloride 108 H (98-107) mmol/L Carbon Dioxide 15 L (22-30) mmol/L Creatinine 0.62 L (0.66-1.25) mg/dL Glucose 120 H (74-99) mg/dL POC Glucose (mg/dL) 135 H (70-110) mg/dL 09/08/23 09/08/23 Range/Units 06:40 11:06 RBC (4.30-5.90) m/uL Hgb (13.0-17.5) gm/dL Hct (39.0-53.0) % Chloride (98-107) mmol/L Carbon Dioxide (22-30) mmol/L Creatinine (0.66-1.25) mg/dL Glucose (74-99) mg/dL POC Glucose (mg/dL) 117 H 150 H (70-110) mg/dL Microbiology - Last 24 Hours (Table) 09/05/23 15:45 Gram Stain - Final Sputum Sputum Culture - Final Methicillin resist S. aureus 09/05/23 17:42 CSF Gram Stain - Preliminary Cerebral Spinal Fluid CSF Culture - Preliminary 09/04/23 20:55 Blood Culture - Preliminary Blood 09/04/23 20:40 Blood Culture - Preliminary Blood Assessment and Plan Assessment: this is a 62-year-old gentleman with history of diabetes, above the knee amputation on the right who presented emergency department because of confusion. He had one low-grade fever during this presentation. Altered mental status: Seems septic encephalopathy of unknown etiology. CSF nucleated cells is 7 (normal is 0-5) and this is slightly above normal and it is not indicative of bacterial meningitis. His viral panel is negative. HSV I/II PCR are negative---mentation improved Acute Leukocytosis---resolved elevated troponin decreased ejection fraction of 20-25% on 2D echo Intubated on mechanical ventilation and is on IV sedation---extubated today Above the right knee and amputation, history of right leg gangrene Diabetes mellitus Plan: Since viral panel and HSV 1/2 is negative Acylovir was discontinued yesterday. Pending MRI Brain cardiology is consulted We'll defer the rest of the medical measure the primary and other specialist The plan was discussed with patient and ICU nurse. Time with Patient: Less than 30
--- NOTE | 2023-09-08 13:05 | XR ---
EXAMINATION TYPE: XR orbit pre-MRI foreign body DATE OF EXAM: 09/08/2023 COMPARISON: None HISTORY: Rule out metal TECHNIQUE: Three-view orbits FINDINGS: No metallic foreign body in or about the orbits is evident contraindicate MRI. Septum appears midline. Sella appears normal. Nasal bones and maxillary spine appear intact. IMPRESSION: 1. No metallic foreign body in or about the orbits to contraindicate MRI.
[2023-09-08 13:24] LABS: African American GFR (CKD) >90 (>60 ml/min/1.73 sqM); Anion Gap 12 mmol/L; Blood Urea Nitrogen 17 mg/dL (9-20); Carbon Dioxide 19 mmol/L (22-30); Chloride 107 mmol/L (98-107); Glucose 199 mg/dL (74-99); Non-African American GFR(CKD) >90 (>60 ml/min/1.73 sqM); Sodium 138 mmol/L (137-145)
--- NOTE | 2023-09-08 15:22 | MR ---
EXAMINATION TYPE: MR brain wo/w con DATE OF EXAM: 09/08/2023 2:57 PM COMPARISON: NONE HISTORY: Confusion, unknown etiology FINDINGS: The ventricles, basal cisterns and sulci overlying the cerebral convexities are mildly enlarged. There is evidence of mild periventricular white matter ischemic demyelination. Remote deep white matter insults are also noted. No acute edema is seen on diffusion weighted imaging. There is no evidence for midline shift or mass effect. Acute intracranial hemorrhage or extra-axial collection is not evident. The paranasal sinuses and mastoid air cells are well-aerated. IMPRESSION: Age-related atrophic and chronic small vessel ischemic change. No acute intracranial process at this time.
[2023-09-08 16:07] LABS: Glucose,Whole Blood 168 mg/dL (70-110)
[2023-09-08] MEDS: VANCOMYCIN IV PER PHARMACY 1 EACH MISC MISCELLANE STA (19:45)
[2023-09-08 19:59] LABS: Glucose,Whole Blood 192 mg/dL (70-110)
[2023-09-08] MEDS: METOPROLOL TARTRATE 25 MG TAB PO SCH (20:35)
[2023-09-09 06:04] LABS: Glucose,Whole Blood 157 mg/dL (70-110)
[2023-09-09 07:50] LABS: African American GFR (CKD) >90 (>60 ml/min/1.73 sqM); Anion Gap 7 mmol/L; Blood Urea Nitrogen 20 mg/dL (9-20); Calcium 8.8 mg/dL (8.4-10.2); Carbon Dioxide 25 mmol/L (22-30); Chloride 106 mmol/L (98-107); Glucose 204 mg/dL (74-99); Magnesium 1.7 mg/dL (1.6-2.3); Non-African American GFR(CKD) >90 (>60 ml/min/1.73 sqM); Potassium 3.8 mmol/L (3.5-5.1); Sodium 138 mmol/L (137-145)
[2023-09-09] MEDS: DAPAGLIFLOZIN PROPANEDIOL 10 MG TABLET PO SCH (09:32)
--- NOTE | 2023-09-09 11:22 | P.PN ---
Subjective Progress Note Date: 09/09/23 Patient is a 62-year-old male with diabetes mellitus type 2 status post right BKA secondary to necrotizing fasciitis who presented to the hospital with decreased responsiveness. The ER of patient had altered mentation was combative. He received multiple doses of Geodon and Ativan and continued to remain restless and combative therefore patient was sedated and intubated for airway protection and need for urgent imaging. Laboratory evaluation in the ER was remarkable for white blood cell count 19.5, potassium 3.4, carbon dioxide 19 with anion gap of 18 and blood sugars of 277. Patient was positive for marijuana and methadone. COVID-19/RSV/influenza a and B testing was negative. Chest x-ray showed no acute process. CT head showed no acute intracranial hemorrhage or midline shift CT angio of the head and neck demonstrated no significant stenosis and no occlusion. Patient was subsequently admitted to the ICU. He was started on broad-spectrum antibiotics with Vanco and ceftriaxone. Troponin became positive and he was subsequently started on a heparin infusion. Cardiology and intensive care were consulted. Neurology was also consulted. He was additionally started on acyclovir due to concerns for possible meningitis. He underwent LP on 09/05/2023 which ruled out bacterial meningitis. Comprehensive viral panel also negative. Acyclovir and antibiotics discontinued. Mental status now back to normal. MRI brain showed age-related atrophic and chronic small vessel ischemic changes, no acute process. Cardiology considering cardiac cath on Tuesday. Patient seen and examined at bedside. No acute events overnight. Denies any new complaints Vital signs reviewed General: Nontoxic, no distress, appears at stated age Cardiovascular: S1S2 reg, no murmur Lungs: Clear to auscultation bilaterally, no accessory muscle use, on room air Abdominal: Soft, nontender to palpation, no guarding Ext: No gross muscle atrophy, no edema b/l lower extremities, Right BKA, no contractures Neuro: CN II to XII grossly normal, moving all extremities Psych: Awake, alert, oriented x 3 Assessment/Plan: SIRS, resolved Acute encephalopathy toxic versus metabolic, resolved - Case discussed with still cleaner tube, continue current management. -Neurology following, awaiting MRI -Discontinued IV acyclovir and IV antibiotics. Newly discovered systolic cardiomyopathy with ejection fraction 20 to 25% Elevated troponin -Discussed management with cardiology, pending cardiac cath on Tuesday - On metoprolol 100 daily, Entresto 24-26 twice daily, Aldactone 25 daily, Farxiga 10 daily -Monitor blood pressure with new medication changes -Continue aspirin 81, atorvastatin 40 Diabetes mellitus type 2 with hyperglycemia -Sliding scale insulin every 8 hours, monitor for hypoglycemia -A1c 6.5 Mild non-anion gap metabolic acidosis, resolved Chronic Pain -Oxycodone 5 mg every 4 hours Imaging: MRI brain showed age-related atrophic and chronic small vessel ischemic changes, no acute process. Data Review: Potassium 3.8, creatinine 0.65, magnesium 1.7, blood sugars range between 1 57-2 04 DVT prophylaxis: Heparin SC Anticipated discharge date: Pending Clinical Course Anticipated discharge place: Pending Clinical Course Objective - Vital Signs Vital signs: Vital Signs Temp 98.3 F 09/09/23 04:00 Pulse 90 09/09/23 04:00 Resp 18 09/09/23 04:00 BP 138/79 09/09/23 04:00 Pulse Ox 96 09/09/23 04:00 FiO2 40 09/06/23 10:35 Intake & Output 09/08/23 09/09/23 09/09/23 18:59 06:59 18:59 Intake Total 340 20 240 Output Total 975 900 Balance -635 -880 240 Intake: IV 20 Invasive Line 6 10 Invasive Line 7 10 Intake, IV Titration 100 Amount Magnesium Sulfate-D5w Pmx 100 1 gm In Dextrose/Water 1 100ml.bag @ 100 mls/hr IVPB ONCE ONE Rx#: [id number] Oral 240 240 Output: Urine 975 900 Other: Voiding Method Indwelling Catheter Urinal - Labs CBC & Chem 7: 09/08/23 05:49 09/09/23 06:46 Labs: Abnormal Lab Results - Last 24 Hours (Table) 09/08/23 09/08/23 09/08/23 Range/Units 12:42 16:05 19:58 Carbon Dioxide 19 L (22-30) mmol/L Creatinine (0.66-1.25) mg/dL Glucose 199 H (74-99) mg/dL POC Glucose (mg/dL) 168 H 192 H (70-110) mg/dL 09/09/23 09/09/23 Range/Units 06:02 06:46 Carbon Dioxide (22-30) mmol/L Creatinine 0.65 L (0.66-1.25) mg/dL Glucose 204 H (74-99) mg/dL POC Glucose (mg/dL) 157 H (70-110) mg/dL Microbiology - Last 24 Hours (Table) 09/05/23 17:42 CSF Gram Stain - Preliminary Cerebral Spinal Fluid CSF Culture - Preliminary 09/04/23 20:55 Blood Culture - Preliminary Blood 09/04/23 20:40 Blood Culture - Preliminary Blood 09/05/23 15:45 Gram Stain - Final Sputum Sputum Culture - Final Methicillin resist S. aureus
[2023-09-09 11:32] LABS: Glucose,Whole Blood 135 mg/dL (70-110)
--- NOTE | 2023-09-09 12:18 | P.PN ---
Subjective Progress Note Date: 09/09/23 I am following-up with patient and he denies any new neurological issues. Feels back to baseline. Objective - Vital Signs Vital signs: Vital Signs Temp 98.3 F 09/09/23 04:00 Pulse 90 09/09/23 04:00 Resp 18 09/09/23 04:00 BP 138/79 09/09/23 04:00 Pulse Ox 96 09/09/23 04:00 FiO2 40 09/06/23 10:35 Intake & Output 09/08/23 09/09/23 09/09/23 18:59 06:59 18:59 Intake Total 340 20 240 Output Total 975 900 Balance -505 880 240 Weight 81 kg Intake: IV 20 Invasive Line 6 10 Invasive Line 7 10 Intake, IV Titration 100 Amount Magnesium Sulfate-D5w Pmx 100 1 gm In Dextrose/Water 1 100ml.bag @ 100 mls/hr IVPB ONCE ONE Rx#: [id number] Oral 240 240 Output: Urine 975 900 Other: Voiding Method Indwelling Catheter Urinal - Exam General: Is sitting in a recliner chair and is not in acute distress. Neuro: Patient is awake, alert, oriented to self, place and time. He is minimally slow responding to question but much better compared the past couple days. He is following simple commands. No aphasia. Pupils are round, reactive to light. Visual [place]ern[place] are full to confrontation. EOM intact and no nystagmus. No facial weakness. Motor: Strength is lifting extremities above gravity. 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 Some of the workup during his hospital visit consisted of: on initial presentation patient initial temperature was 98.4. T-max of 100 Fahrenheit and only had one time of elevated fever and that was 100 Fahrenheit otherwise it's been the normothermic initial white blood cell was 19.5K and predominately neutrophilic. initial serum glucose is 277 Calcium is 9.6, sodium is 140, ammonia is 11 troponin is 0.621. UDS positive for oxycodone and marijuana. CT of the head is reported as no acute intracranial hemorrhage or midline shift. I personally reviewed the CT hadn't agree with the report. CT angiography of the head and neck was reported as no significant stenosis in the common or internal carotid artery bilaterally. No large vessel occlusion or aneurysm at the level of [place]. 2-D echo was reported as mildly enlarged upper limits of normal with global decreased and contractility and estimated ejection fraction about 2025%. Significant right ventricular enlargement as well. Both edges on large. CSF study: clear, colorless, total nucleated cells is 7 (normal is 0-5), glucose is 111 and protien is 88. Gram stain and culture is negative. Routine EEG: Is abnormal. Moderate encephalopathy. There is no focal slowing, epileptiform dischargs or seizure on the EEG. VZV is not detected. HSV I/II PCR is not detected CMV, Influenza A/B PCR, RSV, Norovirus, SARS-CoV2 PCR are not detected. Enterovirus are not detected. MRI Brain w/ and w/o: Is reported as age-related atrophic and chronic small vessel ischemic change. No acute intracranial process at this time. - Labs CBC & Chem 7: 09/08/23 05:49 09/09/23 06:46 Labs: Abnormal Lab Results - Last 24 Hours (Table) 09/08/23 09/08/23 09/08/23 Range/Units 12:42 16:05 19:58 Carbon Dioxide 19 L (22-30) mmol/L Creatinine (0.66-1.25) mg/dL Glucose 199 H (74-99) mg/dL POC Glucose (mg/dL) 168 H 192 H (70-110) mg/dL 09/09/23 09/09/23 09/09/23 Range/Units 06:02 06:46 11:31 Carbon Dioxide (22-30) mmol/L Creatinine 0.65 L (0.66-1.25) mg/dL Glucose 204 H (74-99) mg/dL POC Glucose (mg/dL) 157 H 135 H (70-110) mg/dL Microbiology - Last 24 Hours (Table) 09/05/23 17:42 CSF Gram Stain - Preliminary Cerebral Spinal Fluid CSF Culture - Preliminary 09/04/23 20:55 Blood Culture - Preliminary Blood 09/04/23 20:40 Blood Culture - Preliminary Blood 09/05/23 15:45 Gram Stain - Final Sputum Sputum Culture - Final Methicillin resist S. aureus Assessment and Plan Assessment: this is a 62-year-old gentleman with history of diabetes, above the knee amputation on the right who presented emergency department because of confusion. He had one low-grade fever during this presentation. Altered mental status: Seems septic encephalopathy of unknown etiology. CSF nucleated cells is 7 (normal is 0-5) and this is slightly above normal and it is not indicative of bacterial meningitis. His viral panel is negative. HSV I/II P CR are negative. MRI Brain is negative for acute process---mentation improved Acute Leukocytosis---resolved elevated troponin decreased ejection fraction of 20-25% on 2D echo Intubated on mechanical ventilation and is on IV sedation---extubated today Above the right knee and amputation, history of right leg gangrene Diabetes mellitus Plan: Since viral panel and HSV 1/2 is negative Acylovir was discontinued two days ago and patient continues to be doing well. cardiology is consulted We'll defer the rest of the medical measure the primary and other specialist The plan was discussed with patient and primary team. There if no further neurological work-up. Will sign off. Please reconsult if needed. Time with Patient: Less than 30
--- NOTE | 2023-09-09 13:42 | P.PN ---
Subjective Progress Note Date: 09/09/23 The patient is a 62-year-old male with past medical history of diabetes and right [id number] amputation, who was brought to the emergency room for mental status changes. The patient was given multiple doses of Geodon and Ativan via EMS for combativeness and agitation. \ Cardiology has been consulted for elevated troponins as well as initial EKG showing A-fib with RVR. Echocardiogram has revealed reduced ejection fraction at 20 to 25% with global hypokinesis. Patient is seen today as he has been transferred out of the intensive care unit and seen on the cardiac stepdown unit. No new concerns from the patient. He denies any chest pain or chest pressure. No difficulty breathing. Yesterday metoprolol was increased to 25 mg twice daily and Farxiga to 10 mg and patient was started on Aldactone 25 mg daily. Blood pressure 138/79, heart rate in the 80s to 90, pulse ox 96% on room air. Repeat blood work reveals sodium 138, potassium 3.8, BUN 20 and creatinine 0.65. GENERAL: Well-appearing, well-nourished and in no acute distress. NECK: Supple without JVD or thyromegaly. LUNGS: Breath sounds diminished to auscultation bilaterally. Respiration equal and unlabored. No wheezes, rales or rhonchi. HEART: Regular rate and rhythm without murmurs, rubs or gallops. S1 and S2 heard. EXTREMITIES: Right [id number] amputation. No left lower extremity edema. +2 palpable pulse. TELEMETRY: Sinus rhythm with heart rate in the 90s IMPRESSION: Altered mental status of unclear etiology, followed by neurology Elevated troponin Acute encephalopathy New onset cardiomyopathy, EF 25% SIRS History of necrotizing fasciitis, status post right AKA History of diabetes mellitus PLAN: Continue patient on aspirin 81 mg daily, atorvastatin 40 mg daily, Farxiga 10 mg daily, Aldactone 25 mg daily Change metoprolol tartrate after p.m. dose to metoprolol succinate to be given at 12 noon starting tomorrow Start patient on Entresto 24 mg / 26 mg twice daily to start tonight Plan for cardiac catheterization next week once cardiomyopathy treatment has been optimized. Further recommendations to be based upon clinical course I am dictating on behalf of Dr Marcus Layton's history/physical and assessment/plan. Objective - Vital Signs Vital signs: Vital Signs Temp 98.3 F 09/09/23 04:00 Pulse 90 09/09/23 04:00 Resp 18 09/09/23 04:00 BP 138/79 09/09/23 04:00 Pulse Ox 96 09/09/23 04:00 FiO2 40 09/06/23 10:35 Intake & Output 09/08/23 09/09/23 09/09/23 18:59 06:59 18:59 Intake Total 340 20 240 Output Total 975 900 Balance -635 -880 240 Intake: IV 20 Invasive Line 6 10 Invasive Line 7 10 Intake, IV Titration 100 Amount Magnesium Sulfate-D5w Pmx 100 1 gm In Dextrose/Water 1 100ml.bag @ 100 mls/hr IVPB ONCE ONE Rx#: [id number] Oral 240 240 Output: Urine 975 900 Other: Voiding Method Indwelling Catheter Urinal - Labs CBC & Chem 7: 09/08/23 05:49 09/09/23 06:46 Labs: Abnormal Lab Results - Last 24 Hours (Table) 09/08/23 09/08/23 09/08/23 Range/Units 11:06 12:42 16:05 Carbon Dioxide 19 L (22-30) mmol/L Creatinine (0.66-1.25) mg/dL Glucose 199 H (74-99) mg/dL POC Glucose (mg/dL) 150 H 168 H (70-110) mg/dL 09/08/23 09/09/23 09/09/23 Range/Units 19:58 06:02 06:46 Carbon Dioxide (22-30) mmol/L Creatinine 0.65 L (0.66-1.25) mg/dL Glucose 204 H (74-99) mg/dL POC Glucose (mg/dL) 192 H 157 H (70-110) mg/dL Microbiology - Last 24 Hours (Table) 09/05/23 17:42 CSF Gram Stain - Preliminary Cerebral Spinal Fluid CSF Culture - Preliminary 09/04/23 20:55 Blood Culture - Preliminary Blood 09/04/23 20:40 Blood Culture - Preliminary Blood 09/05/23 15:45 Gram Stain - Final Sputum Sputum Culture - Final Methicillin resist S. aureus
--- NOTE | 2023-09-09 14:48 | P.PN ---
Subjective Progress Note Date: 09/09/23 Patient is a 62-year-old white male with past medical history significant for right lower extremity gangrene status post right AKA, diabetes mellitus, and tobacco dependence. Patient is currently intubated mechanical ventilator unable to provide any information. I did review the patient's medical record. Apparently, the patient was brought in yesterday evening. He was altered, and not acting appropriately. Brain CT negative for any acute intracranial hemorrhage or midline shift. Brain CTA did not show any significant flow- limiting stenosis within the internal carotid arteries. While in the emergency room, he then became combative he was given 2 doses of Geodon, 10 mg and 2 doses of Versed 5 mg and 2 doses of IV Ativan 2 mg. He was then intubated for airway protection by the ER physician. Postintubation chest x-ray showed endotracheal tube approximately 3 cm above the tatiana. Orogastric tube courses below the diaphragm. No acute cardiopulmonary process. Postintubation ABG shows a PaO2 of 51, pCO2 of 43, pH of 7.37. This was done on ventilator settings of assist- control, respiratory rate 20, tidal volume 450, FiO2 of 100, and PEEP of 5. PEEP was increased to 8. Repeat ABG showed a PaO2 greater than 400, pCO2 of 34, and pH of 7.46. He is apparently difficult to sedate postintubation, he is on a combination of propofol at 50 mcg/kg/min and Versed at 5 mg/h. He is currently synchronous on mechanical ventilator. Patient has been febrile with a Tmax of 100 F. Source of the infection is not exactly clear. CBC shows leukocytosis with a WBC count of 19.5, most recent BMP from this morning fairly unremarkable. Patient has been started on broad-spectrum antibiotics in the form of Rocephin and vancomycin. Troponins were elevated and trending up, at 0.028, 0.159, and 0.62 respectively. Patient was started on heparin infusion, cardiology was asked to evaluate this patient. Urinalysis not concerning for UTI. Tox screen positive for oxycodone and marijuana. Serum alcohol level less than 10. Heart rhythm appears sinus tachycardia on bedside monitor. Blood pressure was hypotensive postintubation, he did receive a total of 3 L normal saline bolus. Blood pressure has responded, not requiring any vasopressors at the moment. Urine output is adequate. I have the chest to evaluate this patient in the intensive care unit. The patient was on propofol running at 50 mcg/kg/min and the patient is on Versed at 4 mg an hour. No seizure activity. Normal saline is still running at the rate of 130 cc an hour. The patient currently is still on the mechanical ventilator and FiO2 has been weaned down to 40% with a PEEP of 5. He is still running a lower blood pressure. Tmax was 100. No neck stiffness. No skin rashes. Patient remains on broad-spectrum antibiotics and the patient was given a combination of Rocephin and vancomycin.The patient remains on IV heparin. Troponin peaked at 0.6. Cardiac rhythm is sinus. The chest x-ray from today is showing no acute cardiopulmonary process. No significant signs of bronchospasm or wheezing at this point in time. On today's evaluation of 09/06/2023, the patient is being seen for a follow-up. The patient remains intubated on mechanical ventilator. The patient was taken off sedation this morning and the patient was able to follow simple commands. He was awake and alert and communicating. Note that he is currently on assist- control mode at a rate of 20, tidal volume of 450, FiO2 of 40% with a PEEP of 5. Blood gas showed pH of 7.41 with a pCO2 of 36 and pO2 of 126. Chest x-ray from today shows no acute cardiopulmonary process. Echocardiogram was completed yesterday and the patient was found to have systolic heart failure with impaired left ventricular function. The patient had global hypokinesis with an ejection fraction of 20 to 25% along with mild mitral regurgitation. No aortic stenosis. The patient is post lumbar puncture that was performed yesterday. The cell count was 7 with mononuclear predominance. The CSF protein was elevated at 80. HSV by PCR in the CSF still pending for now. The patient was covered with IV acyclovir. He still having episodes of low-grade fever. Current temperature is 99.1. Still covered with broad-spectrum antibiotics and the patient remains on a combination of Rocephin and vancomycin. The procalcitonin level was checked yesterday and the level was low at 0.03. IV fluids to kvo. the patient is currently on no pressors. the sodium is at 140, potassium 3.4, chloride is 112 with a bicarb of 19. bun is 15 with a creatinine of 0.6. the wbc count is at 10.2 with a hemoglobin 12.1 and a platelet count of 186. On 09/07/2023, the patient is extubated. The patient is awake and alert and he is communicating. However there is some baseline confusion as the patient states that he is in [place]. He is not clear about his location. He is not also aware of the time of the year. No focal neurological deficits. Afebrile. Antibiotics have been discontinued and the patient is still is on IV acyclovir suspecting HSV encephalitis. PCR from CSF is still pending for now. Hemodynamically stable. The patient is morning denies having any respiratory difficulties and the patient is currently on room air oxygen. The white cell count is at 8 with a hemoglobin 11.3 and a platelet count of 182. Sodium is at 139 with a potassium level of 3.3, BUN is at 10 with a creatinine of 0.6. The patient is on metoprolol 50 mg p.o. twice a day. The patient is also on Cozaar 25 mg p.o. daily. Note that the metoprolol dose has been increased that the patient was having some sinus tachycardia. IV fluids are currently at KVO. Patient is also on aspirin and Farxiga. He was placed on subcu heparin for DVT prophylaxis and IV heparin was discontinued. On today's evaluation of 09/08/2023, the patient is awake and alert. Mental status is improved considerably and the patient is much more appropriate compared to yesterday's evaluation. The patient has no other specific complaints. The CSF cytology is still pending. The C SF viral screen came back negative and the patient was taken off the acyclovir. He is afebrile and hemodynamically stable. The WBC count is 8.2 with a hemoglobin 12.1. BUN is at 15 with a creatinine of 0.6 and a sodium levels at 139. The patient is currently on room air oxygen with a pulse ox of 97%. The patient remains on aspirin. The patient is on metoprolol 75 mg p.o. twice a day, Cozaar 25 mg p.o. daily, Farxiga 10 mg p.o. daily, Lipitor 40 mg p.o. daily. He is also on Aldactone 25 mg p.o. daily. IV fluids are currently at KVO. On today's evaluation 09/09/2023, patient is awake and alert and has no specific complaints. No chest pain. No respiratory difficulties. No altered mentation. No focal neurological deficit. No headaches. He is currently afebrile.Sodium levels at 138, potassium level is at 3.8, BUN is at 20 with a creatinine of 0.6. The patient is currently on room air oxygen. The patient was seen by cardiology. He was maintained on a combination of aspirin 81 mg p.o. daily. The patient was also given Farxiga 10 mg and Aldactone 25 mg and the metoprolol dose has been maintained that 75 mg twice a day and the patient was also started on Entresto. As mentioned, the patient is uroseptic ejection fraction of 20 to 25%. Cardiac catheterization is being planned for next week once his CHF is better optimized. Objective - Vital Signs Vital signs: Vital Signs Temp 98.3 F 09/09/23 04:00 Pulse 90 09/09/23 04:00 Resp 18 09/09/23 04:00 BP 138/79 09/09/23 04:00 Pulse Ox 96 09/09/23 04:00 FiO2 40 09/06/23 10:35 Intake & Output 09/08/23 09/09/23 09/09/23 18:59 06:59 18:59 Intake Total 340 20 240 Output Total 975 900 Balance -635 -880 240 Intake: IV 20 Invasive Line 6 10 Invasive Line 7 10 Intake, IV Titration 100 Amount Magnesium Sulfate-D5w Pmx 100 1 gm In Dextrose/Water 1 100ml.bag @ 100 mls/hr IVPB ONCE ONE Rx#: [id number] Oral 240 240 Output: Urine 975 900 Other: Voiding Method Indwelling Catheter Urinal - Exam GENERAL EXAM: Extubated,, comfortable, no signs of lower respiratory distress and the patient is currently on room air oxygen. Alert and oriented x 3 without any signs of respiratory distress. HEAD: Normocephalic and atraumatic EYES: Normal reaction of pupils, equal size. NOSE: Clear with pink turbinates. THROAT: No erythema or exudates. NECK: No masses, no JVD. CHEST: No chest wall deformity. LUNGS: Equal air entry with no crackles, wheeze, rhonchi or dullness. CVS: S1 and S2 normal with no audible murmur, regular rhythm. No extra heart sounds, he has an S3 gallop. ABDOMEN: No hepatosplenomegaly, active bowel sounds, no guarding or rigidity. SPINE: No scoliosis or deformity SKIN: No rashes CENTRAL NERVOUS SYSTEM: No focal deficits, tone is normal in all 4 extremities. No neck stiffness. Able to move all 4 extremities. No confusion, alert and oriented x 3 EXTREMITIES: There is no peripheral edema, clubbing, or cyanosis. Peripheral pulses are intact. Right AKA, stump appears to be healing nicely. - Labs CBC & Chem 7: 09/08/23 05:49 09/09/23 06:46 Labs: Abnormal Lab Results - Last 24 Hours (Table) 09/08/23 09/08/23 09/08/23 Range/Units 12:42 16:05 19:58 Carbon Dioxide 19 L (22-30) mmol/L Creatinine (0.66-1.25) mg/dL Glucose 199 H (74-99) mg/dL POC Glucose (mg/dL) 168 H 192 H (70-110) mg/dL 09/09/23 09/09/23 Range/Units 06:02 06:46 Carbon Dioxide (22-30) mmol/L Creatinine 0.65 L (0.66-1.25) mg/dL Glucose 204 H (74-99) mg/dL POC Glucose (mg/dL) 157 H (70-110) mg/dL Microbiology - Last 24 Hours (Table) 09/05/23 17:42 CSF Gram Stain - Preliminary Cerebral Spinal Fluid CSF Culture - Preliminary 09/04/23 20:55 Blood Culture - Preliminary Blood 09/04/23 20:40 Blood Culture - Preliminary Blood 09/05/23 15:45 Gram Stain - Final Sputum Sputum Culture - Final Methicillin resist S. aureus Assessment and Plan Plan: Altered mental status, unknown etiology, currently under investigation. Noted the CTA of the head was essentially negative for any acute abnormalities. No signs of any acute vascular occlusion. The patient had a rapid altered mentation according to the family. No neck stiffness. There is a low-grade fever. Rule out metabolic encephalopathy. Rule out septic encephalopathy. The patient has a low-grade fever and some leukocytosis. Encephalitis is possible and cannot be completely ruled out. Lumbar puncture was performed and the patient has mild elevation of the white cell count and protein level. The viral analysis of the CSF was negative and the patient is back to his normal mentation and the patient is alert and oriented x 3. Awaiting CSF cytology. Acyclovir has been discontinued. Antibiotics have been discontinued. Mental status is back to his baseline. Acute febrile illness/sepsis, exact source is not exactly clear, under investigation the patient is currently on broad-spectrum antibiotics. Procalcitonin level is nonelevated and currently is afebrile. Cultures are negative and the patient is currently off antibiotics Acute leukocytosis, improved Hypotension and shock, status/post aggressive fluid resuscitation, with a total of 3 L normal saline, and the patient is currently normotensive, the patient is currently on IV fluids at KVO. Systolic heart failure with an ejection fraction of 20 to 25% and the patient has global LV dysfunction. Mechanical ventilator management, patient was intubated for airway protection. Postintubation chest x-ray shows the endotracheal tube approximately 3 cm from the tatiana. No acute cardiopulmonary process identified. The chest x-ray remains clear Elevated troponins, rule out non-ST elevation [place], currently off heparin History of right leg gangrene status post right AKA Diabetes mellitus type 2, blood sugars are under adequate control at this point in time. Plan: Mental status is back to baseline Hemodynamically stable Patient is currently on room air oxygen. IV fluids to KVO Antibiotics have been discontinued Acyclovir has been discontinued Awaiting CSF cytology Chest x-ray remains clear Lumbar puncture results were noted Echocardiogram results were noted Increase metoprolol to 75 mg twice a day continue the Cozaar Continue Aldactone 25 mg p.o. daily Continue Farxiga 10 mg p.o. daily Entresto was added Cardiac catheterization early next week Subcutaneous heparin for DVT prophylaxis Continue aspirin Cardiology follow-up Sliding scale insulin Will continue to follow.
[2023-09-09 16:41] LABS: Glucose,Whole Blood 154 mg/dL (70-110)
[2023-09-09 20:43] LABS: Glucose,Whole Blood 198 mg/dL (70-110)
[2023-09-09] MEDS: SACUBITRIL/VALSARTAN 24 MG-26 MG TABLET PO SCH (21:14)
[2023-09-09] MEDS: traZODone HCL 50 MG TAB PO STA (22:55)
[2023-09-10 06:10] LABS: Glucose,Whole Blood 152 mg/dL (70-110)
--- NOTE | 2023-09-10 10:23 | P.PN ---
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 The ER of patient had altered mentation was combative. He received multiple doses of Geodon and Ativan and continued to remain restless and combative therefore patient was sedated and intubated for airway protection and need for urgent imaging. Laboratory evaluation in the ER was remarkable for white blood cell count 19.5, potassium 3.4, carbon dioxide 19 with anion gap of 18 and blood sugars of 277. Patient was positive for marijuana and methadone. COVID-19/RSV/influenza a and B testing was negative. Chest x-ray showed no acute process. CT head showed no acute intracranial hemorrhage or midline shift CT angio of the head and neck demonstrated no significant stenosis and no occlusion. Patient was subsequently admitted to the ICU. He was started on broad-spectrum antibiotics with Vanco and ceftriaxone. Troponin became positive and he was subsequently started on a heparin infusion. Cardiology and intensive care were consulted. Neurology was also consulted. He was additionally started on acyclovir due to concerns for possible meningitis. He underwent LP on 09/05/2023 which ruled out bacterial meningitis. Comprehensive viral panel also negative. Acyclovir and antibiotics discontinued. Mental status now back to normal. MRI brain showed age-related atrophic and chronic small vessel ischemic changes, no acute process. Cardiology considering cardiac cath on Tuesday. Patient seen and examined at bedside. No acute events overnight. Denies any new complaints Vital signs reviewed General: Nontoxic, no distress, appears at stated age Cardiovascular: S1S2 reg, no murmur Lungs: Clear to auscultation bilaterally, no accessory muscle use, on room air Abdominal: Soft, nontender to palpation, no guarding Ext: No gross muscle atrophy, no edema b/l lower extremities, Right BKA, no contractures Neuro: CN II to XII grossly normal, moving all extremities Psych: Awake, alert, oriented x 3 Assessment/Plan: SIRS, resolved, unknown etiology Acute encephalopathy toxic versus metabolic, resolved -Pulmonology and neurology following -Discontinued IV acyclovir and IV antibiotics. Newly discovered systolic cardiomyopathy with ejection fraction 20 to 25%, unclear if ischemic or nonischemic Elevated troponin -Discussed management with cardiology, pending cardiac cath on Tuesday - On metoprolol 100 daily, Entresto 24-26 twice daily, Aldactone 25 daily, Farxiga 10 daily -Monitor blood pressure with new medication changes -Continue aspirin 81, atorvastatin 40 Pending cardiac cath on Tuesday Diabetes mellitus type 2 with hyperglycemia -Sliding scale insulin every 8 hours, monitor for hypoglycemia -A1c 6.5 Mild non-anion gap metabolic acidosis, resolved Chronic Pain -Oxycodone 5 mg every 4 hours, monitor for sedation Imaging: MRI brain showed age-related atrophic and chronic small vessel ischemic changes, no acute process. Data Review: Blood sugars range between 1 52-1 98 DVT prophylaxis: Heparin SC Anticipated discharge date: Pending Clinical Course Anticipated discharge place: Pending Clinical Course Objective - Vital Signs Vital signs: Vital Signs Temp 98.0 F 09/09/23 23:32 Pulse 69 09/10/23 04:00 Resp 16 09/10/23 04:00 BP 143/79 09/10/23 04:00 Pulse Ox 99 09/10/23 04:00 FiO2 40 09/06/23 10:35 Intake & Output 09/09/23 09/10/23 09/10/23 18:59 06:59 18:59 Intake Total 1190 20 350 Output Total 800 Balance 1190 -780 350 Weight 81 kg Intake: IV 20 Invasive Line 6 10 Invasive Line 7 10 Oral 1190 350 Output: Urine 800 Other: Voiding Method Urinal Urinal # Voids 1 # Bowel Movements 1 - Labs CBC & Chem 7: 09/08/23 05:49 09/09/23 06:46 Labs: Abnormal Lab Results - Last 24 Hours (Table) 09/09/23 09/09/23 09/09/23 Range/Units 11:31 16:38 20:40 POC Glucose (mg/dL) 135 H 154 H 198 H (70-110) mg/dL 09/10/23 Range/Units 06:08 POC Glucose (mg/dL) 152 H (70-110) mg/dL Microbiology - Last 24 Hours (Table) 09/05/23 17:42 CSF Gram Stain - Final Cerebral Spinal Fluid CSF Culture - Final
[2023-09-10 11:30] LABS: Glucose,Whole Blood 150 mg/dL (70-110)
--- NOTE | 2023-09-10 12:33 | P.PN ---
Subjective Progress Note Date: 09/10/23 The patient is a 62-year-old male with past medical history of diabetes and right twnzo-hdl-foig amputation, who was brought to the emergency room for mental status changes. The patient was given multiple doses of Geodon and Ativan via EMS for combativeness and agitation. Cardiology has been consulted for elevated troponins as well as initial EKG showing A-fib with RVR. Echocardiogram has revealed reduced ejection fraction at 20 to 25% with global hypokinesis. Patient was interviewed and examined resting comfortably in bed. He denies any chest pain, difficulty breathing, or dizziness. He states he does have some generalized aches and pains, mostly from sitting in the bed. GENERAL: Well-appearing, well-nourished and in no acute distress. NECK: Supple without JVD or thyromegaly. LUNGS: Breath sounds diminished to auscultation bilaterally. Respiration equal and unlabored. No wheezes, rales or rhonchi. HEART: Regular rate and rhythm without murmurs, rubs or gallops. S1 and S2 heard. EXTREMITIES: Right mloam-err-sxas amputation. No left lower extremity edema. +2 palpable pulse. TELEMETRY: Sinus rhythm with heart rate in the 90s IMPRESSION: Altered mental status Elevated troponin Acute encephalopathy New onset cardiomyopathy, EF 25% SIRS History of necrotizing fasciitis, status post right AKA History of diabetes mellitus PLAN: BMP and magnesium to be performed tomorrow morning Consider increasing Entresto dose thereafter Consider coronary angiogram next week Further recommendations to be based on clinical course I am dictating on behalf of Dr Marcus Layton's history/physical and assessment/plan. Objective - Vital Signs Vital signs: Vital Signs Temp 98.1 F 09/10/23 08:00 Pulse 76 09/10/23 08:00 Resp 16 09/10/23 08:00 BP 123/73 09/10/23 08:00 Pulse Ox 100 09/10/23 08:00 FiO2 40 09/06/23 10:35 Intake & Output 09/09/23 09/10/23 09/10/23 18:59 06:59 18:59 Intake Total 1190 20 350 Output Total 800 Balance 1190 -780 350 Weight 81 kg Intake: IV 20 Invasive Line 6 10 Invasive Line 7 10 Oral 1190 350 Output: Urine 800 Other: Voiding Method Urinal Urinal Urinal # Voids 1 # Bowel Movements 1 - Labs CBC & Chem 7: 09/08/23 05:49 09/09/23 06:46 Labs: Abnormal Lab Results - Last 24 Hours (Table) 09/09/23 09/09/23 09/10/23 Range/Units 16:38 20:40 06:08 POC Glucose (mg/dL) 154 H 198 H 152 H (70-110) mg/dL 09/10/23 Range/Units 11:29 POC Glucose (mg/dL) 150 H (70-110) mg/dL Microbiology - Last 24 Hours (Table) 09/05/23 17:42 CSF Gram Stain - Final Cerebral Spinal Fluid CSF Culture - Final
[2023-09-10] MEDS: METOPROLOL SUCCINATE (ER) 100 MG TAB.ER.24H PO SCH (12:51)
--- NOTE | 2023-09-10 14:53 | P.PN ---
Subjective Progress Note Date: 09/10/23 Patient is a 62-year-old white male with past medical history significant for right lower extremity gangrene status post right AKA, diabetes mellitus, and tobacco dependence. Patient is currently intubated mechanical ventilator unable to provide any information. I did review the patient's medical record. Apparently, the patient was brought in yesterday evening. He was altered, and not acting appropriately. Brain CT negative for any acute intracranial hemorrhage or midline shift. Brain CTA did not show any significant flow- limiting stenosis within the internal carotid arteries. While in the emergency room, he then became combative he was given 2 doses of Geodon, 10 mg and 2 doses of Versed 5 mg and 2 doses of IV Ativan 2 mg. He was then intubated for airway protection by the ER physician. Postintubation chest x-ray showed endotracheal tube approximately 3 cm above the tatiana. Orogastric tube courses below the diaphragm. No acute cardiopulmonary process. Postintubation ABG shows a PaO2 of 51, pCO2 of 43, pH of 7.37. This was done on ventilator settings of assist- control, respiratory rate 20, tidal volume 450, FiO2 of 100, and PEEP of 5. PEEP was increased to 8. Repeat ABG showed a PaO2 greater than 400, pCO2 of 34, and pH of 7.46. He is apparently difficult to sedate postintubation, he is on a combination of propofol at 50 mcg/kg/min and Versed at 5 mg/h. He is currently synchronous on mechanical ventilator. Patient has been febrile with a Tmax of 100 F. Source of the infection is not exactly clear. CBC shows leukocytosis with a WBC count of 19.5, most recent BMP from this morning fairly unremarkable. Patient has been started on broad-spectrum antibiotics in the form of Rocephin and vancomycin. Troponins were elevated and trending up, at 0.028, 0.159, and 0.62 respectively. Patient was started on heparin infusion, cardiology was asked to evaluate this patient. Urinalysis not concerning for UTI. Tox screen positive for oxycodone and marijuana. Serum alcohol level less than 10. Heart rhythm appears sinus tachycardia on bedside monitor. Blood pressure was hypotensive postintubation, he did receive a total of 3 L normal saline bolus. Blood pressure has responded, not requiring any vasopressors at the moment. Urine output is adequate. I have the chest to evaluate this patient in the intensive care unit. The patient was on propofol running at 50 mcg/kg/min and the patient is on Versed at 4 mg an hour. No seizure activity. Normal saline is still running at the rate of 130 cc an hour. The patient currently is still on the mechanical ventilator and FiO2 has been weaned down to 40% with a PEEP of 5. He is still running a lower blood pressure. Tmax was 100. No neck stiffness. No skin rashes. Patient remains on broad-spectrum antibiotics and the patient was given a combination of Rocephin and vancomycin.The patient remains on IV heparin. Troponin peaked at 0.6. Cardiac rhythm is sinus. The chest x-ray from today is showing no acute cardiopulmonary process. No significant signs of bronchospasm or wheezing at this point in time. On today's evaluation of 09/06/2023, the patient is being seen for a follow-up. The patient remains intubated on mechanical ventilator. The patient was taken off sedation this morning and the patient was able to follow simple commands. He was awake and alert and communicating. Note that he is currently on assist- control mode at a rate of 20, tidal volume of 450, FiO2 of 40% with a PEEP of 5. Blood gas showed pH of 7.41 with a pCO2 of 36 and pO2 of 126. Chest x-ray from today shows no acute cardiopulmonary process. Echocardiogram was completed yesterday and the patient was found to have systolic heart failure with impaired left ventricular function. The patient had global hypokinesis with an ejection fraction of 20 to 25% along with mild mitral regurgitation. No aortic stenosis. The patient is post lumbar puncture that was performed yesterday. The cell count was 7 with mononuclear predominance. The CSF protein was elevated at 80. HSV by PCR in the CSF still pending for now. The patient was covered with IV acyclovir. He still having episodes of low-grade fever. Current temperature is 99.1. Still covered with broad-spectrum antibiotics and the patient remains on a combination of Rocephin and vancomycin. The procalcitonin level was checked yesterday and the level was low at 0.03. IV fluids to kvo. the patient is currently on no pressors. the sodium is at 140, potassium 3.4, chloride is 112 with a bicarb of 19. bun is 15 with a creatinine of 0.6. the wbc count is at 10.2 with a hemoglobin 12.1 and a platelet count of 186. On 09/07/2023, the patient is extubated. The patient is awake and alert and he is communicating. However there is some baseline confusion as the patient states that he is in [place]. He is not clear about his location. He is not also aware of the time of the year. No focal neurological deficits. Afebrile. Antibiotics have been discontinued and the patient is still is on IV acyclovir suspecting HSV encephalitis. PCR from CSF is still pending for now. Hemodynamically stable. The patient is morning denies having any respiratory difficulties and the patient is currently on room air oxygen. The white cell count is at 8 with a hemoglobin 11.3 and a platelet count of 182. Sodium is at 139 with a potassium level of 3.3, BUN is at 10 with a creatinine of 0.6. The patient is on metoprolol 50 mg p.o. twice a day. The patient is also on Cozaar 25 mg p.o. daily. Note that the metoprolol dose has been increased that the patient was having some sinus tachycardia. IV fluids are currently at KVO. Patient is also on aspirin and Farxiga. He was placed on subcu heparin for DVT prophylaxis and IV heparin was discontinued. On today's evaluation of 09/08/2023, the patient is awake and alert. Mental status is improved considerably and the patient is much more appropriate compared to yesterday's evaluation. The patient has no other specific complaints. The CSF cytology is still pending. The C SF viral screen came back negative and the patient was taken off the acyclovir. He is afebrile and hemodynamically stable. The WBC count is 8.2 with a hemoglobin 12.1. BUN is at 15 with a creatinine of 0.6 and a sodium levels at 139. The patient is currently on room air oxygen with a pulse ox of 97%. The patient remains on aspirin. The patient is on metoprolol 75 mg p.o. twice a day, Cozaar 25 mg p.o. daily, Farxiga 10 mg p.o. daily, Lipitor 40 mg p.o. daily. He is also on Aldactone 25 mg p.o. daily. IV fluids are currently at KVO. On today's evaluation 09/09/2023, patient is awake and alert and has no specific complaints. No chest pain. No respiratory difficulties. No altered mentation. No focal neurological deficit. No headaches. He is currently afebrile.Sodium levels at 138, potassium level is at 3.8, BUN is at 20 with a creatinine of 0.6. The patient is currently on room air oxygen. The patient was seen by cardiology. He was maintained on a combination of aspirin 81 mg p.o. daily. The patient was also given Farxiga 10 mg and Aldactone 25 mg and the metoprolol dose has been maintained that 75 mg twice a day and the patient was also started on Entresto. As mentioned, the patient is uroseptic ejection fraction of 20 to 25%. Cardiac catheterization is being planned for next week once his CHF is better optimized. On today's evaluation of 09/10/2023, the patient is being seen for a follow-up. The patient is doing well. He has no specific complaints the patient is cur rently on room air oxygen. Mental status is completely back to normal. He has a new onset cardiomyopathy with an ejection fraction of 25%. He also had some abnormal troponin leak at the time of this current admission. The plan is to do a cardiac catheterization next week. Meanwhile, the patient was started on Entresto regarding his CHF and the patient is currently on Entresto 1 tablet a day. The patient is also on metoprolol 100 mg p.o. daily and Aldactone 25 mg p.o. daily patient is also on Farxiga 10 mg p.o. daily. Patient remains on aspirin. No other complaints otherwise for now. No new labs are available from today. Blood pressure is stable without any significant hypotension. Objective - Vital Signs Vital signs: Vital Signs Temp 98.0 F 09/09/23 23:32 Pulse 69 09/10/23 04:00 Resp 16 09/10/23 04:00 BP 143/79 09/10/23 04:00 Pulse Ox 99 09/10/23 04:00 FiO2 40 09/06/23 10:35 Intake & Output 09/09/23 09/10/23 09/10/23 18:59 06:59 18:59 Intake Total 1190 20 350 Output Total 800 Balance 1190 -780 350 Weight 81 kg Intake: IV 20 Invasive Line 6 10 Invasive Line 7 10 Oral 1190 350 Output: Urine 800 Other: Voiding Method Urinal Urinal # Voids 1 # Bowel Movements 1 - Exam GENERAL EXAM: Extubated,, comfortable, no signs of lower respiratory distress and the patient is currently on room air oxygen. Alert and oriented x 3 without any signs of respiratory distress. HEAD: Normocephalic and atraumatic EYES: Normal reaction of pupils, equal size. NOSE: Clear with pink turbinates. THROAT: No erythema or exudates. NECK: No masses, no JVD. CHEST: No chest wall deformity. LUNGS: Equal air entry with no crackles, wheeze, rhonchi or dullness. CVS: S1 and S2 normal with no audible murmur, regular rhythm. No extra heart sounds, he has an S3 gallop. ABDOMEN: No hepatosplenomegaly, active bowel sounds, no guarding or rigidity. SPINE: No scoliosis or deformity SKIN: No rashes CENTRAL NERVOUS SYSTEM: No focal deficits, tone is normal in all 4 extremities. No neck stiffness. Able to move all 4 extremities. No confusion, alert and oriented x 3 EXTREMITIES: There is no peripheral edema, clubbing, or cyanosis. Peripheral pulses are intact. Right AKA, stump appears to be healing nicely. - Labs CBC & Chem 7: 09/08/23 05:49 09/09/23 06:46 Labs: Abnormal Lab Results - Last 24 Hours (Table) 09/09/23 09/09/23 09/09/23 Range/Units 11:31 16:38 20:40 POC Glucose (mg/dL) 135 H 154 H 198 H (70-110) mg/dL 09/10/23 Range/Units 06:08 POC Glucose (mg/dL) 152 H (70-110) mg/dL Microbiology - Last 24 Hours (Table) 09/05/23 17:42 CSF Gram Stain - Final Cerebral Spinal Fluid CSF Culture - Final Assessment and Plan Plan: Altered mental status, unknown etiology, currently under investigation. Noted the CTA of the head was essentially negative for any acute abnormalities. No signs of any acute vascular occlusion. The patient had a rapid altered mentation according to the family. No neck stiffness. There is a low-grade fever. Rule out metabolic encephalopathy. Rule out septic encephalopathy. The patient has a low-grade fever and some leukocytosis. Encephalitis is possible and cannot be completely ruled out. Lumbar puncture was performed and the patient has mild elevation of the white cell count and protein level. The viral analysis of the CSF was negative and the patient is back to his normal mentation and the patient is alert and oriented x 3. Awaiting CSF cytology. Acyclovir has been discontinued. Antibiotics have been discontinued. Mental status is back to his baseline. Acute febrile illness/sepsis, exact source is not exactly clear, under invest igation the patient is currently on broad-spectrum antibiotics. Procalcitonin level is nonelevated and currently is afebrile. Cultures are negative and the patient is currently off antibiotics Acute leukocytosis, improved Hypotension and shock, status/post aggressive fluid resuscitation, with a total of 3 L normal saline, and the patient is currently normotensive, the patient is currently on IV fluids at [facility]. Systolic heart failure with an ejection fraction of 20 to 25% and the patient has global LV dysfunction. This is a new onset cardiomyopathy and the patient is currently on a combination of metoprolol, Entresto and Aldactone. Cardiac catheterization is to be done at a later stage. Mechanical ventilator management, patient was intubated for airway protection. Postintubation chest x-ray shows the endotracheal tube approximately 3 cm from the tatiana. No acute cardiopulmonary process identified. The chest x-ray remains clear Elevated troponins, rule out non-ST elevation ID, currently off heparin History of right leg gangrene status post right AKA Diabetes mellitus type 2, blood sugars are under adequate control at this point in time. Plan: Mental status is back to baseline Hemodynamically stable Patient is currently on room air oxygen. IV fluids to O Patient has recovered from his acute respiratory failure. Mental status back to his baseline. For now, the patient is managed regarding his CHF and cardiac catheterization is being planned for next week. Continue metoprolol 100 mg a day, XL Continue Aldactone 25 mg p.o. daily Continue Farxiga 10 mg p.o. daily Entresto 24/25 mg 1 tablet a day. Cardiac catheterization early next week Subcutaneous heparin for DVT prophylaxis Continue aspirin Cardiology follow-up Sliding scale insulin Will continue to follow.
[2023-09-10 16:35] LABS: Glucose,Whole Blood 162 mg/dL (70-110)
[2023-09-10 19:52] LABS: Glucose,Whole Blood 137 mg/dL (70-110)
[2023-09-11 05:59] LABS: Glucose,Whole Blood 146 mg/dL (70-110)
[2023-09-11] MEDS ORDERED: NITROGLYCERIN SL TABS 0.4 MG TAB SUBLINGUAL PRN (09:27)
[2023-09-11] MEDS ORDERED: ALPRAZolam 0.25 MG TAB PO PRN (09:27)
[2023-09-11] MEDS ORDERED: ALPRAZolam 0.5 MG TAB PO PRN (09:27)
--- NOTE | 2023-09-11 09:27 | P.PN ---
Subjective Progress Note Date: 09/11/23 The patient is a 62-year-old male with past medical history of diabetes and right pfjiy-tiy-zwad amputation, who was brought to the emergency room for mental status changes. The patient was given multiple doses of Geodon and Ativan via EMS for combativeness and agitation. Cardiology has been consulted fo r elevated troponins as well as initial EKG showing A-fib with RVR. Echocardiogram has revealed reduced ejection fraction at 20 to 25% with global hypokinesis. Patient was interviewed and examined resting comfortably in bed. He denies any chest pain, difficulty breathing, or dizziness. He states he does have some generalized aches and pains, mostly from sitting in the bed. Blood pressure 14 6/72, heart rate in the 60s and 70s, pulse ox 99% on room air. No medication adjustments made today. Plan is for cardiac cath tomorrow and will evaluate blood pressure medications following that. Lab work ordered for this morning is not available at the time of this dictation. GENERAL: Well-appearing, well-nourished and in no acute distress. NECK: Supple without JVD or thyromegaly. LUNGS: Breath sounds diminished to auscultation bilaterally. Respiration equal and unlabored. No wheezes, rales or rhonchi. HEART: Regular rate and rhythm without murmurs, rubs or gallops. S1 and S2 heard. EXTREMITIES: Right jqros-ubw-qetw amputation. No left lower extremity edema. +2 palpable pulse. TELEMETRY: Sinus rhythm with heart rate in the 60s and 70s IMPRESSION: Altered mental status Elevated troponin Acute encephalopathy New onset cardiomyopathy, EF 25% SIRS History of necrotizing fasciitis, status post right AKA History of diabetes mellitus PLAN: BMP and magnesium to be performed this morning Consider increasing Entresto dose thereafter Patient will be scheduled for cardiac catheterization on Tuesday most likely with Dr. Vicente Further recommendations to be based on clinical course I am dictating on behalf of Dr Marcus Layton's history/physical and assessment/plan. Objective - Vital Signs Vital signs: Vital Signs Temp 98.2 F 09/11/23 04:00 Pulse 61 09/11/23 04:00 Resp 16 09/11/23 04:00 BP 146/72 09/11/23 04:00 Pulse Ox 99 09/11/23 04:00 FiO2 40 09/06/23 10:35 Intake & Output 09/10/23 09/11/23 09/11/23 18:59 06:59 18:59 Intake Total 922 476 Output Total 600 Balance 922 -600 476 Intake: Oral 922 476 Output: Urine 600 Other: Voiding Method Urinal Urinal - Labs CBC & Chem 7: 09/08/23 05:49 09/09/23 06:46 Labs: Abnormal Lab Results - Last 24 Hours (Table) 09/10/23 09/10/23 09/10/23 Range/Units 11:29 16:33 19:50 POC Glucose (mg/dL) 150 H 162 H 137 H (70-110) mg/dL 09/11/23 Range/Units 05:57 POC Glucose (mg/dL) 146 H (70-110) mg/dL Microbiology - Last 24 Hours (Table) 09/04/23 20:55 Blood Culture - Final Blood 09/04/23 20:40 Blood Culture - Final Blood 09/05/23 17:42 CSF Gram Stain - Final Cerebral Spinal Fluid CSF Culture - Final
--- NOTE | 2023-09-11 09:49 | P.PN ---
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 The ER of patient had altered mentation was combative. He received multiple doses of Geodon and Ativan and continued to remain restless and combative therefore patient was sedated and intubated for airway protection and need for urgent imaging. Laboratory evaluation in the ER was remarkable for white blood cell count 19.5, potassium 3.4, carbon dioxide 19 with anion gap of 18 and blood sugars of 277. Patient was positive for marijuana and methadone. COVID-19/RSV/influenza a and B testing was negative. Chest x-ray showed no acute process. CT head showed no acute intracranial hemorrhage or midline shift CT angio of the head and neck demonstrated no significant stenosis and no occlusion. Patient was subsequently admitted to the ICU. He was started on broad-spectrum antibiotics with Vanco and ceftriaxone. Troponin became positive and he was subsequently started on a heparin infusion. Cardiology and intensive care were consulted. Neurology was also consulted. He was additionally started on acyclovir due to concerns for possible meningitis. He underwent LP on 09/05/2023 which ruled out bacterial meningitis. Comprehensive viral panel also negative. Acyclovir and antibiotics discontinued. Mental status now back to normal. MRI brain showed age-related atrophic and chronic small vessel ischemic changes, no acute process. Cardiology planning cardiac cath on Tuesday. Patient seen and examined at bedside. No acute events overnight. Denies any new complaints Vital signs reviewed General: Nontoxic, no distress, appears at stated age Cardiovascular: S1S2 reg, no murmur Lungs: Clear to auscultation bilaterally, no accessory muscle use, on room air Abdominal: Soft, nontender to palpation, no guarding Ext: No gross muscle atrophy, no edema b/l lower extremities, Right BKA, no contractures Neuro: CN II to XII grossly normal, moving all extremities Psych: Awake, alert, oriented x 3 Assessment/Plan: Newly discovered systolic cardiomyopathy with ejection fraction 20 to 25%, unclear if ischemic or nonischemic Elevated troponin -Cardiology note reviewed, pending cardiac cath tomorrow - On metoprolol 100 daily, Entresto 24-26 twice daily, Aldactone 25 daily, Farxiga 10 daily -Monitor blood pressure with new medication changes -Continue aspirin 81, atorvastatin 40 SIRS, resolved, unknown etiology Acute encephalopathy toxic versus metabolic, resolved -Pulmonology and neurology following -Discontinued IV acyclovir and IV antibiotics. Diabetes mellitus type 2 with hyperglycemia -Sliding scale insulin every 8 hours, monitor for hypoglycemia -A1c 6.5 Mild non-anion gap metabolic acidosis, resolved Chronic Pain -Oxycodone 5 mg every 4 hours, monitor for sedation Imaging: MRI brain showed age-related atrophic and chronic small vessel ischemic changes, no acute process. Data Review: Blood sugars range between 1 37-1 62, BMP and magnesium pending, will be reviewed when available DVT prophylaxis: Heparin SC Anticipated discharge date: Pending Clinical Course Anticipated discharge place: Pending Clinical Course Objective - Vital Signs Vital signs: Vital Signs Temp 98.2 F 09/11/23 04:00 Pulse 61 09/11/23 04:00 Resp 16 09/11/23 04:00 BP 146/72 09/11/23 04:00 Pulse Ox 99 09/11/23 04:00 FiO2 40 09/06/23 10:35 Intake & Output 09/10/23 09/11/23 09/11/23 18:59 06:59 18:59 Intake Total 922 476 Output Total 600 Balance 922 -600 476 Intake: Oral 922 476 Output: Urine 600 Other: Voiding Method Urinal Urinal - Labs CBC & Chem 7: 09/08/23 05:49 09/09/23 06:46 Labs: Abnormal Lab Results - Last 24 Hours (Table) 09/10/23 09/10/23 09/10/23 Range/Units 11:29 16:33 19:50 POC Glucose (mg/dL) 150 H 162 H 137 H (70-110) mg/dL 09/11/23 Range/Units 05:57 POC Glucose (mg/dL) 146 H (70-110) mg/dL Microbiology - Last 24 Hours (Table) 09/04/23 20:55 Blood Culture - Final Blood 09/04/23 20:40 Blood Culture - Final Blood 09/05/23 17:42 CSF Gram Stain - Final Cerebral Spinal Fluid CSF Culture - Final
[2023-09-11 10:48] LABS: African American GFR (CKD) >90 (>60 ml/min/1.73 sqM); Anion Gap 13 mmol/L; Blood Urea Nitrogen 16 mg/dL (9-20); Calcium 9.4 mg/dL (8.4-10.2); Carbon Dioxide 24 mmol/L (22-30); Chloride 101 mmol/L (98-107); Glucose 163 mg/dL (74-99); Magnesium 1.8 mg/dL (1.6-2.3); Non-African American GFR(CKD) >90 (>60 ml/min/1.73 sqM); Sodium 138 mmol/L (137-145)
[2023-09-11 11:10] LABS: Glucose,Whole Blood 130 mg/dL (70-110)
--- NOTE | 2023-09-11 14:21 | P.PN ---
Subjective Progress Note Date: 09/11/23 Patient is a 62-year-old white male with past medical history significant for right lower extremity gangrene status post right AKA, diabetes mellitus, and tobacco dependence. Patient is currently intubated mechanical ventilator unable to provide any information. I did review the patient's medical record. Apparently, the patient was brought in yesterday evening. He was altered, and not acting appropriately. Brain CT negative for any acute intracranial hemorrhage or midline shift. Brain CTA did not show any significant flow- limiting stenosis within the internal carotid arteries. While in the emergency room, he then became combative he was given 2 doses of Geodon, 10 mg and 2 doses of Versed 5 mg and 2 doses of IV Ativan 2 mg. He was then intubated for airway protection by the ER physician. Postintubation chest x-ray showed endotracheal tube approximately 3 cm above the tatiana. Orogastric tube courses below the diaphragm. No acute cardiopulmonary process. Postintubation ABG shows a PaO2 of 51, pCO2 of 43, pH of 7.37. This was done on ventilator settings of assist- control, respiratory rate 20, tidal volume 450, FiO2 of 100, and PEEP of 5. PEEP was increased to 8. Repeat ABG showed a PaO2 greater than 400, pCO2 of 34, and pH of 7.46. He is apparently difficult to sedate postintubation, he is on a combination of propofol at 50 mcg/kg/min and Versed at 5 mg/h. He is currently synchronous on mechanical ventilator. Patient has been febrile with a Tmax of 100 F. Source of the infection is not exactly clear. CBC shows leukocytosis with a WBC count of 19.5, most recent BMP from this morning fairly unremarkable. Patient has been started on broad-spectrum antibiotics in the form of Rocephin and vancomycin. Troponins were elevated and trending up, at 0.028, 0.159, and 0.62 respectively. Patient was started on heparin infusion, cardiology was asked to evaluate this patient. Urinalysis not concerning for UTI. Tox screen positive for oxycodone and marijuana. Serum alcohol level less than 10. Heart rhythm appears sinus tachycardia on bedside monitor. Blood pressure was hypotensive postintubation, he did receive a total of 3 L normal saline bolus. Blood pressure has responded, not requiring any vasopressors at the moment. Urine output is adequate. I have the chest to evaluate this patient in the intensive care unit. The patient was on propofol running at 50 mcg/kg/min and the patient is on Versed at 4 mg an hour. No seizure activity. Normal saline is still running at the rate of 130 cc an hour. The patient currently is still on the mechanical ventilator and FiO2 has been weaned down to 40% with a PEEP of 5. He is still running a lower blood pressure. Tmax was 100. No neck stiffness. No skin rashes. Patient remains on broad-spectrum antibiotics and the patient was given a combination of Rocephin and vancomycin.The patient remains on IV heparin. Troponin peaked at 0.6. Cardiac rhythm is sinus. The chest x-ray from today is showing no acute cardiopulmonary process. No significant signs of bronchospasm or wheezing at this point in time. On today's evaluation of 09/06/2023, the patient is being seen for a follow-up. The patient remains intubated on mechanical ventilator. The patient was taken off sedation this morning and the patient was able to follow simple commands. He was awake and alert and communicating. Note that he is currently on assist- control mode at a rate of 20, tidal volume of 450, FiO2 of 40% with a PEEP of 5. Blood gas showed pH of 7.41 with a pCO2 of 36 and pO2 of 126. Chest x-ray from today shows no acute cardiopulmonary process. Echocardiogram was completed yesterday and the patient was found to have systolic heart failure with impaired left ventricular function. The patient had global hypokinesis with an ejection fraction of 20 to 25% along with mild mitral regurgitation. No aortic stenosis. The patient is post lumbar puncture that was performed yesterday. The cell count was 7 with mononuclear predominance. The CSF protein was elevated at 80. HSV by PCR in the CSF still pending for now. The patient was covered with IV acyclovir. He still having episodes of low-grade fever. Current temperature is 99.1. Still covered with broad-spectrum antibiotics and the patient remains on a combination of Rocephin and vancomycin. The procalcitonin level was checked yesterday and the level was low at 0.03. IV fluids to kvo. the patient is currently on no pressors. the sodium is at 140, potassium 3.4, chloride is 112 with a bicarb of 19. bun is 15 with a creatinine of 0.6. the wbc count is at 10.2 with a hemoglobin 12.1 and a platelet count of 186. On 09/07/2023, the patient is extubated. The patient is awake and alert and he is communicating. However there is some baseline confusion as the patient states that he is in [place]. He is not clear about his location. He is not also aware of the time of the year. No focal neurological deficits. Afebrile. Antibiotics have been discontinued and the patient is still is on IV acyclovir suspecting HSV encephalitis. PCR from CSF is still pending for now. Hemodynamically stable. The patient is morning denies having any respiratory difficulties and the patient is currently on room air oxygen. The white cell count is at 8 with a hemoglobin 11.3 and a platelet count of 182. Sodium is at 139 with a potassium level of 3.3, BUN is at 10 with a creatinine of 0.6. The patient is on metoprolol 50 mg p.o. twice a day. The patient is also on Cozaar 25 mg p.o. daily. Note that the metoprolol dose has been increased that the patient was having some sinus tachycardia. IV fluids are currently at KVO. Patient is also on aspirin and Farxiga. He was placed on subcu heparin for DVT prophylaxis and IV heparin was discontinued. On today's evaluation of 09/08/2023, the patient is awake and alert. Mental status is improved considerably and the patient is much more appropriate compared to yesterday's evaluation. The patient has no other specific complaints. The CSF cytology is still pending. The C SF viral screen came back negative and the patient was taken off the acyclovir. He is afebrile and hemodynamically stable. The WBC count is 8.2 with a hemoglobin 12.1. BUN is at 15 with a creatinine of 0.6 and a sodium levels at 139. The patient is currently on room air oxygen with a pulse ox of 97%. The patient remains on aspirin. The patient is on metoprolol 75 mg p.o. twice a day, Cozaar 25 mg p.o. daily, Farxiga 10 mg p.o. daily, Lipitor 40 mg p.o. daily. He is also on Aldactone 25 mg p.o. daily. IV fluids are currently at KVO. On today's evaluation 09/09/2023, patient is awake and alert and has no specific complaints. No chest pain. No respiratory difficulties. No altered mentation. No focal neurological deficit. No headaches. He is currently afebrile.Sodium levels at 138, potassium level is at 3.8, BUN is at 20 with a creatinine of 0.6. The patient is currently on room air oxygen. The patient was seen by cardiology. He was maintained on a combination of aspirin 81 mg p.o. daily. The patient was also given Farxiga 10 mg and Aldactone 25 mg and the metoprolol dose has been maintained that 75 mg twice a day and the patient was also started on Entresto. As mentioned, the patient is uroseptic ejection fraction of 20 to 25%. Cardiac catheterization is being planned for next week once his CHF is better optimized. On today's evaluation of 09/10/2023, the patient is being seen for a follow-up. The patient is doing well. He has no specific complaints the patient is cur rently on room air oxygen. Mental status is completely back to normal. He has a new onset cardiomyopathy with an ejection fraction of 25%. He also had some abnormal troponin leak at the time of this current admission. The plan is to do a cardiac catheterization next week. Meanwhile, the patient was started on Entresto regarding his CHF and the patient is currently on Entresto 1 tablet a day. The patient is also on metoprolol 100 mg p.o. daily and Aldactone 25 mg p.o. daily patient is also on Farxiga 10 mg p.o. daily. Patient remains on aspirin. No other complaints otherwise for now. No new labs are available from today. Blood pressure is stable without any significant hypotension. On today's evaluation of 09/11/2023, the patient is doing well. No complaints. Resting comfortably in bed. Patient is going to undergo a cardiac catheterization tomorrow. No chest pain. No signs of any overt heart failure. Electrolytes are all stable with a BUN of 16 and a creatinine of 0.6 and a sodium levels at 138. Medication remain unchanged. Objective - Vital Signs Vital signs: Vital Signs Temp 98.2 F 09/11/23 04:00 Pulse 61 09/11/23 04:00 Resp 16 09/11/23 04:00 BP 146/72 09/11/23 04:00 Pulse Ox 99 09/11/23 04:00 FiO2 40 09/06/23 10:35 Intake & Output 09/10/23 09/11/23 09/11/23 18:59 06:59 18:59 Intake Total 922 476 Output Total 600 Balance 922 -600 476 Intake: Oral 922 476 Output: Urine 600 Other: Voiding Method Urinal Urinal - Exam GENERAL EXAM: Extubated,, comfortable, no signs of lower respiratory distress and the patient is currently on room air oxygen. Alert and oriented x 3 without any signs of respiratory distress. HEAD: Normocephalic and atraumatic EYES: Normal reaction of pupils, equal size. NOSE: Clear with pink turbinates. THROAT: No erythema or exudates. NECK: No masses, no JVD. CHEST: No chest wall deformity. LUNGS: Equal air entry with no crackles, wheeze, rhonchi or dullness. CVS: S1 and S2 normal with no audible murmur, regular rhythm. No extra heart sounds, he has an S3 gallop. ABDOMEN: No hepatosplenomegaly, active bowel sounds, no guarding or rigidity. SPINE: No scoliosis or deformity SKIN: No rashes CENTRAL NERVOUS SYSTEM: No focal deficits, tone is normal in all 4 extremities. No neck stiffness. Able to move all 4 extremities. No confusion, alert and oriented x 3 EXTREMITIES: There is no peripheral edema, clubbing, or cyanosis. Peripheral pulses are intact. Right AKA, stump appears to be healing nicely. - Labs CBC & Chem 7: 09/08/23 05:49 09/11/23 08:54 Labs: Abnormal Lab Results - Last 24 Hours (Table) 09/10/23 09/10/23 09/10/23 Range/Units 11:29 16:33 19:50 POC Glucose (mg/dL) 150 H 162 H 137 H (70-110) mg/dL 09/11/23 Range/Units 05:57 POC Glucose (mg/dL) 146 H (70-110) mg/dL Microbiology - Last 24 Hours (Table) 09/04/23 20:55 Blood Culture - Final Blood 09/04/23 20:40 Blood Culture - Final Blood 09/05/23 17:42 CSF Gram Stain - Final Cerebral Spinal Fluid CSF Culture - Final Assessment and Plan Plan: Altered mental status, unknown etiology, currently under investigation. Noted the CTA of the head was essentially negative for any acute abnormalities. No signs of any acute vascular occlusion. The patient had a rapid altered mentati on according to the family. No neck stiffness. There is a low-grade fever. Rule out metabolic encephalopathy. Rule out septic encephalopathy. The patient has a low-grade fever and some leukocytosis. Encephalitis is possible and cannot be completely ruled out. Lumbar puncture was performed and the patient has mild elevation of the white cell count and protein level. The viral analysis of the CSF was negative and the patient is back to his normal mentation and the patient is alert and oriented x 3. Awaiting CSF cytology. Acyclovir has been discontinued. Antibiotics have been discontinued. Mental status is back to his baseline. Acute febrile illness/sepsis, exact source is not exactly clear, under investigation the patient is currently on broad-spectrum antibiotics. Procalcitonin level is nonelevated and currently is afebrile. Cultures are negative and the patient is currently off antibiotics Acute leukocytosis, improved Hypotension and shock, status/post aggressive fluid resuscitation, with a total of 3 L normal saline, and the patient is currently normotensive, the patient is currently on IV fluids at [facility]. Systolic heart failure with an ejection fraction of 20 to 25% and the patient has global LV dysfunction. This is a new onset cardiomyopathy and the patient i s currently on a combination of metoprolol, Entresto and Aldactone. Cardiac catheterization is to be done at a later stage. Mechanical ventilator management, patient was intubated for airway protection. Postintubation chest x-ray shows the endotracheal tube approximately 3 cm from the tatiana. No acute cardiopulmonary process identified. The chest x-ray remains clear Elevated troponins, rule out non-ST elevation MO, currently off heparin History of right leg gangrene status post right AKA Diabetes mellitus type 2, blood sugars are under adequate control at this point in time. Plan: Clinically stable and the patient is awaiting a cardiac catheterization which is planned to be done in the morning. Mental status is back to baseline Hemodynamically stable Patient is currently on room air oxygen. IV fluids to [facility] Patient has recovered from his acute respiratory failure. Mental status back to his baseline. For now, the patient is managed regarding his CHF and cardiac catheterization is being planned for next week. Continue metoprolol 100 mg a day, XL Continue Aldactone 25 mg p.o. daily Continue Farxiga 10 mg p.o. daily Entresto 24/25 mg 1 tablet a day. Cardiac catheterization early next week Subcutaneous heparin for DVT prophylaxis Continue aspirin Cardiology follow-up Sliding scale insulin Will continue to follow.
[2023-09-11 16:29] LABS: Glucose,Whole Blood 138 mg/dL (70-110)
[2023-09-11 20:14] LABS: Glucose,Whole Blood 141 mg/dL (70-110)
[2023-09-12] MEDS: SODIUM CHLORIDE 0.9% 1,000 ML IV SCH ×2 (00:05→16:59)
[2023-09-12] MEDS: ATORVASTATIN 80 MG TAB PO ONE (05:59)
[2023-09-12] MEDS: ASPIRIN 325 MG TAB PO ONE (05:59)
[2023-09-12 06:11] LABS: Glucose,Whole Blood 103 mg/dL (70-110)
[2023-09-12] MEDS ORDERED: HEPARIN SODIUM,PORCINE 10,000 UNIT in SODIUM CHLORIDE 0.9% 1,000 ML IRRIGATION PRN (07:00)
[2023-09-12] MEDS ORDERED: HEPARIN SODIUM,PORCINE (1 ML) 2,500 UNIT in SODIUM CHLORIDE 0.9% 250 ML IRRIGATION PRN (07:00)
[2023-09-12 11:51] LABS: Glucose,Whole Blood 76 mg/dL (70-110)
--- NOTE | 2023-09-12 12:07 | P.PN ---
Subjective HISTORY OF PRESENT ILLNESS: The patient is a 62-year-old male with past medical history of diabetes and right [id number] amputation, who was brought to the emergency room for mental status changes. The patient was given multiple doses of Geodon and Ativan via EMS for combativeness and agitation. Cardiology has been consulted for elevated troponins as well as initial EKG showing A-fib with RVR. Echocardiogram has revealed reduced ejection fraction at 20 to 25% with global hypokinesis. Patient was interviewed and examined resting comfortably in bed. He denies any chest pain, difficulty breathing, or dizziness. He states he does have some generalized aches and pains, mostly from sitting in the bed. Blood pressure 146/72, heart rate in the 60s and 70s, pulse ox 99% on room air. No medication adjustments made today. Plan is for cardiac cath tomorrow and will evaluate blood pressure medications following that. Lab work ordered for this morning is not available at the time of this dictation. 09/12/2023 Patient examined this morning at the bedside. Patient currently denies chest pain or pressure. He denies shortness of breath. Vital signs are stable. Blood pressure 126/70. Telemetry reveals sinus mechanism. PHYSICAL EXAM: VITAL SIGNS: Reviewed. GENERAL: Well-developed in no acute distress. NECK: Supple. No JVD or thyromegaly LUNGS: Respirations even and unlabored. Lungs essentially clear to auscultation bilaterally. HEART: Regular rate and rhythm. S1 and S2 heard. EXTREMITIES: Normal range of motion. No clubbing or cyanosis. Peripheral pulses intact. Right AKA. ASSESSMENT: Altered mental status Elevated troponin, r/o underlying CAD Acute encephalopathy New onset cardiomyopathy, EF 25%, ischemic versus nonischemic SIRS History of necrotizing fasciitis, status post right AKA History of diabetes mellitus PLAN: Continue current cardiac medications Patient to undergo cardiac cath today with Dr. Vicente Further recommendations pending patient course Nurse practitioner note has been reviewed by physician. Signing provider agrees with the documented findings, assessment, and plan of care documented by [employer]ER as a scribe. Objective - Vital Signs Vital signs: Vital Signs Temp 97.5 F L 09/12/23 11:58 Pulse 76 09/12/23 11:58 Resp 16 09/12/23 11:58 BP 136/67 09/12/23 11:58 Pulse Ox 97 09/12/23 11:58 FiO2 40 09/06/23 10:35 Intake & Output 09/11/23 09/12/23 09/12/23 18:59 06:59 18:59 Intake Total 1048 Output Total 1000 Balance 1048 -1000 Weight 81.2 kg Intake: Oral 1048 Output: Urine 1000 Other: Voiding Method Urinal Urinal - Labs CBC & Chem 7: 09/08/23 05:49 09/11/23 08:54 Labs: Abnormal Lab Results - Last 24 Hours (Table) 09/11/23 09/11/23 Range/Units 16:28 20:12 POC Glucose (mg/dL) 138 H 141 H (70-110) mg/dL
--- NOTE | 2023-09-12 12:56 | P.PN ---
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 He presented to the emergency department on 09/04/2023 with a chief complaint of decreased responsiveness. Upon arrival to the emergency department patient was found to have altered mental status and combative.. He received multiple doses of Geodon and Ativan and continued to remain restless and combative therefore patient was sedated and intubated for airway protection and need for urgent imaging. Laboratory evaluation in the ER was remarkable for white blood cell count 19.5, potassium 3.4, carbon dioxide 19 with anion gap of 18 and blood sugars of 277. Patient was positive for marijuana and methadone. COVID-19/RSV/influenza a and B testing was negative. Chest x-ray showed no acute process. CT head showed no acute intracranial hemorrhage or midline shift CT angio of the head and neck demonstrated no significant stenosis and no occlusion. Patient was subsequently admitted to the ICU. He was started on broad-spectrum antibiotics with Vanco and ceftriaxone. Troponin became positive and he was subsequently started on a heparin infusion. Cardiology and intensive care were consulted. Neurology was also consulted. He was additionally started on acyclovir due to concerns for possible meningitis. He underwent LP on 09/05/2023 which ruled out bacterial meningitis. Comprehensive viral panel also negative. Acyclovir and antibiotics discontinued. Mental status now back to normal. MRI brain showed age-related atrophic and chronic small vessel ischemic changes, no acute process. Cardiology planning cardiac cath later today. Physical exam: Patient seen and fully evaluated at bedside this morning. He was resting comfo rtably in bed, daughter at bedside. Patient awaiting to be taken down for cardiac cath later today. He currently denies having any headache, lightheadedness, dizziness, chest pain, palpitations, shortness of breath, or any other complaints at this time. Vital signs reviewed and stable. General: Nontoxic, no distress and appears stated age. Derm: Skin warm and dry, normal coloration for ethnicity. Head: Atraumatic, normocephalic and symmetric. Eyes: EOMs intact, no lid lag, and anicteric sclera Mouth: no lip lesions, mucus membranes moist Cardiovascular: regular rate and rhythm with normal S1S2, no murmur, and cap refill < 2 seconds. Lungs: Respirations even, regular, and unlabored on room air. Lungs CTA bilaterally, no rhonchi, no rales, no wheezing, and no accessory muscle usage. Abdominal: soft, nontender to palpation, no guarding, no appreciable organomegaly Ext: Right BKA. Movement and sensation of left lower extremity intact. Neuro: Speech clear, face symmetrical and CN II-XII grossly intact with no noted focal neuro deficits Psych: Alert and oriented to person, place, time, and situation. Appropriate and pleasant affect. Assessment and Plan of Care: Newly discovered cardiomyopathy, ejection fraction 20 to 25%, unclear if ischemic or nonischemic NSTEMI -Troponins elevating from 0.028, to 0.159, and 0.61. -Echocardiogram revealing severely reduced EF of 20 to 25% and significant right ventricular enlargement with mild mitral insufficiency -Cardiology note reviewed, pending cardiac cath tomorrow - On metoprolol 100 daily, Entresto 24-26 twice daily, Aldactone 25 daily, Farxiga 10 daily -Monitor blood pressure with new medication changes -Continue aspirin 81, atorvastatin 40 SIRS, resolved, unknown etiology Acute encephalopathy toxic versus metabolic. Resolved -Pulmonology and neurology following. Reviewed documentation in chart. -Patient received course of antibiotics with IV Rocephin, vancomycin and acyclovir. Diabetes mellitus type 2 with hyperglycemia -Continue glycemic protocol with NovoLog sliding scale insulin, monitor for hypoglycemia -A1c 6.5% Mild non-anion gap metabolic acidosis. Resolved Chronic Pain. Continue Oxycodone 5 mg every 4 hours as needed for pain, monitor for sedation. Status post right BKA secondary to history of necrotizing fasciitis. Patient to be provided with assistance as needed. Fall precautions in place. Data and imaging reviewed: Morning labs pending. Will follow-up on results once available. Vital signs reviewed. Blood pressure 126/70, heart rate 71, respiratory rate 16, temp 97.4 F, and SpO2 of 98% on room air. CODE STATUS: Full code DVT prophylaxis: Heparin Anticipated discharge date: Clinical course to determine Anticipated discharge place: Clinical course to determine Patient was seen independently by Nurse Pracitioner. This document was prepared using [employer] dictation software. Please allow for errors in pbx installer, while rare they do occur. Objective - Vital Signs Vital signs: Vital Signs Temp 97.4 F L 09/12/23 08:14 Pulse 71 09/12/23 08:14 Resp 16 09/12/23 08:14 BP 126/70 09/12/23 08:14 Pulse Ox 98 09/12/23 08:14 FiO2 40 09/06/23 10:35 Intake & Output 09/11/23 09/12/23 09/12/23 18:59 06:59 18:59 Intake Total 1048 Output Total 1000 Balance 1048 -1000 Weight 81.2 kg Intake: Oral 1048 Output: Urine 1000 Other: Voiding Method Urinal Urinal - Labs CBC & Chem 7: 09/08/23 05:49 09/11/23 08:54 Labs: Abnormal Lab Results - Last 24 Hours (Table) 09/11/23 09/11/23 09/11/23 Range/Units 08:54 11:05 16:28 Glucose 163 H (74-99) mg/dL POC Glucose (mg/dL) 130 H 138 H (70-110) mg/dL 09/11/23 Range/Units 20:12 Glucose (74-99) mg/dL POC Glucose (mg/dL) 141 H (70-110) mg/dL
[2023-09-12 13:18] LABS: Glucose,Whole Blood 73 mg/dL (70-110)
[2023-09-12 13:34] LABS: HCT 39.5 % (39.0-53.0); HGB 13.6 gm/dL (13.0-17.5); MCH 30.5 pg (25.0-35.0); MCHC 34.6 g/dL (31.0-37.0); MCV 88.3 fL (80.0-100.0); Platelet Count 328 k/uL (150-450); RBC 4.47 m/uL (4.30-5.90); RDW 14.6 % (11.5-15.5); WBC 7.6 k/uL (3.8-10.6)
[2023-09-12] MEDS ORDERED: LIDOCAINE 1% INJ 10MG/ML (20 ML MDV) ONE (14:42)
[2023-09-12] MEDS ORDERED: VERAPAMIL 2.5 MG/ML 2 ML AMP ONE (14:42)
[2023-09-12] MEDS: IV FLUID CONTINUATION 300 ML IV ONE (14:44)
[2023-09-12] MEDS ORDERED: HEPARIN SODIUM 1,000 UN/ML (10ML VL) ONE (14:50)
[2023-09-12] MEDS: LIDOCAINE 1% INJ 10MG/ML (20 ML MDV) SQ ONE ×2 (14:52→14:55)
[2023-09-12] MEDS: MIDAZOLAM 2 MG/2 ML VIAL IVP ONE (14:54)
[2023-09-12] MEDS: VERAPAMIL SYRINGE (5 MG/10 ML) INTRAARTER ONE (14:55)
[2023-09-12] MEDS: HEPARIN SODIUM 1,000 UN/ML (10ML VL) IVP ONE (14:55)
[2023-09-12] MEDS: IOPAMIDOL-370 100ML BTL INJ ONE (15:04)
[2023-09-12] MEDS ORDERED: RX INFO: IV CONTRAST WAS GIVEN 1 EACH MISC MISCELLANE PRN (15:09)
--- NOTE | 2023-09-12 15:10 | P.PCN ---
Date of Procedure: 09/12/23 Operative Findings: CARDIAC CATHETERIZATION PERFORMING PHYSICIAN: Sunday Vicente MD, RPVI PROCEDURE PERFORMED: 1. Selective right and left coronary angiogram 2. Left heart catheterization 3. Ultrasound-guided access of the right radial artery INDICATION: Cardiomyopathy COMPLICATION: None APPROACH: Right radial artery LEVEL OF SEDATION: Moderate with a sedation length of 14 minutes PROCEDURE DESCRIPTION: After obtaining an informed consent, the patient was brought to cardiac catheter builder. Local anesthesia was performed using lidocaine subcutaneously. The right radial artery was cannulated using Seldinger technique, the guidewire passed easily, following that we advanced a 5-Fijian sheath dilator assembly, the wire and dilator were removed and sheath was flushed. Following that, 2 mg of verapamil along with 5000 unit heparin were given. Selective right and left coronary angiogram using a 6-Fijian JR4 and JL 3.5 catheters. Following that we did left heart catheterization using 6-Fijian pigtail catheter. The procedure was completed there was no complication. SELECTIVE CORONARY ANGIOGRAM: The right coronary artery: Large-caliber vessel and a dominant vessel with a lesion appears to be in the range of 30% in the midportion Left main: Is angiographically normal The left circumflex: Large-caliber vessel nondominant vessel and appears to be angiographically normal The left anterior descending artery: Large-caliber vessel. It appears to be angiographically normal. Gives rise into a diagonal branch which seems to be normal HEMODYNAMICS: LVEDP was 5 mmHg with no gradient was seen across aortic valve CONCLUSION: 1. 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 Normal left-sided filling pressure POSTPROCEDURE MANAGEMENT: Medical treatment
[2023-09-12 16:35] LABS: Glucose,Whole Blood 156 mg/dL (70-110)
--- NOTE | 2023-09-12 16:36 | P.PN ---
Subjective Progress Note Date: 09/12/23 Principal diagnosis: Altered mental status Patient is a 62-year-old white male with past medical history significant for right lower extremity gangrene status post right AKA, diabetes mellitus, and tobacco dependence. Patient is currently intubated mechanical ventilator unable to provide any information. I did review the patient's medical record. Apparently, the patient was brought in yesterday evening. He was altered, and not acting appropriately. Brain CT negative for any acute intracranial hemorrhage or midline shift. Brain CTA did not show any significant flow-li miting stenosis within the internal carotid arteries. While in the emergency room, he then became combative he was given 2 doses of Geodon, 10 mg and 2 doses of Versed 5 mg and 2 doses of IV Ativan 2 mg. He was then intubated for airway protection by the ER physician. Postintubation chest x-ray showed endotracheal tube approximately 3 cm above the tatiana. Orogastric tube courses below the diaphragm. No acute cardiopulmonary process. Postintubation ABG shows a PaO2 of 51, pCO2 of 43, pH of 7.37. This was done on ventilator settings of assist- control, respiratory rate 20, tidal volume 450, FiO2 of 100, and PEEP of 5. PEEP was increased to 8. Repeat ABG showed a PaO2 greater than 400, pCO2 of 34, and pH of 7.46. He is apparently difficult to sedate postintubation, he is on a combination of propofol at 50 mcg/kg/min and Versed at 5 mg/h. He is currently synchronous on mechanical ventilator. Patient has been febrile with a Tmax of 100 F. Source of the infection is not exactly clear. CBC shows leukocytosis with a WBC count of 19.5, most recent BMP from this morning fairly unremarkable. Patient has been started on broad-spectrum antibiotics in the form of Rocephin and vancomycin. Troponins were elevated and trending up, at 0.028, 0.159, and 0.62 respectively. Patient was started on heparin infusion, cardiology was asked to evaluate this patient. Urinalysis not concerning for UTI. Tox screen positive for oxycodone and marijuana. Serum alcohol level less than 10. Heart rhythm appears sinus tachycardia on bedside monitor. Blood pressure was hypotensive postintubation, he did receive a total of 3 L normal saline bolus. Blood pressure has responded, not requiring any vasopressors at the moment. Urine output is adequate. I have the chest to evaluate this patient in the intensive care unit. The patient was on propofol running at 50 mcg/kg/min and the patient is on Versed at 4 mg an hour. No seizure activity. Normal saline is still running at the rate of 130 cc an hour. The patient currently is still on the mechanical ventilator and FiO2 has been weaned down to 40% with a PEEP of 5. He is still running a lower blood pressure. Tmax was 100. No neck stiffness. No skin rashes. Patient remains on broad-spectrum antibiotics and the patient was given a combination of Rocephin and vancomycin.The patient remains on IV heparin. Troponin peaked at 0.6. Cardiac rhythm is sinus. The chest x-ray from today is showing no acute cardiopulmonary process. No significant signs of bronchospasm or wheezing at this point in time. On today's evaluation of 09/06/2023, the patient is being seen for a follow-up. The patient remains intubated on mechanical ventilator. The patient was taken off sedation this morning and the patient was able to follow simple commands. He was awake and alert and communicating. Note that he is currently on assist-control mode at a rate of 20, tidal volume of 450, FiO2 of 40% with a PEEP of 5. Blood gas showed pH of 7.41 with a pCO2 of 36 and pO2 of 126. Chest x-ray from today shows no acute cardiopulmonary process. Echocardiogram was completed yesterday and the patient was found to have systolic heart failure wi th impaired left ventricular function. The patient had global hypokinesis with an ejection fraction of 20 to 25% along with mild mitral regurgitation. No aortic stenosis. The patient is post lumbar puncture that was performed yesterday. The cell count was 7 with mononuclear predominance. The CSF protein was elevated at 80. HSV by PCR in the CSF still pending for now. The patient was covered with IV acyclovir. He still having episodes of low-grade fever. Current temperature is 99.1. Still covered with broad-spectrum antibiotics and the patient remains on a combination of Rocephin and vancomycin. The procalcitonin level was checked yesterday and the level was low at 0.03. IV fluids to kvo. the patient is currently on no pressors. the sodium is at 140, potassium 3.4, chloride is 112 with a bicarb of 19. bun is 15 with a creatinine of 0.6. the wbc count is at 10.2 with a hemoglobin 12.1 and a platelet count of 186. On 09/07/2023, the patient is extubated. The patient is awake and alert and he is communicating. However there is some baseline confusion as the patient stat es that he is in [place]. He is not clear about his location. He is not also aware of the time of the year. No focal neurological deficits. Afebrile. Antibiotics have been discontinued and the patient is still is on IV acyclovir suspecting HSV encephalitis. PCR from CSF is still pending for now. Hemodynamically stable. The patient is morning denies having any respiratory difficulties and the patient is currently on room air oxygen. The white cell count is at 8 with a hemoglobin 11.3 and a platelet count of 182. Sodium is at 139 with a potassium level of 3.3, BUN is at 10 with a creatinine of 0.6. The patient is on metoprolol 50 mg p.o. twice a day. The patient is also on Cozaar 25 mg p.o. daily. Note that the metoprolol dose has been increased that the patient was having some sinus tachycardia. IV fluids are currently at KVO. Patient is also on aspirin and Farxiga. He was placed on subcu heparin for DVT prophylaxis and IV heparin was discontinued. On today's evaluation of 09/08/2023, the patient is awake and alert. Mental status is improved considerably and the patient is much more appropriate compared to yesterday's evaluation. The patient has no other specific complaints. The CSF cytology is still pending. The C SF viral screen came back negative and the patient was taken off the acyclovir. He is afebrile and hemodynamically stable. The WBC count is 8.2 with a hemoglobin 12.1. BUN is at 15 with a creatinine of 0.6 and a sodium levels at 139. The patient is currently on room air oxygen with a pulse ox of 97%. The patient remains on aspirin. The patient is on metoprolol 75 mg p.o. twice a day, Cozaar 25 mg p.o. daily, Farxiga 10 mg p.o. daily, Lipitor 40 mg p.o. daily. He is also on Aldactone 25 mg p.o. daily. IV fluids are currently at KVO. On today's evaluation 09/09/2023, patient is awake and alert and has no specific complaints. No chest pain. No respiratory difficulties. No altered mentation. No focal neurological deficit. No headaches. He is currently afebrile.Sodium levels at 138, potassium level is at 3.8, BUN is at 20 with a creatinine of 0.6. The patient is currently on room air oxygen. The patient was seen by car toddoganne marie. He was maintained on a combination of aspirin 81 mg p.o. daily. The patient was also given Farxiga 10 mg and Aldactone 25 mg and the metoprolol dose has been maintained that 75 mg twice a day and the patient was also started on Entresto. As mentioned, the patient is uroseptic ejection fraction of 20 to 25%. Cardiac catheterization is being planned for next week once his CHF is better optimized. On today's evaluation of 09/10/2023, the patient is being seen for a follow-up. The patient is doing well. He has no specific complaints the patient is currently on room air oxygen. Mental status is completely back to normal. He has a new onset cardiomyopathy with an ejection fraction of 25%. He also had some abnormal troponin leak at the time of this current admission. The plan is to do a cardiac catheterization next week. Meanwhile, the patient was started on Entresto regarding his CHF and the patient is currently on Entresto 1 tablet a day. The patient is also on metoprolol 100 mg p.o. daily and Aldactone 25 mg p.o. daily patient is also on Farxiga 10 mg p.o. daily. Patient remains on aspirin. No other complaints otherwise for now. No new labs are available f [facility] today. Blood pressure is stable without any significant hypotension. On today's evaluation of 09/11/2023, the patient is doing well. No complaints. Resting comfortably in bed. Patient is going to undergo a cardiac catheterization tomorrow. No chest pain. No signs of any overt heart failure. Electrolytes are all stable with a BUN of 16 and a creatinine of 0.6 and a sodium levels at 138. Medication remain unchanged. Patient was reevaluated today on 09/12/2023, patient is doing great, a symptomatic, on room air, patient does not seem to be in any distress, he is alert and oriented x 3, no gross focal neurologic deficit.Cardiac catheterization showed mild disease involving RCA with a lesion in the range of 30% otherwise normal findings. Objective - Vital Signs Vital signs: Vital Signs Temp 97.5 F L 09/12/23 11:58 Pulse 76 09/12/23 11:58 Resp 16 09/12/23 11:58 BP 136/67 09/12/23 11:58 Pulse Ox 97 09/12/23 11:58 FiO2 40 09/06/23 10:35 Intake & Output 09/11/23 09/12/23 09/12/23 18:59 06:59 18:59 Intake Total 1048 10 Output Total 1000 Balance 1048 -1000 10 Weight 81.2 kg Intake: IV 10 Oral 1048 Output: Urine 1000 Other: Voiding Method Urinal Urinal - Exam GENERAL EXAM: Reveals 62-year-old white male in no distress very pleasant. Family is at bedside. On room air HEAD: Normocephalic and atraumatic EYES: Normal reaction of pupils, equal size. NOSE: Clear with pink turbinates. THROAT: No erythema or exudates. NECK: No masses, no JVD. CHEST: No chest wall deformity. LUNGS: Clear bilaterally no rhonchi no wheezes CVS: S1 and S2 normal with no audible murmur, regular rhythm. No extra heart sounds, he has an S3 gallop. ABDOMEN: No hepatosplenomegaly, active bowel sounds, no guarding or rigidity. SKIN: No rashes CENTRAL NERVOUS SYSTEM: Alert and oriented x 3 no gross focal deficit EXTREMITIES: No clubbing edema or cyanosis, good pulses bilaterally - Labs CBC & Chem 7: 09/12/23 12:55 09/11/23 08:54 Labs: Abnormal Lab Results - Last 24 Hours (Table) 09/11/23 09/11/23 Range/Units 16:28 20:12 POC Glucose (mg/dL) 138 H 141 H (70-110) mg/dL Assessment and Plan Assessment: Impression: Altered mental status, no clear-cut explanation for his altered mental status except for the patient had an acute febrile illness, resolvedAcute febrile illness/sepsis, resolved Acute leukocytosis, improved Hypotension and shock, resolved, could be related to his acute febrile illness and acute LV dysfunction/cardiogenic in nature patient was found to have global LV dysfunction Systolic heart failure with an ejection fraction of 20 to 25% and the patient has global LV dysfunction. Mechanical ventilator management, patient was intubated for airway protection. Patient has been extubated uneventfully and continues to do well postextubation Elevated troponins, rule out non-ST elevation IN, currently off heparin History of right leg gangrene status post right AKA Diabetes mellitus type 2, blood sugars are under adequate control at this point in time. Rest postcardiac catheterization with relatively unremarkable findings Recommendation: Continue present supportive care measures Continue cardiac meds and diuretics Continue fark [employer] Continue Entresto 24/25 mg 1 tablet daily Reviewed the results of his cardiac catheterization Continue DVT prophylaxis Continue aspirin Discharge planning when cleared by other consultants. Will continue to follow in the meantime Time with Patient: Less than 30
[2023-09-12 20:13] LABS: Glucose,Whole Blood 135 mg/dL (70-110)
[2023-09-13 06:09] LABS: Glucose,Whole Blood 113 mg/dL (70-110)
[2023-09-13] MEDS: ATORVASTATIN 40 MG TAB PO SCH (08:26)
[2023-09-13] MEDS: ASPIRIN 81 MG PO SCH (08:26)
[2023-09-13 08:43] VITALS: BP 137/72; PULSE 86; RESP 18; TEMP 98.3
[2023-09-13 10:30] LABS: HCT 42.4 % (39.0-53.0); HGB 14.2 gm/dL (13.0-17.5); MCH 29.4 pg (25.0-35.0); MCHC 33.5 g/dL (31.0-37.0); MCV 87.9 fL (80.0-100.0); Mean Platelet Volume 7.2; Platelet Count 352 k/uL (150-450); RBC 4.83 m/uL (4.30-5.90); RDW 14.8 % (11.5-15.5)
[2023-09-13 10:35] LABS: ALT 20 U/L (4-49); AST 22 U/L (17-59); African American GFR (CKD) >90 (>60 ml/min/1.73 sqM); Albumin 4.1 g/dL (3.5-5.0); Alkaline Phosphatase 65 U/L (38-126); Anion Gap 12 mmol/L; Blood Urea Nitrogen 19 mg/dL (9-20); Calcium 9.3 mg/dL (8.4-10.2); Carbon Dioxide 21 mmol/L (22-30); Chloride 105 mmol/L (98-107); Glucose 155 mg/dL (74-99); Magnesium 1.9 mg/dL (1.6-2.3); Non-African American GFR(CKD) >90 (>60 ml/min/1.73 sqM); Potassium 4.4 mmol/L (3.5-5.1); Sodium 138 mmol/L (137-145); Total Bilirubin 0.8 mg/dL (0.2-1.3); Total Protein 7.1 g/dL (6.3-8.2)
--- NOTE | 2023-09-13 11:22 | P.PN ---
Subjective HISTORY OF PRESENT ILLNESS: The patient is a 62-year-old male with past medical history of diabetes and right [id number] amputation, who was brought to the emergency room for mental status changes. The patient was given multiple doses of Geodon and Ativan via EMS for combativeness and agitation. Cardiology has been consulted for elevated troponins as well as initial EKG showing A-fib with RVR. Echocardiogram has revealed reduced ejection fraction at 20 to 25% with global hypokinesis. Patient was interviewed and examined resting comfortably in bed. He denies any chest pain, difficulty breathing, or dizziness. He states he does have some generalized aches and pains, mostly from sitting in the bed. Blood pressure 146/72, heart rate in the 60s and 70s, pulse ox 99% on room air. No medication adjustments made today. Plan is for cardiac cath tomorrow and will evaluate blood pressure medications following that. Lab work ordered for this morning is not available at the time of this dictation. 09/12/2023 Patient examined this morning at the bedside. Patient currently denies chest pain or pressure. He denies shortness of breath. Vital signs are stable. Blood pressure 126/70. Telemetry reveals sinus mechanism. 09/13/2023 Patient is status post cardiac catheterization revealing mild disease involving the RCA with a lesion appearing to be in the range of 30% and normal left-sided filling pressures. Medical management was recommended. Patient examined this morning at the bedside. Patient denies chest pain or pressure. He denies shortness of breath. Vital signs are stable. PHYSICAL EXAM: VITAL SIGNS: Reviewed. GENERAL: Well-developed in no acute distress. NECK: Supple. No JVD or thyromegaly LUNGS: Respirations even and unlabored. Lungs essentially clear to auscultation bilaterally. HEART: Regular rate and rhythm. S1 and S2 heard. EXTREMITIES: Normal range of motion. No clubbing or cyanosis. Peripheral pulses intact. Right AKA. ASSESSMENT: Altered mental status Elevated troponin, status post cardiac catheterization revealing mild disease involving RCA with 30% lesion Acute encephalopathy New onset cardiomyopathy, EF 25%, nonischemic SIRS History of necrotizing fasciitis, status post right AKA History of diabetes mellitus PLAN: Continue current cardiac medications Patient is stable for discharge home today from a cardiac standpoint Patient is to follow-up postdischarge with Dr. Layton Nurse practitioner note has been reviewed by physician. Signing provider agrees with the documented findings, assessment, and plan of care documented by BABBITT SPINNER as a scribe. Objective - Vital Signs Vital signs: Vital Signs Temp 98.3 F 09/13/23 08:00 Pulse 86 09/13/23 08:00 Resp 18 09/13/23 08:00 BP 137/72 09/13/23 08:00 Pulse Ox 98 09/13/23 08:00 FiO2 40 09/06/23 10:35 Intake & Output 09/12/23 09/13/23 09/13/23 18:59 06:59 18:59 Intake Total 10 360 Output Total 700 Balance 10 -700 360 Intake: IV 10 Oral 360 Output: Urine 700 Other: Voiding Method Urinal Urinal - Labs CBC & Chem 7: 09/13/23 09:59 09/13/23 09:59 Labs: Abnormal Lab Results - Last 24 Hours (Table) 09/12/23 09/12/23 09/13/23 Range/Units 16:34 20:11 06:07 Carbon Dioxide (22-30) mmol/L Glucose (74-99) mg/dL POC Glucose (mg/dL) 156 H 135 H 113 H (70-110) mg/dL 09/13/23 Range/Units 09:59 Carbon Dioxide 21 L (22-30) mmol/L Glucose 155 H (74-99) mg/dL POC Glucose (mg/dL) (70-110) mg/dL
[2023-09-13 11:34] LABS: Glucose,Whole Blood 136 mg/dL (70-110)
--- NOTE | 2023-09-13 12:50 | P.DS ---
Providers Date of admission: 09/05/23 01:21 Expected date of discharge: 09/13/23 Attending physician: Lidia Cartagena MD Consults: 09/05/23 01:06 Consult Physician Urgent Consulting Provider: Sunday Vicente Consult Reason/Comments: cardiology Do you want consulting provider notified?: Yes 09/05/23 01:18 Consult Physician Stat Consulting Provider: Murtaza Scruggs Consult Reason/Comments: Altered mental status, intubated patient, elevated troponin Do you want consulting provider notified?: Already Contacted 09/05/23 07:35 Consult Physician Routine Consulting Provider: Balta Scruggs Consult Reason/Comments: Meningitis Do you want consulting provider notified?: Yes 09/05/23 08:58 Consult Physician Urgent Consulting Provider: Yara Mejia Consult Reason/Comments: lumbar puncture to r/o meningitis Do you want consulting provider notified?: Yes Primary care physician: Physician Nonsta Hospital Course: Discharge Diagnosis: Nonischemic cardiomyopathy, ejection fraction 20 to 25%. Echocardiogram revealing severely reduced EF of 20 to 25% and significant right ventricular enlargement with mild mitral insufficiency Cardiology took pt for cardiac cath 09/12/2023 which revealed mild disease involving the RCA with a lesion of approximately 30% and normal left-sided filling pressures. Patient to continue aspirin 81 mg daily, atorvastatin 40 mg daily, metoprolol 75 mg daily, losartan 25 mg daily, and Aldactone 25 mg daily. NSTEMI. Troponins elevating from 0.028, to 0.159, and 0.621. Cardiac catheterization revealed mild disease involving the right CEA with a lesion of approximately 30% and normal left-sided filling pressures. Patient to continue aspirin 81 mg daily, atorvastatin 40 mg daily, metoprolol 100 mg daily, Entresto 24-26 mg tablets twice daily, Aldactone 25 mg daily, and Brenzavvy 20 mg daily. SIRS upon arrival, resolved, unknown etiology. Patient received course of antibiotics with IV Rocephin, vancomycin and acyclovir. After negative LP and resolution of encephalopathy antibiotics and acyclovir were discontinued. Acute encephalopathy toxic versus metabolic. Resolved Diabetes mellitus type 2 with hyperglycemia with hemoglobin A1c of 6.5%. Patient discharged home on metformin 1000 mg twice daily, Januvia 100 mg daily, and Brenzavvy 20 mg daily. Mild non-anion gap metabolic acidosis. Resolved Chronic Pain. Continue Oxycodone 5 mg every 4 hours as needed for pain, monitor for sedation. Status post right BKA secondary to history of necrotizing fasciitis. Continue fall precautions. Hospital course: Patient is a very pleasant 62-year-old male with a past medical history of diabetes mellitus type 2 status post right BKA secondary to necrotizing fasciitis. He presented to the emergency department on 09/04/2023 with a chief complaint of decreased responsiveness. Upon arrival to the emergency department patient was found to have altered mental status and combative.. He received multiple doses of Geodon and Ativan and continued to remain restless and combative therefore patient was sedated and intubated for airway protection and need for urgent imaging. Laboratory evaluation in the ER was remarkable for white blood cell count 19.5, potassium 3.4, carbon dioxide 19 with anion gap of 18 and blood sugars of 277. Patient was positive for marijuana and methadone. COVID-19/RSV/influenza a and B testing was negative. Chest x-ray showed no acute process. CT head showed no acute intracranial hemorrhage or midline shift CT angio of the head and neck demonstrated no significant stenosis and no occlusion. Patient was subsequently admitted to the ICU. He was started on broad-spectrum antibiotics with Vanco and ceftriaxone. Troponin became positive and he was subsequently started on a heparin infusion. Cardiology and intensive care were consulted. Troponins elevating from 0.028, to 0.159, and 0.621. Echocardiogram revealing severely reduced EF of 20 to 25% and significant right ventricular enlargement with mild mitral insufficiency. Neurology was also consulted. He was additionally started on acyclovir due to concerns for possible meningitis. He underwent LP on 09/05/2023 which ruled out bacterial meningitis. Comprehensive viral panel also negative. Acyclovir and antibiotics discontinued. Mental status now back to normal. MRI brain showed age-related atrophic and chronic small vessel ischemic changes, no acute process. Cardiology took pt for cardiac cath 09/12/2023 which revealed mild disease involving the RCA with a lesion of approximately 30% and normal left-sided filling pressures. Patient has been cleared by pulmonary, infectious disease, and cardiology. He is being discharged home on aspirin 81 mg daily, atorvastatin 40 mg daily, metoprolol 75 mg daily, losartan 25 mg daily, and Aldactone 25 mg daily and Brenzavvy 20 mg daily. Patient provided with new glucometer, testing strips, and lancets and prescriptions being covered by hospitalist funds. Medically, patient is stable for discharge at this time. Morning labs show CBC and CMP to be unremarkable and vital signs are stable with blood pressure 137/72, heart rate 86, respiratory rate 18, temp 98.3 F, and SpO2 of 98% on room air. Patient being discharged and to follow-up outpatient with PCP, cardiology, and neurology.. Physical exam: Vital signs reviewed and stable. General: Nontoxic, no distress and appears stated age. Derm: Skin warm and dry, normal coloration for ethnicity. Head: Atraumatic, normocephalic and symmetric. Eyes: EOMs intact, no lid lag, and anicteric sclera Mouth: no lip lesions, mucus membranes moist Cardiovascular: regular rate and rhythm with normal S1S2, no murmur, and cap refill < 2 seconds. Lungs: Respirations even, regular, and unlabored on room air. Lungs CTA bilaterally, no rhonchi, no rales, no wheezing, and no accessory muscle usage. Abdominal: soft, nontender to palpation, no guarding, no appreciable organomegaly Ext: Right BKA. Movement and sensation of left lower extremity intact. Neuro: Speech clear, face symmetrical and CN II-XII grossly intact with no noted focal neuro deficits Psych: Alert and oriented to person, place, time, and situation. Appropriate and pleasant affect. A total of 39 minutes of time were spent preparing this complex discharge summary. Pt was discharged on 09/13/2023 at 12:38 PM. Patient was seen independently by Nurse Practitioner. This document was prepared using [employer] dictation software. Please allow for errors in candy dipper hand while rare they do occur. Jose R Radford NP rendered care for this patient independently, reviewed the findings and plan as documented in the note above. I did not physically speak with or examine the patient on this date. Patient Condition at Discharge: Stable Plan - Discharge Summary Discharge Rx Participant: No New Discharge Prescriptions: New Spironolactone [Aldactone] 25 mg PO DAILY #60 tab Aspirin 81 mg PO DAILY #60 tab Losartan [Cozaar] 25 mg PO DAILY #60 tab Atorvastatin [Lipitor] 40 mg PO DAILY #60 tab Metoprolol Tartrate [Lopressor] 75 mg PO BID #60 tab Bexagliflozin [Brenzavvy] 20 mg PO DAILY 30 Days #30 tab Continue metFORMIN HCL 1,000 mg PO BID oxyCODONE HCL [oxyCODONE HCL (IR)] 5 mg PO Q4H PRN PRN Reason: Pain sitaGLIPtin [Januvia] 100 mg PO DAILY Discharge Medication List metFORMIN HCL 1,000 mg PO BID 04/15/23 [History] oxyCODONE HCL [oxyCODONE HCL (IR)] 5 mg PO Q4H PRN 09/05/23 [History] sitaGLIPtin [Januvia] 100 mg PO DAILY 09/05/23 [History] Aspirin 81 mg PO DAILY #60 tab 09/09/23 [Rx] Atorvastatin [Lipitor] 40 mg PO DAILY #60 tab 09/09/23 [Rx] Losartan [Cozaar] 25 mg PO DAILY #60 tab 09/09/23 [Rx] Metoprolol Tartrate [Lopressor] 75 mg PO BID #60 tab 09/09/23 [Rx] Spironolactone [Aldactone] 25 mg PO DAILY #60 tab 09/09/23 [Rx] Bexagliflozin [Brenzavvy] 20 mg PO DAILY 30 Days #30 tab 09/13/23 [Rx] Follow up Appointment(s)/Referral(s): Marcus Layton MD [STAFF PHYSICIAN] - 1 Week (office will call with appointment date and time ) Caron Terrell MD [REFERRING] - 1 Week (Office will call you to set up appointment for follow up) Tomas Fernández MD [REFERRING] - 1-2 Days (Call to set up appointment to establish primary care) [facility] [NON-STAFF] - 1 Week Patient Instructions/Handouts: Heart Failure (DC), Heart Healthy Diet (DC), Heart Catheterization (DC), Encephalopathy (DC) Activity/Diet/Wound Care/Special Instructions: Activity: As tolerated. Take breaks as needed. Diet: Heart healthy and carb consistent diet. Avoid salts, or foods with hidden salts such as canned or boxed foods and frozen dinners. Extra salt makes your heart work harder and traps the fluid in your body for longer. Special Instructions: Take all of your medications as directed and remember to keep all of your doctor's appointments and follow-up as needed. It is important to follow-up with your primary care doctor, wastewater superintendent, and neurologist. Thank you for allowing us to participate in your care, it was truly a pleasure having you for our patient!!! . Discharge Disposition: HOME WITH HOME HEALTH SERVICES
[2023-09-13 13:55] VITALS: BMI 25.7
--- NOTE | 2023-09-13 14:15 | P.PN ---
Subjective Progress Note Date: 09/13/23 Principal diagnosis: Altered mental status Patient is a 62-year-old white male with past medical history significant for right lower extremity gangrene status post right AKA, diabetes mellitus, and tobacco dependence. Patient is currently intubated mechanical ventilator unable to provide any information. I did review the patient's medical record. Apparently, the patient was brought in yesterday evening. He was altered, and not acting appropriately. Brain CT negative for any acute intracranial hemorrhage or midline shift. Brain CTA did not show any significant flow-li miting stenosis within the internal carotid arteries. While in the emergency room, he then became combative he was given 2 doses of Geodon, 10 mg and 2 doses of Versed 5 mg and 2 doses of IV Ativan 2 mg. He was then intubated for airway protection by the ER physician. Postintubation chest x-ray showed endotracheal tube approximately 3 cm above the tatiana. Orogastric tube courses below the diaphragm. No acute cardiopulmonary process. Postintubation ABG shows a PaO2 of 51, pCO2 of 43, pH of 7.37. This was done on ventilator settings of assist- control, respiratory rate 20, tidal volume 450, FiO2 of 100, and PEEP of 5. PEEP was increased to 8. Repeat ABG showed a PaO2 greater than 400, pCO2 of 34, and pH of 7.46. He is apparently difficult to sedate postintubation, he is on a combination of propofol at 50 mcg/kg/min and Versed at 5 mg/h. He is currently synchronous on mechanical ventilator. Patient has been febrile with a Tmax of 100 F. Source of the infection is not exactly clear. CBC shows leukocytosis with a WBC count of 19.5, most recent BMP from this morning fairly unremarkable. Patient has been started on broad-spectrum antibiotics in the form of Rocephin and vancomycin. Troponins were elevated and trending up, at 0.028, 0.159, and 0.62 respectively. Patient was started on heparin infusion, cardiology was asked to evaluate this patient. Urinalysis not concerning for UTI. Tox screen positive for oxycodone and marijuana. Serum alcohol level less than 10. Heart rhythm appears sinus tachycardia on bedside monitor. Blood pressure was hypotensive postintubation, he did receive a total of 3 L normal saline bolus. Blood pressure has responded, not requiring any vasopressors at the moment. Urine output is adequate. I have the chest to evaluate this patient in the intensive care unit. The patient was on propofol running at 50 mcg/kg/min and the patient is on Versed at 4 mg an hour. No seizure activity. Normal saline is still running at the rate of 130 cc an hour. The patient currently is still on the mechanical ventilator and FiO2 has been weaned down to 40% with a PEEP of 5. He is still running a lower blood pressure. Tmax was 100. No neck stiffness. No skin rashes. Patient remains on broad-spectrum antibiotics and the patient was given a combination of Rocephin and vancomycin.The patient remains on IV heparin. Troponin peaked at 0.6. Cardiac rhythm is sinus. The chest x-ray from today is showing no acute cardiopulmonary process. No significant signs of bronchospasm or wheezing at this point in time. On today's evaluation of 09/06/2023, the patient is being seen for a follow-up. The patient remains intubated on mechanical ventilator. The patient was taken off sedation this morning and the patient was able to follow simple commands. He was awake and alert and communicating. Note that he is currently on assist-control mode at a rate of 20, tidal volume of 450, FiO2 of 40% with a PEEP of 5. Blood gas showed pH of 7.41 with a pCO2 of 36 and pO2 of 126. Chest x-ray from today shows no acute cardiopulmonary process. Echocardiogram was completed yesterday and the patient was found to have systolic heart failure wi th impaired left ventricular function. The patient had global hypokinesis with an ejection fraction of 20 to 25% along with mild mitral regurgitation. No aortic stenosis. The patient is post lumbar puncture that was performed yesterday. The cell count was 7 with mononuclear predominance. The CSF protein was elevated at 80. HSV by PCR in the CSF still pending for now. The patient was covered with IV acyclovir. He still having episodes of low-grade fever. Current temperature is 99.1. Still covered with broad-spectrum antibiotics and the patient remains on a combination of Rocephin and vancomycin. The procalcitonin level was checked yesterday and the level was low at 0.03. IV fluids to kvo. the patient is currently on no pressors. the sodium is at 140, potassium 3.4, chloride is 112 with a bicarb of 19. bun is 15 with a creatinine of 0.6. the wbc count is at 10.2 with a hemoglobin 12.1 and a platelet count of 186. On 09/07/2023, the patient is extubated. The patient is awake and alert and he is communicating. However there is some baseline confusion as the patient stat es that he is in [place]. He is not clear about his location. He is not also aware of the time of the year. No focal neurological deficits. Afebrile. Antibiotics have been discontinued and the patient is still is on IV acyclovir suspecting HSV encephalitis. PCR from CSF is still pending for now. Hemodynamically stable. The patient is morning denies having any respiratory difficulties and the patient is currently on room air oxygen. The white cell count is at 8 with a hemoglobin 11.3 and a platelet count of 182. Sodium is at 139 with a potassium level of 3.3, BUN is at 10 with a creatinine of 0.6. The patient is on metoprolol 50 mg p.o. twice a day. The patient is also on Cozaar 25 mg p.o. daily. Note that the metoprolol dose has been increased that the patient was having some sinus tachycardia. IV fluids are currently at KVO. Patient is also on aspirin and Farxiga. He was placed on subcu heparin for DVT prophylaxis and IV heparin was discontinued. On today's evaluation of 09/08/2023, the patient is awake and alert. Mental status is improved considerably and the patient is much more appropriate compared to yesterday's evaluation. The patient has no other specific complaints. The CSF cytology is still pending. The C SF viral screen came back negative and the patient was taken off the acyclovir. He is afebrile and hemodynamically stable. The WBC count is 8.2 with a hemoglobin 12.1. BUN is at 15 with a creatinine of 0.6 and a sodium levels at 139. The patient is currently on room air oxygen with a pulse ox of 97%. The patient remains on aspirin. The patient is on metoprolol 75 mg p.o. twice a day, Cozaar 25 mg p.o. daily, Farxiga 10 mg p.o. daily, Lipitor 40 mg p.o. daily. He is also on Aldactone 25 mg p.o. daily. IV fluids are currently at KVO. On today's evaluation 09/09/2023, patient is awake and alert and has no specific complaints. No chest pain. No respiratory difficulties. No altered mentation. No focal neurological deficit. No headaches. He is currently afebrile.Sodium levels at 138, potassium level is at 3.8, BUN is at 20 with a creatinine of 0.6. The patient is currently on room air oxygen. The patient was seen by car toddoganne marie. He was maintained on a combination of aspirin 81 mg p.o. daily. The patient was also given Farxiga 10 mg and Aldactone 25 mg and the metoprolol dose has been maintained that 75 mg twice a day and the patient was also started on Entresto. As mentioned, the patient is uroseptic ejection fraction of 20 to 25%. Cardiac catheterization is being planned for next week once his CHF is better optimized. On today's evaluation of 09/10/2023, the patient is being seen for a follow-up. The patient is doing well. He has no specific complaints the patient is currently on room air oxygen. Mental status is completely back to normal. He has a new onset cardiomyopathy with an ejection fraction of 25%. He also had some abnormal troponin leak at the time of this current admission. The plan is to do a cardiac catheterization next week. Meanwhile, the patient was started on Entresto regarding his CHF and the patient is currently on Entresto 1 tablet a day. The patient is also on metoprolol 100 mg p.o. daily and Aldactone 25 mg p.o. daily patient is also on Farxiga 10 mg p.o. daily. Patient remains on aspirin. No other complaints otherwise for now. No new labs are available f [facility] today. Blood pressure is stable without any significant hypotension. On today's evaluation of 09/11/2023, the patient is doing well. No complaints. Resting comfortably in bed. Patient is going to undergo a cardiac catheterization tomorrow. No chest pain. No signs of any overt heart failure. Electrolytes are all stable with a BUN of 16 and a creatinine of 0.6 and a sodium levels at 138. Medication remain unchanged. Patient was reevaluated today on 09/12/2023, patient is doing great, a symptomatic, on room air, patient does not seem to be in any distress, he is alert and oriented x 3, no gross focal neurologic deficit.Cardiac catheterization showed mild disease involving RCA with a lesion in the range of 30% otherwise normal findings. Reevaluate today on 09/13/2023, patient is doing great, asymptomatic, his mental status is back to normal, he is alert oriented x 3, and does not seem to be in any distress. Discharge planning is in progress, and I believe that would be appropriate. Labs today including CBC and basic metabolic profile are all normal. Objective - Vital Signs Vital signs: Vital Signs Temp 98.3 F 09/13/23 08:00 Pulse 86 09/13/23 08:00 Resp 18 09/13/23 08:00 BP 137/72 09/13/23 08:00 Pulse Ox 98 09/13/23 08:00 FiO2 40 09/06/23 10:35 Intake & Output 09/12/23 09/13/23 09/13/23 18:59 06:59 18:59 Intake Total 10 360 Output Total 700 Balance 10 -700 360 Weight 81.2 kg Intake: IV 10 Oral 360 Output: Urine 700 Other: Voiding Method Urinal Urinal - Exam GENERAL EXAM: Reveals 62-year-old white male in no distress, asymptomatic HEAD: Normocephalic and atraumatic EYES: Normal reaction of pupils, equal size. NOSE: Clear with pink turbinates. THROAT: No erythema or exudates. NECK: No masses, no JVD. CHEST: No chest wall deformity. LUNGS: Clear bilaterally no rhonchi no wheezes CVS: S1 and S2 normal with no audible murmur, regular rhythm. No extra heart sounds, he has an S3 gallop. ABDOMEN: No hepatosplenomegaly, active bowel sounds, no guarding or rigidity. SKIN: No rashes CENTRAL NERVOUS SYSTEM: Alert and oriented x 3 no gross focal deficit EXTREMITIES: No clubbing edema or cyanosis, good pulses bilaterally - Labs CBC & Chem 7: 09/13/23 09:59 09/13/23 09:59 Labs: Abnormal Lab Results - Last 24 Hours (Table) 09/12/23 09/12/23 09/13/23 Range/Units 16:34 20:11 06:07 Carbon Dioxide (22-30) mmol/L Glucose (74-99) mg/dL POC Glucose (mg/dL) 156 H 135 H 113 H (70-110) mg/dL 09/13/23 09/13/23 Range/Units 09:59 11:33 Carbon Dioxide 21 L (22-30) mmol/L Glucose 155 H (74-99) mg/dL POC Glucose (mg/dL) 136 H (70-110) mg/dL Assessment and Plan Assessment: Impression: Altered mental status, no clear-cut explanation for his altered mental status except for the patient had an acute febrile illness, resolvedAcute febrile illness/sepsis, resolved Acute leukocytosis, improved Hypotension and shock, resolved, could be related to his acute febrile illness and acute LV dysfunction/cardiogenic in nature patient was found to have global LV dysfunction Systolic heart failure with an ejection fraction of 20 to 25% and the patient has global LV dysfunction. Mechanical ventilator management, patient was intubated for airway protection. Patient has been extubated uneventfully and continues to do well postextubation Elevated troponins, rule out non-ST elevation [place], currently off heparin History of right leg gangrene status post right AKA Diabetes mellitus type 2, blood sugars are under adequate control at this point in time. Rest postcardiac catheterization with relatively unremarkable findings Recommendation: Agree with discharge planning if cleared by other consultants Will continue to follow as needed Time with Patient: Less than 30
== END 2023-09-13 17:11 | disposition home health service (06) | DRG 91 ==
LOC: EC 18:10 → 2SICU 09-05 01:21 → 3SCARD 09-08 18:11 → UNDODISIN 09-13 12:39
PROVIDERS: ADMIT Internal Medicine; ATTEND Internal Medicine
PROC: 5A1945Z Respiratory Ventilation, 24-96 Consecutive Hours (ICD-10-PCS; principal; 2023-09-04)
PROC: 0BH17EZ Insertion of Endotracheal Airway into Trachea, Via Natural or Artificial Opening (ICD-10-PCS; principal; 2023-09-04)
PROC: 009U3ZX Drainage of Spinal Canal, Percutaneous Approach, Diagnostic (ICD-10-PCS; 2023-09-05)
PROC: 4A023N7 Measurement of Cardiac Sampling and Pressure, Left Heart, Percutaneous Approach (ICD-10-PCS; 2023-09-12)
PROC: B2111ZZ Fluoroscopy of Multiple Coronary Arteries using Low Osmolar Contrast (ICD-10-PCS; 2023-09-12)
DX: G92.8 Other toxic encephalopathy (principal); G93.41 Metabolic encephalopathy; I21.4 Non-ST elevation (NSTEMI) myocardial infarction; R57.8 Other shock; I50.20 Unspecified systolic (congestive) heart failure; I42.8 Other cardiomyopathies; E87.20 Acidosis, unspecified; R45.1 Restlessness and agitation; F12.10 Cannabis abuse, uncomplicated; I48.91 Unspecified atrial fibrillation; I25.10 Atherosclerotic heart disease of native coronary artery without angina pectoris; E11.65 Type 2 diabetes mellitus with hyperglycemia; G89.29 Other chronic pain; I11.0 Hypertensive heart disease with heart failure; F17.200 Nicotine dependence, unspecified, uncomplicated; Z28.310 Unvaccinated for COVID-19; Z89.611 Acquired absence of right leg above knee; Z79.899 Other long term (current) drug therapy; Z79.84 Long term (current) use of oral hypoglycemic drugs; Z79.82 Long term (current) use of aspirin
CPT/HCPCS: 31500; 36415; 36600; 51702; 70030; 70450; 70496; 70498; 70553; 71045; 76937; 80048; 80053; 80061; 80143; 80179; 80306; 80320; 81003; 82140; 82550; 82805; 82945; 83036; 83605; 83735; 83930; 84145; 84157; 84484; 85025; 85027; 85610; 85730; 87040; 87070; 87077; 87186; 87205; 87496; 87498; 87529; 87636; 87798; 88108; 89050; 93005; 93306; 93458; 94002; 94003; 95816; 96361; 96365; 96367; 96368; 96372; 96375; 96376; 99291